=== PATIENT | female | born 1985 | race Caucasian/White ===

== ENCOUNTER → 2016-05-06 | Outpatient (CLI) | payer OTHER ==
[~2016-05-06] MED LIST: AMT50 PO; ASPI81TA28 PO; B-COTAB18 PO; CALC600T9 PO; DEPO PROVERA INJ; ESCI10TA17 PO; IBUP-1050 PO; IBUP-1427 PO; INSDGI INJ; INSU1INJ2 INJ; LEVO137T3 PO; LEVO175T3 PO; MULTTAB58 PO; ONDA4TAB9 PO; ONDA8TAB6 PO; OXYC-57 PO; SALI1SPR15 NAE; VITA1TAB4 PO
== END | disposition home or self-care (01) ==
LOC: C.LAB1850 12:42
PROVIDERS: ATTEND Registered Nurse
DX: A04.7 Enterocolitis due to Clostridium difficile (principal)

== ENCOUNTER → 2016-05-22 | Day surgery (SDC) | payer OTHER ==
[2016-05-13 09:22] VITALS: BMI 41.0
--- NOTE | 2016-05-13 09:52 | PAT Medication Instructions ---
Service Date May 13, 2016. Current Home Medication List Amitriptyline Hcl (Elavil), 25 MG PO HS Aspirin (Aspirin Ec), 81 MG PO QAM B-Complex Vitamins (Vitamin B Complex), 1 TAB PO QAM Calcium Carbonate-Vitamin D (Calcium + D), 1 TAB PO QAM Escitalopram (Lexapro), 10 MG PO QAM Ibuprofen (Advil), 400 MG PO PRN Insulin Aspart (Novolog Penfill), INJ SLIDING SCALE Insulin Glargine (Lantus), 42 UNITS INJ HS Levothyroxine Sodium (Levothyroxine Sodium), 1 TAB PO QAM Multiple Vitamin (Multivitamin), 1 TAB PO QAM Ondansetron (Ondansetron HCl), 4 MG PO Q8H PRN for RN Saline (Saline Nasal [place] Infant), 1 SPRY [place] PRN Vitamin E (Vitamin E), 400 MG PO QAM [Depo Provera], 1 DOSE INJ [id number] Medication Instructions For Your Scheduled Surgery - Check with surgeon/PCP for instructions: Aspirin (Aspirin Ec), 81 MG PO QAM Ibuprofen (Advil), 400 MG PO PRN - Continue as usual: [Depo Provera], 1 DOSE INJ [id number] - Hold the following medications starting 05/14/16: Vitamin E (Vitamin E), 400 MG PO QAM - Hold the following medications the morning of surgery: Multiple Vitamin (Multivitamin), 1 TAB PO QAM Insulin Aspart (Novolog Penfill), INJ SLIDING SCALE B-Complex Vitamins (Vitamin B Complex), 1 TAB PO QAM Calcium Carbonate-Vitamin D (Calcium + D), 1 TAB PO QAM - Take the following medications the morning of surgery with a sip of water: Saline (Saline Nasal [place] ), 1 SPRY [place] PRN Ondansetron (Ondansetron HCl), 4 MG PO Q8H PRN for RN Levothyroxine Sodium (Levothyroxine Sodium), 1 TAB PO QAM Escitalopram (Lexapro), 10 MG PO QAM - Take the following medications as scheduled the night before surgery: Saline (Saline Nasal [place] Infant), 1 SPRY [place] PRN Ondansetron (Ondansetron HCl), 4 MG PO Q8H PRN for RN Insulin Glargine (Lantus), 42 UNITS INJ HS Amitriptyline Hcl (Elavil), 25 MG PO HS If you have any questions please call us at [phone] (Kusum Soto PA-C) or [phone] or [phone]
[2016-05-13 10:43] LABS: BASO % 0.4 %; BASO ABS # 0.02 K/uL (0-0.2); COMPLETE YES; EOS % 2.8 %; HEMATOCRIT 39.1 % (37-47); IG% 0.2 %; LYMPH % 30.4 %; LYMPH ABS # 1.65 K/uL (1.2-3.4); MEAN CELL VOLUME 84.4 fL (80-100); MEAN CORPUSCULAR HEMOGLOBIN 29.2 pg (25-34); MEAN CORPUSCULAR HGB CONC 34.5 g/dl (32-36); MEAN PLATELET VOLUME 9.3 fL (7.4-10.4); MONO % 6.1 %; NEUT % 60.1 %; PLATELET COUNT 189 K/uL (130-400); RED BLOOD COUNT 4.63 M/uL (4.2-5.4); WHITE BLOOD COUNT 5.42 K/uL (4.8-10.8)
[~2016-05-22] VITALS: Ht 152.4 cm; Wt 96.8 kg
[~2016-05-22] MED LIST changes: +ALBUTEROL HFA INHALER 8.5 GM INH ONE; +ATROPINE SULFATE 0.1 MG/ML 5ML SYR IV PRN; +CONRAY 60% 50 ML VIAL INSTIL ONE; +DEXAMETHASONE SOD INJ 4 MG/ML VIAL ONE; +ESMOLOL HCL 10 MG/ML 10 ML VIAL ONE; +EpHEDrine SULFATE INJ 50 MG/ML AMP IV PRN; +FENTANYL CITRATE INJ 50 MCG/1 ML 2 ML VIAL IV PRN; +FENTANYL CITRATE INJ 50 MCG/1 ML 2 ML VIAL ONE; +FLUMAZENIL 0.1 MG/1 ML 10 ML VIAL IV PRN; +GLYCOPYRROLATE INJ 0.2 MG/ML VIAL ONE; +HYDROmorphone INJ 2 MG/ML SYR/VIAL IV PRN; -IBUP-1427 PO; +LABETALOL HCL IV 5 MG/ML 20ML IV PRN; +LACTATED RINGER'S 1000ML 1,000 ML IV SCH; -LEVO137T3 PO; +LIDOCAINE HCL 2% 2 ML VIAL (20MG/ML) ONE; +LIDOCAINE/EPINEPHRINE 1% 20 ML VIAL INJ ONE; +MEPERIDINE HCL 25 MG/ML CARP IV PRN; +METOPROLOL TARTRATE 1 MG/ML VIAL ONE; +MIDAZOLAM HCL 1 MG/ML 2ML VIAL ONE; +MoRPHine SULFATE 4 MG/ML 1 ML CARP\\VIAL IV PRN; +NALOXONE HCL 0.4 MG/1 ML VIAL/CARP IV PRN; +NEOSTIGMINE METHYLSULFATE 5 MG/5 ML SYR ONE; +NURSING VERBAL MED ORDER ONE; -ONDA8TAB6 PO; +ONDANSETRON INJ 2 MG/ML 2 ML VIAL IV PRN; +ONDANSETRON INJ 2 MG/ML 2 ML VIAL ONE; +OXYCODONE/ACETAMINOPHEN 5-325 TAB PO PRN; +PHENYLEPHRINE 100MCG/ML 5ML SYR IV PRN; +PROPOFOL IV EMULSION 10 MG/ML 20 ML VIAL IV ONE; +ROCURONIUM BROMIDE 10 MG/ML 5 ML VIAL ONE; +SODIUM CHLORIDE 0.9% INJ 10 ML VIAL ONE
[2016-05-22 09:28] VITALS: BP 116/62; PULSE 77; TEMP 36.7; O2SAT 96; Ht 152.4 cm; Wt 96.8 kg
--- NOTE | 2016-05-22 11:41 | History & Physical Bridge Note ---
H&P Re-Evaluation Bridge Note: I have examined the patient, reviewed the History & Physical and in the interval since the performance of the History & Physical I have noted the following changes of clinical significance: No changes noted so at bedside
--- NOTE | 2016-05-22 11:48 | Discharge Instructions ---
Discharge Instructions Visit Reason for Visit: Chronic Cholecystitis, Diabetes Discharge Discharge Diagnosis / Problem: laparoscopic cholecystectomy Discharge Goals Goal(s): Decrease discomfort Activity Recommendations Activity Limitations: per Instructions/Follow-up section Lifting Limitations: no more than 10 pounds Shower/Bathe: tomorrow Driving or Machine Use: resume 3 days after discharge Anesthesia . Post Anesthesia Instructions: If you have had General Anesthesia or IV Sedation: * Do not drive today. * Resume driving when surgeon permits. * Do not make important decisions or sign legal documents today. * Call surgeon for: 1. Temperature elevations greater than 101 degrees F. 2. Uncontrollable pain. 3. Excessive bleeding. 4. Persistent nausea and vomiting. 5. Medication intolerance (nausea, vomiting or rash). * For nausea and vomiting use only clear liquids such as: tea, soda, bouillon until nausea subsides, then gradually increase diet as tolerated. * If you have any concerns or questions, call your surgeon's office. If physician is unavailable and it is an emergency, call 911 or go to the nearest emergency room. . Instructions / Follow-Up Instructions / Follow-Up Dr. Arango in 1 week, call [phone] if you do not already have an appt Diet Recommendations Recommended Home Diet: no limitations Pending Studies Studies pending at discharge: no Medical Emergencies . Who to Call and When: Medical Emergencies: If at any time you feel your situation is an emergency, please call 911 immediately. . Non-Emergent Contact Non-Emergency issues call your: Surgeon Call Non-Emergent contact if: you have a fever, temperature is above 101.5, your pain is worsening, wound has increased redness, wound has increased pain . . "Provider Documentation" section prepared by Andrés Williamson.
--- NOTE | 2016-05-22 13:16 | DIAGNOSTIC IMAGING REPORT ---
INTRAOPERATIVE RADIOGRAPHS CLINICAL HISTORY: Intraoperative cholangiogram. Fluoroscopy time: 5 seconds. FINDINGS: 2 spot fluoroscopic images of the right upper quadrant from an intraoperative cholangiogram are correlated with abdominal CT dated 01/18/2016. There is smooth contrast opacification of the common bile duct which is normal in caliber. There is no intrahepatic biliary ductal dilatation. No filling defects identified to suggest choledocholithiasis. There is free passage of contrast into the duodenum. IMPRESSION: There is no evidence of choledocholithiasis on the provided images. See operative report for detailed findings. Electronically signed by: Bairon Hagen M.D. 05/22/2016 1:14 PM Dictated Date/Time: 05/22/2016 1:12 PM
--- NOTE | 2016-05-22 13:19 | [facility] Post Operative Brief Note ---
Immediate Operative Summary Operative Date May 22, 2016. Pre-Operative Diagnosis Chronic Cholecystitis Post-Operative Diagnosis Chronic Cholecystitis Procedure(s) Performed Laparoscopic Cholecystectomy with Cholangiogram Surgeon Dr. Shadi Arango Saw Boss Surgeon(s) Andrés Williamson PA-C Estimated Blood Loss 5 ml Findings cc omental adhesions to gallbladder Specimens A. Gallbladder
--- NOTE | 2016-05-22 13:52 | OPERATIVE REPORT ---
DATE OF OPERATION: 05/22/2016 PREOPERATIVE DIAGNOSIS: Chronic cholecystitis, cholelithiasis. POSTOPERATIVE DIAGNOSIS: Same. PROCEDURE: Laparoscopic cholecystectomy, intraoperative cholangiogram. SURGEON: Dr. Arango. OBSTETRICIAN AND GYNAECOLOGIST: Richie Williamson PA-C. OPERATION AND FINDINGS: SUMMARY: The patient was brought into the operating room theater. The abdomen was prepped with Betadine solution and properly draped. Time-out was had. A small incision was made supraumbilically, Veress needle introduced, CO2 followed by 5 mm trocar. Point of entry inspected and no injury identified. Under direct visualization, we placed a 5 mm epigastric with two 5 mm subcostal ports with preemptive local analgesia 1% Xylocaine. The gallbladder was identified. We could see the fundus, elevated it up, strictly omental adhesions in the area were quite significant. We took this down mostly with blunt dissection, a few where sharp dissection until we got down towards the neck of the gallbladder where we could see fine bands of the duodenum going up to the area. We freed these up easily without injuring any duodenum. At this point, we tried to get into the triangle of Calot, identified a very small cystic duct. Therefore, we choked up on it proximally onto the gallbladder to the area to an area that was able to place a 5 mm clip and just at the takeoff of the cystic duct, the caliber seemed to be larger . I was able to place a #4 ureteral catheter transversed the abdominal wall and a 14 Angiocath. Serial x-rays were taken, showed free flow into the duodenum. No obstruction. At this point the cholangiocatheter was removed. The cystic duct was doubly clipped securely. Gallbladder was removed in the antegrade fashion, first identified the artery which was doubly clipped and divided as it went into the gallbladder. A few smaller branches in the liver fossa were also cauterized and one was clipped. Gallbladder was removed in total, placed in an Endopouch and taken out intact through the epigastric port. The subhepatic and suprahepatic area checked for hemostasis and appeared satisfactory. A few small oozers in the gallbladder fossa was cauterized. At this point, I placed a camera in the subcostal port to visualize the umbilical area. There were no adhesions identified. Pt did have some adhesions down towards the lower Pfannenstiel type of incision. We did not touch this. The patient also had a known Meckel's or suspected Meckel's. I did not go looking for it. The subhepatic suprahepatic area was suctioned out copiously again with individual trocars removed, last umbilical trocar. Wounds were closed with subcutaneous tissue 4-0 Monocryl. Steri-Strips applied. The procedure was tolerated well by the patient and was taken to recovery room in good condition. I attest to the content of the Intraoperative Record and any orders documented therein. Any exceptions are noted below. CASSIDYD
--- NOTE | 2016-05-22 14:18 | Anesthesiology Progress Note ---
Anesthesia Post Op Note Date & Time May 22, 2016 at 14:18 Vital Signs Pain Intensity: 0 Vital Signs Past 12 Hours Date Time Temp Pulse Resp B/P Pulse Ox O2 Delivery O2 Flow Rate FiO2 05/22/16 14:05 105 123/84 05/22/16 13:50 105 20 140/83 99 Nasal Cannula 2 05/22/16 13:40 113 19 141/82 97 Mask 10 05/22/16 13:40 113 141/82 05/22/16 13:30 111 22 139/74 99 Mask 10 05/22/16 13:23 36.8 98 18 136/79 100 Mask 10 05/22/16 09:28 36.7 77 18 116/62 96 Room Air Notes Mental Status: alert / awake / arousable, participated in evaluation Pt Amnestic to Procedure: Yes Nausea / Vomiting: adequately controlled Pain: adequately controlled Airway Patency, RR, SpO2: stable & adequate BP & HR: stable & adequate Hydration State: stable & adequate Anesthetic Complications: no major complications apparent
[2016-05-22 14:28] VITALS: BP 115/69; PULSE 101; TEMP 37.1; O2SAT 93
[2016-05-22 15:00] VITALS: BP 117/70; PULSE 96; O2SAT 93
[2016-05-22 15:30] VITALS: BP 95/76; PULSE 103; TEMP 37; O2SAT 93
[2016-05-22 15:55] VITALS: BP 149/76; PULSE 96; O2SAT 96
== END | disposition home or self-care (01) ==
LOC: C.ACU 08:59
PROVIDERS: ATTEND Surgery
DX: K82.4 Cholesterolosis of gallbladder (principal); E78.5 Hyperlipidemia, unspecified; N91.2 Amenorrhea, unspecified; E03.9 Hypothyroidism, unspecified; F43.22 Adjustment disorder with anxiety; E66.9 Obesity, unspecified; G47.30 Sleep apnea, unspecified

== ENCOUNTER → 2016-07-04 | Outpatient (CLI) | payer OTHER ==
[~2016-07-04] MED LIST changes: -ALBUTEROL HFA INHALER 8.5 GM INH ONE; -ATROPINE SULFATE 0.1 MG/ML 5ML SYR IV PRN; -CONRAY 60% 50 ML VIAL INSTIL ONE; -DEXAMETHASONE SOD INJ 4 MG/ML VIAL ONE; -ESMOLOL HCL 10 MG/ML 10 ML VIAL ONE; -EpHEDrine SULFATE INJ 50 MG/ML AMP IV PRN; -FENTANYL CITRATE INJ 50 MCG/1 ML 2 ML VIAL IV PRN; -FENTANYL CITRATE INJ 50 MCG/1 ML 2 ML VIAL ONE; -FLUMAZENIL 0.1 MG/1 ML 10 ML VIAL IV PRN; -GLYCOPYRROLATE INJ 0.2 MG/ML VIAL ONE; -HYDROmorphone INJ 2 MG/ML SYR/VIAL IV PRN; -LABETALOL HCL IV 5 MG/ML 20ML IV PRN; -LACTATED RINGER'S 1000ML 1,000 ML IV SCH; -LIDOCAINE HCL 2% 2 ML VIAL (20MG/ML) ONE; -LIDOCAINE/EPINEPHRINE 1% 20 ML VIAL INJ ONE; -MEPERIDINE HCL 25 MG/ML CARP IV PRN; -METOPROLOL TARTRATE 1 MG/ML VIAL ONE; -MIDAZOLAM HCL 1 MG/ML 2ML VIAL ONE; -MoRPHine SULFATE 4 MG/ML 1 ML CARP\\VIAL IV PRN; -NALOXONE HCL 0.4 MG/1 ML VIAL/CARP IV PRN; -NEOSTIGMINE METHYLSULFATE 5 MG/5 ML SYR ONE; -NURSING VERBAL MED ORDER ONE; -ONDANSETRON INJ 2 MG/ML 2 ML VIAL IV PRN; -ONDANSETRON INJ 2 MG/ML 2 ML VIAL ONE; -OXYCODONE/ACETAMINOPHEN 5-325 TAB PO PRN; -PHENYLEPHRINE 100MCG/ML 5ML SYR IV PRN; -PROPOFOL IV EMULSION 10 MG/ML 20 ML VIAL IV ONE; -ROCURONIUM BROMIDE 10 MG/ML 5 ML VIAL ONE; -SODIUM CHLORIDE 0.9% INJ 10 ML VIAL ONE
[2016-07-04 09:45] LABS: BASO % 0.2 %; BASO ABS # 0.01 K/uL (0-0.2); COMPLETE YES; EOS % 1.5 %; HEMATOCRIT 38.3 % (37-47); IG% 0.4 %; LYMPH % 30.7 %; LYMPH ABS # 1.66 K/uL (1.2-3.4); MEAN CELL VOLUME 85.3 fL (80-100); MEAN CORPUSCULAR HEMOGLOBIN 29.8 pg (25-34); MEAN PLATELET VOLUME 9.6 fL (7.4-10.4); NEUT % 60.2 %; PLATELET COUNT 171 K/uL (130-400); RED BLOOD COUNT 4.49 M/uL (4.2-5.4)
[2016-07-04 10:11] LABS: THYROID STIMULATING HORMONE 0.296 uIu/ml (0.300-4.500)
[2016-07-04 10:15] LABS: ESTIMATED AVERAGE GLUCOSE 128 mg/dl; HA1C FLAG Normal (Normal)
== END | disposition home or self-care (01) ==
LOC: C.LAB1850 08:06
PROVIDERS: ATTEND Internal Medicine Endocrinology, Diabetes & Metabolism
DX: Z01.812 Encounter for preprocedural laboratory examination (principal); E11.9 Type 2 diabetes mellitus without complications; K81.1 Chronic cholecystitis; E03.9 Hypothyroidism, unspecified

== ENCOUNTER → 2016-09-01 | Outpatient (CLI) | payer OTHER ==
--- NOTE | 2016-09-01 15:57 | MAMMOGRAPHY REPORT ---
ULTRASOUND OF BOTH BREASTS: 09/01/2016 CLINICAL HISTORY: 30-year-old woman presents with bilateral breast pain that has been fluctuating ov er the past 2 years. Pain is in the periareolar left breast and throughout the entire right breast. Patient also reports occasional clear nipple discharge. Family history of breast cancer = several aunts. COMPARISON: No prior exams were available for comparison. FINDINGS: Real-time high-resolution ultrasound was performed in the periareolar/subareolar left melissa ast, and entire right breast evaluate the areas of pain pointed out by the patient. Normal fibrogla ndular tissue is seen without a suspicious solid or cystic mass. Incidental note is made of minimal benign duct ectasia in the subareolar left breast. IMPRESSION: ACR BI-RADS CATEGORY 2: BENIGN There is no sonographic evidence of malignancy, or other suspicious abnormality to explain the bilat eral nonfocal mastalgia. Clinical follow-up is recommended. Conservative treatments such as minera l supplements, evening primrose oil and NSAIDs were discussed with the patient, as well as surgical consultation if the mastalgia increases. These results and recommendations were discussed with the patient at the time of the exam. Marielos Yoon M.D. ay/:09/01/2016 15:21:17 Nursing Resident: Donya GRIFFITHS)([place]), [facility] letter sent: Normal 1/2 BI-RADS Code: ACR BI-RADS Category 2: Benign
== END | disposition home or self-care (01) ==
LOC: C.MAMM 11:01
PROVIDERS: ATTEND Physician Assistant
DX: N64.4 Mastodynia (principal)

== ENCOUNTER → 2016-10-30 | Outpatient (CLI) | payer OTHER ==
[2016-10-30 10:42] LABS: THYROID STIMULATING HORMONE 3.38 uIu/ml (0.300-4.500)
== END | disposition home or self-care (01) ==
LOC: C.LAB1850 09:22
PROVIDERS: ATTEND Internal Medicine
DX: E03.9 Hypothyroidism, unspecified (principal); R20.2 Paresthesia of skin

== ENCOUNTER → 2016-11-13 | Outpatient (CLI) | payer OTHER ==
[2016-11-17 16:38] LABS: IGA SERUM 115 mg/dL (81-463); TIS TRANS IGA 1 U/mL (<4)
== END | disposition home or self-care (01) ==
LOC: C.LAB1850 11:55
PROVIDERS: ATTEND Physician Assistant
DX: E11.9 Type 2 diabetes mellitus without complications (principal)

== ENCOUNTER → 2017-01-08 | Outpatient (CLI) | payer OTHER ==
[~2017-01-08] MED LIST changes: -OXYC-57 PO
[2017-01-08 10:15] LABS: ESTIMATED AVERAGE GLUCOSE 103 mg/dl; HA1C FLAG Normal (Normal)
[2017-01-08 10:41] LABS: THYROID STIMULATING HORMONE 1.68 uIu/ml (0.300-4.500)
== END | disposition home or self-care (01) ==
LOC: C.LAB1850 08:53
PROVIDERS: ATTEND Internal Medicine Endocrinology, Diabetes & Metabolism
DX: E03.9 Hypothyroidism, unspecified (principal); E88.81 Metabolic syndrome and other insulin resistance

== ENCOUNTER 2020-04-10 21:28 | Inpatient (IN) ==
--- NOTE | 2020-04-10 21:49 | Emergency Department Note ---
Impression & Plan Suicidal ideation, Mood disorder, Elevated blood sugar ED Provider Note NAME: JEFFERY EMANUEL AGE: 34 SEX: F : 1985 ARRIVES VIA: Walk-In INFORMANT: Patient ED PROVIDER(S): Aaron Gaona DO CHIEF COMPLAINT: SI w/ plan HPI: Patient is a 34-year-old female with a past medical history of depression, Dm who presents to the ER for suicidal ideations with a plan to cut her wrist to kill her self. She was evaluated in the field by can help and they referred her in for further evaluation. She has no other complaints at this time with the exception of mild headache. She denies any chest pain, shortness of breath, nausea, vomiting or diarrhea. No dysuria, urgency or frequency. CYS was called on her in February. Previous admission last in 2006. Starting cutting three weeks ago. ROS: See above HPI for pertinent positives & negatives. A total of 10 systems reviewed and were otherwise negative. PAST MEDICAL HISTORY:See Below PAST SURGICAL HISTORY:See Below FAMILY HISTORY:See Below SOCIAL HISTORY:See Below HOME MEDICATIONS:See Below ALLERGIES:See Below VITALS:See Below PHYSICAL EXAMINATION: GENERAL: Sitting up in bed, alert, tearful and crying EYE EXAM: Conjunctive injected OROPHARYNX: Mask in place LUNGS: Clear to auscultation. Normal chest wall mechanics HEART: no murmurs, S1 normal and S2 normal ABDOMEN: abdomen soft, non-tender, normo-active bowel sounds, no masses, no rebound or guarding. UPPER EXTREMITIES: upper extremities are grossly normal. LOWER EXTREMITIES: No pitting edema. NEURO EXAM: Normal sensorium, cranial nerves II-XII grossly intact, normal speech, no gross weakness of arms, no gross weakness of legs. PSYCH: Admits to suicidal ideations with a plan to kill her self by cutting her wrist MEDICAL DECISION MAKING: Patient is a 34-year-old female who presents the ER for suicidal ideations with a plan to cut her wrist to kill her self. She has become more depressed and CYS was called on her back in February. This been gradually getting worse. She has no other complaints at this time with the exception of a mild headache. Labs were obtained and showed no significant leukocytosis or anemia. BMP with mild hyponatremia. LFTs were slightly elevated at 122 consistent with previous. Glucose slightly elevated to 80. Patient was given her Humalog. UA was clearly contaminated with these. She has no urinary symptoms. Tox was unremarkable. Covid was negative. Patient was instructed to [facility] 221. Observation Status: Indication: Medical stability Patient with a family history of heart disease, was seen first at 2140 hrs and was necessary in order to determine medical stability and avoid unnecessary admission. Upon reevaluation, 4.5 hours of observation revealed that the patient should be placed in a psychiatric facility. Patient was accepted to 3 [facility] 0 200 on 04/11/2020 Triage Nursing notes reviewed. Prior medical records reviewed Vital Signs: reviewed and remarkable for no significant abnormalities Differential diagnosis: Mood disorder, infection, hypoglycemia, electrolyte abnormalities, cardiac sources, intracerebral event, toxicologic, trauma, neurologic, as well as other pathologies. ER treatment provided: See below Diagnostics interpreted by me: ECG: none Laboratory studies: As stated above and show below. Imaging studies: none Consultation(s): none ED COURSE: Procedures: none Critical Care: None Past Med/Surg History Medical History (Updated 04/11/20 @ 00:33 by Aaron Gaona DO) Abdominal pain Adjustment disorder with anxiety DM type 2 (diabetes mellitus, type 2) IDDM Dysmetabolic syndrome X History of anesthesia reaction with 1st "anesthesia began wearing off and could feel the surgery" Hypertriglyceridemia Hypothyroidism 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 Lung nodule seen on imaging study per pt on CT scan--just monitoring Meckel diverticulum Migraine Mixed conductive and sensorineural hearing loss of both ears JACKSON (nonalcoholic steatohepatitis) Obesity Seizure grand mal--last was at 7yrs old--was on phenobarbital, no meds now--no neurologist Sleep apnea cpap Suspected 2018 novel coronavirus infection Tachycardia Surgical History History of section x3 History of colonoscopy Previous section S/P cholecystectomy Family History Unknown FHx: kidney cancer Hyperlipidemia Lung cancer Hypertension Brother Marfan syndrome Congenital heart disease Father Stroke Family history of diabetes mellitus Myocardial infarction Mother Cancer Uterine cancer Stroke TIA (transient ischemic attack) Grandfather (Paternal) Family history of diabetes mellitus Uncle Family hx of colon cancer Colon cancer Colorectal cancer Aunt Breast cancer Son Crohn's disease, Onset Age: 2 Other No family history of adverse response to anesthesia Denies family history of Rheumatoid arthritis Pulmonary embolism Ulcerative colitis Social History Smoking Status: Current every day smoker Tobacco Type: Cigarettes Second Hand Exposure: Yes (family smokes); Hx Alcohol Use: Yes Alcohol type: hard liquor Hx Substance Use: No Preferred Language: Chinese Communication Ability: Effective Bung Driver Required: No Beliefs That Will Affect Care: None marital status: Current Living Situation: Spouse and Family Current Living Situation Comment: lives with and kids current occupational status: employed Feels Safe at Home: Yes Childhood Exposure to Second-Hand Smoke: Yes Dental Care, Regularly: No Physical Activity Frequency: Daily Seatbelt Use: always Sunscreen Use: Yes Assistive Devices: CPAP and Glasses Allergies Allergies Allergy/AdvReac Type Severity Reaction Status Date / Time pseudoephedrine Allergy Mild nausea and Verified 04/10/20 22:42 vomiting Home Meds Home Medications Medication Instructions Recorded Confirmed calcium carbonate [Calcium 600] 600 mg PO QAM 10/26/18 04/10/20 cholecalciferol (vitamin D3) 5,000 unit PO QAM 10/26/18 04/10/20 [Vitamin D3] multivitamin 1 tab PO QAM 10/26/18 04/10/20 vitamin E 400 unit PO QAM 10/26/18 04/10/20 cyanocobalamin (vitamin B-12) 500 mcg PO QAM 11/18/18 04/10/20 wheat dextrin 3 gram/3.8 gram oral 1.5 gm PO BID 10/04/19 04/10/20 powder aspirin 81 mg PO DAILY 04/10/20 04/10/20 Previous Rx's Medication Instructions Recorded potassium chloride 20 mEq 20 meq PO DAILY #7 tab 03/27/19 tablet,extended release(part/cryst) blood-glucose meter,continuous #1 ea 05/16/19 blood-glucose sensor #3 ea 05/16/19 blood-glucose transmitter #1 ea 05/16/19 cyanocobalamin (vitamin B-12) 1,000 mcg IM MONTHLY 180 Days #6 ml 06/07/19 1,000 mcg/mL injection solution ondansetron 4 mg disintegrating 4 mg PO Q8H PRN #30 tab 06/07/19 tablet sumatriptan succinate 50 mg tablet See Rx Instructions PO .COMPLEX 06/07/19 #10 tab blood sugar diagnostic #200 ea 07/06/19 insulin lispro 100 unit/mL See Rx Instructions SUBCUT 07/06/19 subcutaneous solution .COMPLEX PRN #180 ml albuterol sulfate 90 mcg/actuation 1 - 2 puffs INH QID PRN #6.7 gm 08/19/19 aerosol inhaler Saccharomyces boulardii 250 mg 250 mg PO DAILY #90 cap 11/29/19 capsule cholestyramine (with sugar) 4 gram 4 g PO TID #60 ea 01/31/20 powder for susp in a packet gabapentin 400 mg capsule 400 mg PO BID #60 cap 01/31/20 sucralfate 100 mg/mL oral 5 ml PO QID #420 ml 01/31/20 suspension amitriptyline 10 mg tablet 10 mg PO HS #90 tab 03/02/20 ergocalciferol (vitamin D2) 1,250 50,000 unit PO WK #12 cap 03/02/20 mcg (50,000 unit) capsule escitalopram oxalate 20 mg tablet 20 mg PO DAILY #90 tab 03/02/20 famotidine 20 mg tablet 20 mg PO HS #90 tab 03/02/20 levothyroxine 175 mcg tablet 175 mcg PO QAM #90 tab 03/02/20 metoprolol tartrate 25 mg tablet 25 mg PO BID #180 tab 03/02/20 omeprazole 20 mg capsule,delayed 20 mg PO QAM #90 cap 03/02/20 release pravastatin 10 mg tablet 10 mg PO DAILY #90 tab 03/02/20 buspirone 10 mg tablet 10 mg PO TID #90 tab 03/05/20 Results & Data (ED) Vital Signs Vital Signs - 24 hr 04/10/20 21:32 04/10/20 23:24 Temperature 36.6 C Temperature Source Axillary Pulse Rate 122 H Pulse Rate [Right Finger] 102 H Respiratory Rate 16 17 Respiratory Effort / Characteristics Non-Labored Respiratory Depth Normal Normal Blood Pressure 135/92 Blood Pressure [Left Arm] 102/73 Blood Pressure Mean 106 Blood Pressure Mean [Left Arm] 82 Pulse Oximetry 96 98 Oxygen Delivery Method Room Air Room Air Sepsis Recent Fever Within 48 Hours No Sepsis New/Unexplained Change in Mental Status No Sepsis Action Taken by Nursing No Action Required Laboratory Data Result diagrams: 04/10/20 21:58 04/10/20 21:58 Lab Results 04/10/20 04/10/20 04/10/20 Range/Units 21:58 21:58 21:58 WBC 5.55 (4.8-10.8) K/uL RBC 4.77 (4.2-5.4) M/uL Hgb 13.7 (12.0-16.0) g/dL Hct 40.6 (37-47) % MCV 85.1 (80-100) fL MCH 28.7 (25-34) pg MCHC 33.7 (32-36) g/dL RDW Std Deviation 42.6 (36.4-46.3) fL RDW Coeff of Justin 13.7 (11.5-14.5) % Plt Count 204 (130-400) K/uL MPV 8.9 (7.4-10.4) fL Immature Gran % (Auto) 0.4 % Neut % (Auto) 58.7 % Lymph % (Auto) 33.5 % [place] % (Auto) 5.4 % Eos % (Auto) 1.8 % Baso % (Auto) 0.2 % Neut # (Auto) 3.26 (1.4-6.5) K/uL Lymph # (Auto) 1.86 (1.2-3.4) K/uL [place] # (Auto) 0.30 (0.11-0.59) K/uL Eos # (Auto) 0.10 (0-0.5) K/uL Baso # (Auto) 0.01 (0-0.2) K/uL Immature Gran # (Auto) 0.02 (0.00-0.02) K/uL Sodium 132 L (136-145) mmol/L Potassium 4.2 (3.5-5.1) mmol/L Chloride 99 (98-107) mmol/L Carbon Dioxide 26 (21-32) mmol/L Anion Gap 7.0 (3-11) BUN 12 (7-18) mg/dl Creatinine 0.93 (0.6-1.2) mg/dl Est Cr Clr Drug Dosing 89.3 ml/min Est GFR ( Amer) 93.6 Est GFR (Non-Af Amer) 80.8 BUN/Creatinine Ratio 13.0 (10-20) Glucose 280 H (70-99) mg/dl POC Glucose (70-99) mg/dl Calcium 8.9 (8.5-10.1) mg/dl Total Bilirubin 0.8 (0.2-1) mg/dl AST 74 H (15-37) U/L ALT 122 H (12-78) U/L Alkaline Phosphatase 89 (45-117) U/L Total Protein 8.1 (6.4-8.2) gm/dl Albumin 3.7 (3.4-5.0) gm/dl Globulin 4.4 H (2.5-4.0) gm/dl Albumin/Globulin Ratio 0.8 L (0.9-2) TSH 4.800 H (0.300-4.500) uIu/ml Free T4 1.04 (0.8-1.6) ng/dl Urine Color Urine Appearance (Clear) Urine pH (4.5-7.5) Ur Specific [place] (1.000-1.030) Urine Protein (Negative) Urine Glucose (UA) (Negative) Urine Ketones (Negative) Urine Blood (Negative) Urine Nitrite (Negative) Urine Bilirubin (Negative) Urine Urobilinogen (Negative) Ur Leukocyte Esterase (Negative) Urine RBC (0-4) /hpf Urine WBC (0-5) /hpf Ur Epithelial Cells (0-5) /lpf Urine Bacteria (Negative) Urine Yeast (None Prsent) Urine Test (Negative) Salicylates < 1.7 L (2.8-20) mg/dl Urine Opiates Screen (Neg) Ur Methadone, Qual (Neg) Acetaminophen < 2 L (10-30) ug/ml Urine Barbiturates (Neg) Ur Phencyclidine (PCP) (Neg) U Amphetamin/Meth Scrn (Neg) MDMA (Ecstasy) Screen (Neg) U Benzodiazepines Scrn (Neg) Ur Cocaine Metabolite (Neg) U Marijuana (THC) Screen (Neg) Ethyl Alcohol mg/dL (0-3) mg/dl SARS-CoV-2 Ag (Rapid) (Negative) 04/10/20 04/10/20 04/10/20 Range/Units 21:58 22:06 22:06 WBC (4.8-10.8) K/uL RBC (4.2-5.4) M/uL Hgb (12.0-16.0) g/dL Hct (37-47) % MCV (80-100) fL MCH (25-34) pg MCHC (32-36) g/dL RDW Std Deviation (36.4-46.3) fL RDW Coeff of Justin (11.5-14.5) % Plt Count (130-400) K/uL MPV (7.4-10.4) fL Immature Gran % (Auto) % Neut % (Auto) % Lymph % (Auto) % [place] % (Auto) % Eos % (Auto) % Baso % (Auto) % Neut # (Auto) (1.4-6.5) K/uL Lymph # (Auto) (1.2-3.4) K/uL [place] # (Auto) (0.11-0.59) K/uL Eos # (Auto) (0-0.5) K/uL Baso # (Auto) (0-0.2) K/uL Immature Gran # (Auto) (0.00-0.02) K/uL Sodium (136-145) mmol/L Potassium (3.5-5.1) mmol/L Chloride (98-107) mmol/L Carbon Dioxide (21-32) mmol/L Anion Gap (3-11) BUN (7-18) mg/dl Creatinine (0.6-1.2) mg/dl Est Cr Clr Drug Dosing ml/min Est GFR ( Amer) Est GFR (Non-Af Amer) BUN/Creatinine Ratio (10-20) Glucose (70-99) mg/dl POC Glucose (70-99) mg/dl Calcium (8.5-10.1) mg/dl Total Bilirubin (0.2-1) mg/dl AST (15-37) U/L ALT (12-78) U/L Alkaline Phosphatase (45-117) U/L Total Protein (6.4-8.2) gm/dl Albumin (3.4-5.0) gm/dl Globulin (2.5-4.0) gm/dl Albumin/Globulin Ratio (0.9-2) TSH (0.300-4.500) uIu/ml Free T4 (0.8-1.6) ng/dl Urine Color Yellow Urine Appearance Clear (Clear) Urine pH 6.0 (4.5-7.5) Ur Specific [place] 1.025 (1.000-1.030) Urine Protein Negative (Negative) Urine Glucose (UA) 2+ H (Negative) Urine Ketones 1+ H (Negative) Urine Blood 3+ H (Negative) Urine Nitrite Negative (Negative) Urine Bilirubin Negative (Negative) Urine Urobilinogen Negative (Negative) Ur Leukocyte Esterase Negative (Negative) Urine RBC 0-4 (0-4) /hpf Urine WBC 5-10 H (0-5) /hpf Ur Epithelial Cells 0-5 (0-5) /lpf Urine Bacteria 1+ H (Negative) Urine Yeast Budding A (None Prsent) Urine Test (Negative) Salicylates (2.8-20) mg/dl Urine Opiates Screen Neg (Neg) Ur Methadone, Qual Neg (Neg) Acetaminophen (10-30) ug/ml Urine Barbiturates Neg (Neg) Ur Phencyclidine (PCP) Neg (Neg) U Amphetamin/Meth Scrn Neg (Neg) MDMA (Ecstasy) Screen Neg (Neg) U Benzodiazepines Scrn Neg (Neg) Ur Cocaine Metabolite Neg (Neg) U Marijuana (THC) Screen Neg (Neg) Ethyl Alcohol mg/dL < 3.0 (0-3) mg/dl SARS-CoV-2 Ag (Rapid) (Negative) 04/10/20 04/10/20 04/10/20 Range/Units 22:06 22:16 22:24 WBC (4.8-10.8) K/uL RBC (4.2-5.4) M/uL Hgb (12.0-16.0) g/dL Hct (37-47) % MCV (80-100) fL MCH (25-34) pg MCHC (32-36) g/dL RDW Std Deviation (36.4-46.3) fL RDW Coeff of Justin (11.5-14.5) % Plt Count (130-400) K/uL MPV (7.4-10.4) fL Immature Gran % (Auto) % Neut % (Auto) % Lymph % (Auto) % [place] % (Auto) % Eos % (Auto) % Baso % (Auto) % Neut # (Auto) (1.4-6.5) K/uL Lymph # (Auto) (1.2-3.4) K/uL [place] # (Auto) (0.11-0.59) K/uL Eos # (Auto) (0-0.5) K/uL Baso # (Auto) (0-0.2) K/uL Immature Gran # (Auto) (0.00-0.02) K/uL Sodium (136-145) mmol/L Potassium (3.5-5.1) mmol/L Chloride (98-107) mmol/L Carbon Dioxide (21-32) mmol/L Anion Gap (3-11) BUN (7-18) mg/dl Creatinine (0.6-1.2) mg/dl Est Cr Clr Drug Dosing ml/min Est GFR ( Amer) Est GFR (Non-Af Amer) BUN/Creatinine Ratio (10-20) Glucose (70-99) mg/dl POC Glucose 278 H (70-99) mg/dl Calcium (8.5-10.1) mg/dl Total Bilirubin (0.2-1) mg/dl AST (15-37) U/L ALT (12-78) U/L Alkaline Phosphatase (45-117) U/L Total Protein (6.4-8.2) gm/dl Albumin (3.4-5.0) gm/dl Globulin (2.5-4.0) gm/dl Albumin/Globulin Ratio (0.9-2) TSH (0.300-4.500) uIu/ml Free T4 (0.8-1.6) ng/dl Urine Color Urine Appearance (Clear) Urine pH (4.5-7.5) Ur Specific [place] (1.000-1.030) Urine Protein (Negative) Urine Glucose (UA) (Negative) Urine Ketones (Negative) Urine Blood (Negative) Urine Nitrite (Negative) Urine Bilirubin (Negative) Urine Urobilinogen (Negative) Ur Leukocyte Esterase (Negative) Urine RBC (0-4) /hpf Urine WBC (0-5) /hpf Ur Epithelial Cells (0-5) /lpf Urine Bacteria (Negative) Urine Yeast (None Prsent) Urine Test Negative (Negative) Salicylates (2.8-20) mg/dl Urine Opiates Screen (Neg) Ur Methadone, Qual (Neg) Acetaminophen (10-30) ug/ml Urine Barbiturates (Neg) Ur Phencyclidine (PCP) (Neg) U Amphetamin/Meth Scrn (Neg) MDMA (Ecstasy) Screen (Neg) U Benzodiazepines Scrn (Neg) Ur Cocaine Metabolite (Neg) U Marijuana (THC) Screen (Neg) Ethyl Alcohol mg/dL (0-3) mg/dl SARS-CoV-2 Ag (Rapid) Negative (Negative) Administered Medications Gabapentin (Gabapentin 400 Mg Cap) 400 mg PO BID TED Stop: 05/11/20 00:44 Last Admin: 04/11/20 01:22 Dose: 400 mg Documented by: [id number] Discontinued Medications Acetaminophen (Acetaminophen 325 Mg Tab) 650 mg PO NOW STA Stop: 04/10/20 23:45 Last Admin: 04/11/20 00:05 Dose: 650 mg Documented by: [id number] Amitriptyline HCl (Amitriptyline Hcl 10 Mg Tab) 10 mg PO NOW STA Stop: 04/11/20 00:39 Last Admin: 04/11/20 01:22 Dose: 10 mg Documented by: [id number] Insulin Lispro Protam/Lispro Human (Insulin Lispro 75%/25%) 8 units SC NOW STA Stop: 04/10/20 23:45 Last Admin: 04/11/20 00:04 Dose: 8 units Documented by: [id number] Cosigned by: [id number] Discharge Plan Visit Data Chief Complaint: Mental Health Evaluation Stated Complaint: MENTAL HEALTH EVAL ED Provider: Aaron Gaona Discharge Problem: Suicidal ideation, Mood disorder, Elevated blood sugar Discharge Instructions Interventions: ED Discharge Assessment Last Done: 04/11/20 01:54 Forms Stand Alone Forms: [facility], Suicide Prevention Resources Prescriptions Prescriptions: No Action (DME) Dexcom G6 Collector Misc See Rx Instructions .ROUTE .MEDSUPPLY Qty: 1 RF: 0 (DME) Dexcom G6 Sensor Device See Rx Instructions .ROUTE .MEDSUPPLY Qty: 3 RF: 11 (DME) Dexcom G6 Transmitter Device See Rx Instructions .ROUTE .MEDSUPPLY Qty: 1 RF: 3 (DME) FreeStyle Lite Strips Strip See Rx Instructions .ROUTE .MEDSUPPLY Qty: 200 RF: 2 insulin lispro [Humalog U-100 Insulin] 100 unit/mL solution See Rx Instructions subcut .COMPLEX PRN (Reason: per sliding scale) Qty: 180 RF: 3 Saccharomyces boulardii [Florastor] 250 mg capsule 250 mg PO DAILY Qty: 90 RF: 3 amitriptyline 10 mg tablet 10 mg PO HS Qty: 90 RF: 3 ergocalciferol (vitamin D2) [Vitamin D2] 1,250 mcg (50,000 unit) capsule 50,000 unit PO WK Qty: 12 RF: 3 escitalopram oxalate [Lexapro] 20 mg tablet 20 mg PO DAILY Qty: 90 RF: 3 famotidine 20 mg tablet 20 mg PO HS Qty: 90 RF: 3 levothyroxine 175 mcg tablet 175 mcg PO QAM Qty: 90 RF: 3 metoprolol tartrate 25 mg tablet 25 mg PO BID Qty: 180 RF: 3 omeprazole 20 mg capsule,delayed release(DR/EC) 20 mg PO QAM Qty: 90 RF: 3 pravastatin 10 mg tablet 10 mg PO DAILY Qty: 90 RF: 3 buspirone 10 mg tablet 10 mg PO TID Qty: 90 RF: 2 sumatriptan succinate [Imitrex] 50 mg tablet See Rx Instructions PO .COMPLEX Qty: 10 RF: 5 ondansetron 4 mg tablet,disintegrating 4 mg PO Q8H PRN (Reason: Nausea) Qty: 30 RF: 3 cyanocobalamin (vitamin B-12) 1,000 mcg/mL solution 1,000 mcg IM MONTHLY 180 Days Qty: 6 RF: 0 sucralfate [Carafate] 100 mg/mL suspension 5 ml PO QID Qty: 420 RF: 3 cholestyramine (with sugar) 4 gram powder in packet 4 g PO TID Qty: 60 RF: 2 gabapentin 400 mg capsule 400 mg PO BID Qty: 60 RF: 2 Benefiber Sugar Free (dextrin) 3 gram/3.8 gram powder 1.5 gm PO BID RF: 0 albuterol sulfate 90 mcg/actuation HFA aerosol inhaler 1 - 2 puffs INH QID PRN (Reason: shortness of breath or wheezing) Qty: 6.7 RF: 2 multivitamin Tablet 1 tab PO QAM RF: 0 calcium carbonate [Calcium 600] 600 mg calcium (1,500 mg) Tablet 600 mg PO QAM RF: 0 vitamin E 400 unit Capsule 400 unit PO QAM RF: 0 cholecalciferol (vitamin D3) [Vitamin D3] 5,000 unit Tablet 5,000 unit PO QAM RF: 0 aspirin 81 mg Tablet 81 mg PO DAILY RF: 0 cyanocobalamin (vitamin B-12) 500 mcg Tablet 500 mcg PO QAM RF: 0 potassium chloride 20 mEq tablet,ER particles/crystals 20 meq PO DAILY Qty: 7 RF: 0 Hold Instructions: no need
[2020-04-10 22:21] LABS: Basophils # (auto) 0.01 K/uL (0-0.2); Basophils % (auto) 0.2 %; Eosinophils % (auto) 1.8 %; Hematocrit (blood only) 40.6 % (37-47); Hemoglobin 13.7 g/dL (12.0-16.0); Immature Granulocytes # (auto) 0.02 K/uL (0.00-0.02); Immature Granulocytes % (auto) 0.4 %; Lymphocytes # (auto) 1.86 K/uL (1.2-3.4); Lymphocytes % (auto) 33.5 %; Mean Corpuscular Hemoglobin 28.7 pg (25-34); Mean Corpuscular Hgb Conc 33.7 g/dL (32-36); Mean Corpuscular Volume 85.1 fL (80-100); Mean Platelet Volume 8.9 fL (7.4-10.4); Monocytes % (auto) 5.4 %; Neutrophils # (auto) 3.26 K/uL (1.4-6.5); Neutrophils % (auto) 58.7 %; Platelet Count 204 K/uL (130-400); RDW Coefficient of Variation 13.7 % (11.5-14.5); RDW Standard Deviation 42.6 fL (36.4-46.3); Red Blood Count 4.77 M/uL (4.2-5.4); White Blood Count 5.55 K/uL (4.8-10.8)
[2020-04-10 22:26] LABS: Appearance Urine Clear (Clear); Bilirubin Urine Negative (Negative); Blood Urine 3+ (Negative); Color Urine Yellow; Glucose Urine UA 2+ (Negative); Ketones Urine 1+ (Negative); Leukocyte Esterase Urine Negative (Negative); Nitrite Urine Negative (Negative); Protein Urine Negative (Negative); Specific Gravity Urine 1.025 (1.000-1.030); Urobilinogen Urine Negative (Negative)
[2020-04-10 22:41] LABS: Albumin Level 3.7 gm/dl (3.4-5.0); Calcium 8.9 mg/dl (8.5-10.1); Creatinine Clr Calc Pharmacy 89.3 ml/min; Est GFR (African American) 93.6; Est GFR (Non-African American) 80.8; Potassium 4.2 mmol/L (3.5-5.1)
[2020-04-10 22:46] LABS: Acetaminophen < 2 ug/ml (10-30); Salicylate < 1.7 mg/dl (2.8-20)
[2020-04-10 22:49] LABS: Amphetamines+Metham, Urine Neg (Neg); Barbiturates, Urine Neg (Neg); Benzodiazepine, Urine Neg (Neg); Cocaine, Urine Neg (Neg); MDMA (Ecstacy), Urine Neg (Neg); Methadone, Urine Neg (Neg); Opiate, Urine Neg (Neg); Phencyclidine, Urine Neg (Neg)
[2020-04-10 22:51] LABS: Albumin Globulin Ratio 0.8 (0.9-2); Bilirubin,Total 0.8 mg/dl (0.2-1); Globulin 4.4 gm/dl (2.5-4.0); Thyroid Stimulating Hormone 4.8 uIu/ml (0.300-4.500); Total Protein 8.1 gm/dl (6.4-8.2)
[2020-04-10 22:58] LABS: Bacteria Urine 1+ (Negative); Epithelial Cell Urine 0-5 /lpf (0-5); RBC Urine 0-4 /hpf (0-4)
[2020-04-10 23:00] LABS: Pregnancy Test, Urine Negative (Negative)
[2020-04-10 23:04] LABS: T4 Free Thyroxine 1.04 ng/dl (0.8-1.6)
[2020-04-10] MEDS ORDERED: INSULIN LISPRO 75%/25% SC STA (23:44)
[2020-04-10] MEDS ORDERED: ACETAMINOPHEN 325 MG TAB PO STA (23:44)
[2020-04-11] MEDS ORDERED: AMITRIPTYLINE HCL 10 MG TAB PO STA (00:38)
[2020-04-11] MEDS ORDERED: GABAPENTIN 400 MG CAP PO SCH (00:45)
[2020-04-11] MEDS ORDERED: ALUMINUM/MAGNESIUM SUSP 30 ML UDC PO PRN (02:26)
[2020-04-11] MEDS ORDERED: BISMUTH SUBSALICYLATE LIQD 236 ML PO PRN (02:26)
[2020-04-11] MEDS ORDERED: SODIUM CHLORIDE 0.65% NA SOLN 45 ML (OCEAN) PRN (02:26)
[2020-04-11] MEDS ORDERED: MAGNESIUM HYDROXIDE SUSP 30 ML UDC PO PRN (02:26)
[2020-04-11] MEDS: hydrOXYzine HCl 25 MG TAB PO PRN ×2 (02:56→23:31)
[2020-04-11] MEDS ORDERED: PHARMACY GLYCEMIC MGMT CONSULT PRN (04:09)
[2020-04-11] MEDS ORDERED: CARBOHYDRATES FOR HYPOGLYCEMIA PO PRN (04:30)
[2020-04-11] MEDS ORDERED: GLUCAGON FOR INJ 1 MG VIAL SQ PRN (04:30)
[2020-04-11] MEDS ORDERED: PNEUMOCOCCAL Polysaccharide Vaccine 25mcg/0.5mL vial/Syr IM ONE (04:30)
[2020-04-11] MEDS ORDERED: GLUCOSE 10 TABS/TUBE PO PRN (04:30)
[2020-04-11] MEDS ORDERED: DEXTROSE 50% 50 ML SYRINGE IV PRN (04:30)
[2020-04-11] MEDS ORDERED: GLUCOSE 40% GEL 15 GM TUBE PO PRN (04:30)
[2020-04-11] MEDS ORDERED: ALBUTEROL HFA 8 GM INHALER INH PRN (07:50)
[2020-04-11] MEDS ORDERED: ONDANSETRON 4 MG OD TAB PO PRN (08:07)
--- NOTE | 2020-04-11 08:08 | History & Physical ---
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 Immature Gran # (Auto) Sodium Potassium Chloride Carbon Dioxide Anion Gap BUN Creatinine Est Cr Clr Drug Dosing Est GFR ( Amer) Est GFR (Non-Af Amer) BUN/Creatinine Ratio Glucose POC Glucose 186 H Estimat Average Glucose Hemoglobin A1c Calcium Total Bilirubin AST ALT Alkaline Phosphatase Total Protein Albumin Globulin Albumin/Globulin Ratio TSH Free T4 Urine Color Urine Appearance Urine pH Ur Specific [place] Urine Protein Urine Glucose (UA) Urine Ketones Urine Blood Urine Nitrite Urine Bilirubin Urine Urobilinogen Ur Leukocyte Esterase Urine RBC Urine WBC Ur Epithelial Cells Urine Bacteria Urine Yeast Urine Test Salicylates Urine Opiates Screen Ur Methadone, Qual Acetaminophen Urine Barbiturates Ur Phencyclidine (PCP) U Amphetamin/Meth Scrn MDMA (Ecstasy) Screen U Benzodiazepines Scrn Ur Cocaine Metabolite U Marijuana (THC) Screen Ethyl Alcohol mg/dL SARS-CoV-2 Ag (Rapid) Negative Current Inpatient Medications Current Inpatient Medications: Current Inpatient Medications Acetaminophen (Acetaminophen 325 Mg Tab) 650 mg PO Q4H PRN PRN Reason: Headache or Minor Fever Stop: 05/11/20 02:25 Al Hydrox/Mg Hydrox/Simethicone (Aluminum/Magnesium Susp 30 Ml Udc) 30 ml PO Q4H PRN PRN Reason: GI Upset Stop: 05/11/20 02:25 Albuterol (Albuterol Hfa 8 Gm Inhaler) 1 - 2 puffs INH QIDR PRN PRN Reason: shortness of breath or wheezin Stop: 05/11/20 07:49 Amitriptyline HCl (Amitriptyline Hcl 10 Mg Tab) 10 mg PO HS TED Stop: 05/11/20 21:59 Bismuth Subsalicylate (Bismuth Subsalicylate Liqd 236 Ml) 15 ml PO PRN PRN PRN Reason: Loose Stool Stop: 05/11/20 02:25 Calcium Carbonate (Calcium Carbonate 1250mg Tab) 1,250 mg PO QAM TED; Protocol Stop: 05/11/20 08:59 Cholestyramine Resin (Cholestyramine Light 4 Gm Pkt) 4 gm PO TIDM TED Stop: 05/11/20 08:59 Cyanocobalamin (Cyanocobalamin 500 Mcg Tablet (Vitamin B-12)) 500 mcg PO QAM TED Stop: 05/11/20 08:59 Dextrose (Dextrose 50% 50 Ml Syringe) 25 - 50 ml IV UD PRN; Protocol PRN Reason: Hypoglycemia Protocol Stop: 05/11/20 04:29 Ergocalciferol (Ergocalciferol 50,000 Units 1250 Mcg Cap) 50,000 units PO WK TED Stop: 05/11/20 07:59 Famotidine (Famotidine 20 Mg Tab) 20 mg PO HS TED Stop: 05/11/20 21:59 Gabapentin (Gabapentin 400 Mg Cap) 400 mg PO BID TED Stop: 05/11/20 08:59 Glucagon (Glucagon For Inj 1 Mg Vial) 1 mg SQ UD PRN; Protocol PRN Reason: Hypoglycemia Protocol Stop: 05/11/20 04:29 Glucose (Glucose 40% Gel 15 Gm Tube) 15 - 30 gm PO UD PRN; Protocol PRN Reason: Hypoglycemia Protocol Stop: 05/11/20 04:29 Glucose (Glucose 10 Tabs/Tube) 4 - 8 tabs PO UD PRN; Protocol PRN Reason: Hypoglycemia Protocol Stop: 05/11/20 04:29 Hydroxyzine HCl (Hydroxyzine Hcl 25 Mg Tab) 50 mg PO HSZ PRN PRN Reason: Insomnia Stop: 05/11/20 02:25 Last Admin: 04/11/20 02:56 Dose: 50 mg Documented by: Hydroxyzine HCl (Hydroxyzine Hcl 25 Mg Tab) 25 mg PO Q4H PRN PRN Reason: Anxiety Stop: 05/11/20 02:25 Insulin Aspart (Insulin Aspart 100 Units/Ml 3 Ml Pen) 0 units SC ACHS TED Stop: 05/11/20 07:59 Levothyroxine Sodium (Levothyroxine Sodium 175 Mcg Tablet) 175 mcg PO QAM [facility] Stop: 05/11/20 08:59 Magnesium Hydroxide (Magnesium Hydroxide Susp 30 Ml Udc) 30 ml PO DAILY PRN PRN Reason: Constipation Stop: 05/11/20 02:25 Metoprolol Tartrate (Metoprolol Tartrate 25 Mg Tab) 25 mg PO BID [facility] Stop: 05/11/20 08:59 Miscellaneous (Carbohydrates For Hypoglycemia ) 15 - 30 gm PO UD PRN PRN Reason: Hypoglycemia Treatment Stop: 05/11/20 04:29 Miscellaneous Information (Pharmacy Glycemic Mgmt Consult) 1 ea N/A UD PRN PRN Reason: Consult Stop: 05/11/20 04:08 Multivitamins (Multivitamin Tab) 1 tab PO QAM [facility] Stop: 05/11/20 08:59 Non-Formulary Medication (Aspirin) 81 mg PO DAILY [facility] Stop: 05/11/20 08:59 Non-Formulary Medication (Omeprazole) 20 mg PO QAM [facility] Stop: 05/11/20 08:59 Non-Formulary Medication (Sucralfate) 5 ml PO QID [facility] Stop: 05/11/20 08:59 Non-Formulary Medication (Wheat Dextrin [Benefiber Sugar Free (Dextrin)]) 1.5 gm PO BID [facility] Stop: 05/11/20 08:59 Ondansetron HCl (Ondansetron Home Pack 4mg Od Tab) homepack PO Q8H PRN PRN Reason: Nausea Stop: 05/11/20 07:49 Potassium Chloride (Potassium Chloride Crtab 20 Meq Tabcr) 20 meq PO DAILY [facility] Stop: 05/11/20 08:59 Pravastatin Sodium (Pravastatin Sod 10 Mg Tab) 10 mg PO DAILY [facility] Stop: 05/11/20 08:59 Saccharomyces Boulardii (Saccharomyces Boulardii 250 Mg Cap) 250 mg PO DAILY [facility] Stop: 05/11/20 08:59 Sodium Chloride (Sodium Chloride 0.65% Na Soln 45 Ml ([place])) 1 - 2 sprays NA PRN PRN PRN Reason: Nasal Dryness/Congestion Stop: 05/11/20 02:25 Sumatriptan Succinate (Sumatriptan Succinate 50 Mg Tab) 0 mg PO .COMPLEX [facility] Stop: 05/11/20 07:59 Vitamin D (Cholecalciferol 1,000 Units 25 Mcg Tab) 5,000 units PO QAM [facility] Stop: 05/11/20 08:59 Vitamin E (Tocopheryl, Dl-Alpha 400 Units Cap) 400 units PO QAM [facility] Stop: 05/11/20 08:59
[2020-04-11] MEDS ORDERED: busPIRone 5 MG TAB PO SCH (09:00)
[2020-04-11] MEDS ORDERED: INSULIN GLARGINE SOLOSTAR 100 UNITS/ML 3 ML PEN SC SCH (09:00)
[2020-04-11 10:18] LABS: Estimated Average Glucose 206 mg/dl; Hemoglobin A1C 8.8 % (4.5-5.6)
[2020-04-11] MEDS ORDERED: INSULIN GLARGINE SOLOSTAR 100 UNITS/ML 3 ML PEN SC ONE ×2 (10:30→22:00)
[2020-04-11] MEDS: SACCHAROMYCES BOULARDII 250 MG CAP PO SCH (10:32)
[2020-04-11] MEDS: ACETAMINOPHEN 325 MG TAB PO PRN (10:32)
[2020-04-11] MEDS: GABAPENTIN 400 MG CAP PO SCH ×2 (10:32→21:38)
[2020-04-11] MEDS: PRAVASTATIN SOD 10 MG TAB PO SCH (10:32)
[2020-04-11] MEDS: ASPIRIN 81 MG ECTAB PO SCH (10:32)
[2020-04-11] MEDS: CHOLECALCIFEROL 1,000 UNITS 25 MCG TAB PO SCH (10:33)
[2020-04-11] MEDS: CYANOCOBALAMIN 500 MCG TABLET (VITAMIN B-12) PO SCH (10:34)
[2020-04-11] MEDS: METOPROLOL TARTRATE 25 MG TAB PO SCH ×2 (10:34→21:37)
[2020-04-11] MEDS: TOCOPHERYL, DL-ALPHA 400 UNITS CAP PO SCH (10:34)
[2020-04-11] MEDS: PANTOprazole 40 MG TAB PO SCH (10:34)
[2020-04-11] MEDS: LEVOTHYROXINE SODIUM 175 MCG TABLET PO SCH (10:35)
[2020-04-11] MEDS: MULTIVITAMIN TAB PO SCH (10:35)
[2020-04-11] MEDS: POTASSIUM CHLORIDE CRTAB 20 MEQ TABCR PO SCH (10:35)
[2020-04-11] MEDS: CALCIUM CARBONATE 1250MG TAB PO SCH (10:35)
[2020-04-11] MEDS: PSYLLIUM 58.6% POWDER PACKET PO SCH ×2 (10:35→21:38)
[2020-04-11] MEDS: SUCRALFATE 1 GM/10 ML UDC PO SCH ×4 (10:36→21:37)
[2020-04-11] MEDS: CHOLESTYRAMINE LIGHT 4 GM PKT PO SCH ×3 (10:36→18:03)
--- NOTE | 2020-04-11 10:42 | Pharmacy Report ---
Pharmacy Glycemic Short Note 2 - Date of Service April 11, 2020 - Glycemic Short BSG Results (Last 24 hours): 04/10/20 04/10/20 04/11/20 21:58 22:16 04:25 Glucose 280 H POC Glucose 278 H 186 H 04/11/20 10:20 Glucose POC Glucose 261 H OUTPATIENT ANTIDIABETIC REGIMEN: * Humalog insulin via omnipod * Patient reports: basal rate of 5 units/hr, INS:CHO of 1 unit: 4 grams of carbohydrates, unsure of correction factor * Per patient, she has had recent skin irritation was insulin pump and has not used it in ~1 week, her PCP is looking into other options for her * HbA1c: 8.8% (04/10/20) ASSESSMENT: * GEORGE is a 34 year old female admitted to [address] [place] [address] for voluntary inpatient treatment of suicidal ideation with plan * Patient has history of T2DM and based on pump settings appears to be insulin resistant * Per patient, omnipod has caused skin irritation lately and she has not been using it for ~ 1 week (PCP is looking at other options) * Patient agreeable to SC basal/bolus insulin while inpatient * Hesitant to give full dose of reported basal insulin given limited inpatient BSG data * Will initiate full weight-based stress of 3 dosing (~50 units) * tighten carb ratio to 1 unit per 4 grams of carbohydrates * Morning Novolog given late due to patient sleeping in after late admission * Withheld correctional insulin with lunch given close proximity to AM insulin administration/breakfast PLAN FOR INPATIENT GLYCEMIC CONTROL: * Hold outpatient oral diabetes medications * Basal insulin * Lantus 50 units SQ X 1 this morning * Lantus scale HS to provide up to 50 additional units this evening (see EHR for details) * Bolus insulin * NovoLog per scale ACHS or Q6hrs while NPO * Goal Range: Low 110 mg/dL - High 140 mg/dL * Correction Factor: 15 mg/dL/unit * Nutritional / Prandial insulin per carb ratio of 1 unit per 4 grams CHO consumed PLAN FOR DISCHARGE: * tbd
[2020-04-11] MEDS: INSULIN ASPART 100 UNITS/ML 3 ML PEN SC SCH ×4 (11:00→22:07)
[2020-04-11] MEDS ORDERED: PHARMACY GLYCEMIC MGMT CONSULT STA (12:46)
[2020-04-11] MEDS: SUMAtriptan succinate 50 MG TAB PO PRN ×2 (14:58→18:18)
[2020-04-11] MEDS: AMITRIPTYLINE HCL 10 MG TAB PO SCH (21:38)
[2020-04-11] MEDS: PRAZOSIN HCL 1 MG CAP PO SCH (21:38)
[2020-04-11] MEDS: FAMOTIDINE 20 MG TAB PO SCH (21:38)
[2020-04-12] MEDS: LEVOTHYROXINE SODIUM 175 MCG TABLET PO SCH (09:04)
[2020-04-12] MEDS: SUCRALFATE 1 GM/10 ML UDC PO SCH ×4 (09:05→20:50)
[2020-04-12] MEDS: METOPROLOL TARTRATE 25 MG TAB PO SCH ×2 (09:06→20:55)
[2020-04-12] MEDS: SACCHAROMYCES BOULARDII 250 MG CAP PO SCH (09:06)
[2020-04-12] MEDS: POTASSIUM CHLORIDE CRTAB 20 MEQ TABCR PO SCH (09:06)
[2020-04-12] MEDS: ASPIRIN 81 MG ECTAB PO SCH (09:06)
[2020-04-12] MEDS: MULTIVITAMIN TAB PO SCH (09:07)
[2020-04-12] MEDS: PRAVASTATIN SOD 10 MG TAB PO SCH (09:07)
[2020-04-12] MEDS: GABAPENTIN 400 MG CAP PO SCH ×2 (09:07→20:56)
[2020-04-12] MEDS: CHOLECALCIFEROL 1,000 UNITS 25 MCG TAB PO SCH (09:08)
[2020-04-12] MEDS: TOCOPHERYL, DL-ALPHA 400 UNITS CAP PO SCH (09:08)
[2020-04-12] MEDS: CYANOCOBALAMIN 500 MCG TABLET (VITAMIN B-12) PO SCH (09:09)
[2020-04-12] MEDS: PANTOprazole 40 MG TAB PO SCH (09:09)
[2020-04-12] MEDS: CALCIUM CARBONATE 1250MG TAB PO SCH (09:09)
[2020-04-12] MEDS: PSYLLIUM 58.6% POWDER PACKET PO SCH ×2 (09:18→20:57)
--- NOTE | 2020-04-12 09:28 | Pharmacy Report ---
Pharmacy Glycemic Short Note 2 - Date of Service April 12, 2020 - Glycemic Short BSG Results (Last 24 hours): 04/11/20 04/11/20 04/11/20 10:20 15:04 17:21 POC Glucose 261 H 238 H 175 H 04/11/20 04/12/20 20:48 08:58 POC Glucose 185 H 200 H OUTPATIENT ANTIDIABETIC REGIMEN: * Humalog insulin via omnipod * Patient reports: basal rate of 5 units/hr, INS:CHO of 1 unit: 4 grams of carbohydrates, unsure of correction factor * Per patient, she has had recent skin irritation was insulin pump and has not used it in ~1 week, her PCP is looking into other options for her * HbA1c: 8.8% (04/10/20) ASSESSMENT: 04/12 * BSGs yesterday of 261, 238, 175, and 185 mg/dL * Patient received 135 units of insulin (80 units of Lantus and 55 units of prandial/correctional) * Fasting BSG of 200 mg/dL this morning * Was conservative with basal insulin yesterday given uncertainty with recent insulin needs as an outpatient * Will increase to provide ~120 units of basal insulin per Omnipod settings 04/11: * GEORGE is a 34 year old female admitted to [address] [place] [address] for voluntary inpatient treatment of suicidal ideation with plan * Patient has history of T2DM and based on pump settings appears to be insulin resistant * Per patient, omnipod has caused skin irritation lately and she has not been using it for ~ 1 week (PCP is looking at other options) * Patient agreeable to SC basal/bolus insulin while inpatient * Hesitant to give full dose of reported basal insulin given limited inpatient BSG data * Will initiate full weight-based stress of 3 dosing (~50 units) * tighten carb ratio to 1 unit per 4 grams of carbohydrates * Morning Novolog given late due to patient sleeping in after late admission * Withheld correctional insulin with lunch given close proximity to AM insulin administration/breakfast PLAN FOR INPATIENT GLYCEMIC CONTROL: * Hold outpatient oral diabetes medications * Basal insulin - increase * Lantus 60 units SC BID * Bolus insulin - tighten correction factor * NovoLog per scale ACHS or Q6hrs while NPO * Goal Range: Low 110 mg/dL - High 140 mg/dL * Correction Factor: 12 mg/dL/unit * Nutritional / Prandial insulin per carb ratio of 1 unit per 4 grams CHO consumed PLAN FOR DISCHARGE: * HbA1c of 8.8% suggests poor outpatient glycemic control * Per patient, Omnipod has not been used in ~1 week due to recent skin irritation with device * Patient states that she is working with her primary care provider to find alternatives * Ensure timely follow-up with PCP for further insulin management * May require discharge with short-term SC basal/bolus regimen if patient will not use Omnipod * Doses TBD
[2020-04-12] MEDS: INSULIN ASPART 100 UNITS/ML 3 ML PEN SC SCH ×4 (09:34→20:53)
[2020-04-12] MEDS: INSULIN GLARGINE SOLOSTAR 100 UNITS/ML 3 ML PEN SC SCH ×2 (09:37→20:51)
[2020-04-12] MEDS: CHOLESTYRAMINE LIGHT 4 GM PKT PO SCH ×3 (09:38→17:11)
--- NOTE | 2020-04-12 10:27 | Psychiatric Progress Note ---
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 She dropped out of mental health treatment about 12 years ago, and PCP has prescribed psychotropic medications, but she stopped taking them a month ago. She agreed to trials of fluoxetine and prazosin on admission, will need a family meeting with her , and referral for outpatient treatment. Inpatient treatment is medically necessary due to the sev erity of symptoms and risk for suicide if discharged. (1) Suicidal ideation: 04/11 -continue voluntary inpatient treatment, every 15 minute checks for safety. Encourage group attendance and participation, work on healthy coping skills and discharge safety plan. -Family meeting with , explore ways to increase outpatient supports, and refer for outpatient psychiatric treatment and therapy. 04/12 -SI continues but is slightly reduced from presentation. She feels safe in the hospital, but not outside of the hospital. (2) Depression: 04/11 -Per records, previous diagnoses include major depression, recurrent, and borderline personality traits. 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 Continue to gather information to clarify diagnosis. Unfortunately, she has not been receiving mental health treatment for about 12 years. -Reviewed treatment options including medications and therapy. She has a history of trials of Escitalopram and sertraline with unclear responses, although did feel that Escitalopram had lost its effect which is why she stopped it about a month ago. We discussed a trial of fluoxetine to target mood and anxiety symptoms, reviewed risks, benefits, and side effects, and will start 20 mg daily today. She may benefit from augmentation with an atypical, but I am concerned about her poorly controlled diabetes and obesity so will hold on this until we can assess her response to therapeutic dose of antidepressant and return to psychotherapy. -Continue to provide psychoeducation about her diagnoses and recommended treatment. Refer for outpatient treatment. 04/12 -continue current treatment plan. (3) PTSD (post-traumatic stress disorder): 04/11 -symptoms worsened over the past 2 to 3 months since she had contact with her father. Unclear if there are other triggers playing a role. She does report that therapy was helpful in the past, and we will refer her for outpatient services. Prazosin 1 mg at bedtime started for nightmares. Reviewed risks, benefits, and side effects. 04/12 -started prazosin last night, received 1 mg and reports slight reduction in nightmares. Continue this dose and titrate as tolerated. 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 Refer for outpatient therapy. (5) Sleep disturbances: 04/10 -provide psychoeducation about good sleep hygiene, encouraged her to follow recommendations regarding use of CPAP for both optimal mood and physical health, this may also help with her migraines. (6) DM type 2 (diabetes mellitus, type 2): 04/11 -continue home insulin, consult diabetic pharmacist for glucose control management. Per most recent PCP note from 01/31/2020, her diabetes is poorly controlled. (7) LFTs abnormal: 04/11 -PCP notes indicate she has diagnosed with nonalcoholic steatohepatitis. (8) Hypothyroidism: 04/11 -continue home dose of levothyroxine. TSH normal on admission. (9) Hypertriglyceridemia: 04/11 -continue pravastatin. Cholesterol 176 mg/dl (0-200) 12/07/19 HDL Cholesterol 32 mg/dl 12/07/19 Triglycerides 332 mg/dl (0-150) H 12/07/19 Cholesterol/HDL Ratio 6 12/07/19 (10) Diabetic neuropathy: 04/11 -continue home dose of gabapentin 400 mg twice daily. PCP referred her to podiatry Risk Factors Assessment Male: No : Yes Do You Have Access To A Gun?: No Health Problems: Yes Mental Health Diagnoses: Yes Substance Use Disorders: No Previous Attempt: No Family History of Suicide: No Previous Psychiatric Hospitalization: Yes Hopelessness: Yes Smoker: Yes Protective Factors Assessment : Yes Responsible for Young Children: Yes Employed: No Stable Relationships: Yes Supportive Family: No Good Rapport with Provider: No Interval History Identifying Information JEFFERY EMANUEL is a 34-year-old F who currently lives in [place] with her and children, has a history of depression, bipolar and PTSD per her report, as well as multiple medical problems, and was admitted on 04/11/20 01:35 on a 201 voluntary commitment for suicidal ideation with a plan to cut her wrist. Chief Complaint "A little better". Review of Systems Sleep Information Total Hours of Sleep: 6 Meal Information Percent Meal Consumed - Breakfast: 100 Percent Meal Consumed - Lunch: 100 Percent Meal Consumed - Dinner: 50 Subjective Subjective Patient was seen & assessed and interval progress reviewed with nursing and social work. Staff report she had a migraine yesterday afternoon, so spent much of the day in bed. She had a one-to-one with a counselor and reported feeling overwhelmed by her circumstances, with ongoing suicidality, although she felt safe in the hospital. On my assessment today, she states that mood has improved slightly since yesterday, and she is not as focused on suicidal thoughts. She continues to states she feels safe in the hospital, but not outside of the hospital. She tolerated the medications well, and also took hydroxyzine for sleep, which she felt was helpful. She continued to have nightmares, but thinks they were lessened. She notes that distraction has been helpful, and has been coloring, looking at the workbook, and attended 1 group yesterday. She states that she is "afraid of sleeping," as she does not want to have nightmares, and advised she can get a second dose of hydroxyzine if needed. She is eating some of each meal, although appetite remains reduced. Headache has resolved today, notes she gets them 3-4 times a week, worse when she does not have caffeinated beverages. Physical Exam Psychiatric Orientation: alert and cooperative Apperance: appropriately dressed Overweight white female appearing older than her stated age. Dressed in scrub pants and a T-shirt, same closes yesterday. Short hair that is somewhat disheveled. Adequate hygiene. Seated on her bed crosslegged in no acute distress. Eye Contact: + fair eye contact Motor Behavior: no abnormal motor movements Speech is mildly slowed, delayed, monotone. Affect: + depressed affect and mood congruent with affect Slightly more reactive than yesterday. Mood: + depressed mood Thought Process: goal directed thought process Thought Content: reality based without delusions Suicidal Thoughts: + reports suicidal thoughts Homicidal Thoughts: denies homicidal thoughts Hallucinations: no auditory hallucinations and no visual hallucinations Cognition: attention grossly intact and language grossly intact Estimated Intelligence: consistent with education level Insight: + fair insight Judgement: + fair judgement Vital Signs (Past 24 Hours) Last Vital Signs Temp 36.7 C 04/12/20 06:34 Pulse 118 H 04/12/20 06:35 Resp 16 04/12/20 06:34 BP 114/72 04/12/20 06:35 Pulse Ox 99 04/11/20 02:33 Results & Data ([facility]) Laboratory Results Laboratory Results - last 24 hr 04/10/20 04/11/20 04/11/20 21:58 10:20 15:04 POC Glucose 261 H 238 H Estimat Average Glucose 206 Hemoglobin A1c 8.8 H 04/11/20 04/11/20 04/12/20 17:21 20:48 08:58 POC Glucose 175 H 185 H 200 H Estimat Average Glucose Hemoglobin A1c Current Inpatient Medications Current Inpatient Medications: Current Inpatient Medications Acetaminophen (Acetaminophen 325 Mg Tab) 650 mg PO Q4H PRN PRN Reason: Headache or Minor Fever Stop: 05/11/20 02:25 Last Admin: 04/11/20 10:32 Dose: 650 mg Documented by: Al Hydrox/Mg Hydrox/Simethicone (Aluminum/Magnesium Susp 30 Ml Udc) 30 ml PO Q4H PRN PRN Reason: GI Upset Stop: 05/11/20 02:25 Albuterol (Albuterol Hfa 8 Gm Inhaler) 1 - 2 puffs INH QIDR PRN PRN Reason: shortness of breath or wheezin Stop: 05/11/20 07:49 Amitriptyline HCl (Amitriptyline Hcl 10 Mg Tab) 10 mg PO HS [facility] Stop: 05/11/20 21:59 Last Admin: 04/11/20 21:38 Dose: 10 mg Documented by: Aspirin (Aspirin 81 Mg Ectab) 81 mg PO DAILY TED Stop: 05/11/20 08:59 Last Admin: 04/12/20 09:06 Dose: 81 mg Documented by: Bismuth Subsalicylate (Bismuth Subsalicylate Liqd 236 Ml) 15 ml PO PRN PRN PRN Reason: Loose Stool Stop: 05/11/20 02:25 Calcium Carbonate (Calcium Carbonate 1250mg Tab) 1,250 mg PO QAM TED; Protocol Stop: 05/11/20 08:59 Last Admin: 04/12/20 09:09 Dose: 1,250 mg Documented by: Cholestyramine Resin (Cholestyramine Light 4 Gm Pkt) 4 gm PO TIDM TED Stop: 05/11/20 08:59 Last Admin: 04/12/20 09:38 Dose: 4 gm Documented by: Cyanocobalamin (Cyanocobalamin 500 Mcg Tablet (Vitamin B-12)) 500 mcg PO QAM [facility] Stop: 05/11/20 08:59 Last Admin: 04/12/20 09:09 Dose: 500 mcg Documented by: Dextrose (Dextrose 50% 50 Ml Syringe) 25 - 50 ml IV UD PRN; Protocol PRN Reason: Hypoglycemia Protocol Stop: 05/11/20 04:29 Ergocalciferol (Ergocalciferol 50,000 Units 1250 Mcg Cap) 50,000 units PO Jeffery@0800 [facility] Stop: 05/15/20 07:59 Famotidine (Famotidine 20 Mg Tab) 20 mg PO HS [facility] Stop: 05/11/20 21:59 Last Admin: 04/11/20 21:38 Dose: 20 mg Documented by: Gabapentin (Gabapentin 400 Mg Cap) 400 mg PO BID [facility] Stop: 05/11/20 08:59 Last Admin: 04/12/20 09:07 Dose: 400 mg Documented by: Glucagon (Glucagon For Inj 1 Mg Vial) 1 mg SQ UD PRN; Protocol PRN Reason: Hypoglycemia Protocol Stop: 05/11/20 04:29 Glucose (Glucose 40% Gel 15 Gm Tube) 15 - 30 gm PO UD PRN; Protocol PRN Reason: Hypoglycemia Protocol Stop: 05/11/20 04:29 Glucose (Glucose 10 Tabs/Tube) 4 - 8 tabs PO UD PRN; Protocol PRN Reason: Hypoglycemia Protocol Stop: 05/11/20 04:29 Hydroxyzine HCl (Hydroxyzine Hcl 25 Mg Tab) 50 mg PO HSZ PRN PRN Reason: Insomnia Stop: 05/11/20 02:25 Last Admin: 04/11/20 23:31 Dose: 50 mg Documented by: Hydroxyzine HCl (Hydroxyzine Hcl 25 Mg Tab) 25 mg PO Q4H PRN PRN Reason: Anxiety Stop: 05/11/20 02:25 Insulin Aspart (Insulin Aspart 100 Units/Ml 3 Ml Pen) 0 units SC ACHS [facility] Stop: 05/11/20 07:59 Last Admin: 04/12/20 09:34 Dose: 16 units Documented by: Insulin Glargine (Insulin Glargine Solostar 100 Units/Ml 3 Ml Pen) 60 units SC BID [facility] Stop: 05/12/20 09:14 Last Admin: 04/12/20 09:37 Dose: 60 units Documented by: Levothyroxine Sodium (Levothyroxine Sodium 175 Mcg Tablet) 175 mcg PO DAILYBB [facility] Stop: 05/11/20 08:14 Last Admin: 04/12/20 09:04 Dose: 175 mcg Documented by: Magnesium Hydroxide (Magnesium Hydroxide Susp 30 Ml Udc) 30 ml PO DAILY PRN PRN Reason: Constipation Stop: 05/11/20 02:25 Metoprolol Tartrate (Metoprolol Tartrate 25 Mg Tab) 25 mg PO BID [facility] Stop: 05/11/20 08:59 Last Admin: 04/12/20 09:06 Dose: 25 mg Documented by: Miscellaneous (Carbohydrates For Hypoglycemia ) 15 - 30 gm PO UD PRN PRN Reason: Hypoglycemia Treatment Stop: 05/11/20 04:29 Miscellaneous Information (Pharmacy Glycemic Mgmt Consult) 1 ea N/A UD PRN PRN Reason: Consult Stop: 05/11/20 04:08 Multivitamins (Multivitamin Tab) 1 tab PO QAM [facility] Stop: 05/11/20 08:59 Last Admin: 04/12/20 09:07 Dose: 1 tab Documented by: Ondansetron HCl (Ondansetron 4 Mg Od Tab) 4 mg PO Q8H PRN PRN Reason: Nausea Stop: 05/11/20 08:06 Pantoprazole Sodium (Pantoprazole 40 Mg Tab) 40 mg PO QAM [facility]; Protocol Stop: 05/11/20 08:59 Last Admin: 04/12/20 09:09 Dose: 40 mg Documented by: Potassium Chloride (Potassium Chloride Crtab 20 Meq Tabcr) 20 meq PO DAILY [facility] Stop: 05/11/20 08:59 Last Admin: 04/12/20 09:06 Dose: 20 meq Documented by: Pravastatin Sodium (Pravastatin Sod 10 Mg Tab) 10 mg PO DAILY [facility] Stop: 05/11/20 08:59 Last Admin: 04/12/20 09:07 Dose: 10 mg Documented by: Prazosin HCl (Prazosin Hcl 1 Mg Cap) 1 mg PO HS [facility] Stop: 05/11/20 21:59 Last Admin: 04/11/20 21:38 Dose: 1 mg Documented by: Psyllium Hydrophilic Mucilloid (Psyllium 58.6% Powder Packet) 1 pkt PO BID [facility]; Protocol Stop: 05/11/20 08:59 Last Admin: 04/12/20 09:18 Dose: Not Given Documented by: Saccharomyces Boulardii (Saccharomyces Boulardii 250 Mg Cap) 250 mg PO DAILY TED Stop: 05/11/20 08:59 Last Admin: 04/12/20 09:06 Dose: 250 mg Documented by: Sodium Chloride (Sodium Chloride 0.65% Na Soln 45 Ml ([place])) 1 - 2 sprays NA PRN PRN PRN Reason: Nasal Dryness/Congestion Stop: 05/11/20 02:25 Sucralfate (Sucralfate 1 Gm/10 Ml Udc) 0.5 gm PO QID TED Stop: 05/11/20 08:59 Last Admin: 04/12/20 09:05 Dose: 0.5 gm Documented by: Sumatriptan Succinate (Sumatriptan Succinate 50 Mg Tab) 50 mg PO UD PRN PRN Reason: Migraine Headache Stop: 05/11/20 07:59 Last Admin: 04/11/20 18:18 Dose: 50 mg Documented by: Vitamin D (Cholecalciferol 1,000 Units 25 Mcg Tab) 5,000 units PO QAM [facility] Stop: 05/11/20 08:59 Last Admin: 04/12/20 09:08 Dose: 5,000 units Documented by: Vitamin E (Tocopheryl, Dl-Alpha 400 Units Cap) 400 units PO QAM [facility] Stop: 05/11/20 08:59 Last Admin: 04/12/20 09:08 Dose: 400 units Documented by: Mental Health & Subst Abuse Tx Therapist Name of Therapist: Sylvia Cooper Therapist's Date of Therapist Appointment: 04/18/20 Time of Therapist Appointment: 4:00 p.m. Therapy Appointment Comment: Telehealth Post Discharge Appointments Primary Care Physician Name Of Family Doctor: Dr. Sahu Primary Care Provider Appointment Comment: [phone] [place] [address] Contact Information Discharge Discharge Address: [address] [place] [id number]
[2020-04-12] MEDS: FLUoxetine HCL 20 MG CAP PO SCH (11:07)
[2020-04-12] MEDS: ACETAMINOPHEN 325 MG TAB PO PRN (17:08)
[2020-04-12] MEDS: AMITRIPTYLINE HCL 10 MG TAB PO SCH (20:55)
[2020-04-12] MEDS: FAMOTIDINE 20 MG TAB PO SCH (20:56)
[2020-04-12] MEDS: PRAZOSIN HCL 1 MG CAP PO SCH (20:57)
[2020-04-12] MEDS: hydrOXYzine HCl 25 MG TAB PO PRN (21:03)
[2020-04-13] MEDS: ACETAMINOPHEN 325 MG TAB PO PRN (03:21)
[2020-04-13] MEDS: SUCRALFATE 1 GM/10 ML UDC PO SCH ×4 (08:41→20:49)
[2020-04-13] MEDS: LEVOTHYROXINE SODIUM 175 MCG TABLET PO SCH (08:43)
[2020-04-13] MEDS: POTASSIUM CHLORIDE CRTAB 20 MEQ TABCR PO SCH (08:43)
[2020-04-13] MEDS: SACCHAROMYCES BOULARDII 250 MG CAP PO SCH (08:44)
[2020-04-13] MEDS: ASPIRIN 81 MG ECTAB PO SCH (08:44)
[2020-04-13] MEDS: FLUoxetine HCL 20 MG CAP PO SCH (08:44)
[2020-04-13] MEDS: CYANOCOBALAMIN 500 MCG TABLET (VITAMIN B-12) PO SCH (08:44)
[2020-04-13] MEDS: METOPROLOL TARTRATE 25 MG TAB PO SCH ×2 (08:44→20:55)
[2020-04-13] MEDS: MULTIVITAMIN TAB PO SCH (08:44)
[2020-04-13] MEDS: PANTOprazole 40 MG TAB PO SCH (08:44)
[2020-04-13] MEDS: GABAPENTIN 400 MG CAP PO SCH ×2 (08:44→20:55)
[2020-04-13] MEDS: CALCIUM CARBONATE 1250MG TAB PO SCH (08:44)
[2020-04-13] MEDS: CHOLESTYRAMINE LIGHT 4 GM PKT PO SCH ×3 (08:45→17:22)
[2020-04-13] MEDS: TOCOPHERYL, DL-ALPHA 400 UNITS CAP PO SCH (08:45)
[2020-04-13] MEDS: CHOLECALCIFEROL 1,000 UNITS 25 MCG TAB PO SCH (08:45)
[2020-04-13] MEDS: PRAVASTATIN SOD 10 MG TAB PO SCH (08:46)
[2020-04-13] MEDS: PSYLLIUM 58.6% POWDER PACKET PO SCH ×2 (08:53→20:54)
[2020-04-13] MEDS: INSULIN GLARGINE SOLOSTAR 100 UNITS/ML 3 ML PEN SC SCH ×2 (09:07→21:35)
[2020-04-13] MEDS: INSULIN ASPART 100 UNITS/ML 3 ML PEN SC SCH ×4 (09:09→21:01)
[2020-04-13] MEDS ORDERED: PERPHENAZINE 2 MG TABLET PO STA (09:40)
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
[2020-04-13] MEDS ORDERED: hydrOXYzine HCl 25 MG TAB PO PRN (10:31)
[2020-04-13] MEDS: FLUoxetine HCL 10 MG CAP PO SCH (10:32)
--- NOTE | 2020-04-13 13:07 | Pharmacy Report ---
Pharmacy Glycemic Short Note 2 - Date of Service April 13, 2020 - Glycemic Short BSG Results (Last 24 hours): 04/12/20 04/12/20 04/13/20 17:17 20:10 08:34 POC Glucose 172 H 127 H 145 H 04/13/20 12:23 POC Glucose 160 H OUTPATIENT ANTIDIABETIC REGIMEN: * Humalog insulin via omnipod * Patient reports: basal rate of 5 units/hr, INS:CHO of 1 unit: 4 grams of carbohydrates, unsure of correction factor * Per patient, she has had recent skin irritation was insulin pump and has not used it in ~1 week, her PCP is looking into other options for her * HbA1c: 8.8% (04/10/20) ASSESSMENT: 04/13 * BSGs yesterday of 200, 246, 172, and 127 mg/dL * patient received 193 units of insulin yesterday * Fasting BSG of 145 mg/dL and lunchtime BSG of 160 mg/dL * Will plan to continue currently ordered Lantus and Novolog 04/11: * GEORGE is a 34 year old female admitted to [address] [place] [address] for voluntary inpatient treatment of suicidal ideation with plan * Patient has history of T2DM and based on pump settings appears to be insulin resistant * Per patient, omnipod has caused skin irritation lately and she has not been using it for ~ 1 week (PCP is looking at other options) * Patient agreeable to SC basal/bolus insulin while inpatient * Hesitant to give full dose of reported basal insulin given limited inpatient BSG data * Will initiate full weight-based stress of 3 dosing (~50 units) * tighten carb ratio to 1 unit per 4 grams of carbohydrates * Morning Novolog given late due to patient sleeping in after late admission * Withheld correctional insulin with lunch given close proximity to AM insulin administration/breakfast PLAN FOR INPATIENT GLYCEMIC CONTROL: * Hold outpatient oral diabetes medications * Basal insulin - continue * Lantus 60 units SC BID (correlates with 5 units/hr outpatient Omnipod settings) * Bolus insulin - continue * NovoLog per scale ACHS or Q6hrs while NPO * Goal Range: Low 110 mg/dL - High 140 mg/dL * Correction Factor: 12 mg/dL/unit * Nutritional / Prandial insulin per carb ratio of 1 unit per 4 grams CHO consumed PLAN FOR DISCHARGE: * HbA1c of 8.8% suggests poor outpatient glycemic control * Per patient, Omnipod has not been used in ~1 week due to recent skin irritation with device * Patient states that she is working with her primary care provider to find alternatives * Ensure timely follow-up with PCP for further insulin management * May require discharge with short-term SC basal/bolus regimen if patient will not use Omnipod * Doses TBD
[2020-04-13] MEDS: FAMOTIDINE 20 MG TAB PO SCH (20:56)
[2020-04-13] MEDS: AMITRIPTYLINE HCL 10 MG TAB PO SCH (20:56)
[2020-04-13] MEDS: PERPHENAZINE 2 MG TABLET PO SCH (21:00)
[2020-04-13] MEDS: PRAZOSIN HCL 1 MG CAP PO SCH (21:01)
[2020-04-13] MEDS: SUMAtriptan succinate 50 MG TAB PO PRN (22:38)
[2020-04-14] MEDS: PERPHENAZINE 2 MG TABLET PO SCH ×2 (09:18→21:47)
[2020-04-14] MEDS: MULTIVITAMIN TAB PO SCH (09:18)
[2020-04-14] MEDS: CYANOCOBALAMIN 500 MCG TABLET (VITAMIN B-12) PO SCH (09:18)
[2020-04-14] MEDS: METOPROLOL TARTRATE 25 MG TAB PO SCH ×2 (09:18→21:49)
[2020-04-14] MEDS: FLUoxetine HCL 20 MG CAP PO SCH (09:19)
[2020-04-14] MEDS: FLUoxetine HCL 10 MG CAP PO SCH (09:19)
[2020-04-14] MEDS: TOCOPHERYL, DL-ALPHA 400 UNITS CAP PO SCH (09:19)
[2020-04-14] MEDS: ASPIRIN 81 MG ECTAB PO SCH (09:19)
[2020-04-14] MEDS: CHOLECALCIFEROL 1,000 UNITS 25 MCG TAB PO SCH (09:19)
[2020-04-14] MEDS: SACCHAROMYCES BOULARDII 250 MG CAP PO SCH (09:19)
[2020-04-14] MEDS: PRAVASTATIN SOD 10 MG TAB PO SCH (09:19)
[2020-04-14] MEDS: GABAPENTIN 400 MG CAP PO SCH ×2 (09:19→21:49)
[2020-04-14] MEDS: CALCIUM CARBONATE 1250MG TAB PO SCH (09:20)
[2020-04-14] MEDS: PSYLLIUM 58.6% POWDER PACKET PO SCH ×2 (09:20→21:59)
[2020-04-14] MEDS: SUCRALFATE 1 GM/10 ML UDC PO SCH ×4 (09:20→21:50)
[2020-04-14] MEDS: POTASSIUM CHLORIDE CRTAB 20 MEQ TABCR PO SCH (09:20)
[2020-04-14] MEDS: PANTOprazole 40 MG TAB PO SCH (09:21)
[2020-04-14] MEDS: CHOLESTYRAMINE LIGHT 4 GM PKT PO SCH (09:22)
[2020-04-14] MEDS: LEVOTHYROXINE SODIUM 175 MCG TABLET PO SCH (09:36)
[2020-04-14] MEDS: INSULIN GLARGINE SOLOSTAR 100 UNITS/ML 3 ML PEN SC SCH ×2 (09:41→21:45)
[2020-04-14] MEDS: INSULIN ASPART 100 UNITS/ML 3 ML PEN SC SCH ×4 (09:43→21:44)
--- NOTE | 2020-04-14 11:20 | Psychiatric Progress Note ---
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 She dropped out of mental health treatment about 12 years ago, and PCP has prescribed psychotropic medications, but she stopped taking them a month ago. She agreed to trials of fluoxetine and prazosin on admission, will need a family meeting with her , and referral for outpatient treatment. Inpatient treatment is medically necessary due to the se verity of symptoms and risk for suicide if discharged. Of additional note is the fact that the patient reports that she has been experiencing mood congruent auditory hallucinations for at least the past 2 months. Among other things, she report that the voices encouraged her to commit suicide. She has continued to experience auditory hallucinations in the hospital, and the patient psychotic symptoms will need to be treated together with the depression. Reviewed 04/14/20. Improving--evangelista resolved but less than 24 hrs ago and still has sleep disturbance. (1) Suicidal ideation: 04/11 -continue voluntary inpatient treatment, every 15 minute checks for safety. Encourage group attendance and participation, work on healthy coping skills and discharge safety plan. -Family meeting with , explore ways to increase outpatient supports, and refer for outpatient psychiatric treatment and therapy. 04/12 -SI continues but is slightly reduced from presentation. She feels safe in the hospital, but not outside of the hospital. 04/13 -The patient reports that she is continuing to have suicidal thoughts, and that these thoughts are amplified by auditory hallucinations that she reports are encouraging her to commit suicide. However, she reports that the intensity of her suicidal thoughts have remained somewhat diminished since admission. She notes that she is unable to contract for safety in the community, fears that she will act again on her suicidal thoughts (following an attempt about 2 months ago) and her concern is that she will end up "leaving" her and children by killing herself. She does reliably contract for safety in the hospital. There is also a longstanding history of intentional self-injurious behaviors, with sharp objects such as knives or her fingernails, and she shows me several locations on her arms where she has scratched herself in the past. The patient agrees that she will let staff know if she is considering any form of self-harm during the hospital stay. Reviewed 04/14/20. (2) Depression: 04/11 -Per records, previous diagnoses include major depression, recurrent, and borderline personality traits. 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 Continue to gather information to clarify diagnosis. Unfortunately, she has not been receiving mental health treatment for about 12 years. -Reviewed treatment options including medications and therapy. She has a history of trials of Escitalopram and sertraline with unclear responses, although did feel that Escitalopram had lost its effect which is why she stopped it about a month ago. We discussed a trial of fluoxetine to target mood and anxiety symptoms, reviewed risks, benefits, and side effects, and will start 20 mg daily today. She may benefit from augmentation with an atypical, but I am concerned about her poorly controlled diabetes and obesity so will hold on this until we can assess her response to therapeutic dose of antidepressant and return to psychotherapy. -Continue to provide psychoeducation about her diagnoses and recommended treatment. Refer for outpatient treatment. 04/12 -continue current treatment plan. 04/13 -Yesterday, the patient described her mood as being "2 out of 10," and today she continues to report that she is "extremely depressed," but "may be a little better last night and today." -The patient's affect is seemingly not congruent with her report that her mood is "extremely depressed." Although her affect does appear to be depressed during much of today's encounter, she also smiles broadly a number of times and laughs appropriately on several occasions. -Today, the patient reports that she has been experiencing auditory hallucinations and conjunction with her depression. The content of the hallucinations is mood congruent and calm among other things, tell the patient that she should kill her self. -The plan today is to increase her dose of fluoxetine to 30 mg a day from the current dose of 20 mg a day. The patient has indicated that she feels that she is tolerating Prozac 20 mg well has noted no side effects. We will also add perphenazine 2 mg in the morning, with a stat test dose now, and then proceed with a standing dose, as tolerated, of 2 mg in the morning and 4 mg at bedtime to treat the patient's psychotic symptoms/auditory hallucinations. -The patient complains of insomnia, primarily intermittent insomnia, which may be related to nightmares secondary to her PTSD. She is receiving amitriptyline at bedtime and hydroxyzine 50 mg at bedtime as needed for sleep, and the patient says that in the morning she feels like she is "been run over by a truck." The strategy at this point will be to offer the patient perphenazine at bedtime, lower the dose of hydroxyzine from 50 mg as needed at bedtime to 25 mg at bedtime, and increase the dose of prazosin from 1 mg at bedtime to 2 mg at bedtime. Reviewed 04/14/20. (3) PTSD (post-traumatic stress disorder): 04/11 -symptoms worsened over the past 2 to 3 months since she had contact with her father. Unclear if there are other triggers playing a role. She does report that therapy was helpful in the past, and we will refer her for outpatient services. Prazosin 1 mg at bedtime started for nightmares. Reviewed risks, benefits, and side effects. 04/12 -started prazosin last night, received 1 mg and reports slight reduction in nightmares. Continue this dose and titrate as tolerated. 04/13 -Patient indicates that she feels that she is tolerating prazosin well. She says that last night she has been awakening a number of times in the night feeling "startled," but that she does not necessarily remember a nightmare after starting prazosin. She does, however, believe that she is experiencing nightmares because of the feeling she experiences upon awakening multiple times during the night. We will titrate the dose of prazosin from 1 mg to a dose of 2 mg starting tonight. Reviewed 04/14/20. will add retrial of trazodone 50 mg po qhs. 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 Refer for outpatient therapy. Reviewed 04/14/20. (5) Sleep disturbances: 04/10 -provide psychoeducation about good sleep hygiene, encouraged her to follow recommendations regarding use of CPAP for both optimal mood and physical health, this may also help with her migraines. Reviewed 04/14/20. trazodone as above. (6) DM type 2 (diabetes mellitus, type 2): 04/11 -continue home insulin, consult diabetic pharmacist for glucose control management. Per most recent PCP note from 01/31/2020, her diabetes is poorly controlled. Reviewed 04/14/20. confirmed HgbA1c 04/11 (7) LFTs abnormal: 04/11 -PCP notes indicate she has diagnosed with nonalcoholic steatohepatitis. Reviewed 04/14/20. (8) Hypothyroidism: 04/11 -continue home dose of levothyroxine. TSH normal on admission. Reviewed 04/14/20. (9) Hypertriglyceridemia: 04/11 -continue pravastatin. Cholesterol 176 mg/dl (0-200) 12/07/19 HDL Cholesterol 32 mg/dl 12/07/19 Triglycerides 332 mg/dl (0-150) H 12/07/19 Cholesterol/HDL Ratio 6 12/07/19 Reviewed 04/14/20. Repeat lipid panel due to antipsychotic monitoring protocol. (10) Diabetic neuropathy: 04/11 -continue home dose of gabapentin 400 mg twice daily. PCP referred her to podiatry 04/13 -Peripheral neuropathy symptoms persist. She notes that "sometimes" the gabapentin does not work as well as others, but generally, the medication is effective and she indicates that she would prefer to remain on the current dose of gabapentin because she is able to tolerate the peripheral neuropathy symptoms and has confidence that they will improve as they have in the past. She also reports that she experiences "dry mouth" from gabapentin, notes that this is the reason why she would prefer not to increase the dose at this point. Reviewed 04/14/20. Risk Factors Assessment Male: No : Yes Do You Have Access To A Gun?: No Health Problems: Yes Mental Health Diagnoses: Yes Substance Use Disorders: No Previous Attempt: No Family History of Suicide: No Previous Psychiatric Hospitalization: Yes Hopelessness: Yes Smoker: Yes Protective Factors Assessment : Yes Responsible for Young Children: Yes Employed: No Stable Relationships: Yes Supportive Family: No Good Rapport with Provider: No Interval History Identifying Information JEFFERY EMANUEL is a 34-year-old F who currently lives in [place] with her and children, has a history of depression, bipolar and PTSD per her report, as well as multiple medical problems, and was admitted on 04/11/20 01:35 on a 201 voluntary commitment for suicidal ideation with a plan to cut her wrist. Chief Complaint "I'm actually feeling much better I just can't sleep very well". Review of Systems Sleep Information Total Hours of Sleep: 7 Meal Information Percent Meal Consumed - Breakfast: 100 Percent Meal Consumed - Lunch: 100 Percent Meal Consumed - Dinner: 100 Nutrition Comment: Carb count noted Subjective Subjective Patient was seen & assessed and interval progress reviewed with nursing and social work. Reviewed multiple family stressors. Had opened up about ego syntonic aud command evangelista yesterday and "they are gone today!" following Trilafon start. She doesn't recall nightmares any more but has frequent awakenings. Rates her mood as a 7/10. gluc check this am 95. Tolerating medications. Clarified that her CPAP is broken and does need a new study, previously she was told the use was to preven am migraines. Reviewed that apnea can cause frequent awakenings and that sedating meds can make work. Vistaril is essentially ineffective for sleep and she does not want to increase TCA as "for migraine" and constipation. Historically trazodone has worked well and she'd like a retrial as "like this I won't be able to function at home". Physical Exam Psychiatric Orientation: alert Apperance: appropriately groomed Eye Contact: + fair eye contact Motor Behavior: no abnormal motor movements Speech: normal rate/rhythm/volume of speech Affect: + depressed affect Mood: + depressed mood Thought Process: linear/logical thought process Thought Content: reality based without delusions Suicidal Thoughts: denies suicidal thoughts Homicidal Thoughts: denies homicidal thoughts Hallucinations: no auditory hallucinations and no visual hallucinations Insight: + fair insight Judgement: + fair judgement Vital Signs (Past 24 Hours) Last Vital Signs Temp 36.3 C L 04/14/20 06:18 Pulse 94 H 04/14/20 06:18 Resp 20 04/14/20 06:18 BP 93/63 L 04/14/20 06:18 Pulse Ox 98 04/12/20 13:51 Results & Data ([facility]) Laboratory Results Laboratory Results - last 24 hr 04/13/20 04/13/20 04/13/20 12:23 17:05 20:29 POC Glucose 160 H 115 H 141 H 04/14/20 08:50 POC Glucose 95 Current Inpatient Medications Current Inpatient Medications: Current Inpatient Medications Acetaminophen (Acetaminophen 325 Mg Tab) 650 mg PO Q4H PRN PRN Reason: Headache or Minor Fever Stop: 05/11/20 02:25 Last Admin: 04/13/20 03:21 Dose: 650 mg Documented by: Al Hydrox/Mg Hydrox/Simethicone (Aluminum/Magnesium Susp 30 Ml Udc) 30 ml PO Q4H PRN PRN Reason: GI Upset Stop: 05/11/20 02:25 Albuterol (Albuterol Hfa 8 Gm Inhaler) 1 - 2 puffs INH QIDR PRN PRN Reason: shortness of breath or wheezin Stop: 05/11/20 07:49 Last Admin: 04/12/20 13:45 Dose: 2 puffs Documented by: Amitriptyline HCl (Amitriptyline Hcl 10 Mg Tab) 10 mg PO [facility] Stop: 05/11/20 21:59 Last Admin: 04/13/20 20:56 Dose: 10 mg Documented by: Aspirin (Aspirin 81 Mg Ectab) 81 mg PO DAILY [facility] Stop: 05/11/20 08:59 Last Admin: 04/14/20 09:19 Dose: 81 mg Documented by: Bismuth Subsalicylate (Bismuth Subsalicylate Liqd 236 Ml) 15 ml PO PRN PRN PRN Reason: Loose Stool Stop: 05/11/20 02:25 Calcium Carbonate (Calcium Carbonate 1250mg Tab) [facility] Protocol Stop: 05/11/20 08:59 Last Admin: 04/14/20 09:20 Dose: 1,250 mg Documented by: Colestipol HCl (Colestipol Hcl 1 Gm Tab) [facility] Stop: 05/14/20 11:59 Cyanocobalamin (Cyanocobalamin 500 Mcg Tablet (Vitamin B-12)) 500 [facility]cg [facility] Stop: 05/11/20 08:59 Last Admin: 04/14/20 09:18 Dose: 500 mcg Documented by: Dextrose (Dextrose 50% 50 Ml Syringe) 25 - 50 ml IV UD PRN; Protocol PRN Reason: Hypoglycemia Protocol Stop: 05/11/20 04:29 Ergocalciferol (Ergocalciferol 50,000 Units 1250 Mcg Cap) 50,000 units PO Jeffery@0800 [facility] Stop: 05/15/20 07:59 Famotidine (Famotidine 20 Mg Tab) 20 mg PO [facility] Stop: 05/11/20 21:59 Last Admin: 04/13/20 20:56 Dose: 20 mg Documented by: Fluoxetine HCl (Fluoxetine Hcl 20 Mg Cap) 20 mg PO QAM [facility] Stop: 05/12/20 10:29 Last Admin: 04/14/20 09:19 Dose: 20 mg Documented by: Fluoxetine HCl (Fluoxetine Hcl 10 Mg Cap) 10 mg PO QAM [facility] Stop: 05/13/20 10:14 Last Admin: 04/14/20 09:19 Dose: 10 mg Documented by: Gabapentin (Gabapentin 400 Mg Cap) 400 mg PO BID [facility] Stop: 05/11/20 08:59 Last Admin: 04/14/20 09:19 Dose: 400 mg Documented by: Glucagon (Glucagon For Inj 1 Mg Vial) 1 mg SQ UD PRN; Protocol PRN Reason: Hypoglycemia Protocol Stop: 05/11/20 04:29 Glucose (Glucose 40% Gel 15 Gm Tube) 15 - 30 gm PO UD PRN; Protocol PRN Reason: Hypoglycemia Protocol Stop: 05/11/20 04:29 Glucose (Glucose 10 Tabs/Tube) 4 - 8 tabs PO UD PRN; Protocol PRN Reason: Hypoglycemia Protocol Stop: 05/11/20 04:29 Hydroxyzine HCl (Hydroxyzine Hcl 25 Mg Tab) 25 mg PO Q4H PRN PRN Reason: Anxiety Stop: 05/11/20 02:25 Insulin Aspart (Insulin Aspart 100 Units/Ml 3 Ml Pen) 0 units SC ACHS [facility] Stop: 05/11/20 07:59 Last Admin: 04/14/20 09:43 Dose: 14 units Documented by: Insulin Glargine (Insulin Glargine Solostar 100 Units/Ml 3 Ml Pen) 60 units SC BID [facility] Stop: 05/12/20 09:14 Last Admin: 04/14/20 09:41 Dose: 60 units Documented by: Levothyroxine Sodium (Levothyroxine Sodium 175 Mcg Tablet) 175 mcg PO DAILYBB [facility] Stop: 05/11/20 08:14 Last Admin: 04/14/20 09:36 Dose: 175 mcg Documented by: Magnesium Hydroxide (Magnesium Hydroxide Susp 30 Ml Udc) 30 ml PO DAILY PRN PRN Reason: Constipation Stop: 05/11/20 02:25 Metoprolol Tartrate (Metoprolol Tartrate 25 Mg Tab) 25 mg PO BID [facility] Stop: 05/11/20 08:59 Last Admin: 04/14/20 09:18 Dose: 25 mg Documented by: Miscellaneous (Carbohydrates For Hypoglycemia ) 15 - 30 gm PO UD PRN PRN Reason: Hypoglycemia Treatment Stop: 05/11/20 04:29 Miscellaneous Information (Pharmacy Glycemic Mgmt Consult) 1 ea N/A UD PRN PRN Reason: Consult Stop: 05/11/20 04:08 Multivitamins (Multivitamin Tab) [facility] Stop: 05/11/20 08:59 Last Admin: 04/14/20 09:18 Dose: 1 tab Documented by: Ondansetron HCl (Ondansetron 4 Mg Od Tab) 4 mg PO Q8H PRN PRN Reason: Nausea Stop: 05/11/20 08:06 Pantoprazole Sodium (Pantoprazole 40 Mg Tab) [facility]; Protocol Stop: 05/11/20 08:59 Last Admin: 04/14/20 09:21 Dose: 40 mg Documented by: Perphenazine (Perphenazine 2 Mg Tablet) 4 mg PO [facility] Stop: 05/13/20 21:59 Last Admin: 04/13/20 21:00 Dose: 4 mg Documented by: Perphenazine (Perphenazine 2 Mg Tablet) [facility] Stop: 05/14/20 08:59 Last Admin: 04/14/20 09:18 Dose: 2 mg Documented by: Potassium Chloride (Potassium Chloride Crtab 20 Meq Tabcr) 20 meq PO DAILY [facility] Stop: 05/11/20 08:59 Last Admin: 04/14/20 09:20 Dose: 20 meq Documented by: Pravastatin Sodium (Pravastatin Sod 10 Mg Tab) 10 mg PO DAILY [facility] Stop: 05/11/20 08:59 Last Admin: 04/14/20 09:19 Dose: 10 mg Documented by: Prazosin HCl (Prazosin Hcl 1 Mg Cap) 2 mg PO [facility] Stop: 05/13/20 21:59 Last Admin: 04/13/20 21:01 Dose: 2 mg Documented by: Psyllium Hydrophilic Mucilloid (Psyllium 58.6% Powder Packet) 1 pkt PO BID [facility]; Protocol Stop: 05/11/20 08:59 Last Admin: 04/14/20 09:20 Dose: 1 pkt Documented by: Saccharomyces Boulardii (Saccharomyces Boulardii 250 Mg Cap) 250 mg PO DAILY [facility] Stop: 05/11/20 08:59 Last Admin: 04/14/20 09:19 Dose: 250 mg Documented by: Sodium Chloride (Sodium Chloride 0.65% Na Soln 45 Ml ([place])) 1 - 2 sprays NA PRN PRN PRN Reason: Nasal Dryness/Congestion Stop: 05/11/20 02:25 Sucralfate (Sucralfate 1 Gm/10 Ml Udc) 0.5 gm PO QID TED Stop: 05/11/20 08:59 Last Admin: 04/14/20 09:20 Dose: 0.5 gm Documented by: Sumatriptan Succinate (Sumatriptan Succinate 50 Mg Tab) 50 mg PO UD PRN PRN Reason: Migraine Headache Stop: 05/11/20 07:59 Last Admin: 04/13/20 22:38 Dose: 50 mg Documented by: Trazodone HCl (Trazodone Hcl 50 Mg Tab) 50 mg PO HS TED Stop: 05/14/20 21:59 Vitamin D (Cholecalciferol 1,000 Units 25 Mcg Tab) 5,000 units PO QAM [facility] Stop: 05/11/20 08:59 Last Admin: 04/14/20 09:19 Dose: 5,000 units Documented by: Vitamin E (Tocopheryl, Dl-Alpha 400 Units Cap) 400 units PO QAM TED Stop: 05/11/20 08:59 Last Admin: 04/14/20 09:19 Dose: 400 units Documented by: Mental Health & Subst Abuse Tx Therapist Name of Therapist: Sylvia Cooper Therapist's Date of Therapist Appointment: 04/18/20 Time of Therapist Appointment: 4:00 p.m. Therapy Appointment Comment: Telehealth Post Discharge Appointments Primary Care Physician Name Of Family Doctor: Dr. Sahu Primary Care Provider Appointment Comment: [phone] [facility] [place] [address] Contact Information Discharge Discharge Address: [address] [place] [id number]
[2020-04-14] MEDS: COLESTIPOL HCL 1 GM TAB PO SCH (12:57)
[2020-04-14] MEDS: PRAZOSIN HCL 1 MG CAP PO SCH (21:48)
[2020-04-14] MEDS: FAMOTIDINE 20 MG TAB PO SCH (21:49)
[2020-04-14] MEDS: AMITRIPTYLINE HCL 10 MG TAB PO SCH (21:49)
[2020-04-14] MEDS: traZODone HCL 50 MG TAB PO SCH (21:52)
[2020-04-15] MEDS ORDERED: ERGOCALCIFEROL 50,000 UNITS 1250 MCG CAP PO SCH (08:00)
[2020-04-15 08:34] LABS: Chol HDL Ratio 6; Cholesterol 175 mg/dl (0-200); HDL Cholesterol 29 mg/dl; Triglycerides 533 mg/dl (0-150)
[2020-04-15] MEDS: SACCHAROMYCES BOULARDII 250 MG CAP PO SCH (08:39)
[2020-04-15] MEDS: GABAPENTIN 400 MG CAP PO SCH ×2 (08:39→21:29)
[2020-04-15] MEDS: PRAVASTATIN SOD 10 MG TAB PO SCH (08:39)
[2020-04-15] MEDS: SUCRALFATE 1 GM/10 ML UDC PO SCH ×4 (08:39→21:20)
[2020-04-15] MEDS: ASPIRIN 81 MG ECTAB PO SCH (08:39)
[2020-04-15] MEDS: PERPHENAZINE 2 MG TABLET PO SCH ×2 (08:40→21:29)
[2020-04-15] MEDS: FLUoxetine HCL 20 MG CAP PO SCH (08:40)
[2020-04-15] MEDS: CYANOCOBALAMIN 500 MCG TABLET (VITAMIN B-12) PO SCH (08:40)
[2020-04-15] MEDS: METOPROLOL TARTRATE 25 MG TAB PO SCH ×2 (08:40→21:27)
[2020-04-15] MEDS: CHOLECALCIFEROL 1,000 UNITS 25 MCG TAB PO SCH (08:40)
[2020-04-15] MEDS: PANTOprazole 40 MG TAB PO SCH (08:40)
[2020-04-15] MEDS: CALCIUM CARBONATE 1250MG TAB PO SCH (08:40)
[2020-04-15] MEDS: FLUoxetine HCL 10 MG CAP PO SCH (08:40)
[2020-04-15] MEDS: TOCOPHERYL, DL-ALPHA 400 UNITS CAP PO SCH (08:40)
[2020-04-15] MEDS: LEVOTHYROXINE SODIUM 175 MCG TABLET PO SCH (08:41)
[2020-04-15] MEDS: PSYLLIUM 58.6% POWDER PACKET PO SCH ×2 (08:41→21:30)
[2020-04-15] MEDS: MULTIVITAMIN TAB PO SCH (08:41)
[2020-04-15] MEDS: POTASSIUM CHLORIDE CRTAB 20 MEQ TABCR PO SCH (08:41)
[2020-04-15] MEDS: INSULIN GLARGINE SOLOSTAR 100 UNITS/ML 3 ML PEN SC SCH ×2 (08:43→21:26)
[2020-04-15] MEDS: INSULIN ASPART 100 UNITS/ML 3 ML PEN SC SCH ×4 (08:57→21:22)
[2020-04-15] MEDS: SUMAtriptan succinate 50 MG TAB PO PRN ×2 (09:31→13:37)
--- NOTE | 2020-04-15 10:16 | Psychiatric Progress Note ---
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 She dropped out of mental health treatment about 12 years ago, and PCP has prescribed psychotropic medications, but she stopped taking them a month ago. She agreed to trials of fluoxetine and prazosin on admission, will need a family meeting with her , and referral for outpatient treatment. Inpatient treatment is medically necessary due to the se verity of symptoms and risk for suicide if discharged. Of additional note is the fact that the patient reports that she has been experiencing mood congruent auditory hallucinations for at least the past 2 months. Among other things, she report that the voices encouraged her to commit suicide. She has continued to experience auditory hallucinations in the hospital, and the patient psychotic symptoms will need to be treated together with the depression. Reviewed 04/14/20. Improving--evangelista resolved but less than 24 hrs ago and still has sleep disturbance. 04/15/20--ongoing improvement but migraine today and too early to assess true functioning. Plan: continue current meds and treatment plan. Risk Factors Assessment Male: No : Yes Do You Have Access To A Gun?: No Health Problems: Yes Mental Health Diagnoses: Yes Substance Use Disorders: No Previous Attempt: No Family History of Suicide: No Previous Psychiatric Hospitalization: Yes Hopelessness: Yes Smoker: Yes Protective Factors Assessment : Yes Responsible for Young Children: Yes Employed: No Stable Relationships: Yes Supportive Family: No Good Rapport with Provider: No Interval History Identifying Information JEFFERY EMANUEL is a 34-year-old F who currently lives in [place] with her and children, has a history of depression, bipolar and PTSD per her report, as well as multiple medical problems, and was admitted on 04/11/20 01:35 on a 201 voluntary commitment for suicidal ideation with a plan to cut her wrist. Re-reviewed 04/15/20. Chief Complaint "migraine". Review of Systems Sleep Information Total Hours of Sleep: 7.5 Meal Information Percent Meal Consumed - Breakfast: 100 Percent Meal Consumed - Lunch: 100 Percent Meal Consumed - Dinner: 100 Nutrition Comment: Carb count noted Subjective Subjective Patient was seen & assessed and interval progress reviewed with nursing and social work. slept better last night, woke up requesting Imitrex for migraine, typical for her to get 2-3/week and doesn't attribute it to medication. Had 90 min family session yesterday with who plans to take FMLA to support her following stay. Denies evangelista yesterday or urge to self injure. 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 Physical Exam Psychiatric Orientation: alert, oriented x 3 and cooperative Apperance: appropriately groomed Eye Contact: + fair eye contact Motor Behavior: no abnormal motor movements Speech: normal rate/rhythm/volume of speech Affect: + depressed affect Mood: + depressed mood Thought Process: linear/logical thought process Thought Content: reality based without delusions Suicidal Thoughts: denies suicidal thoughts Homicidal Thoughts: denies homicidal thoughts Hallucinations: no auditory hallucinations and no visual hallucinations Cognition: recent memory grossly intact, remote memory grossly intact and language grossly intact Estimated Intelligence: consistent with education level Insight: + fair insight Judgement: + fair judgement Vital Signs (Past 24 Hours) Last Vital Signs Temp 36.6 C 04/15/20 06:17 Pulse 102 H 04/15/20 06:17 Resp 20 04/15/20 06:17 BP 107/71 04/15/20 06:17 Pulse Ox 98 04/12/20 13:51 Results & Data ([facility]) Laboratory Results Laboratory Results - last 24 hr 04/14/20 04/14/20 04/14/20 12:27 17:11 20:16 POC Glucose 142 H 110 H 112 H Triglycerides Cholesterol LDL Cholesterol, Calc VLDL Cholesterol, Calc HDL Cholesterol Cholesterol/HDL Ratio 04/15/20 04/15/20 08:00 08:06 POC Glucose 96 Triglycerides 533 H Cholesterol 175 LDL Cholesterol, Calc VLDL Cholesterol, Calc HDL Cholesterol 29 Cholesterol/HDL Ratio 6 Current Inpatient Medications Current Inpatient Medications: Current Inpatient Medications Acetaminophen (Acetaminophen 325 Mg Tab) 650 mg PO Q4H PRN PRN Reason: Headache or Minor Fever Stop: 05/11/20 02:25 Last Admin: 04/13/20 03:21 Dose: 650 mg Documented by: Al Hydrox/Mg Hydrox/Simethicone (Aluminum/Magnesium Susp 30 Ml Udc) 30 ml PO Q4H PRN PRN Reason: GI Upset Stop: 05/11/20 02:25 Albuterol (Albuterol Hfa 8 Gm Inhaler) 1 - 2 puffs INH QIDR PRN PRN Reason: shortness of breath or wheezin Stop: 05/11/20 07:49 Last Admin: 04/12/20 13:45 Dose: 2 puffs Documented by: Amitriptyline HCl (Amitriptyline Hcl 10 Mg Tab) 10 mg PO HS [facility] Stop: 05/11/20 21:59 Last Admin: 04/14/20 21:49 Dose: 10 mg Documented by: Aspirin (Aspirin 81 Mg Ectab) 81 mg PO DAILY [facility] Stop: 05/11/20 08:59 Last Admin: 04/15/20 08:39 Dose: 81 mg Documented by: Bismuth Subsalicylate (Bismuth Subsalicylate Liqd 236 Ml) 15 ml PO PRN PRN PRN Reason: Loose Stool Stop: 05/11/20 02:25 Calcium Carbonate (Calcium Carbonate 1250mg Tab) 1,250 mg PO [facility]; Protocol Stop: 05/11/20 08:59 Last Admin: 04/15/20 08:40 Dose: 1,250 mg Documented by: Colestipol HCl (Colestipol Hcl 1 Gm Tab) [facility] Stop: 05/14/20 11:59 Last Admin: 04/14/20 12:57 Dose: 2 gm Documented by: Cyanocobalamin (Cyanocobalamin 500 Mcg Tablet (Vitamin B-12)) [facility] Stop: 05/11/20 08:59 Last Admin: 04/15/20 08:40 Dose: 500 mcg Documented by: Dextrose (Dextrose 50% 50 Ml Syringe) 25 - 50 ml IV UD PRN; Protocol PRN Reason: Hypoglycemia Protocol Stop: 05/11/20 04:29 Ergocalciferol (Ergocalciferol 50,000 Units 1250 Mcg Cap) 50,000 units PO Jeffery@0800 [facility] Stop: 05/15/20 07:59 Last Admin: 04/15/20 08:39 Dose: 50,000 units Documented by: Famotidine (Famotidine 20 Mg Tab) 20 mg PO [facility] Stop: 05/11/20 21:59 Last Admin: 04/14/20 21:49 Dose: 20 mg Documented by: Fluoxetine HCl (Fluoxetine Hcl 20 Mg Cap) [facility] Stop: 05/12/20 10:29 Last Admin: 04/15/20 08:40 Dose: 20 mg Documented by: Fluoxetine HCl (Fluoxetine Hcl 10 Mg Cap) 10 mg PO QAM [facility] Stop: 05/13/20 10:14 Last Admin: 04/15/20 08:40 Dose: 10 mg Documented by: Gabapentin (Gabapentin 400 Mg Cap) 400 mg PO BID [facility] Stop: 05/11/20 08:59 Last Admin: 04/15/20 08:39 Dose: 400 mg Documented by: Glucagon (Glucagon For Inj 1 Mg Vial) 1 mg SQ UD PRN; Protocol PRN Reason: Hypoglycemia Protocol Stop: 05/11/20 04:29 Glucose (Glucose 40% Gel 15 Gm Tube) 15 - 30 gm PO UD PRN; Protocol PRN Reason: Hypoglycemia Protocol Stop: 05/11/20 04:29 Glucose (Glucose 10 Tabs/Tube) 4 - 8 tabs PO UD PRN; Protocol PRN Reason: Hypoglycemia Protocol Stop: 05/11/20 04:29 Hydroxyzine HCl (Hydroxyzine Hcl 25 Mg Tab) 25 mg PO Q4H PRN PRN Reason: Anxiety Stop: 05/11/20 02:25 Insulin Aspart (Insulin Aspart 100 Units/Ml 3 Ml Pen) 0 units SC ACHS [facility] Stop: 05/11/20 07:59 Last Admin: 04/15/20 08:57 Dose: 8 units Documented by: Insulin Glargine (Insulin Glargine Solostar 100 Units/Ml 3 Ml Pen) 0 units SC BID [facility]; Protocol Stop: 05/14/20 20:59 Last Admin: 04/15/20 08:43 Dose: 40 units Documented by: Levothyroxine Sodium (Levothyroxine Sodium 175 Mcg Tablet) 175 mcg PO DAILYBB [facility] Stop: 05/11/20 08:14 Last Admin: 04/15/20 08:41 Dose: 175 mcg Documented by: Magnesium Hydroxide (Magnesium Hydroxide Susp 30 Ml Udc) 30 ml PO DAILY PRN PRN Reason: Constipation Stop: 05/11/20 02:25 Metoprolol Tartrate (Metoprolol Tartrate 25 Mg Tab) 25 mg PO BID [facility] Stop: 05/11/20 08:59 Last Admin: 04/15/20 08:40 Dose: 25 mg Documented by: Miscellaneous (Carbohydrates For Hypoglycemia ) 15 - 30 gm PO UD PRN PRN Reason: Hypoglycemia Treatment Stop: 05/11/20 04:29 Miscellaneous Information (Pharmacy Glycemic Mgmt Consult) 1 ea N/A UD PRN PRN Reason: Consult Stop: 05/11/20 04:08 Multivitamins (Multivitamin Tab) 1 tab PO [facility] Stop: 05/11/20 08:59 Last Admin: 04/15/20 08:41 Dose: 1 tab Documented by: Ondansetron HCl (Ondansetron 4 Mg Od Tab) 4 mg PO Q8H PRN PRN Reason: Nausea Stop: 05/11/20 08:06 Pantoprazole Sodium (Pantoprazole 40 Mg Tab) [facility] Protocol Stop: 05/11/20 08:59 Last Admin: 04/15/20 08:40 Dose: 40 mg Documented by: Perphenazine (Perphenazine 2 Mg Tablet) 4 mg PO [facility] Stop: 05/13/20 21:59 Last Admin: 04/14/20 21:47 Dose: 4 mg Documented by: Perphenazine (Perphenazine 2 Mg Tablet) 2 mg PO [facility] Stop: 05/14/20 08:59 Last Admin: 04/15/20 08:40 Dose: 2 mg Documented by: Potassium Chloride (Potassium Chloride Crtab 20 Meq Tabcr) 20 meq PO DAILY [facility] Stop: 05/11/20 08:59 Last Admin: 04/15/20 08:41 Dose: 20 meq Documented by: Pravastatin Sodium (Pravastatin Sod 10 Mg Tab) 10 mg PO DAILY [facility] Stop: 05/11/20 08:59 Last Admin: 04/15/20 08:39 Dose: 10 mg Documented by: Prazosin HCl (Prazosin Hcl 1 Mg Cap) 2 mg PO [facility] Stop: 05/13/20 21:59 Last Admin: 04/14/20 21:48 Dose: 2 mg Documented by: Psyllium Hydrophilic Mucilloid (Psyllium 58.6% Powder Packet) 1 pkt PO BID [facility]; Protocol Stop: 05/11/20 08:59 Last Admin: 04/15/20 08:41 Dose: Not Given Documented by: Saccharomyces Boulardii (Saccharomyces Boulardii 250 Mg Cap) 250 mg PO DAILY [facility] Stop: 05/11/20 08:59 Last Admin: 04/15/20 08:39 Dose: 250 mg Documented by: Sodium Chloride (Sodium Chloride 0.65% Na Soln 45 Ml (Grand)) 1 - 2 sprays NA PRN PRN PRN Reason: Nasal Dryness/Congestion Stop: 05/11/20 02:25 Sucralfate (Sucralfate 1 Gm/10 Ml Udc) 0.5 gm PO QID TED Stop: 05/11/20 08:59 Last Admin: 04/15/20 08:39 Dose: 0.5 gm Documented by: Sumatriptan Succinate (Sumatriptan Succinate 50 Mg Tab) 50 mg PO UD PRN PRN Reason: Migraine Headache Stop: 05/11/20 07:59 Last Admin: 04/15/20 09:31 Dose: 50 mg Documented by: Trazodone HCl (Trazodone Hcl 50 Mg Tab) 50 mg PO HS TED Stop: 05/14/20 21:59 Last Admin: 04/14/20 21:52 Dose: 50 mg Documented by: Vitamin D (Cholecalciferol 1,000 Units 25 Mcg Tab) 5,000 units PO QAM TED Stop: 05/11/20 08:59 Last Admin: 04/15/20 08:40 Dose: 5,000 units Documented by: Vitamin E (Tocopheryl, Dl-Alpha 400 Units Cap) 400 units PO QAM TED Stop: 05/11/20 08:59 Last Admin: 04/15/20 08:40 Dose: 400 units Documented by: Mental Health & Subst Abuse Tx Therapist Name of Therapist: Sylvia Cooper Therapist's Date of Therapist Appointment: 04/18/20 Time of Therapist Appointment: 4:00 p.m. Therapy Appointment Comment: Telehealth Post Discharge Appointments Primary Care Physician Name Of Family Doctor: Dr. Sahu Primary Care Provider Appointment Comment: [phone] [facility] [place] [address] Contact Information Discharge Discharge Address: [address] [place] [id number]
[2020-04-15] MEDS: COLESTIPOL HCL 1 GM TAB PO SCH (12:47)
--- NOTE | 2020-04-15 13:47 | Pharmacy Report ---
Pharmacy Glycemic Short Note 2 - Date of Service April 15, 2020 - Glycemic Short BSG Results (Last 24 hours): 04/14/20 04/14/20 04/15/20 17:11 20:16 08:06 POC Glucose 110 H 112 H 96 04/15/20 12:31 POC Glucose 167 H OUTPATIENT ANTIDIABETIC REGIMEN: * Humalog insulin via omnipod * Patient reports: basal rate of 5 units/hr, INS:CHO of 1 unit: 4 grams of carbohydrates, unsure of correction factor * Per patient, she has had recent skin irritation was insulin pump and has not used it in ~1 week, her PCP is looking into other options for her * HbA1c: 8.8% (04/10/20) ASSESSMENT: 04/15: * Patient received total 151 units of insulin yesterday; 100 units basal + 51 units bolus. * Fasting BSG this AM was 96 mg/dl. Will continue with Lantus dose based on scale. * Post prandial BSGs were at goal. Continue Novolog parameters. 04/13 * BSGs yesterday of 200, 246, 172, and 127 mg/dL * patient received 193 units of insulin yesterday * Fasting BSG of 145 mg/dL and lunchtime BSG of 160 mg/dL * Will plan to continue currently ordered Lantus and Novolog PLAN FOR INPATIENT GLYCEMIC CONTROL: * Hold outpatient oral diabetes medications * Basal insulin - continued * Lantus 40-50 units SC BID based on BSG scale. See EMR for details. * Bolus insulin - continued * NovoLog per scale ACHS or Q6hrs while NPO * Goal Range: Low 110 mg/dL - High 140 mg/dL * Correction Factor: 12 mg/dL/unit * Nutritional / Prandial insulin per carb ratio of 1 unit per 5 grams CHO consumed PLAN FOR DISCHARGE: * HbA1c of 8.8% suggests poor outpatient glycemic control * Per patient, Omnipod has not been used in ~1 week due to recent skin irritation with device * Patient states that she is working with her primary care provider to find alternatives * Ensure timely follow-up with PCP for further insulin management * May require discharge with short-term SC basal/bolus regimen if patient will not use Omnipod * Doses TBD
[2020-04-15] MEDS: AMITRIPTYLINE HCL 10 MG TAB PO SCH (21:28)
[2020-04-15] MEDS: FAMOTIDINE 20 MG TAB PO SCH (21:28)
[2020-04-15] MEDS: traZODone HCL 50 MG TAB PO SCH (21:28)
[2020-04-15] MEDS: PRAZOSIN HCL 1 MG CAP PO SCH (21:31)
[2020-04-16] MEDS: hydrOXYzine HCl 25 MG TAB PO PRN ×4 (00:12→22:23)
[2020-04-16] MEDS: LEVOTHYROXINE SODIUM 175 MCG TABLET PO SCH (08:49)
[2020-04-16] MEDS: SUCRALFATE 1 GM/10 ML UDC PO SCH ×4 (08:49→20:55)
[2020-04-16] MEDS: ASPIRIN 81 MG ECTAB PO SCH (08:50)
[2020-04-16] MEDS: POTASSIUM CHLORIDE CRTAB 20 MEQ TABCR PO SCH (08:51)
[2020-04-16] MEDS: METOPROLOL TARTRATE 25 MG TAB PO SCH ×2 (08:51→20:57)
[2020-04-16] MEDS: SACCHAROMYCES BOULARDII 250 MG CAP PO SCH (08:51)
[2020-04-16] MEDS: TOCOPHERYL, DL-ALPHA 400 UNITS CAP PO SCH (08:52)
[2020-04-16] MEDS: PSYLLIUM 58.6% POWDER PACKET PO SCH ×4 (08:52→20:53)
[2020-04-16] MEDS: CHOLECALCIFEROL 1,000 UNITS 25 MCG TAB PO SCH (08:53)
[2020-04-16] MEDS: CYANOCOBALAMIN 500 MCG TABLET (VITAMIN B-12) PO SCH (08:54)
[2020-04-16] MEDS: PERPHENAZINE 2 MG TABLET PO SCH ×2 (08:54→20:58)
[2020-04-16] MEDS: FLUoxetine HCL 20 MG CAP PO SCH (08:55)
[2020-04-16] MEDS: FLUoxetine HCL 10 MG CAP PO SCH (08:55)
[2020-04-16] MEDS: CALCIUM CARBONATE 1250MG TAB PO SCH (08:56)
[2020-04-16] MEDS: PANTOprazole 40 MG TAB PO SCH (08:56)
[2020-04-16] MEDS: PRAVASTATIN SOD 10 MG TAB PO SCH (08:56)
[2020-04-16] MEDS: MULTIVITAMIN TAB PO SCH (08:57)
[2020-04-16] MEDS: GABAPENTIN 400 MG CAP PO SCH ×2 (08:58→20:55)
[2020-04-16] MEDS: INSULIN GLARGINE SOLOSTAR 100 UNITS/ML 3 ML PEN SC SCH ×2 (09:00→21:09)
[2020-04-16] MEDS: INSULIN ASPART 100 UNITS/ML 3 ML PEN SC SCH ×4 (09:04→21:04)
--- NOTE | 2020-04-16 12:26 | Psychiatric Progress Note ---
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 She dropped out of mental health treatment about 12 years ago, and PCP has prescribed psychotropic medications, but she stopped taking them a month ago. She agreed to trials of fluoxetine and prazosin on admission, will need a family meeting with her , and referral for outpatient treatment. Inpatient treatment is medically necessary due to the se verity of symptoms and risk for suicide if discharged. Of additional note is the fact that the patient reports that she has been experiencing mood congruent auditory hallucinations for at least the past 2 months. Among other things, she report that the voices encouraged her to commit suicide. She has continued to experience auditory hallucinations in the hospital, and the patient psychotic symptoms will need to be treated together with the depression. 04/16/20--more anxious today around safety planning, Plan: continue current meds and treatment plan. Encourage use of Vistaril prn. Risk Factors Assessment Male: No : Yes Do You Have Access To A Gun?: No Health Problems: Yes Mental Health Diagnoses: Yes Substance Use Disorders: No Previous Attempt: No Family History of Suicide: No Previous Psychiatric Hospitalization: Yes Hopelessness: Yes Smoker: Yes Protective Factors Assessment : Yes Responsible for Young Children: Yes Employed: No Stable Relationships: Yes Supportive Family: No Good Rapport with Provider: No Interval History Identifying Information JEFFERY EMANUEL is a 34-year-old F who currently lives in [place] with her and children, has a history of depression, bipolar and PTSD per her report, as well as multiple medical problems, and was admitted on 04/11/20 01:35 on a 201 voluntary commitment for suicidal ideation with a plan to cut her wrist. Re-reviewed 04/15/20. Chief Complaint "I was just more anxious last night, I want to go home but I don't want to backslide". Review of Systems Sleep Information Total Hours of Sleep: 6 Meal Information Percent Meal Consumed - Breakfast: 90 Percent Meal Consumed - Lunch: 90 Percent Meal Consumed - Dinner: 100 Nutrition Comment: Carb count noted Subjective Subjective Patient was seen & assessed and interval progress reviewed with treatment team. Mood remains improved. Migraine resolved after 2nd dose of imitrex. She is too anxious to work out safety plan and structured schedule with . Physical Exam Psychiatric Orientation: alert, oriented x 3 and cooperative Apperance: appropriately dressed, appropriately groomed and appeared stated age Eye Contact: + fair eye contact Motor Behavior: no abnormal motor movements Speech: normal rate/rhythm/volume of speech Affect: + constricted affect and mood congruent with affect Mood: + anxious mood Thought Process: goal directed thought process Thought Content: reality based without delusions Suicidal Thoughts: denies suicidal thoughts Homicidal Thoughts: denies homicidal thoughts Hallucinations: no auditory hallucinations and no visual hallucinations Cognition: recent memory grossly intact, remote memory grossly intact, attention grossly intact and language grossly intact Estimated Intelligence: average estimated intelligence and consistent with education level Insight: + fair insight Judgement: + fair judgement Vital Signs (Past 24 Hours) Last Vital Signs Temp 36.6 C 04/16/20 06:14 Pulse 78 04/16/20 06:15 Resp 20 04/16/20 06:14 BP 95/69 L 04/16/20 06:15 Pulse Ox 98 04/12/20 13:51 Results & Data ([facility]) Laboratory Results Laboratory Results - last 24 hr 04/15/20 04/15/20 04/15/20 12:31 17:05 20:32 POC Glucose 167 H 125 H 116 H 04/16/20 08:38 POC Glucose 96 Current Inpatient Medications Current Inpatient Medications: Current Inpatient Medications Acetaminophen (Acetaminophen 325 Mg Tab) 650 mg PO Q4H PRN PRN Reason: Headache or Minor Fever Stop: 05/11/20 02:25 Last Admin: 04/13/20 03:21 Dose: 650 mg Documented by: Al Hydrox/Mg Hydrox/Simethicone (Aluminum/Magnesium Susp 30 Ml Udc) 30 ml PO Q4H PRN PRN Reason: GI Upset Stop: 05/11/20 02:25 Albuterol (Albuterol Hfa 8 Gm Inhaler) 1 - 2 puffs INH QIDR PRN PRN Reason: shortness of breath or wheezin Stop: 05/11/20 07:49 Last Admin: 04/12/20 13:45 Dose: 2 puffs Documented by: Amitriptyline HCl (Amitriptyline Hcl 10 Mg Tab) 10 mg PO HS TED Stop: 05/11/20 21:59 Last Admin: 04/15/20 21:28 Dose: 10 mg Documented by: Aspirin (Aspirin 81 Mg Ectab) 81 mg PO DAILY COUNT INCLUDES THE [facility] Stop: 05/11/20 08:59 Last Admin: 04/16/20 08:50 Dose: 81 mg Documented by: Bismuth Subsalicylate (Bismuth Subsalicylate Liqd 236 Ml) 15 ml PO PRN PRN PRN Reason: Loose Stool Stop: 05/11/20 02:25 Calcium Carbonate (Calcium Carbonate 1250mg Tab) 1,[address] [facility]; Protocol Stop: 05/11/20 08:59 Last Admin: 04/16/20 08:56 Dose: 1,250 mg Documented by: Colestipol HCl (Colestipol Hcl 1 Gm Tab) [facility] Stop: 05/14/20 11:59 Last Admin: 04/15/20 12:47 Dose: 2 gm Documented by: Cyanocobalamin (Cyanocobalamin 500 Mcg Tablet (Vitamin B-12)) 500 [facility]cg [facility] Stop: 05/11/20 08:59 Last Admin: 04/16/20 08:54 Dose: 500 mcg Documented by: Dextrose (Dextrose 50% 50 Ml Syringe) 25 - 50 ml IV UD PRN; Protocol PRN Reason: Hypoglycemia Protocol Stop: 05/11/20 04:29 Ergocalciferol (Ergocalciferol 50,000 Units 1250 Mcg Cap) 50,000 units PO Jeffery@0800 COUNT INCLUDES THE [facility] Stop: 05/15/20 07:59 Last Admin: 04/15/20 08:39 Dose: 50,000 units Documented by: Famotidine (Famotidine 20 Mg Tab) 20 mg PO HS COUNT INCLUDES THE [facility] Stop: 05/11/20 21:59 Last Admin: 04/15/20 21:28 Dose: 20 mg Documented by: Fluoxetine HCl (Fluoxetine Hcl 20 Mg Cap) 20 mg [facility] [place] Stop: 05/12/20 10:29 Last Admin: 04/16/20 08:55 Dose: 20 mg Documented by: Fluoxetine HCl (Fluoxetine Hcl 10 Mg Cap) 10 mg PO QAM COUNT INCLUDES THE [facility] Stop: 05/13/20 10:14 Last Admin: 04/16/20 08:55 Dose: 10 mg Documented by: Gabapentin (Gabapentin 400 Mg Cap) 400 mg PO BID COUNT INCLUDES THE [facility] Stop: 05/11/20 08:59 Last Admin: 04/16/20 08:58 Dose: 400 mg Documented by: Glucagon (Glucagon For Inj 1 Mg Vial) 1 mg SQ UD PRN; Protocol PRN Reason: Hypoglycemia Protocol Stop: 05/11/20 04:29 Glucose (Glucose 40% Gel 15 Gm Tube) 15 - 30 gm PO UD PRN; Protocol PRN Reason: Hypoglycemia Protocol Stop: 05/11/20 04:29 Glucose (Glucose 10 Tabs/Tube) 4 - 8 tabs PO UD PRN; Protocol PRN Reason: Hypoglycemia Protocol Stop: 05/11/20 04:29 Hydroxyzine HCl (Hydroxyzine Hcl 25 Mg Tab) 25 mg PO Q4H PRN PRN Reason: Anxiety Stop: 05/11/20 02:25 Last Admin: 04/16/20 10:27 Dose: 25 mg Documented by: Insulin Aspart (Insulin Aspart 100 Units/Ml 3 Ml Pen) 0 units SC ACHS COUNT INCLUDES THE [facility] Stop: 05/11/20 07:59 Last Admin: 04/16/20 09:04 Dose: 13 units Documented by: Insulin Glargine (Insulin Glargine Solostar 100 Units/Ml 3 Ml Pen) 0 units SC BID COUNT INCLUDES THE [facility]; Protocol Stop: 05/14/20 20:59 Last Admin: 04/16/20 09:00 Dose: 40 units Documented by: Levothyroxine Sodium (Levothyroxine Sodium 175 Mcg Tablet) 175 mcg PO DAILYBB COUNT INCLUDES THE [facility] Stop: 05/11/20 08:14 Last Admin: 04/16/20 08:49 Dose: 175 mcg Documented by: Magnesium Hydroxide (Magnesium Hydroxide Susp 30 Ml Udc) 30 ml PO DAILY PRN PRN Reason: Constipation Stop: 05/11/20 02:25 Metoprolol Tartrate (Metoprolol Tartrate 25 Mg Tab) 25 mg PO BID COUNT INCLUDES THE [facility] Stop: 05/11/20 08:59 Last Admin: 04/16/20 08:51 Dose: 25 mg Documented by: Miscellaneous (Carbohydrates For Hypoglycemia ) 15 - 30 gm PO UD PRN PRN Reason: Hypoglycemia Treatment Stop: 05/11/20 04:29 Miscellaneous Information (Pharmacy Glycemic Mgmt Consult) 1 ea N/A UD PRN PRN Reason: Consult Stop: 05/11/20 04:08 Multivitamins (Multivitamin Tab) 1 tab PO QAM COUNT INCLUDES THE [facility] Stop: 05/11/20 08:59 Last Admin: 04/16/20 08:57 Dose: 1 tab Documented by: Ondansetron HCl (Ondansetron 4 Mg Od Tab) 4 mg PO Q8H PRN PRN Reason: Nausea Stop: 05/11/20 08:06 Pantoprazole Sodium (Pantoprazole 40 Mg Tab) 40 mg PO QAM COUNT INCLUDES THE [facility]; Protocol Stop: 05/11/20 08:59 Last Admin: 04/16/20 08:56 Dose: 40 mg Documented by: Perphenazine (Perphenazine 2 Mg Tablet) 4 mg PO [facility] Stop: 05/13/20 21:59 Last Admin: 04/15/20 21:29 Dose: 4 mg Documented by: Perphenazine (Perphenazine 2 Mg Tablet) 2 [facility] [place] Stop: 05/14/20 08:59 Last Admin: 04/16/20 08:54 Dose: 2 mg Documented by: Potassium Chloride (Potassium Chloride Crtab 20 Meq Tabcr) 20 meq PO DAILY COUNT INCLUDES THE [facility] Stop: 05/11/20 08:59 Last Admin: 04/16/20 08:51 Dose: 20 meq Documented by: Pravastatin Sodium (Pravastatin Sod 10 Mg Tab) 10 mg PO DAILY COUNT INCLUDES THE [facility] Stop: 05/11/20 08:59 Last Admin: 04/16/20 08:56 Dose: 10 mg Documented by: Prazosin HCl (Prazosin Hcl 1 Mg Cap) 2 mg PO HS COUNT INCLUDES THE [facility] Stop: 05/13/20 21:59 Last Admin: 04/15/20 21:31 Dose: 2 mg Documented by: Psyllium Hydrophilic Mucilloid (Psyllium 58.6% Powder Packet) 1 pkt PO BID COUNT INCLUDES THE [facility]; Protocol Stop: 05/11/20 08:59 Last Admin: 04/16/20 09:20 Dose: Not Given Documented by: Saccharomyces Boulardii (Saccharomyces Boulardii 250 Mg Cap) 250 mg PO DAILY COUNT INCLUDES THE [facility] Stop: 05/11/20 08:59 Last Admin: 04/16/20 08:51 Dose: 250 mg Documented by: Sodium Chloride (Sodium Chloride 0.65% Na Soln 45 Ml ([place])) 1 - 2 sprays NA PRN PRN PRN Reason: Nasal Dryness/Congestion Stop: 05/11/20 02:25 Sucralfate (Sucralfate 1 Gm/10 Ml Udc) 0.5 gm PO QID COUNT INCLUDES THE [facility] Stop: 05/11/20 08:59 Last Admin: 04/16/20 08:49 Dose: 0.5 gm Documented by: Sumatriptan Succinate (Sumatriptan Succinate 50 Mg Tab) 50 mg PO UD PRN PRN Reason: Migraine Headache Stop: 05/11/20 07:59 Last Admin: 04/15/20 13:37 Dose: 50 mg Documented by: Trazodone HCl (Trazodone Hcl 50 Mg Tab) 50 mg PO HS TED Stop: 05/14/20 21:59 Last Admin: 04/15/20 21:28 Dose: 50 mg Documented by: Vitamin D (Cholecalciferol 1,000 Units 25 Mcg Tab) 5,000 units PO QAM TED Stop: 05/11/20 08:59 Last Admin: 04/16/20 08:53 Dose: 5,000 units Documented by: Vitamin E (Tocopheryl, Dl-Alpha 400 Units Cap) 400 units PO QAM TED Stop: 05/11/20 08:59 Last Admin: 04/16/20 08:52 Dose: 400 units Documented by: Mental Health & Subst Abuse Tx Therapist Name of Therapist: Sylvia Cooper Therapist's Date of Therapist Appointment: 04/18/20 Time of Therapist Appointment: 4:00 p.m. Therapy Appointment Comment: Telehealth Post Discharge Appointments Primary Care Physician Name Of Family Doctor: Dr. Sahu Primary Care Provider Appointment Comment: [id number] [facility] [place] [address] Contact Information Discharge Discharge Address: [address] [place] [id number]
[2020-04-16] MEDS: COLESTIPOL HCL 1 GM TAB PO SCH (12:36)
[2020-04-16] MEDS: AMITRIPTYLINE HCL 10 MG TAB PO SCH (20:56)
[2020-04-16] MEDS: PRAZOSIN HCL 1 MG CAP PO SCH (20:56)
[2020-04-16] MEDS: FAMOTIDINE 20 MG TAB PO SCH (20:57)
[2020-04-16] MEDS: traZODone HCL 50 MG TAB PO SCH (20:57)
[2020-04-16] MEDS ORDERED: INSULIN GLARGINE SOLOSTAR 100 UNITS/ML 3 ML PEN SC SCH (21:00)
[2020-04-17] MEDS: FLUoxetine HCL 20 MG CAP PO SCH (08:49)
[2020-04-17] MEDS: SUCRALFATE 1 GM/10 ML UDC PO SCH ×4 (08:50→21:04)
[2020-04-17] MEDS: POTASSIUM CHLORIDE CRTAB 20 MEQ TABCR PO SCH (08:50)
[2020-04-17] MEDS: SACCHAROMYCES BOULARDII 250 MG CAP PO SCH (08:50)
[2020-04-17] MEDS: PRAVASTATIN SOD 10 MG TAB PO SCH (08:51)
[2020-04-17] MEDS: FLUoxetine HCL 10 MG CAP PO SCH (08:51)
[2020-04-17] MEDS: GABAPENTIN 400 MG CAP PO SCH ×2 (08:51→21:04)
[2020-04-17] MEDS: CALCIUM CARBONATE 1250MG TAB PO SCH (08:51)
[2020-04-17] MEDS: METOPROLOL TARTRATE 25 MG TAB PO SCH ×2 (08:51→21:04)
[2020-04-17] MEDS: MULTIVITAMIN TAB PO SCH (08:51)
[2020-04-17] MEDS: CHOLECALCIFEROL 1,000 UNITS 25 MCG TAB PO SCH (08:51)
[2020-04-17] MEDS: TOCOPHERYL, DL-ALPHA 400 UNITS CAP PO SCH (08:52)
[2020-04-17] MEDS: LEVOTHYROXINE SODIUM 175 MCG TABLET PO SCH (08:52)
[2020-04-17] MEDS: CYANOCOBALAMIN 500 MCG TABLET (VITAMIN B-12) PO SCH (08:52)
[2020-04-17] MEDS: PANTOprazole 40 MG TAB PO SCH (08:52)
[2020-04-17] MEDS: PERPHENAZINE 2 MG TABLET PO SCH ×2 (08:52→21:05)
[2020-04-17] MEDS: ASPIRIN 81 MG ECTAB PO SCH (08:53)
[2020-04-17] MEDS: INSULIN ASPART 100 UNITS/ML 3 ML PEN SC SCH ×4 (09:08→20:51)
[2020-04-17] MEDS: INSULIN GLARGINE SOLOSTAR 100 UNITS/ML 3 ML PEN SC SCH ×2 (09:13→20:54)
[2020-04-17] MEDS: PSYLLIUM 58.6% POWDER PACKET PO SCH ×2 (09:14→21:00)
[2020-04-17] MEDS: hydrOXYzine HCl 25 MG TAB PO PRN ×2 (10:26→18:15)
--- NOTE | 2020-04-17 11:43 | Pharmacy Report ---
Glycemic Control Progress Note - Date of Service April 17, 2020 - Scope Glycemic Pharmacist consulted for glycemic control to write orders per [facility] inpatient glycemic control protocol. - Objective Accuchecks BSG(last 24 hours):: 04/16/20 04/16/20 04/16/20 12:34 16:52 20:48 POC Glucose 136 H 159 H 136 H 04/17/20 08:38 POC Glucose 102 H HbA1c:: Hemoglobin A1c 8.8 % (4.5-5.6) H 04/10/20 21:58 - Recent Pertinent Medications The patient is currently receiving: * Basal insulin: Lantus 40 units every 12 hours * Correctional Insulin: Novolog Correction per scale ACHS Goal Range: Low 110 mg/dL - High 140 mg/dL Correction Factor: 12 mg/dL/unit * Prandial insulin: Per carb ratio of 1 unit per 5 grams CHO consumed - Outpatient Anti-Diabetic Meds Omnipod - Assessment & Plan ASSESSMENT: * See progress note from 04/11/2020 for more background info, in short: * Pt receiving SQ basal bolus insulin regimen for hyperglycemia secondary to baseline DM (outpatient regimen on hold). * Patient is currently receiving an average of 131 units of insulin per day * 80 units of basal insulin * 51 units of prandial/correctional insulin * BSGs ranging 96 - 159 mg/dl over the past 24hrs * Changes needed to insulin regimen: * AM Fasting BSG = 102 mg/dl. This is in goal range for patient based on inpatient targets and co-morbidities. Therefore Basal insulin will be continued with a small dose reduction if BSG < 100 mg/dL. * Post-prandial BSGs are in range therefore no changes needed to CF/CR. Patient may require slight carbohydrate ratio tightening. * Total daily dose = ~130-140 units. PLAN FOR INPATIENT GLYCEMIC CONTROL: * Continuing Lantus 40 units SQ BID (35 units if BSG < 100 mg/dL) * Continuing correction factor of 12 mg/dl/unit * Continuing carb ratio of 1 unit per 5 grams CHO consumed * Continuing goal range of Low 110 mg/dL - High 140 mg/dL RECOMMENDATIONS FOR DISCHARGE: * Patient prefers to utilize basal/bolus insulin until able to be seen by endocrinology. * Reached out to Ovidio Car PharmD BCPS at [facility] to help manage blood sugars as an outpatient per patient request * Reached out to community health educator in order to coordinate endocrine appointment. * When discharged, Recommend the following: * Lantus 80 units daily * Novolog with carbohydrate ratio of 1 unit per 5 grams of carbohydrates consumed. * In addition to Novolog recommend utilizing correction factor of 1 unit per 15 mg/dL above 150 mg/dl * 150-165 mg/dL: 1 unit * 166-180 mg/dL: 2 unit * 181-195 mg/dL: 3 unit * 196 -210 mg/dL: 4 unit * 211 - 225 mg/dL: 5 unit * 226-240 mg/dL: 6 units * 241-255 mg/dL: 7 units * 256-270 mg/dL: 8 units * 271- 285 mg/dL: 9 units * 286 - 300 mg/dL: 10 units * 300 mg/dl or above call physician Thank you.
[2020-04-17] MEDS ORDERED: BACITRACIN OINT 0.9 GM PKT EXT PRN (12:14)
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
[2020-04-17] MEDS: COLESTIPOL HCL 1 GM TAB PO SCH (12:23)
[2020-04-17] MEDS: traZODone HCL 50 MG TAB PO SCH (21:04)
[2020-04-17] MEDS: AMITRIPTYLINE HCL 10 MG TAB PO SCH (21:05)
[2020-04-17] MEDS: FAMOTIDINE 20 MG TAB PO SCH (21:05)
[2020-04-17] MEDS: PRAZOSIN HCL 1 MG CAP PO SCH (21:05)
--- NOTE | 2020-04-18 07:51 | Discharge Summary ---
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 Glucose Hemoglobin A1c Calcium Total Bilirubin AST ALT Alkaline Phosphatase Total Protein Albumin Globulin Albumin/Globulin Ratio Triglycerides 533 H Cholesterol 175 LDL Cholesterol, Calc VLDL Cholesterol, Calc HDL Cholesterol 29 Cholesterol/HDL Ratio 6 TSH Free T4 Urine Color Urine Appearance Urine pH Ur Specific [place] Urine Protein Urine Glucose (UA) Urine Ketones Urine Blood Urine Nitrite Urine Bilirubin Urine Urobilinogen Ur Leukocyte Esterase Urine RBC Urine WBC Ur Epithelial Cells Urine Bacteria Urine Yeast Urine Test Salicylates Urine Opiates Screen Ur Methadone, Qual Acetaminophen Urine Barbiturates Ur Phencyclidine (PCP) U Amphetamin/Meth Scrn MDMA (Ecstasy) Screen U Benzodiazepines Scrn Ur Cocaine Metabolite U Marijuana (THC) Screen Ethyl Alcohol mg/dL SARS-CoV-2 Ag (Rapid) 04/15/20 04/15/20 04/16/20 17:05 20:32 08:38 WBC RBC Hgb Hct MCV MCH MCHC RDW Std Deviation RDW Coeff of Justin Plt Count MPV Immature Gran % (Auto) Neut % (Auto) Lymph % (Auto) [place] % (Auto) Eos % (Auto) Baso % (Auto) Neut # (Auto) Lymph # (Auto) [place] # (Auto) Eos # (Auto) Baso # (Auto) Immature Gran # (Auto) Sodium Potassium Chloride Carbon Dioxide Anion Gap BUN Creatinine Est Cr Clr Drug Dosing Est GFR ( Amer) Est GFR (Non-Af Amer) BUN/Creatinine Ratio Glucose POC Glucose 125 H 116 H 96 Estimat Average Glucose Hemoglobin A1c Calcium Total Bilirubin AST ALT Alkaline Phosphatase Total Protein Albumin Globulin Albumin/Globulin Ratio Triglycerides Cholesterol LDL Cholesterol, Calc VLDL Cholesterol, Calc HDL Cholesterol Cholesterol/HDL Ratio TSH Free T4 Urine Color Urine Appearance Urine pH Ur Specific [place] Urine Protein Urine Glucose (UA) Urine Ketones Urine Blood Urine Nitrite Urine Bilirubin Urine Urobilinogen Ur Leukocyte Esterase Urine RBC Urine WBC Ur Epithelial Cells Urine Bacteria Urine Yeast Urine Test Salicylates Urine Opiates Screen Ur Methadone, Qual Acetaminophen Urine Barbiturates Ur Phencyclidine (PCP) U Amphetamin/Meth Scrn MDMA (Ecstasy) Screen U Benzodiazepines Scrn Ur Cocaine Metabolite U Marijuana (THC) Screen Ethyl Alcohol mg/dL SARS-CoV-2 Ag (Rapid) 04/16/20 04/16/20 04/16/20 12:34 16:52 20:48 WBC RBC Hgb Hct MCV MCH MCHC RDW Std Deviation RDW Coeff of Justin Plt Count MPV Immature Gran % (Auto) Neut % (Auto) Lymph % (Auto) [place] % (Auto) Eos % (Auto) Baso % (Auto) Neut # (Auto) Lymph # (Auto) [place] # (Auto) Eos # (Auto) Baso # (Auto) Immature Gran # (Auto) Sodium Potassium Chloride Carbon Dioxide Anion Gap BUN Creatinine Est Cr Clr Drug Dosing Est GFR ( Amer) Est GFR (Non-Af Amer) BUN/Creatinine Ratio Glucose POC Glucose 136 H 159 H 136 H Estimat Average Glucose Hemoglobin A1c Calcium Total Bilirubin AST ALT Alkaline Phosphatase Total Protein Albumin Globulin Albumin/Globulin Ratio Triglycerides Cholesterol LDL Cholesterol, Calc VLDL Cholesterol, Calc HDL Cholesterol Cholesterol/HDL Ratio TSH Free T4 Urine Color Urine Appearance Urine pH Ur Specific [place] Urine Protein Urine Glucose (UA) Urine Ketones Urine Blood Urine Nitrite Urine Bilirubin Urine Urobilinogen Ur Leukocyte Esterase Urine RBC Urine WBC Ur Epithelial Cells Urine Bacteria Urine Yeast Urine Test Salicylates Urine Opiates Screen Ur Methadone, Qual Acetaminophen Urine Barbiturates Ur Phencyclidine (PCP) U Amphetamin/Meth Scrn MDMA (Ecstasy) Screen U Benzodiazepines Scrn Ur Cocaine Metabolite U Marijuana (THC) Screen Ethyl Alcohol mg/dL SARS-CoV-2 Ag (Rapid) 04/17/20 04/17/20 04/17/20 08:38 12:28 17:25 WBC RBC Hgb Hct MCV MCH MCHC RDW Std Deviation RDW Coeff of Justin Plt Count MPV Immature Gran % (Auto) Neut % (Auto) Lymph % (Auto) [place] % (Auto) Eos % (Auto) Baso % (Auto) Neut # (Auto) Lymph # (Auto) [place] # (Auto) Eos # (Auto) Baso # (Auto) Immature Gran # (Auto) Sodium Potassium Chloride Carbon Dioxide Anion Gap BUN Creatinine Est Cr Clr Drug Dosing Est GFR ( Amer) Est GFR (Non-Af Amer) BUN/Creatinine Ratio Glucose POC Glucose 102 H 155 H 96 Estimat Average Glucose Hemoglobin A1c Calcium Total Bilirubin AST ALT Alkaline Phosphatase Total Protein Albumin Globulin Albumin/Globulin Ratio Triglycerides Cholesterol LDL Cholesterol, Calc VLDL Cholesterol, Calc HDL Cholesterol Cholesterol/HDL Ratio TSH Free T4 Urine Color Urine Appearance Urine pH Ur Specific [place] Urine Protein Urine Glucose (UA) Urine Ketones Urine Blood Urine Nitrite Urine Bilirubin Urine Urobilinogen Ur Leukocyte Esterase Urine RBC Urine WBC Ur Epithelial Cells Urine Bacteria Urine Yeast Urine Test Salicylates Urine Opiates Screen Ur Methadone, Qual Acetaminophen Urine Barbiturates Ur Phencyclidine (PCP) U Amphetamin/Meth Scrn MDMA (Ecstasy) Screen U Benzodiazepines Scrn Ur Cocaine Metabolite U Marijuana (THC) Screen Ethyl Alcohol mg/dL SARS-CoV-2 Ag (Rapid) 04/17/20 04/18/20 20:31 07:42 WBC RBC Hgb Hct MCV MCH MCHC RDW Std Deviation RDW Coeff of Justin Plt Count MPV Immature Gran % (Auto) Neut % (Auto) Lymph % (Auto) [place] % (Auto) Eos % (Auto) Baso % (Auto) Neut # (Auto) Lymph # (Auto) [place] # (Auto) Eos # (Auto) Baso # (Auto) Immature Gran # (Auto) Sodium Potassium Chloride Carbon Dioxide Anion Gap BUN Creatinine Est Cr Clr Drug Dosing Est GFR ( Amer) Est GFR (Non-Af Amer) BUN/Creatinine Ratio Glucose POC Glucose 145 H 114 H Estimat Average Glucose Hemoglobin A1c Calcium Total Bilirubin AST ALT Alkaline Phosphatase Total Protein Albumin Globulin Albumin/Globulin Ratio Triglycerides Cholesterol LDL Cholesterol, Calc VLDL Cholesterol, Calc HDL Cholesterol Cholesterol/HDL Ratio TSH Free T4 Urine Color Urine Appearance Urine pH Ur Specific [place] Urine Protein Urine Glucose (UA) Urine Ketones Urine Blood Urine Nitrite Urine Bilirubin Urine Urobilinogen Ur Leukocyte Esterase Urine RBC Urine WBC Ur Epithelial Cells Urine Bacteria Urine Yeast Urine Test Salicylates Urine Opiates Screen Ur Methadone, Qual Acetaminophen Urine Barbiturates Ur Phencyclidine (PCP) U Amphetamin/Meth Scrn MDMA (Ecstasy) Screen U Benzodiazepines Scrn Ur Cocaine Metabolite U Marijuana (THC) Screen Ethyl Alcohol mg/dL SARS-CoV-2 Ag (Rapid) Hospital Course (1) Suicidal ideation: 04/11 -continue voluntary inpatient treatment, every 15 minute checks for safety. Encourage group attendance and participation, work on healthy coping skills and discharge safety plan. -Family meeting with , explore ways to increase outpatient supports, and refer for outpatient psychiatric treatment and therapy. 04/12 -SI continues but is slightly reduced from presentation. She feels safe in the hospital, but not outside of the hospital. 04/13 -The patient reports that she is continuing to have suicidal thoughts, and that these thoughts are amplified by auditory hallucinations that she reports are encouraging her to commit suicide. However, she reports that the intensity of her suicidal thoughts have remained somewhat diminished since admission. She notes that she is unable to contract for safety in the community, fears that she will act again on her suicidal thoughts (following an attempt about 2 months ago) and her concern is that she will end up "leaving" her and children by killing herself. She does reliably contract for safety in the hospital. There is also a longstanding history of intentional self-injurious behaviors, with sharp objects such as knives or her fingernails, and she shows me several locations on her arms where she has scratched herself in the past. The patient agrees that she will let staff know if she is considering any form of self-harm during the hospital stay. Reviewed 04/14/20. 04/18 -SI and urges to self injure have resolved. The patient is able to review healthy coping skills and her discharge safety plan. Family meeting held with , who confirmed no access to guns and denied acute safety concerns. (2) Depression: 04/11 -Per records, previous diagnoses include major depression, recurrent, and borderline personality traits. 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 Continue to gather information to clarify diagnosis. Unfortunately, she has not been receiving mental health treatment for about 12 years. -Reviewed treatment options including medications and therapy. She has a history of trials of Escitalopram and sertraline with unclear responses, although did feel that Escitalopram had lost its effect which is why she stopped it about a month ago. We discussed a trial of fluoxetine to target mood and anxiety symptoms, reviewed risks, benefits, and side effects, and will start 20 mg daily today. She may benefit from augmentation with an atypical, but I am concerned about her poorly controlled diabetes and obesity so will hold on this until we can assess her response to therapeutic dose of antidepressant and return to psychotherapy. -Continue to provide psychoeducation about her diagnoses and recommended treatment. Refer for outpatient treatment. 04/12 -continue current treatment plan. 04/13 -Yesterday, the patient described her mood as being "2 out of 10," and today she continues to report that she is "extremely depressed," but "may be a little better last night and today." -The patient's affect is seemingly not congruent with her report that her moo d is "extremely depressed." Although her affect does appear to be depressed during much of today's encounter, she also smiles broadly a number of times and laughs appropriately on several occasions. -Today, the patient reports that she has been experiencing auditory hallucinations and conjunction with her depression. The content of the hallucinations is mood congruent and calm among other things, tell the patient that she should kill her self. -The plan today is to increase her dose of fluoxetine to 30 mg a day from the current dose of 20 mg a day. The patient has indicated that she feels that she is tolerating Prozac 20 mg well has noted no side effects. We will also add perphenazine 2 mg in the morning, with a stat test dose now, and then proceed with a standing dose, as tolerated, of 2 mg in the morning and 4 mg at bedtime to treat the patient's psychotic symptoms/auditory hallucinations. -The patient complains of insomnia, primarily intermittent insomnia, which may be related to nightmares secondary to her PTSD. She is receiving amitriptyline at bedtime and hydroxyzine 50 mg at bedtime as needed for sleep, and the patient says that in the morning she feels like she is "been run over by a truck." The strategy at this point will be to offer the patient perphenazine at bedtime, lower the dose of hydroxyzine from 50 mg as needed at bedtime to 25 mg at bedtime, and increase the dose of prazosin from 1 mg at bedtime to 2 mg at bedtime. Reviewed 04/14/20. 04/16/20--more anxious today around safety planning, Plan: continue current meds and treatment plan. Encourage use of Vistaril prn. 04/17 - Continue current treatment plan, focus on transition of care back to outpatient, as patient increasing anxious regarding returning home. -Refer for blended case liner for increased outpatient supports. 04/18 -discharge to home, #30-day prescriptions issued for all new psychotropics, and home supply of escitalopram and buspirone destroyed in the pharmacy for safety. -Follow-up at [facility] for medication management, therapist at [facility] this afternoon for psychotherapy, and referred to [facility] for blended case management. (3) PTSD (post-traumatic stress disorder): 04/11 -symptoms worsened over the past 2 to 3 months since she had contact with her father. Unclear if there are other triggers playing a role. She does report that therapy was helpful in the past, and we will refer her for outpatient services. Prazosin 1 mg at bedtime started for nightmares. Reviewed risks, benefits, and side effects. 04/12 -started prazosin last night, received 1 mg and reports slight reduction in nightmares. Continue this dose and titrate as tolerated. 04/13 -Patient indicates that she feels that she is tolerating prazosin well. She says that last night she has been awakening a number of times in the night feeling "startled," but that she does not necessarily remember a nightmare after starting prazosin. She does, however, believe that she is experiencing nightmares because of the feeling she experiences upon awakening multiple times during the night. We will titrate the dose of prazosin from 1 mg to a dose of 2 mg starting tonight. Reviewed 04/14/20. will add retrial of trazodone 50 mg po qhs. 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 Refer for outpatient therapy. (5) Sleep disturbances: 04/10 -provide psychoeducation about good sleep hygiene, encouraged her to follow recommendations regarding use of CPAP for both optimal mood and physical health, this may also help with her migraines. Reviewed 04/14/20. trazodone as above. (6) DM type 2 (diabetes mellitus, type 2): 04/11 -continue home insulin, consult diabetic pharmacist for glucose control management. Per most recent PCP note from 01/31/2020, her diabetes is poorly controlled. 04/14/20. confirmed HgbA1c 04/11 04/18 -reviewed with the diabetic pharmacist, patient has been switched to subcutaneous insulin regimen until her skin irritation heals and she can resume the insulin pump. Prescriptions issued for Lantus insulin 80 units SQ daily and Humalog sliding scale. Follow-up with endocrinology in 2 weeks, and PCP next week. (7) LFTs abnormal: 04/11 -PCP notes indicate she has diagnosed with nonalcoholic steatohepatitis. (8) Hypothyroidism: 04/11 -continue home dose of levothyroxine. TSH normal on admission. (9) Hypertriglyceridemia: 04/11 -continue pravastatin. Cholesterol 176 mg/dl (0-200) 12/07/19 HDL Cholesterol 32 mg/dl 12/07/19 Triglycerides 332 mg/dl (0-150) H 12/07/19 Cholesterol/HDL Ratio 6 12/07/19 Reviewed 04/14/20. Repeat lipid panel due to antipsychotic monitoring protocol. 04/18 -reviewed FLP from 04/15/2020: Triglycerides 533, otherwise within normal limits. (10) Diabetic neuropathy: 04/11 -continue home dose of gabapentin 400 mg twice daily. PCP referred her to podiatry 04/13 -Peripheral neuropathy symptoms persist. She notes that "sometimes" the gabapentin does not work as well as others, but generally, the medication is effective and she indicates that she would prefer to remain on the current dose of gabapentin because she is able to tolerate the peripheral neuropathy symptoms and has confidence that they will improve as they have in the past. She also reports that she experiences "dry mouth" from gabapentin, notes that this is the reason why she would prefer not to increase the dose at this point. Reviewed 04/14/20. Mental Health & Subst Abuse Tx Psychiatrist Name of Psychiatrist: [place], intake with [facility]rist's Date of Appointment with Psychiatrist: 04/20/20 Time of Appointment with Psychiatrist: [facility] Comment: telehealth appointment Therapist Name of Therapist: Sylvia Cooper Therapist's Date of Therapist Appointment: 04/18/20 Time of Therapist Appointment: 4:00 p.m. Therapy Appointment Comment: Telehealth Housing Relocation Name of Housing Relocation: [facility] (Referral started) Phone Number for Housing Relocation: [phone] Case Management Appointment Comment: They will call you at home after discharge Post Discharge Appointments Primary Care Physician Name Of Family Doctor: Dr. Sahu [facility] Date of Appointment with PCP: 04/25/20 Time of Appointment with PCP: 11:20am Provider Appointment Comment: [id number] [phone] Smoking Cessation Counseling Tobacco Cessation Medication Prescribed at Discharge: Not Applicable/Non-Smoker Contact Information Discharge Discharge Address[address] [address] [place] [id number] Discharge Plan Discharge Items Patient Disposition: Home - Self-Care Reason For Visit: MDR Discharge Diagnosis: Major depressive disorder, recurrent, severe with psychosis PTSD Personality disorder by history Activity: Per Instructions section Non-emergency contact: Primary Care Provider, Psychiatrist, Therapist and [employer] Call non-emergency contact if: you have any medication questions and your symptoms worsen Follow-up/Referrals: [facility] [Outside] - 04/18/20 4:00 pm Eugenie Falk MD [Primary Care Provider] - Diet: Carb Count or DM1 Addtl Attending Provider Instructions: SPECIAL CARE INSTRUCTIONS: 1. Follow through with your scheduled aftercare appointments. If unable to keep an appointment, please call to reschedule. 2. Take your medication only as prescribed. Medication should not be changed or stopped without the approval of your doctor. In the event of worsening symptoms or concerns about side effects, contact your doctor immediately. 3. Utilize new healthy coping skills, anger management skills, and stress management skills learned during your hospitalization. Journal feelings and process them with a support person. Identify stressors or situations that may result in relapse, deterioration or inappropriate behaviors and develop a plan to deal with those issues. 4. If your coping skills are ineffective and you are in crisis, contact your outpatient providers for direction. If unable to reach your providers, please call the [facility] CRISIS LINE AT , go to the [facility] walk-in center at [address], [place], or go to the closest Emergency Room. 5. Avoid alcohol and un-prescribed drugs. 6. You have been provided with the Mental Health Advance Directives Pamphlet for your review. AFTERCARE APPOINTMENTS: * Please call your insurance company prior to your scheduled appointment to confirm your aftercare providers are covered. Take your insurance information to your appointments. WHO TO CALL AND WHEN: Medical Emergencies: For questions or emergencies related to your hospital stay, please contact the Inpatient Behavioral Health Unit at [phone]. A avionics systems engineer is on-call 24/11 for the Behavioral Health Unit for emergencies At any time you feel your situation is an emergency, you may also call 911 immediately. Addtl Getter Welder Provider Instructions: For your diabetes: You were seen by the hospital educator and pharmacist while in the hospital, and your insulin regimen was adjusted as below as you had not been using your pump. Lantus 80 units daily Humalog with carbohydrate ratio of 1 unit per 5 grams of carbohydrates consumed. In addition to Humalog recommend utilizing correction factor of 1 unit per 15 mg/dL above 150 mg/dl 150-165 mg/dL: 1 unit 166-180 mg/dL: 2 unit 181-195 mg/dL: 3 unit 196 -210 mg/dL: 4 unit 211 - 225 mg/dL: 5 unit 226-240 mg/dL: 6 units 241-255 mg/dL: 7 units 256-270 mg/dL: 8 units 271- 285 mg/dL: 9 units 286 - 300 mg/dL: 10 units 300 mg/dl or above call physician Pending Studies at Discharge: No Stand-Alone Forms: My [facility], Smoking Cessation Medications and DC Order Prescriptions: New fluoxetine 10 mg Capsule 30 mg PO QAM Qty: 90 RF: 0 perphenazine 2 mg Tablet 6 mg PO UD Qty: 90 RF: 0 trazodone 50 mg Tablet 50 mg PO HS PRN (Reason: Insomnia) Qty: 30 RF: 0 hydroxyzine HCl 25 mg Tablet 25 mg PO BID PRN (Reason: anxiety) Qty: 60 RF: 0 prazosin 2 mg capsule 2 mg PO HS Qty: 30 RF: 0 Lantus U-100 Insulin 100 unit/mL solution 80 unit subcut DAILY Qty: 10 RF: 0 insulin lispro [Humalog U-100 Insulin] 100 unit/mL solution 1 sliding scale dose subcut USEASDIRECTD Qty: 10 RF: 0 Continued (DME) Dexcom G6 Muskrat Trapper Misc See Rx Instructions .ROUTE .MEDSUPPLY Qty: 1 RF: 0 (DME) Dexcom G6 Sensor Device See Rx Instructions .ROUTE .MEDSUPPLY Qty: 3 RF: 11 (DME) Dexcom G6 Transmitter Device See Rx Instructions .ROUTE .MEDSUPPLY Qty: 1 RF: 3 (DME) FreeStyle Lite Strips Strip See Rx Instructions .ROUTE .MEDSUPPLY Qty: 200 RF: 2 Saccharomyces boulardii [Florastor] 250 mg capsule 250 mg PO DAILY Qty: 90 RF: 3 amitriptyline 10 mg tablet 10 mg PO HS Qty: 90 RF: 3 ergocalciferol (vitamin D2) [Vitamin D2] 1,250 mcg (50,000 unit) capsule 50,000 unit PO WK Qty: 12 RF: 3 famotidine 20 mg tablet 20 mg PO HS Qty: 90 RF: 3 levothyroxine 175 mcg tablet 175 mcg PO QAM Qty: 90 RF: 3 metoprolol tartrate 25 mg tablet 25 mg PO BID Qty: 180 RF: 3 omeprazole 20 mg capsule,delayed release(DR/EC) 20 mg PO QAM Qty: 90 RF: 3 pravastatin 10 mg tablet 10 mg PO DAILY Qty: 90 RF: 3 (DME) BD Eclipse Luer-Vipul 3 mL 23 x 1" syringe See Rx Instructions .ROUTE .MEDSUPPLY Qty: 1 RF: 5 sumatriptan succinate [Imitrex] 50 mg tablet See Rx Instructions PO .COMPLEX Qty: 10 RF: 5 ondansetron 4 mg tablet,disintegrating 4 mg PO Q8H PRN (Reason: Nausea) Qty: 30 RF: 3 cyanocobalamin (vitamin B-12) 1,000 mcg/mL solution 1,000 mcg IM MONTHLY 180 Days Qty: 6 RF: 0 sucralfate [Carafate] 100 mg/mL suspension 5 ml PO QID Qty: 420 RF: 3 cholestyramine (with sugar) 4 gram powder in packet 4 g PO TID Qty: 60 RF: 2 gabapentin 400 mg capsule 400 mg PO BID Qty: 60 RF: 2 Benefiber Sugar Free (dextrin) 3 gram/3.8 gram powder 1.5 gm PO BID RF: 0 albuterol sulfate 90 mcg/actuation HFA aerosol inhaler 1 - 2 puffs INH QID PRN (Reason: shortness of breath or wheezing) Qty: 6.7 RF: 2 multivitamin Tablet 1 tab PO QAM RF: 0 calcium carbonate [Calcium 600] 600 mg calcium (1,500 mg) Tablet 600 mg PO QAM RF: 0 vitamin E 400 unit Capsule 400 unit PO QAM RF: 0 cholecalciferol (vitamin D3) [Vitamin D3] 5,000 unit Tablet 5,000 unit PO QAM RF: 0 aspirin 81 mg Tablet 81 mg PO DAILY RF: 0 cyanocobalamin (vitamin B-12) 500 mcg Tablet 500 mcg PO QAM RF: 0 potassium chloride 20 mEq tablet,ER particles/crystals 20 meq PO DAILY Qty: 7 RF: 0 Hold Instructions: no need Discontinued insulin lispro [Humalog U-100 Insulin] 100 unit/mL solution See Rx Instructions subcut .COMPLEX PRN (Reason: per sliding scale) Qty: 180 RF: 3 escitalopram oxalate [Lexapro] 20 mg tablet 20 mg PO DAILY Qty: 90 RF: 3 buspirone 10 mg tablet 10 mg PO TID Qty: 90 RF: 2 Discharge Orders: Discharge Order (Routine); Ordered 04/18/20 Ordered By: Jayda Vigil Admission Data Admit Date/Time: 04/11/20 01:35 Attending Provider: Jayda Vigil Admit Provider: Aviva Sandy Primary Care Provider: Eugenie Falk V. Other Interventions: PSY Interdisciplinary Discharge Planning Last Done: 04/18/20 09:47 Coding Level of Care Code 48978 D/C day mgmt > 30 min Diagnoses Suicidal ideation R45.851 Depression F32.9 PTSD (post-traumatic stress disorder) F43.10 Personality disorder F60.9 Sleep disturbances G47.9 DM type 2 (diabetes mellitus, type 2) E11.9 LFTs abnormal R94.5 Hypothyroidism E03.9 Hypertriglyceridemia E78.1 Diabetic neuropathy E11.40
[2020-04-18] MEDS: SUCRALFATE 1 GM/10 ML UDC PO SCH (08:34)
[2020-04-18] MEDS: COLESTIPOL HCL 1 GM TAB PO SCH (08:37)
[2020-04-18] MEDS: CALCIUM CARBONATE 1250MG TAB PO SCH (08:37)
[2020-04-18] MEDS: CHOLECALCIFEROL 1,000 UNITS 25 MCG TAB PO SCH (08:37)
[2020-04-18] MEDS: PRAVASTATIN SOD 10 MG TAB PO SCH (08:37)
[2020-04-18] MEDS: GABAPENTIN 400 MG CAP PO SCH (08:37)
[2020-04-18] MEDS: TOCOPHERYL, DL-ALPHA 400 UNITS CAP PO SCH (08:37)
[2020-04-18] MEDS: FLUoxetine HCL 20 MG CAP PO SCH (08:38)
[2020-04-18] MEDS: MULTIVITAMIN TAB PO SCH (08:38)
[2020-04-18] MEDS: LEVOTHYROXINE SODIUM 175 MCG TABLET PO SCH (08:38)
[2020-04-18] MEDS: FLUoxetine HCL 10 MG CAP PO SCH (08:38)
[2020-04-18] MEDS: SACCHAROMYCES BOULARDII 250 MG CAP PO SCH (08:38)
[2020-04-18] MEDS: METOPROLOL TARTRATE 25 MG TAB PO SCH (08:38)
[2020-04-18] MEDS: POTASSIUM CHLORIDE CRTAB 20 MEQ TABCR PO SCH (08:39)
[2020-04-18] MEDS: PERPHENAZINE 2 MG TABLET PO SCH (08:39)
[2020-04-18] MEDS: ASPIRIN 81 MG ECTAB PO SCH (08:39)
[2020-04-18] MEDS: PANTOprazole 40 MG TAB PO SCH (08:39)
[2020-04-18] MEDS: PSYLLIUM 58.6% POWDER PACKET PO SCH (08:40)
[2020-04-18] MEDS: CYANOCOBALAMIN 500 MCG TABLET (VITAMIN B-12) PO SCH (08:40)
[2020-04-18] MEDS: INSULIN GLARGINE SOLOSTAR 100 UNITS/ML 3 ML PEN SC SCH (08:46)
[2020-04-18] MEDS: INSULIN ASPART 100 UNITS/ML 3 ML PEN SC SCH (08:47)
[2020-04-18] MEDS ORDERED: DESTROY THIS MEDICATION ONE (09:46)
[2020-04-18] MEDS: hydrOXYzine HCl 25 MG TAB PO PRN (10:27)
[2020-04-18] MEDS ORDERED: INSULIN GLARGINE SOLOSTAR 100 UNITS/ML 3 ML PEN SC SCH (12:00)
== END 2020-04-18 10:42 | disposition home or self-care (01) | DRG 885 ==
LOC: ED 21:28 → 3S 04-11 01:35

== ENCOUNTER 2021-12-05 15:57 | Inpatient (IN) ==
[2021-12-05] MEDS ORDERED: ONDANSETRON 4 MG OD TAB PO STA (16:24)
[2021-12-05 16:37] LABS: Appearance Urine Clear (Clear); Bilirubin Urine Negative (Negative); Blood Urine Negative (Negative); Color Urine Yellow; Glucose Urine UA 3+ (Negative); Ketones Urine Trace (Negative); Leukocyte Esterase Urine Negative (Negative); Nitrite Urine Negative (Negative); Protein Urine Negative (Negative); Specific Gravity Urine 1.033 (1.000-1.030); Urobilinogen Urine Negative (Negative)
--- NOTE | 2021-12-05 16:37 | Emergency Department Note ---
Impression & Plan Depression with suicidal ideation, Acute hyperglycemia, Noncompliance with medication regimen ED Provider Note NAME: JEFFERY EMANUEL AGE: 36 SEX: F : 1985 ARRIVES VIA: Walk-In INFORMANT: Patient, ED PROVIDER(S): Darien Hernandez DO CHIEF COMPLAINT: Mental health evaluation HPI: The patient is a 36-year-old female who presented to the emergency department for an evaluation of mental health issues. The patient states that she has been noticing depression as well as suicidal ideation. She did start having thoughts of wanting to hurt her self with a plan to overdose on medications. The patient had some problems with her insurance recently. She was off all of her medications which includes her medical medications such as her insulin as well as her medications for mental health disorder. Because of this she went to follow-up with her therapist today and voiced her concerns especially regarding her suicidal ideation with a plan. She was advised to come the emergency department immediately for further evaluation. The patient states that she continues to have issues with depression as well as suicidal ideation. She does not have her insulin pump attached and she is noticed her blood sugars been elevated and she is had nausea and vomiting. She denies having any dysuria or frequency. She denies having any fever or cough. ROS: See above HPI for pertinent positives & negatives. A total of 10 systems reviewed and were otherwise negative. PAST MEDICAL HISTORY: See Below PAST SURGICAL HISTORY: See Below FAMILY HISTORY: See Below SOCIAL HISTORY: See Below HOME MEDICATIONS: See Below ALLERGIES: See Below VITALS: See Below PHYSICAL EXAMINATION: GENERAL: Patient is awake alert in no acute distress patient is resting comfortably and showing no signs of anxiety EYES: The conjunctivae are clear. The pupils are round and reactive. EARS, NOSE, MOUTH AND THROAT: The nose is without any evidence of any deformity. Mucous membranes are moist. Tongue is midline. NECK: The neck is nontender and supple. RESPIRATORY: Normal respiratory effort is noted there is no evidence of wheezing rhonchi or rales CARDIOVASCULAR: Regular rate and rhythm noted there no murmurs rubs or gallops normal S1 normal S2. GASTROINTESTINAL: The abdomen is soft. Abdomen is nontender. MUSCULOSKELETAL/EXTREMITIES: There is no evidence of gross deformity full range of motion is noted in the hips and shoulders. SKIN: There is no obvious evidence of any rash. There are no petechiae, pallor or cyanosis noted. NEUROLOGIC: Patient is awake alert and oriented x3. Gait was steady. PSYCH: The patient is awake and alert. The patient makes good eye contact mostly evaluation. She continues to admit to suicidal ideation with a plan to overdose on medications. MEDICAL DECISION MAKING: The patient is a 36-year-old female who presented to the emergency department for an evaluation of mental health issues. The patient states that she is been noncompliant with her medications. This includes her insulin. She was treated with insulin in the emergency department. I discussed the patient's laboratory and radiographic studies with her. She was medically cleared in the emergency department. She was evaluated by the mental health case supervisor. Currently she has been evaluated by [address] [place] [address] for possible inpatient management. Ultimately the patient was felt to be a good candidate for inpatient treatment at [facility]. I did sign the 201. Triage Nursing notes reviewed. Prior medical records reviewed Vital Signs: reviewed and remarkable for no significant abnormalities Differential diagnosis: Mood disorder, infection, hypoglycemia, electrolyte abnormalities, cardiac sources, intracerebral event, toxicologic, trauma, neurologic, as well as other pathologies. ER treatment provided: See below Diagnostics interpreted by me: ECG: none Laboratory studies: As stated above and show below. Imaging studies: See below Consultation(s): none Past Med/Surg History Medical History Abdominal pain Altered awareness, transient Black-out (not amnesia) Chronic diarrhea Depression DM type 2 (diabetes mellitus, type 2) IDDM Dysmetabolic syndrome X Gastritis History of anesthesia reaction with 1st "anesthesia began wearing off and could feel the surgery" Hypertriglyceridemia Hypothyroidism 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 Lung nodule seen on imaging study per pt on CT scan--just monitoring Meckel diverticulum Memory changes Migraine Mixed conductive and sensorineural hearing loss of both ears JACKSON (nonalcoholic steatohepatitis) Obesity 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 PTSD (post-traumatic stress disorder) Seizure grand mal--last was at 7yrs old--was on phenobarbital, no meds now--no neurologist Suicidal ideation Suspected 2019 novel coronavirus infection Tachycardia Vomiting Surgical History History of section x3 History of colonoscopy Previous section S/P cholecystectomy Family History Unknown FHx: kidney cancer Hyperlipidemia Lung cancer Hypertension Brother Marfan syndrome Congenital heart disease Father Stroke Family history of diabetes mellitus Myocardial infarction Mother Cancer Uterine cancer Stroke TIA (transient ischemic attack) Grandfather (Paternal) Family history of diabetes mellitus Uncle Family hx of colon cancer Colon cancer Colorectal cancer Aunt Breast cancer Son Crohn's disease, Onset Age: 2 Other No family history of adverse response to anesthesia Denies family history of Rheumatoid arthritis Pulmonary embolism Ulcerative colitis Social History Smoking Status: Never smoker Tobacco Type: Cigarettes Second Hand Exposure: Yes (family smokes); Hx Alcohol Use: Yes Alcohol type: hard liquor Hx Substance Use: No Preferred Language: Bengali Communication Ability: Effective Copy Supervisor Required: No Beliefs That Will Affect Care: None marital status: Current Living Situation: Spouse and Family Current Living Situation Comment: lives with and kids current occupational status: employed Feels Safe at Home: Yes Childhood Exposure to Second-Hand Smoke: Yes Dental Care, Regularly: No Physical Activity Frequency: Daily Seatbelt Use: always Sunscreen Use: Yes Assistive Devices: CPAP and Glasses Allergies Allergies Allergy/AdvReac Type Severity Reaction Status Date / Time pseudoephedrine Allergy Mild nausea and Verified 11/29/21 12:59 vomiting Home Meds Home Medications Medication Instructions Recorded Confirmed calcium carbonate 600 mg calcium 600 mg PO QAM 10/26/18 12/05/21 (1,500 mg) tablet (Calcium) cetirizine 10 mg tablet 10 mg PO DAILY PRN allergies 07/31/20 12/05/21 blood-glucose meter (OneTouch 01/18/21 12/05/21 Verio Reflect Meter) clonidine HCl 0.3 mg tablet 0.3 mg PO DAILY 12/05/21 12/05/21 hydroxyzine HCl 50 mg tablet 50 mg PO TID 12/05/21 12/05/21 insulin lispro 100 unit/mL 100 unit subcut DAILY PRN 12/05/21 12/05/21 subcutaneous solution (Humalog Hyperglycemia U-100 Insulin) lithium carbonate 300 mg capsule 300 mg PO HS 12/05/21 12/05/21 topiramate 25 mg tablet 50 mg PO HS 12/05/21 12/05/21 Previous Rx's Medication Instructions Recorded blood-glucose meter,continuous #1 ea 05/16/19 (Dexcom G6 Top Collar Baster misc) blood-glucose transmitter (Dexcom #1 ea 05/16/19 G6 Transmitter device) albuterol sulfate 90 mcg/actuation 1 - 2 puffs inhalation QID PRN 08/19/19 aerosol inhaler shortness of breath or wheezing #6.7 grams syringe with needle 3 mL 23 x 1" #1 ea 04/16/20 (BD Eclipse Luer-Vipul) rizatriptan 10 mg disintegrating 10 mg PO Q2H PRN migraine headache 10/12/20 tablet #12 tabs metoprolol tartrate 50 mg tablet 50 mg PO BID #180 tabs 07/09/21 blood-glucose sensor (Dexcom G6 #3 ea 11/01/21 Sensor device) ergocalciferol (vitamin D2) 1,250 50,000 unit PO WK #12 caps 11/08/21 mcg (50,000 unit) capsule (Vitamin D2) dicyclomine 10 mg capsule 10 mg PO TID #15 caps 11/28/21 ondansetron 4 mg disintegrating 4 mg PO Q6H PRN nausea and 11/28/21 tablet vomiting #10 tabs cyanocobalamin (vitamin B-12) 1,000 mcg IM MONTHLY 6 months #6 mL 12/02/21 1,000 mcg/mL injection solution levothyroxine 175 mcg tablet 175 mcg PO QAM #90 tabs 12/02/21 pravastatin 10 mg tablet 10 mg PO DAILY #90 tabs 12/02/21 cariprazine 1.5 mg capsule 1.5 mg PO DAILY #30 caps 12/03/21 (Vraylar) duloxetine 20 mg capsule,delayed 20 mg PO DAILY #30 caps 12/03/21 release famotidine 40 mg tablet 40 mg PO HS #90 tabs 12/03/21 gabapentin 800 mg tablet 800 mg PO BID #60 tabs 12/03/21 lithium carbonate 600 mg capsule 600 mg PO BID #60 caps 12/03/21 omeprazole 40 mg capsule,delayed 40 mg PO DAILY #30 caps 12/03/21 release sucralfate 1 gram tablet 1 g PO BID #60 tabs 12/03/21 Results & Data (ED) Vital Signs Vital Signs - 24 hr 12/05/21 15:58 12/05/21 15:57 12/05/21 19:14 Temperature 36.4 C L Temperature Source Temporal Artery Scan Pulse Rate 91 H Pulse Rate [Finger] 84 Respiratory Rate 18 16 20 Respiratory Effort / Characteristics Non-Labored Non-Labored Spontaneous Respiratory Depth Normal Normal Respiratory Pattern Regular Blood Pressure 111/74 Blood Pressure [Right Arm] 96/56 L Blood Pressure Mean 86 Blood Pressure Mean [Right Arm] 69 Pulse Oximetry 98 98 Oxygen Delivery Method Room Air Room Air Sepsis Recent Fever Within 48 Hours No Sepsis New/Unexplained Change in Mental Status No Sepsis Action Taken by Nursing No Action Required 12/05/21 21:41 Temperature Temperature Source Pulse Rate Pulse Rate [Finger] 92 H Respiratory Rate 16 Respiratory Effort / Characteristics Non-Labored Spontaneous Respiratory Depth Normal Respiratory Pattern Blood Pressure Blood Pressure [Right Arm] 112/72 Blood Pressure Mean Blood Pressure Mean [Right Arm] 85 Pulse Oximetry 98 Oxygen Delivery Method Room Air Sepsis Recent Fever Within 48 Hours Sepsis New/Unexplained Change in Mental Status Sepsis Action Taken by [facility] Medications Current Medication List: was personally reviewed by me Laboratory Data Attestation: I reviewed the patient's lab results. Result diagrams: 12/05/21 16:48 12/05/21 16:48 Lab Results 12/05/21 12/05/21 12/05/21 Range/Units 16:10 16:10 16:10 WBC (4.8-10.8) K/ul RBC (3.93-5.22) M/uL Hgb (12.0-16.0) g/dl Hct (34.1-44.9) % MCV (80.0-100.0) fL MCH (25.0-34.0) pg MCHC (32.0-36.0) g/dL RDW Std Deviation (36.4-46.3) fL RDW Coeff of Justin (11.5-14.5) % Plt Count (130-400) K/uL MPV (9.4-12.3) fL Immature Gran % (Auto) % Neut % (Auto) % Lymph % (Auto) % [place] % (Auto) % Eos % (Auto) % Baso % (Auto) % Neut # (Auto) (1.4-6.5) K/uL Lymph # (Auto) (1.2-3.4) K/uL [place] # (Auto) (0.24-0.82) K/uL Eos # (Auto) (0-0.50) K/uL Baso # (Auto) (0-0.2) K/uL Immature Gran # (Auto) (0.00-0.02) K/uL VBG pH (7.36-7.41) VBG pCO2 (38-50) mmHg VBG pO2 mmHg VBG HCO3 mmol/L VBG O2 Saturation % VBG Base Excess mEq/L Sodium (136-145) mmol/L Potassium (3.5-5.1) mmol/L Chloride (98-107) mmol/L Carbon Dioxide (21-32) mmol/L Anion Gap (3-11) BUN (6-23) mg/dl Creatinine (0.6-1.2) mg/dl Est Cr Clr Drug Dosing ml/min Est GFR ( Amer) ml/min Est GFR (Non-Af Amer) ml/min BUN/Creatinine Ratio (10-20) Glucose (70-99(Fasting)) mg/dl POC Glucose (70-99) mg/dl Calcium (8.5-10.1) mg/dl Total Bilirubin (0.2-1.0) mg/dl AST (13-39) U/L ALT (7-52) U/L Alkaline Phosphatase (34-104) U/L Total Protein (6.0-8.3) gm/dl Albumin (3.4-5.0) gm/dl Globulin (2.5-4.0) gm/dl Albumin/Globulin Ratio (0.9-2) TSH (0.300-4.500) uIu/ml HCG, Qual (Negative) Urine Color Yellow Urine Appearance Clear (Clear) Urine pH 6.0 (4.5-7.5) Ur Specific [place] 1.033 H (1.000-1.030) Urine Protein Negative (Negative) Urine Glucose (UA) 3+ H (Negative) Urine Ketones Trace H (Negative) Urine Blood Negative (Negative) Urine Nitrite Negative (Negative) Urine Bilirubin Negative (Negative) Urine Urobilinogen Negative (Negative) Ur Leukocyte Esterase Negative (Negative) Salicylates (3.0-30) mg/dl Urine Opiates Screen Neg (Neg) Ur Methadone, Qual Neg (Neg) Acetaminophen (10-30) ug/ml Urine Barbiturates Neg (Neg) Ur Phencyclidine (PCP) Neg (Neg) U Amphetamin/Meth Scrn Neg (Neg) MDMA (Ecstasy) Screen Neg (Neg) U Benzodiazepines Scrn Neg (Neg) [place] (0.6-1.2) mmol/L Ur Cocaine Metabolite Neg (Neg) U Marijuana (THC) Screen Neg (Neg) Ethyl Alcohol mg/dL (<10.0) mg/dl SARS-CoV-2, RNA, NAAT NEGATIVE (NEGATIVE) 12/05/21 12/05/21 12/05/21 Range/Units 16:23 16:48 16:48 WBC 5.98 (4.8-10.8) K/ul RBC 4.53 (3.93-5.22) M/uL Hgb 12.6 (12.0-16.0) g/dl Hct 36.4 (34.1-44.9) % MCV 80.4 (80.0-100.0) fL MCH 27.8 (25.0-34.0) pg MCHC 34.6 (32.0-36.0) g/dL RDW Std Deviation 41.1 (36.4-46.3) fL RDW Coeff of Justin 14.2 (11.5-14.5) % Plt Count 198 (130-400) K/uL MPV 9.2 L (9.4-12.3) fL Immature Gran % (Auto) 0.7 % Neut % (Auto) 56.5 % Lymph % (Auto) 34.1 % [place] % (Auto) 6.9 % Eos % (Auto) 1.0 % Baso % (Auto) 0.8 % Neut # (Auto) 3.38 (1.4-6.5) K/uL Lymph # (Auto) 2.04 (1.2-3.4) K/uL [place] # (Auto) 0.41 (0.24-0.82) K/uL Eos # (Auto) 0.06 (0-0.50) K/uL Baso # (Auto) 0.05 (0-0.2) K/uL Immature Gran # (Auto) 0.04 H (0.00-0.02) K/uL VBG pH (7.36-7.41) VBG pCO2 (38-50) mmHg VBG pO2 mmHg VBG HCO3 mmol/L VBG O2 Saturation % VBG Base Excess mEq/L Sodium 130 L (136-145) mmol/L Potassium 4.2 (3.5-5.1) mmol/L Chloride 99 (98-107) mmol/L Carbon Dioxide 23 (21-32) mmol/L Anion Gap 8 (3-11) BUN 14 (6-23) mg/dl Creatinine 0.71 (0.6-1.2) mg/dl Est Cr Clr Drug Dosing 109.1 ml/min Est GFR ( Amer) 127.9 ml/min Est GFR (Non-Af Amer) 110.4 ml/min BUN/Creatinine Ratio 19.7 (10-20) Glucose 339 H* (70-99(Fasting)) mg/dl POC Glucose 362 H* (70-99) mg/dl Calcium 8.7 (8.5-10.1) mg/dl Total Bilirubin 1.6 H (0.2-1.0) mg/dl AST 26 (13-39) U/L ALT 44 (7-52) U/L Alkaline Phosphatase 62 (34-104) U/L Total Protein 6.6 (6.0-8.3) gm/dl Albumin 3.9 (3.4-5.0) gm/dl Globulin 2.7 (2.5-4.0) gm/dl Albumin/Globulin Ratio 1.4 (0.9-2) TSH (0.300-4.500) uIu/ml HCG, Qual (Negative) Urine Color Urine Appearance (Clear) Urine pH (4.5-7.5) Ur Specific [place] (1.000-1.030) Urine Protein (Negative) Urine Glucose (UA) (Negative) Urine Ketones (Negative) Urine Blood (Negative) Urine Nitrite (Negative) Urine Bilirubin (Negative) Urine Urobilinogen (Negative) Ur Leukocyte Esterase (Negative) Salicylates (3.0-30) mg/dl Urine Opiates Screen (Neg) Ur Methadone, Qual (Neg) Acetaminophen (10-30) ug/ml Urine Barbiturates (Neg) Ur Phencyclidine (PCP) (Neg) U Amphetamin/Meth Scrn (Neg) MDMA (Ecstasy) Screen (Neg) U Benzodiazepines Scrn (Neg) [place] (0.6-1.2) mmol/L Ur Cocaine Metabolite (Neg) U Marijuana (THC) Screen (Neg) Ethyl Alcohol mg/dL (<10.0) mg/dl SARS-CoV-2, RNA, NAAT (NEGATIVE) 12/05/21 12/05/21 12/05/21 Range/Units 16:48 16:48 16:48 WBC (4.8-10.8) K/ul RBC (3.93-5.22) M/uL Hgb (12.0-16.0) g/dl Hct (34.1-44.9) % MCV (80.0-100.0) fL MCH (25.0-34.0) pg MCHC (32.0-36.0) g/dL RDW Std Deviation (36.4-46.3) fL RDW Coeff of Justin (11.5-14.5) % Plt Count (130-400) K/uL MPV (9.4-12.3) fL Immature Gran % (Auto) % Neut % (Auto) % Lymph % (Auto) % [place] % (Auto) % Eos % (Auto) % Baso % (Auto) % Neut # (Auto) (1.4-6.5) K/uL Lymph # (Auto) (1.2-3.4) K/uL [place] # (Auto) (0.24-0.82) K/uL Eos # (Auto) (0-0.50) K/uL Baso # (Auto) (0-0.2) K/uL Immature Gran # (Auto) (0.00-0.02) K/uL VBG pH (7.36-7.41) VBG pCO2 (38-50) mmHg VBG pO2 mmHg VBG HCO3 mmol/L VBG O2 Saturation % VBG Base Excess mEq/L Sodium (136-145) mmol/L Potassium (3.5-5.1) mmol/L Chloride (98-107) mmol/L Carbon Dioxide (21-32) mmol/L Anion Gap (3-11) BUN (6-23) mg/dl Creatinine (0.6-1.2) mg/dl Est Cr Clr Drug Dosing ml/min Est GFR ( Amer) ml/min Est GFR (Non-Af Amer) ml/min BUN/Creatinine Ratio (10-20) Glucose (70-99(Fasting)) mg/dl POC Glucose (70-99) mg/dl Calcium (8.5-10.1) mg/dl Total Bilirubin (0.2-1.0) mg/dl AST (13-39) U/L ALT (7-52) U/L Alkaline Phosphatase (34-104) U/L Total Protein (6.0-8.3) gm/dl Albumin (3.4-5.0) gm/dl Globulin (2.5-4.0) gm/dl Albumin/Globulin Ratio (0.9-2) TSH 0.707 (0.300-4.500) uIu/ml HCG, Qual (Negative) Urine Color Urine Appearance (Clear) Urine pH (4.5-7.5) Ur Specific [place] (1.000-1.030) Urine Protein (Negative) Urine Glucose (UA) (Negative) Urine Ketones (Negative) Urine Blood (Negative) Urine Nitrite (Negative) Urine Bilirubin (Negative) Urine Urobilinogen (Negative) Ur Leukocyte Esterase (Negative) Salicylates < 3.0 L (3.0-30) mg/dl Urine Opiates Screen (Neg) Ur Methadone, Qual (Neg) Acetaminophen < 3 L (10-30) ug/ml Urine Barbiturates (Neg) Ur Phencyclidine (PCP) (Neg) U Amphetamin/Meth Scrn (Neg) MDMA (Ecstasy) Screen (Neg) U Benzodiazepines Scrn (Neg) [place] < 0.1 L (0.6-1.2) mmol/L Ur Cocaine Metabolite (Neg) U Marijuana (THC) Screen (Neg) Ethyl Alcohol mg/dL < 10.0 (<10.0) mg/dl SARS-CoV-2, RNA, NAAT (NEGATIVE) 12/05/21 12/05/21 12/05/21 Range/Units 16:48 16:48 17:59 WBC (4.8-10.8) K/ul RBC (3.93-5.22) M/uL Hgb (12.0-16.0) g/dl Hct (34.1-44.9) % MCV (80.0-100.0) fL MCH (25.0-34.0) pg MCHC (32.0-36.0) g/dL RDW Std Deviation (36.4-46.3) fL RDW Coeff of Justin (11.5-14.5) % Plt Count (130-400) K/uL MPV (9.4-12.3) fL Immature Gran % (Auto) % Neut % (Auto) % Lymph % (Auto) % [place] % (Auto) % Eos % (Auto) % Baso % (Auto) % Neut # (Auto) (1.4-6.5) K/uL Lymph # (Auto) (1.2-3.4) K/uL [place] # (Auto) (0.24-0.82) K/uL Eos # (Auto) (0-0.50) K/uL Baso # (Auto) (0-0.2) K/uL Immature Gran # (Auto) (0.00-0.02) K/uL VBG pH 7.39 (7.36-7.41) VBG pCO2 42 (38-50) mmHg VBG pO2 58 mmHg VBG HCO3 25 mmol/L VBG O2 Saturation 91.6 % VBG Base Excess 0.3 mEq/L Sodium (136-145) mmol/L Potassium (3.5-5.1) mmol/L Chloride (98-107) mmol/L Carbon Dioxide (21-32) mmol/L Anion Gap (3-11) BUN (6-23) mg/dl Creatinine (0.6-1.2) mg/dl Est Cr Clr Drug Dosing ml/min Est GFR ( Amer) ml/min Est GFR (Non-Af Amer) ml/min BUN/Creatinine Ratio (10-20) Glucose (70-99(Fasting)) mg/dl POC Glucose 303 H* (70-99) mg/dl Calcium (8.5-10.1) mg/dl Total Bilirubin (0.2-1.0) mg/dl AST (13-39) U/L ALT (7-52) U/L Alkaline Phosphatase (34-104) U/L Total Protein (6.0-8.3) gm/dl Albumin (3.4-5.0) gm/dl Globulin (2.5-4.0) gm/dl Albumin/Globulin Ratio (0.9-2) TSH (0.300-4.500) uIu/ml HCG, Qual Negative (Negative) Urine Color Urine Appearance (Clear) Urine pH (4.5-7.5) Ur Specific [place] (1.000-1.030) Urine Protein (Negative) Urine Glucose (UA) (Negative) Urine Ketones (Negative) Urine Blood (Negative) Urine Nitrite (Negative) Urine Bilirubin (Negative) Urine Urobilinogen (Negative) Ur Leukocyte Esterase (Negative) Salicylates (3.0-30) mg/dl Urine Opiates Screen (Neg) Ur Methadone, Qual (Neg) Acetaminophen (10-30) ug/ml Urine Barbiturates (Neg) Ur Phencyclidine (PCP) (Neg) U Amphetamin/Meth Scrn (Neg) MDMA (Ecstasy) Screen (Neg) U Benzodiazepines Scrn (Neg) [place] (0.6-1.2) mmol/L Ur Cocaine Metabolite (Neg) U Marijuana (THC) Screen (Neg) Ethyl Alcohol mg/dL (<10.0) mg/dl SARS-CoV-2, RNA, NAAT (NEGATIVE) 12/05/21 12/05/21 Range/Units 19:11 21:18 WBC (4.8-10.8) K/ul RBC (3.93-5.22) M/uL Hgb (12.0-16.0) g/dl Hct (34.1-44.9) % MCV (80.0-100.0) fL MCH (25.0-34.0) pg MCHC (32.0-36.0) g/dL RDW Std Deviation (36.4-46.3) fL RDW Coeff of Justin (11.5-14.5) % Plt Count (130-400) K/uL MPV (9.4-12.3) fL Immature Gran % (Auto) % Neut % (Auto) % Lymph % (Auto) % [place] % (Auto) % Eos % (Auto) % Baso % (Auto) % Neut # (Auto) (1.4-6.5) K/uL Lymph # (Auto) (1.2-3.4) K/uL [place] # (Auto) (0.24-0.82) K/uL Eos # (Auto) (0-0.50) K/uL Baso # (Auto) (0-0.2) K/uL Immature Gran # (Auto) (0.00-0.02) K/uL VBG pH (7.36-7.41) VBG pCO2 (38-50) mmHg VBG pO2 mmHg VBG HCO3 mmol/L VBG O2 Saturation % VBG Base Excess mEq/L Sodium (136-145) mmol/L Potassium (3.5-5.1) mmol/L Chloride (98-107) mmol/L Carbon Dioxide (21-32) mmol/L Anion Gap (3-11) BUN (6-23) mg/dl Creatinine (0.6-1.2) mg/dl Est Cr Clr Drug Dosing ml/min Est GFR ( Amer) ml/min Est GFR (Non-Af Amer) ml/min BUN/Creatinine Ratio (10-20) Glucose (70-99(Fasting)) mg/dl POC Glucose 332 H* 178 H (70-99) mg/dl Calcium (8.5-10.1) mg/dl Total Bilirubin (0.2-1.0) mg/dl AST (13-39) U/L ALT (7-52) U/L Alkaline Phosphatase (34-104) U/L Total Protein (6.0-8.3) gm/dl Albumin (3.4-5.0) gm/dl Globulin (2.5-4.0) gm/dl Albumin/Globulin Ratio (0.9-2) TSH (0.300-4.500) uIu/ml HCG, Qual (Negative) Urine Color Urine Appearance (Clear) Urine pH (4.5-7.5) Ur Specific [place] (1.000-1.030) Urine Protein (Negative) Urine Glucose (UA) (Negative) Urine Ketones (Negative) Urine Blood (Negative) Urine Nitrite (Negative) Urine Bilirubin (Negative) Urine Urobilinogen (Negative) Ur Leukocyte Esterase (Negative) Salicylates (3.0-30) mg/dl Urine Opiates Screen (Neg) Ur Methadone, Qual (Neg) Acetaminophen (10-30) ug/ml Urine Barbiturates (Neg) Ur Phencyclidine (PCP) (Neg) U Amphetamin/Meth Scrn (Neg) MDMA (Ecstasy) Screen (Neg) U Benzodiazepines Scrn (Neg) [place] (0.6-1.2) mmol/L Ur Cocaine Metabolite (Neg) U Marijuana (THC) Screen (Neg) Ethyl Alcohol mg/dL (<10.0) mg/dl SARS-CoV-2, RNA, NAAT (NEGATIVE) Administered Medications Discontinued Medications Insulin Aspart (Insulin Aspart Per Unit) 0 units SC NOW ONE Stop: 12/05/21 17:46 Last Admin: 12/05/21 18:33 Dose: 22 units Documented By: Co-signed By: Insulin Aspart (Insulin Aspart Per Unit) 0 units SC TODAY@2100 ONE Stop: 12/05/21 21:01 Last Admin: 12/05/21 21:35 Dose: 2 units Documented By: MARTITA Co-signed By: SALOME Insulin Glargine (Lantus Per Unit Charge) 20 units SQ NOW ONE Stop: 12/05/21 17:16 Last Admin: 12/05/21 17:27 Dose: 20 units Documented By: Co-signed By: Ondansetron HCl (Ondansetron 4 Mg Od Tab) 4 mg PO NOW STA Stop: 12/05/21 16:25 Last Admin: 12/05/21 16:31 Dose: 4 mg Documented By: Discharge Plan Visit Data Chief Complaint: Mental Health Evaluation Stated Complaint: FEELING SUICIDAL ED Provider: Darien Hernandez Discharge Problem: Depression with suicidal ideation, Acute hyperglycemia, Noncompliance with medication regimen Patient Disposition: Still a Patient Discharge Instructions Interventions: ED Discharge Assessment Last Done: 12/05/21 21:45 Forms Stand Alone Forms: [facility], Suicide Prevention Resources Prescriptions Prescriptions: No Action (DME) Dexcom G6 Top Collar Baster Misc See Rx Instructions .ROUTE .MEDSUPPLY Qty: 1 0RF Rx Instructions: As directed (DME) Dexcom G6 Transmitter Device See Rx Instructions .ROUTE .MEDSUPPLY Qty: 1 3RF Rx Instructions: As directed (DME) BD Eclipse Luer-Vipul 3 mL 23 x 1" syringe See Rx Instructions .ROUTE .MEDSUPPLY Qty: 1 5RF Rx Instructions: test 4 times daily metoprolol tartrate 50 mg tablet 50 mg PO BID Qty: 180 3RF ergocalciferol (vitamin D2) [Vitamin D2] 1,250 mcg (50,000 unit) capsule 50,000 unit PO WK Qty: 12 3RF Rx Instructions: take on sundays levothyroxine 175 mcg tablet 175 mcg PO QAM Qty: 90 3RF pravastatin 10 mg tablet 10 mg PO DAILY Qty: 90 3RF cyanocobalamin (vitamin B-12) 1,000 mcg/mL solution 1,000 mcg IM MONTHLY 180 Days Qty: 6 1RF Vraylar 1.5 mg capsule 1.5 mg PO DAILY Qty: 30 0RF lithium carbonate 600 mg capsule 600 mg PO BID Qty: 60 0RF duloxetine 20 mg capsule,delayed release(DR/EC) 20 mg PO DAILY Qty: 30 0RF famotidine 40 mg tablet 40 mg PO HS Qty: 90 3RF gabapentin 800 mg tablet 800 mg PO BID Qty: 60 3RF omeprazole 40 mg capsule,delayed release(DR/EC) 40 mg PO DAILY Qty: 30 5RF sucralfate 1 gram tablet 1 g PO BID Qty: 60 5RF (DME) Dexcom G6 Sensor Device See Rx Instructions .Route Qty: 3 0RF Rx Instructions: As directed cetirizine 10 mg tablet 10 mg PO DAILY PRN (Reason: allergies) (DME) blood-glucose meter [Rain Verio Reflect Meter] Misc See Rx Instructions .ROUTE .MEDSUPPLY Rx Instructions: use daily for testing bgs 1 times per day albuterol sulfate 90 mcg/actuation HFA aerosol inhaler 1 - 2 puffs INH QID PRN (Reason: shortness of breath or wheezing) Qty: 6.7 2RF rizatriptan 10 mg tablet,disintegrating 10 mg PO Q2H PRN (Reason: migraine headache) Qty: 12 2RF Rx Instructions: do not exceed 3 doses per 24 hrs calcium carbonate [Calcium 600] 600 mg calcium (1,500 mg) Tablet 600 mg PO QAM ondansetron 4 mg tablet,disintegrating 4 mg PO Q6H PRN (Reason: nausea and vomiting) Qty: 10 0RF dicyclomine 10 mg capsule 10 mg PO TID Qty: 15 0RF clonidine HCl 0.3 mg Tablet 0.3 mg PO DAILY hydroxyzine HCl 50 mg Tablet 50 mg PO TID lithium carbonate 300 mg Capsule 300 mg PO HS topiramate 25 mg tablet 50 mg PO HS insulin lispro [Humalog U-100 Insulin] 100 unit/mL solution 100 unit subcut DAILY MDD 100 PRN (Reason: Hyperglycemia) Label Comments: sliding scale Referrals Referrals: Eugenie Falk MD [Primary Care Provider] -
[2021-12-05 16:58] LABS: Basophils # (auto) 0.05 K/uL (0-0.2); Basophils % (auto) 0.8 %; Eosinophils # (auto) 0.06 K/uL (0-0.50); Hematocrit (blood only) 36.4 % (34.1-44.9); Hemoglobin 12.6 g/dl (12.0-16.0); Immature Granulocytes # (auto) 0.04 K/uL (0.00-0.02); Immature Granulocytes % (auto) 0.7 %; Lymphocytes # (auto) 2.04 K/uL (1.2-3.4); Lymphocytes % (auto) 34.1 %; Mean Corpuscular Hemoglobin 27.8 pg (25.0-34.0); Mean Corpuscular Hgb Conc 34.6 g/dL (32.0-36.0); Mean Corpuscular Volume 80.4 fL (80.0-100.0); Mean Platelet Volume 9.2 fL (9.4-12.3); Monocytes # (auto) 0.41 K/uL (0.24-0.82); Monocytes % (auto) 6.9 %; Neutrophils # (auto) 3.38 K/uL (1.4-6.5); Neutrophils % (auto) 56.5 %; Platelet Count 198 K/uL (130-400); RDW Coefficient of Variation 14.2 % (11.5-14.5); RDW Standard Deviation 41.1 fL (36.4-46.3); Red Blood Count 4.53 M/uL (3.93-5.22); White Blood Count 5.98 K/ul (4.8-10.8)
[2021-12-05 17:03] LABS: Base Excess VBG 0.3 mEq/L; HCO3 VBG 25 mmol/L; Oxygen Saturation VBG 91.6 %; PCO2 VBG 42 mmHg (38-50); PO2 VBG 58 mmHg; pH VBG 7.39 (7.36-7.41)
[2021-12-05 17:06] LABS: Amphetamines+Metham, Urine Neg (Neg); Barbiturates, Urine Neg (Neg); Benzodiazepine, Urine Neg (Neg); Cocaine, Urine Neg (Neg); MDMA (Ecstacy), Urine Neg (Neg); Methadone, Urine Neg (Neg); Opiate, Urine Neg (Neg); Phencyclidine, Urine Neg (Neg)
[2021-12-05] MEDS ORDERED: LANTUS PER UNIT CHARGE SQ ONE (17:15)
[2021-12-05 17:16] LABS: Pregnancy Test, Serum Negative (Negative)
[2021-12-05 17:23] LABS: Albumin Globulin Ratio 1.4 (0.9-2); Albumin Level 3.9 gm/dl (3.4-5.0); BUN Creatinine Ratio 19.7 (10-20); Bilirubin,Total 1.6 mg/dl (0.2-1.0); Calcium 8.7 mg/dl (8.5-10.1); Creatinine Clr Calc Pharmacy 109.1 ml/min; Est GFR (African American) 127.9 ml/min; Est GFR (Non-African American) 110.4 ml/min; Globulin 2.7 gm/dl (2.5-4.0); Potassium 4.2 mmol/L (3.5-5.1); Total Protein 6.6 gm/dl (6.0-8.3)
[2021-12-05 17:27] LABS: Acetaminophen < 3 ug/ml (10-30); Lithium < 0.1 mmol/L (0.6-1.2); Salicylate < 3.0 mg/dl (3.0-30)
[2021-12-05] MEDS ORDERED: INSULIN ASPART PER UNIT SC ONE ×2 (17:45→21:00)
[2021-12-05] MEDS ORDERED: INSULIN ASPART PER UNIT SC SCH (21:00)
[2021-12-05] MEDS ORDERED: PHARMACY GLYCEMIC MGMT CONSULT PRN (21:20)
[2021-12-05] MEDS ORDERED: ALUMINUM/MAGNESIUM SUSP 30 ML UDC PO PRN (21:22)
[2021-12-05] MEDS ORDERED: SODIUM CHLORIDE 0.65% NA SOLN 45 ML (OCEAN) PRN (21:22)
[2021-12-05] MEDS ORDERED: BISMUTH SUBSALICYLATE LIQD 236 ML PO PRN (21:22)
[2021-12-05] MEDS ORDERED: MAGNESIUM HYDROXIDE SUSP 30 ML UDC PO PRN (21:22)
[2021-12-05] MEDS ORDERED: hydrOXYzine HCl 25 MG TAB PO PRN (21:22)
[2021-12-05] MEDS: GABAPENTIN 800 MG TAB PO SCH (23:04)
[2021-12-05] MEDS: METOPROLOL TARTRATE 50 MG TAB PO SCH (23:06)
--- NOTE | 2021-12-05 23:49 | Pharmacy Report ---
Pharmacy Glycemic Short Note 2 - Date of Service December 05, 2021 - Glycemic Short BSG Results (Last 24 hours): 12/05/21 12/05/21 12/05/21 16:23 16:48 17:59 Glucose 339 H* POC Glucose 362 H* 303 H* 12/05/21 12/05/21 19:11 21:18 Glucose POC Glucose 332 H* 178 H OUTPATIENT ANTIDIABETIC REGIMEN: * Humalog insulin pump * Basal: 1.9 units/hr (45.6units/day) * Correction factor: 20 mg/dL/unit for BSG >130mg/dL * Carb ratio: 1 unit per 4 gm CHO consumed * HbA1c: 8.9% (11/07/21) ASSESSMENT: * Ms Resendiz is a Type 1 diabetic female, admitted for mental health evaluation. * Her insulin pump was disconnected in the ED. * Patient was initiated on SQ basal/bolus insulin, which will likely continue through the duration of her hospital stay. Plan to transition back to pump at discharge. * Pt is ordered a diabetic diet. PLAN FOR INPATIENT GLYCEMIC CONTROL: * Hold insulin pump * Basal insulin * Lantus 20 units x1 dose given in ED * Bolus insulin * NovoLog per scale ACHS or Q6hrs while NPO * Goal Range: Low 110 mg/dL - High 140 mg/dL * Correction Factor: 20 mg/dL/unit * Nutritional / Prandial insulin per carb ratio of 1 unit per 4 grams CHO consumed
[2021-12-06] MEDS: INSULIN ASPART PER UNIT SC SCH ×5 (02:11→22:15)
[2021-12-06] MEDS: PRAVASTATIN SOD 10 MG TAB PO SCH (08:04)
[2021-12-06] MEDS: GABAPENTIN 800 MG TAB PO SCH ×2 (08:04→22:10)
[2021-12-06] MEDS: LEVOTHYROXINE SODIUM 175 MCG TABLET PO SCH (08:04)
[2021-12-06] MEDS: DICYCLOMINE HCL 10 MG CAP PO SCH ×3 (08:05→22:10)
[2021-12-06] MEDS: METOPROLOL TARTRATE 50 MG TAB PO SCH ×2 (08:05→22:10)
[2021-12-06] MEDS: hydrOXYzine HCl 25 MG TAB PO SCH ×3 (08:05→22:10)
[2021-12-06] MEDS: PANTOprazole 40 MG TAB PO SCH (08:05)
[2021-12-06] MEDS: CALCIUM 600MG + VIT D 400 IU TAB PO SCH (08:05)
[2021-12-06] MEDS: DULoxetine HCL 20 MG CAP PO SCH (08:05)
[2021-12-06] MEDS ORDERED: LANTUS PER UNIT CHARGE SQ ONE (08:15)
[2021-12-06] MEDS: ASPIRIN 81 MG ECTAB PO SCH (11:25)
[2021-12-06] MEDS: LITHIUM CARBONATE 300 MG TAB PO SCH ×3 (11:25→22:11)
[2021-12-06] MEDS: SUCRALFATE 1 GM TAB PO SCH ×2 (11:25→22:09)
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
--- NOTE | 2021-12-06 13:14 | Pharmacy Report ---
Pharmacy Glycemic Short Note 2 - Date of Service December 06, 2021 - Glycemic Short BSG Results (Last 24 hours): 12/05/21 12/05/21 12/05/21 16:23 16:48 17:59 Glucose 339 H* POC Glucose 362 H* 303 H* 12/05/21 12/05/21 12/06/21 19:11 21:18 02:06 Glucose POC Glucose 332 H* 178 H 132 H 12/06/21 12/06/21 07:57 12:30 Glucose POC Glucose 209 H 192 H OUTPATIENT ANTIDIABETIC REGIMEN: * Humalog insulin pump * Basal: 1.9 units/hr (45.6units/day) * Correction factor: 20 mg/dL/unit for BSG >130mg/dL * Carb ratio: 1 unit per 4 gm CHO consumed * HbA1c: 8.9% (11/07/21) ASSESSMENT: 12/06/21 * BSGs trended down nicely from 339 mg/dL on presentation * Received 20 units of Lantus and 24 units of Novolog yesterday in hospital * Will give full Lantus dose equivalent to insulin pump daily basal rate and continue outpatient CF/carb ratio * Will allow for increased basal dose today if BSGs elevated, as patient may be basal deficient due to intermittent compliance with home meds recently * Pharmacy consulted for glycemic management in 2019, patient required larger basal doses at that time, but home regimen was also more aggressive at that time as well. Will work up to larger basal doses if needed. 12/05/21 * Ms Resendiz is a Type 1 diabetic female, admitted for mental health evaluation. * Her insulin pump was disconnected in the ED. * Patient was initiated on SQ basal/bolus insulin, which will likely continue through the duration of her hospital stay. Plan to transition back to pump at discharge. * Pt is ordered a diabetic diet. PLAN FOR INPATIENT GLYCEMIC CONTROL: * Hold insulin pump * Basal insulin * Lantus 45 units SC x 1 this morning * Lantus 0-15 units SC HS (see EHR for details) * Bolus insulin * NovoLog per scale ACHS or Q6hrs while NPO * Goal Range: Low 110 mg/dL - High 140 mg/dL * Correction Factor: 20 mg/dL/unit * Nutritional / Prandial insulin per carb ratio of 1 unit per 4 grams CHO consumed
[2021-12-06] MEDS ORDERED: cloNIDine HCL 0.1 MG TAB PO SCH (22:00)
[2021-12-06] MEDS ORDERED: LANTUS PER UNIT CHARGE SQ SCH (22:00)
[2021-12-06] MEDS: FAMOTIDINE 40 MG TABLET PO SCH (22:09)
[2021-12-06] MEDS: TOPIRAMATE 50 MG TAB PO SCH (22:11)
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
[2021-12-07] MEDS: hydrOXYzine HCl 25 MG TAB PO SCH ×3 (08:34→21:14)
[2021-12-07] MEDS: LEVOTHYROXINE SODIUM 175 MCG TABLET PO SCH (08:34)
[2021-12-07] MEDS: DULoxetine HCL 20 MG CAP PO SCH (08:34)
[2021-12-07] MEDS: LITHIUM CARBONATE 300 MG TAB PO SCH ×2 (08:34→21:14)
[2021-12-07] MEDS: PRAVASTATIN SOD 10 MG TAB PO SCH (08:34)
[2021-12-07] MEDS: PANTOprazole 40 MG TAB PO SCH (08:34)
[2021-12-07] MEDS: CALCIUM 600MG + VIT D 400 IU TAB PO SCH (08:34)
[2021-12-07] MEDS: GABAPENTIN 800 MG TAB PO SCH ×2 (08:34→21:14)
[2021-12-07] MEDS: ASPIRIN 81 MG ECTAB PO SCH (08:35)
[2021-12-07] MEDS: DICYCLOMINE HCL 10 MG CAP PO SCH ×3 (08:35→21:14)
[2021-12-07] MEDS ORDERED: DEXTROSE 50% 50 ML SYRINGE IV PRN (08:45)
[2021-12-07] MEDS ORDERED: CARBOHYDRATES FOR HYPOGLYCEMIA PO PRN (08:45)
[2021-12-07] MEDS ORDERED: GLUCOSE 10 TAB/TUBE PO PRN (08:45)
[2021-12-07] MEDS ORDERED: GLUCAGON FOR INJ 1 MG VIAL IM PRN (08:45)
[2021-12-07] MEDS ORDERED: GLUCOSE 40% GEL 15 GM TUBE PO PRN (08:45)
[2021-12-07] MEDS ORDERED: LANTUS PER UNIT CHARGE SQ ONE (09:00)
[2021-12-07] MEDS: INSULIN ASPART PER UNIT SC SCH ×4 (09:26→21:25)
[2021-12-07] MEDS: METOPROLOL TARTRATE 50 MG TAB PO SCH ×2 (09:45→21:21)
[2021-12-07] MEDS: ARIPiprazole 5 MG TAB PO SCH (09:59)
[2021-12-07] MEDS: SUCRALFATE 1 GM TAB PO SCH ×2 (10:57→21:15)
[2021-12-07] MEDS: ONDANSETRON 4 MG OD TAB PO PRN ×2 (14:47→21:05)
[2021-12-07] MEDS: FAMOTIDINE 40 MG TABLET PO SCH (21:14)
[2021-12-07] MEDS: TOPIRAMATE 50 MG TAB PO SCH (21:15)
[2021-12-07] MEDS: PRAZOSIN HCL 1 MG CAP PO SCH (21:21)
[2021-12-08] MEDS: ACETAMINOPHEN 325 MG TAB PO PRN ×3 (06:29→21:07)
[2021-12-08] MEDS: CALCIUM 600MG + VIT D 400 IU TAB PO SCH (08:39)
[2021-12-08] MEDS: DICYCLOMINE HCL 10 MG CAP PO SCH ×3 (08:39→21:12)
[2021-12-08] MEDS: LITHIUM CARBONATE 300 MG TAB PO SCH ×2 (08:39→21:10)
[2021-12-08] MEDS: hydrOXYzine HCl 25 MG TAB PO SCH ×3 (08:39→21:11)
[2021-12-08] MEDS: GABAPENTIN 800 MG TAB PO SCH (08:40)
[2021-12-08] MEDS: ARIPiprazole 5 MG TAB PO SCH (08:40)
[2021-12-08] MEDS: LEVOTHYROXINE SODIUM 175 MCG TABLET PO SCH (08:40)
[2021-12-08] MEDS: PANTOprazole 40 MG TAB PO SCH (08:41)
[2021-12-08] MEDS: PRAVASTATIN SOD 10 MG TAB PO SCH (08:41)
[2021-12-08] MEDS: DULoxetine HCL 20 MG CAP PO SCH (08:41)
[2021-12-08] MEDS: ASPIRIN 81 MG ECTAB PO SCH (08:41)
[2021-12-08] MEDS: METOPROLOL TARTRATE 50 MG TAB PO SCH ×2 (08:41→21:11)
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
[2021-12-08] MEDS: INSULIN ASPART PER UNIT SC SCH ×4 (09:11→21:05)
[2021-12-08] MEDS: SUCRALFATE 1 GM TAB PO SCH ×2 (10:02→21:10)
--- NOTE | 2021-12-08 14:28 | Pharmacy Report ---
Pharmacy Glycemic Short Note 2 - Date of Service December 08, 2021 - Glycemic Short BSG Results (Last 24 hours): 12/07/21 12/07/21 12/08/21 17:12 21:08 08:27 POC Glucose 87 160 H 140 H 12/08/21 12:29 POC Glucose 138 H OUTPATIENT ANTIDIABETIC REGIMEN: * Humalog insulin pump * Basal: 1.9 units/hr (45.6units/day) * Correction factor: 20 mg/dL/unit for BSG >130mg/dL * Carb ratio: 1 unit per 4 gm CHO consumed * HbA1c = 8.9% (11/07/21) ASSESSMENT: 12/08: * Inga received a total of 93 units of insulin yesterday (38 units basal + 55 units bolus). BSGs were controlled: 508-505-34-160 mg/dL. * Fasting BSG was well controlled at 140 mg/dL this AM. Given fasting's continue to trend downwards will reduce basal very slightly today. * No change to Novolog. 12/06: * BSGs trended down nicely from 339 mg/dL on presentation * Received 20 units of Lantus and 24 units of Novolog yesterday in hospital * Will give full Lantus dose equivalent to insulin pump daily basal rate and continue outpatient CF/carb ratio * Will allow for increased basal dose today if BSGs elevated, as patient may be basal deficient due to intermittent compliance with home meds recently * Pharmacy consulted for glycemic management in 2019, patient required larger basal doses at that time, but home regimen was also more aggressive at that time as well. Will work up to larger basal doses if needed. 12/05: * Ms Resendiz is a Type 1 diabetic female, admitted for mental health evaluation. * Her insulin pump was disconnected in the ED. * Patient was initiated on SQ basal/bolus insulin, which will likely continue through the duration of her hospital stay. Plan to transition back to pump at discharge. * Pt is ordered a diabetic diet. PLAN FOR INPATIENT GLYCEMIC CONTROL: * Hold insulin pump * Basal insulin * Lantus 35 units SC daily * Bolus insulin * NovoLog per scale ACHS or Q6hrs while NPO * Goal Range: Low 110 mg/dL - High 140 mg/dL * Correction Factor: 20 mg/dL/unit * Nutritional / Prandial insulin per carb ratio of 1 unit per 4 grams CHO consumed
[2021-12-08] MEDS ORDERED: LANTUS PER UNIT CHARGE SQ SCH (14:30)
[2021-12-08] MEDS: TOPIRAMATE 50 MG TAB PO SCH (21:09)
[2021-12-08] MEDS: PRAZOSIN HCL 1 MG CAP PO SCH (21:10)
[2021-12-08] MEDS: FAMOTIDINE 40 MG TABLET PO SCH (21:11)
[2021-12-08] MEDS: GABAPENTIN 300 MG CAP PO SCH (21:12)
[2021-12-08] MEDS: DOCUSATE SODIUM 100 MG CAP PO SCH (21:12)
[2021-12-09] MEDS: LEVOTHYROXINE SODIUM 175 MCG TABLET PO SCH (08:24)
[2021-12-09] MEDS: ARIPiprazole 5 MG TAB PO SCH (08:24)
[2021-12-09] MEDS: DICYCLOMINE HCL 10 MG CAP PO SCH ×3 (08:25→20:26)
[2021-12-09] MEDS: CALCIUM 600MG + VIT D 400 IU TAB PO SCH (08:25)
[2021-12-09] MEDS: ASPIRIN 81 MG ECTAB PO SCH (08:25)
[2021-12-09] MEDS: DOCUSATE SODIUM 100 MG CAP PO SCH ×2 (08:26→20:26)
[2021-12-09] MEDS: DULoxetine HCL 20 MG CAP PO SCH (08:26)
[2021-12-09] MEDS: LITHIUM CARBONATE 300 MG TAB PO SCH ×2 (08:26→20:29)
[2021-12-09] MEDS: hydrOXYzine HCl 25 MG TAB PO SCH ×3 (08:26→20:26)
[2021-12-09] MEDS: GABAPENTIN 300 MG CAP PO SCH ×2 (08:26→20:26)
[2021-12-09] MEDS: PANTOprazole 40 MG TAB PO SCH (08:27)
[2021-12-09] MEDS: POLYETHYLENE (MIRALAX) 17 GM PACK PO SCH (08:27)
[2021-12-09] MEDS: METOPROLOL TARTRATE 50 MG TAB PO SCH ×2 (08:27→20:26)
[2021-12-09] MEDS: PRAVASTATIN SOD 10 MG TAB PO SCH (08:27)
[2021-12-09] MEDS: INSULIN ASPART PER UNIT SC SCH ×4 (09:00→20:42)
[2021-12-09] MEDS ORDERED: LANTUS PER UNIT CHARGE SQ SCH (09:00)
[2021-12-09] MEDS: SUCRALFATE 1 GM TAB PO SCH ×2 (10:22→20:30)
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
[2021-12-09] MEDS: ACETAMINOPHEN 325 MG TAB PO PRN (17:51)
[2021-12-09] MEDS: FAMOTIDINE 40 MG TABLET PO SCH (20:29)
[2021-12-09] MEDS: PRAZOSIN HCL 1 MG CAP PO SCH (20:29)
[2021-12-09] MEDS: TOPIRAMATE 50 MG TAB PO SCH (20:30)
[2021-12-10] MEDS: LEVOTHYROXINE SODIUM 175 MCG TABLET PO SCH (08:51)
[2021-12-10] MEDS: ARIPiprazole 5 MG TAB PO SCH (08:52)
[2021-12-10] MEDS: CALCIUM 600MG + VIT D 400 IU TAB PO SCH (08:52)
[2021-12-10] MEDS: ASPIRIN 81 MG ECTAB PO SCH (08:52)
[2021-12-10] MEDS: DICYCLOMINE HCL 10 MG CAP PO SCH ×3 (08:53→20:48)
[2021-12-10] MEDS: DOCUSATE SODIUM 100 MG CAP PO SCH ×2 (08:54→20:48)
[2021-12-10] MEDS: DULoxetine HCL 20 MG CAP PO SCH (08:54)
[2021-12-10] MEDS: GABAPENTIN 300 MG CAP PO SCH (08:54)
[2021-12-10] MEDS: hydrOXYzine HCl 25 MG TAB PO SCH ×3 (08:54→20:48)
[2021-12-10] MEDS: LITHIUM CARBONATE 300 MG TAB PO SCH ×2 (08:55→20:49)
[2021-12-10] MEDS: POLYETHYLENE (MIRALAX) 17 GM PACK PO SCH (08:56)
[2021-12-10] MEDS: PRAVASTATIN SOD 10 MG TAB PO SCH (08:56)
[2021-12-10] MEDS: PANTOprazole 40 MG TAB PO SCH (08:56)
[2021-12-10] MEDS ORDERED: LANTUS PER UNIT CHARGE SQ SCH (09:00)
--- NOTE | 2021-12-10 09:07 | Pharmacy Report ---
Pharmacy Glycemic Short Note 2 - Date of Service December 10, 2021 - Glycemic Short BSG Results (Last 24 hours): 12/09/21 12/09/21 12/09/21 12:27 17:08 20:21 POC Glucose 170 H 121 H 116 H 12/10/21 08:40 POC Glucose 141 H OUTPATIENT ANTIDIABETIC REGIMEN: * Humalog insulin pump * Basal: 1.9 units/hr (45.6units/day) * Correction factor: 20 mg/dL/unit for BSG >130mg/dL * Carb ratio: 1 unit per 4 gm CHO consumed * HbA1c = 8.9% (11/07/21) ASSESSMENT: 12/10: * BSGs remain reasonable well-controlled, ranging 116-170 mg/dL yesterday w/ fasting BSG of 141 mg/dL this morning * Given fasting BSGs consistently above goal, will increase basal insulin today * No change to Novolog 12/08: * Inga received a total of 93 units of insulin yesterday (38 units basal + 55 units bolus). BSGs were controlled: 194-245-80-160 mg/dL. * Fasting BSG was well controlled at 140 mg/dL this AM. Given fasting's continue to trend downwards will reduce basal very slightly today. * No change to Novolog. 12/06: * BSGs trended down nicely from 339 mg/dL on presentation * Received 20 units of Lantus and 24 units of Novolog yesterday in hospital * Will give full Lantus dose equivalent to insulin pump daily basal rate and continue outpatient CF/carb ratio * Will allow for increased basal dose today if BSGs elevated, as patient may be basal deficient due to intermittent compliance with home meds recently * Pharmacy consulted for glycemic management in 2019, patient required larger basal doses at that time, but home regimen was also more aggressive at that time as well. Will work up to larger basal doses if needed. 12/05: * Ms Resendiz is a Type 1 diabetic female, admitted for mental health evaluation. * Her insulin pump was disconnected in the ED. * Patient was initiated on SQ basal/bolus insulin, which will likely continue through the duration of her hospital stay. Plan to transition back to pump at discharge. * Pt is ordered a diabetic diet. PLAN FOR INPATIENT GLYCEMIC CONTROL: * Hold insulin pump * Basal insulin * Lantus 40 units SC daily * Bolus insulin * NovoLog per scale ACHS or Q6hrs while NPO * Goal Range: Low 110 mg/dL - High 140 mg/dL * Correction Factor: 20 mg/dL/unit * Nutritional / Prandial insulin per carb ratio of 1 unit per 4 grams CHO consumed
[2021-12-10] MEDS: INSULIN ASPART PER UNIT SC SCH ×4 (09:11→20:26)
[2021-12-10] MEDS: METOPROLOL TARTRATE 50 MG TAB PO SCH (09:33)
[2021-12-10] MEDS: SUCRALFATE 1 GM TAB PO SCH ×2 (10:03→20:50)
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
[2021-12-10] MEDS: FAMOTIDINE 40 MG TABLET PO SCH (20:49)
[2021-12-10] MEDS: PRAZOSIN HCL 1 MG CAP PO SCH (20:50)
[2021-12-10] MEDS: TOPIRAMATE 50 MG TAB PO SCH (20:55)
[2021-12-10] MEDS ORDERED: GABAPENTIN 600 MG TAB PO SCH (22:00)
[2021-12-11] MEDS: POLYETHYLENE (MIRALAX) 17 GM PACK PO SCH (09:02)
[2021-12-11] MEDS: ARIPiprazole 5 MG TAB PO SCH (09:03)
[2021-12-11] MEDS: GABAPENTIN 300 MG CAP PO SCH ×2 (09:03→20:58)
[2021-12-11] MEDS: ASPIRIN 81 MG ECTAB PO SCH (09:03)
[2021-12-11] MEDS: LEVOTHYROXINE SODIUM 175 MCG TABLET PO SCH (09:03)
[2021-12-11] MEDS: hydrOXYzine HCl 25 MG TAB PO SCH ×3 (09:04→20:58)
[2021-12-11] MEDS: DOCUSATE SODIUM 100 MG CAP PO SCH ×2 (09:04→20:54)
[2021-12-11] MEDS: DULoxetine HCL 20 MG CAP PO SCH (09:04)
[2021-12-11] MEDS: DICYCLOMINE HCL 10 MG CAP PO SCH ×3 (09:04→20:55)
[2021-12-11] MEDS: CALCIUM 600MG + VIT D 400 IU TAB PO SCH (09:04)
[2021-12-11] MEDS: SUCRALFATE 1 GM TAB PO SCH ×2 (09:05→21:00)
[2021-12-11] MEDS: PANTOprazole 40 MG TAB PO SCH (09:05)
[2021-12-11] MEDS: PRAVASTATIN SOD 10 MG TAB PO SCH (09:05)
[2021-12-11] MEDS: LITHIUM CARBONATE 300 MG TAB PO SCH ×2 (09:05→21:00)
[2021-12-11] MEDS ORDERED: LANTUS PER UNIT CHARGE SQ ONE (09:15)
[2021-12-11] MEDS: INSULIN ASPART PER UNIT SC SCH ×4 (09:31→21:21)
[2021-12-11] MEDS: ACETAMINOPHEN 325 MG TAB PO PRN (14:22)
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
[2021-12-11] MEDS: FAMOTIDINE 40 MG TABLET PO SCH (20:56)
[2021-12-11] MEDS: TOPIRAMATE 50 MG TAB PO SCH (21:01)
[2021-12-12] MEDS: hydrOXYzine HCl 25 MG TAB PO SCH ×3 (08:39→21:44)
[2021-12-12] MEDS: CALCIUM 600MG + VIT D 400 IU TAB PO SCH (08:39)
[2021-12-12] MEDS: DICYCLOMINE HCL 10 MG CAP PO SCH ×3 (08:39→21:39)
[2021-12-12] MEDS: LITHIUM CARBONATE 300 MG TAB PO SCH ×2 (08:39→21:37)
[2021-12-12] MEDS: PANTOprazole 40 MG TAB PO SCH (08:39)
[2021-12-12] MEDS: ARIPiprazole 5 MG TAB PO SCH (08:39)
[2021-12-12] MEDS: GABAPENTIN 300 MG CAP PO SCH ×2 (08:39→21:38)
[2021-12-12] MEDS: DOCUSATE SODIUM 100 MG CAP PO SCH ×2 (08:39→21:39)
[2021-12-12] MEDS: PRAVASTATIN SOD 10 MG TAB PO SCH (08:39)
[2021-12-12] MEDS: ASPIRIN 81 MG ECTAB PO SCH (08:40)
[2021-12-12] MEDS: LEVOTHYROXINE SODIUM 175 MCG TABLET PO SCH (08:40)
[2021-12-12] MEDS: POLYETHYLENE (MIRALAX) 17 GM PACK PO SCH (08:40)
[2021-12-12] MEDS: DULoxetine HCL 20 MG CAP PO SCH (08:40)
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
--- NOTE | 2021-12-12 09:08 | Pharmacy Report ---
Pharmacy Glycemic Short Note 2 - Date of Service December 12, 2021 - Glycemic Short BSG Results (Last 24 hours): 12/11/21 12/11/21 12/11/21 12:20 17:20 20:45 POC Glucose 216 H 132 H 149 H 12/12/21 08:26 POC Glucose 139 H OUTPATIENT ANTIDIABETIC REGIMEN: * Humalog insulin pump * Basal: 1.9 units/hr (45.6units/day) * Correction factor: 20 mg/dL/unit for BSG >130mg/dL * Carb ratio: 1 unit per 4 gm CHO consumed * HbA1c = 8.9% (11/07/21) ASSESSMENT: 12/12: * BSGs remain reasonably well-controlled sans elevated lunchtime BSG yesterday at 216 mg/dL * Basal insulin increased to ~home dose of 45 units, fasting BSG improved this morning to 139 mg/dL * At this point, patient is essentially on home regimen of insulin with home basal and home bolus parameters 12/10: * BSGs remain reasonably well-controlled, ranging 116-170 mg/dL yesterday w/ fasting BSG of 141 mg/dL this morning * Given fasting BSGs consistently above goal, will increase basal insulin today * No change to Novolog 12/08: * Inga received a total of 93 units of insulin yesterday (38 units basal + 55 units bolus). BSGs were controlled: [id number] mg/dL. * Fasting BSG was well controlled at 140 mg/dL this AM. Given fasting's continue to trend downwards will reduce basal very slightly today. * No change to Novolog. 12/05: * Ms Resendiz is a Type 1 diabetic female, admitted for mental health evaluation. * Her insulin pump was disconnected in the ED. * Patient was initiated on SQ basal/bolus insulin, which will likely continue through the duration of her hospital stay. Plan to transition back to pump at discharge. * Pt is ordered a diabetic diet. PLAN FOR INPATIENT GLYCEMIC CONTROL: * Hold insulin pump * Basal insulin * Lantus 45 units SC daily * Bolus insulin * NovoLog per scale ACHS or Q6hrs while NPO * Goal Range: Low 110 mg/dL - High 140 mg/dL * Correction Factor: 20 mg/dL/unit * Nutritional / Prandial insulin per carb ratio of 1 unit per 4 grams CHO consumed
[2021-12-12] MEDS: LANTUS PER UNIT CHARGE SQ SCH (09:40)
[2021-12-12] MEDS: INSULIN ASPART PER UNIT SC SCH ×4 (09:41→21:42)
[2021-12-12] MEDS: ONDANSETRON 4 MG OD TAB PO PRN (10:13)
[2021-12-12] MEDS: SUCRALFATE 1 GM TAB PO SCH ×2 (10:13→21:37)
[2021-12-12] MEDS: TOPIRAMATE 50 MG TAB PO SCH (21:37)
[2021-12-12] MEDS: FAMOTIDINE 40 MG TABLET PO SCH (21:39)
[2021-12-13] MEDS: GABAPENTIN 300 MG CAP PO SCH (08:20)
[2021-12-13] MEDS: ARIPiprazole 5 MG TAB PO SCH (08:20)
[2021-12-13] MEDS: DICYCLOMINE HCL 10 MG CAP PO SCH (08:20)
[2021-12-13] MEDS: CALCIUM 600MG + VIT D 400 IU TAB PO SCH (08:20)
[2021-12-13] MEDS: LEVOTHYROXINE SODIUM 175 MCG TABLET PO SCH (08:20)
[2021-12-13] MEDS: ASPIRIN 81 MG ECTAB PO SCH (08:20)
[2021-12-13] MEDS: PRAVASTATIN SOD 10 MG TAB PO SCH (08:21)
[2021-12-13] MEDS: DULoxetine HCL 20 MG CAP PO SCH (08:21)
[2021-12-13] MEDS: PANTOprazole 40 MG TAB PO SCH (08:21)
[2021-12-13] MEDS: LITHIUM CARBONATE 300 MG TAB PO SCH (08:21)
[2021-12-13] MEDS: DOCUSATE SODIUM 100 MG CAP PO SCH (08:21)
[2021-12-13] MEDS: hydrOXYzine HCl 25 MG TAB PO SCH (08:24)
[2021-12-13] MEDS: INSULIN ASPART PER UNIT SC SCH (09:21)
[2021-12-13] MEDS: POLYETHYLENE (MIRALAX) 17 GM PACK PO SCH (09:21)
[2021-12-13] MEDS: LANTUS PER UNIT CHARGE SQ SCH (09:22)
--- NOTE | 2021-12-13 09:58 | Discharge Summary ---
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 treatment plan. 12/11/21: Li level tomorrow morning. Increase gabapentin to 900mg qhs. Continue other medications. Reviewed rehearsal imagery strategies to help with nightmares. 12/10/21: Increase nightly gabapentin to 600 mg. Continue all other medications. Had phone intake with base services case management today for additional outpatient support. 12/09/21: Increase Abilify to 5 mg daily. Continue with all other medications. Consider further Cymbalta titration tomorrow. 12/08/21: Decrease gabapentin to 300mg BID, continue with abilify, Cymbalta and [place]. Will get prazosin if BP improves. Check Li level in 5 days. 12/07/21: d/c clonidine due to hypotension in favor of trial of prazosin for nightmares. She is aware could have same side effect. Will shift lithium from TID to 300 mg am and 600 mg hs. Risks/benefits/alternatives were reviewed re: antipsychotics for mood and/or psychosis. Discussion included but was not limited to metabolic side effects, risks of TD and suicidal thoughts. There were no abnormal motor movements at baseline. Start Abilify 2.5 mg with plan to titrate with consideration for DOTSON. 12/06/21: The patient was admitted to the [facility] ([facility] health unit) on q15 min checks (behavioral with suicide precautions) for safety. The patient will participate in group, recreational, and milieu therapies and will be offered additional individual and family sessions as clinically appropriate. Extensive time spent reviewing her medication list and status of her medical conditions as restarting her GI regimen, thyroid replacement, and insulin regimen is per glycemic pharmacy consult. Reviewed that Vraylar is non-formulary. She stated she hasn't taken it for months and then it was only 2 weeks. She and her outpatient provider were considering a DOTSON. Requested records to clarify. Reviewed that clonidine was not restarted last night as her BP was borderline and typically would not restart at 0.1 mg and retitrate. Risks/benefits/alternatives reviewed re: Cymbalta and [place] restart. Will resume [place] at 300 mg TID (previous dose 600 mg am and 900 mg pm). Reviewed toxicity in OD and need for blood monitoring. Mental Health & Subst Abuse Tx Psychiatrist Name of Psychiatrist: [facility] Date of Appointment with Psychiatrist: 01/01/22 Time of Appointment with Psychiatrist: 11:20 am Psychiatric Appointment Comment: [address] [place], [place] Therapist Name of Therapist: On waitlist at [place] Driver Operator Name of Driver Operator: [facility] Phone Number for Driver Operator: [phone] Date of Appointment with Driver Operator: 12/18/21 Time of Appointment with Driver Operator: 1:30 Case Management Appointment Comment: CM will contact you to arrange meeting plac e in community. Post Discharge Appointments Primary Care Physician Name Of Family Doctor: [facility] Date of Appointment with PCP: 12/23/21 Time of Appointment with PCP: 11:20 am Provider Appointment Comment: [address] [place], [place] Contact Information Discharge Discharge [address]: [address] [place] [id number] Discharge Plan Discharge Items Patient Disposition: Home - Self-Care Reason For Visit: BIPOLAR DISORDER Discharge Diagnosis: Schizoaffective Disorder vs Bipolar Disorder, depressive episode, complex Post Traumatic Stress Disorder Activity: Resume your previous activity Non-emergency contact: Primary Care Provider, Psychiatrist and Home Sales Service Professional Call non-emergency contact if: you have any medication questions and your symptoms worsen Follow-up/Referrals: Eugenie Falk MD [Primary Care Provider] - Diet: Regular Addtl Attending Provider Instructions: Optional Mobile Apps: -Suicide Safety Plan -Virtual Hope Box SPECIAL CARE INSTRUCTIONS: 1. Follow through with your scheduled aftercare appointments. If unable to keep an appointment, please call to reschedule. 2. Take your medication only as prescribed. Medication should not be changed or stopped without the approval of your doctor. In the event of worsening symptoms or concerns about side effects, contact your doctor immediately. 3. Utilize new healthy coping skills, anger management skills, and stress management skills learned during your hospitalization. Journal feelings and process them with a support person. Identify stressors or situations that may result in relapse, deterioration or inappropriate behaviors and develop a plan to deal with those issues. 4. If your coping skills are ineffective and you are in crisis, contact your outpatient providers for direction. If unable to reach your providers, please call the [facility] CRISIS LINE AT , go to the [facility] walk-in center at [address], [address], [place], or go to the closest Emergency Room. 5. Avoid alcohol and un-prescribed drugs. 6. You have been provided with the Mental Health Advance Directives Pamphlet for your review. 7. Your condition is stable for discharge to outpatient level of care, but recovery is an ongoing process. Ifthoughts to harm yourself or others return, follow the safety plan developed during your stay. Planning for a safe return home includes securing weapons. Our treatment team recommends weaponsbe removed from the home until your outpatient provider reassesses your progress. In rare cases where the items themselvescannot be removed, guns and ammunitionshould be secured separatelyand keys stored by a reliable personoutside of the home. If you were admitted on an involuntary commitment, the police or other legal authorities may be involved in this process. AFTERCARE APPOINTMENTS: * Please call your insurance company prior to your scheduled appointment to confirm your aftercare providers are covered. Take your insurance information to your appointments. WHO TO CALL AND WHEN: Medical Emergencies: For questions or emergencies related to your hospital stay, please contact the Inpatient Behavioral Health Unit at [phone]. A orthotic/prosthetic clinician is on-call 24/11 for the Behavioral Health Unit for emergencies At any time you feel your situation is an emergency, you may also call 911 immediately. Pending Studies at Discharge: No Stand-Alone Forms: My [facility] Medications and DC Order Prescriptions: New duloxetine [Cymbalta] 20 mg Capsule,Delayed Release(Dr/Ec) 20 mg PO DAILY 30 Days Qty: 30 0RF gabapentin 300 mg Capsule 300 mg PO QD@08 30 Days Qty: 30 0RF topiramate 50 mg Tablet 50 mg PO HS 30 Days Qty: 30 0RF aripiprazole [Abilify] 5 mg Tablet 5 mg PO QAM 30 Days Qty: 30 0RF gabapentin 300 mg Capsule 900 mg PO HS 30 Days Qty: 90 0RF lithium carbonate 300 mg Tablet 300 mg PO DAILY 30 Days Qty: 30 0RF lithium carbonate 600 mg capsule 600 mg PO HS 30 Days Qty: 30 0RF docusate sodium 100 mg Capsule 100 mg PO BID PRN (Reason: constipation) 30 Days Qty: 60 0RF polyethylene glycol 3350 [Miralax] 17 gram Powder In Packet 17 g PO DAILY 30 Days Qty: 30 0RF Continued (DME) Dexcom G6 Aerial Installer Misc See Rx Instructions .ROUTE .MEDSUPPLY Qty: 1 0RF Rx Instructions: As directed (DME) Dexcom G6 Transmitter Device See Rx Instructions .ROUTE .MEDSUPPLY Qty: 1 3RF Rx Instructions: As directed (DME) BD Eclipse Luer-Vipul 3 mL 23 x 1" syringe See Rx Instructions .ROUTE .MEDSUPPLY Qty: 1 5RF Rx Instructions: test 4 times daily ergocalciferol (vitamin D2) [Vitamin D2] 1,250 mcg (50,000 unit) capsule 50,000 unit PO WK Qty: 12 3RF Rx Instructions: take on sundays cyanocobalamin (vitamin B-12) 1,000 mcg/mL solution 1,000 mcg IM MONTHLY 180 Days Qty: 6 1RF sucralfate 1 gram tablet 1 g PO BID Qty: 60 5RF (DME) Dexcom G6 Sensor Device See Rx Instructions .Route Qty: 3 0RF Rx Instructions: As directed cetirizine 10 mg tablet 10 mg PO DAILY PRN (Reason: allergies) (DME) blood-glucose meter [[employer] Verio Reflect Meter] Mis See Rx Instructions .ROUTE .MEDSUPPLY Rx Instructions: use daily for testing bgs 1 times per day albuterol sulfate 90 mcg/actuation HFA aerosol inhaler 1 - 2 puffs INH QID PRN (Reason: shortness of breath or wheezing) Qty: 6.7 2RF rizatriptan 10 mg tablet,disintegrating 10 mg PO Q2H PRN (Reason: migraine headache) Qty: 12 2RF Rx Instructions: do not exceed 3 doses per 24 hrs calcium carbonate [Calcium 600] 600 mg calcium (1,500 mg) Tablet 600 mg PO QAM ondansetron 4 mg tablet,disintegrating 4 mg PO Q6H PRN (Reason: nausea and vomiting) Qty: 10 0RF insulin lispro [Humalog U-100 Insulin] 100 unit/mL solution 100 unit subcut DAILY MDD 100 PRN (Reason: Hyperglycemia) Label Comments: sliding scale aspirin 81 mg Capsule 81 mg PO DAILY levothyroxine 175 mcg tablet 175 mcg PO QAM 30 Days Qty: 30 0RF hydroxyzine HCl 50 mg Tablet 50 mg PO TID PRN (Reason: Anxiety) 30 Days Qty: 90 0RF omeprazole 40 mg capsule,delayed release(DR/EC) 40 mg PO DAILY 30 Days Qty: 30 0RF famotidine 40 mg tablet 40 mg PO HS 30 Days Qty: 30 0RF pravastatin 10 mg tablet 10 mg PO DAILY 30 Days Qty: 30 0RF dicyclomine 10 mg capsule 10 mg PO TID Qty: 15 0RF Discontinued metoprolol tartrate 50 mg tablet 50 mg PO BID Qty: 180 3RF Vraylar 1.5 mg capsule 1.5 mg PO DAILY Qty: 30 0RF lithium carbonate 600 mg capsule 600 mg PO BID Qty: 60 0RF duloxetine 20 mg capsule,delayed release(DR/EC) 20 mg PO DAILY Qty: 30 0RF gabapentin 800 mg tablet 800 mg PO BID Qty: 60 3RF clonidine HCl 0.3 mg Tablet 0.3 mg PO DAILY topiramate 25 mg tablet 25 mg PO HS lithium carbonate [Lithobid] 300 mg Tablet Extended Release 300 mg PO HS Discharge Orders: Discharge Order (Routine); Ordered 12/13/21 Ordered By: Sanjana Aguilar Admission Data Admit Date/Time: 12/05/21 21:50 Attending Provider: Aviva Sandy Admit Provider: Aviva Sandy Primary Care Provider: Eugenie Falk V. Other Providers: Nickie Chou Other Interventions: Discharge Summary Assessment (RN) Last Done: 12/13/21 10:53 Coding Level of Care Code 19234 D/C day mgmt > 30 min Diagnoses Schizoaffective disorder F25.9 Noncompliance with medication regimen Z91.14 Acute hyperglycemia R73.9 Moderate obstructive sleep apnea G47.33 Migraine G43.909 Meckel diverticulum Q43.0 PTSD (post-traumatic stress disorder) F43.10 Hypothyroidism E03.9 Time Spent (min) 45
[2021-12-13] MEDS: SUCRALFATE 1 GM TAB PO SCH (10:36)
== END 2021-12-13 11:55 | disposition home or self-care (01) | DRG 885 ==
LOC: ED 15:57 → 3S 21:45
DX: F43.10 Post-traumatic stress disorder, unspecified; G47.00 Insomnia, unspecified; E78.5 Hyperlipidemia, unspecified; Z88.8 Allergy status to other drugs, medicaments and biological substances; Q43.0 Meckel's diverticulum (displaced) (hypertrophic); K59.00 Constipation, unspecified; Z91.52 Personal history of nonsuicidal self-harm; Z91.14 Patient's other noncompliance with medication regimen; Z79.890 Hormone replacement therapy; Z79.82 Long term (current) use of aspirin; E03.9 Hypothyroidism, unspecified; G47.33 Obstructive sleep apnea (adult) (pediatric); E11.42 Type 2 diabetes mellitus with diabetic polyneuropathy; I95.9 Hypotension, unspecified; Z79.899 Other long term (current) drug therapy; Z87.891 Personal history of nicotine dependence; E11.65 Type 2 diabetes mellitus with hyperglycemia; F25.9 Schizoaffective disorder, unspecified; F51.5 Nightmare disorder

== ENCOUNTER 2022-02-06 17:15 | Observation (INO) ==
[2022-02-06] MEDS ORDERED: ONDANSETRON INJ 2 MG/ML 2 ML VIAL IV STA ×2 (19:51→23:16)
[2022-02-06] MEDS ORDERED: ACETAMINOPHEN 1,000 MG/100 ML VIAL IV STA (19:51)
[2022-02-06] MEDS ORDERED: KETOROLAC TROMETHAMINE 15 MG/ML VIAL IV ONE (19:51)
[2022-02-06] MEDS ORDERED: SODIUM CHLORIDE 0.9% 1000ML 2,000 ML IV ONE (19:51)
--- NOTE | 2022-02-06 19:59 | Emergency Department Note ---
Impression & Plan Diffuse abdominal pain, Vomiting and diarrhea, UTI (urinary tract infection), Acute dehydration, Acute hyperglycemia, Acute hyponatremia ED Provider Note NAME: JEFFERY EMANUEL AGE: 36 SEX: F : 1985 ARRIVES VIA: Walk-In INFORMANT: [Patient] ED PROVIDER(S): [Bairon Painter MD] CHIEF COMPLAINT: Vomiting HISTORY OF PRESENT ILLNESS: The patient is a 36-year-old female who has had 24 hours of nausea vomiting and diarrhea. She has colicky abdominal pain that is an 8/10. The pain is diffuse. She has noticed some burning with urination. No fever. No flank pain or back pain. No blood in the stool although, with her last bout of emesis, there was some blood mixed with the vomit. There have been no sick contacts, she has had no respiratory complaints. The pa tient denies any bad food eaten. No history of previous abdominal surgeries except for C-sections. REVIEW OF SYSTEMS: See HPI for pertinent positives and negatives. A total of ten systems were reviewed and were otherwise negative. PMHx/PSHx: See Below SOCIAL HISTORY: See Below. PHYSICAL EXAM: GENERAL: Patient is in no acute distress. HEENT: No acute trauma, normocephalic atraumatic, mucous membranes moist, no nasal congestion, no scleral icterus. NECK: No stridor, no adenopathy, no meningismus, trachea is midline. LUNGS: Clear to auscultation bilaterally, no wheeze, no rhonchi, breath sounds equal. HEART: Mildly tachycardic, regular rhythm, no murmurs. ABDOMEN: Soft, mildly diffusely tender, bowel sounds are hyperactive. No peritonitis. EXTREMITIES: No cyanosis or edema, full range of motion of all the joints without pain or difficulty, no signs for acute trauma. NEUROLOGIC: Oriented x 3, no acute motor or sensory deficits, no focal weakness. SKIN: No rash, no jaundice, no diaphoresis. DIFFERENTIAL DIAGNOSIS: Generalized viral illness, foodborne illness, electrolyte imbalance, renal or liver failure, UTI, pyelonephritis, colitis, diverticulitis, COVID-19, among others. EMERGENCY DEPARTMENT COURSE/PROCEDURES: MEDICAL DECISION MAKING: There is no leukocytosis or concerning anemia. There is a normal platelet count. ABG does not show acidosis, however, this was drawn several hours into her stay and after her initial treatment. Renal panel testing does suggest acidosis with a low CO2. Sodium was low at 128. There was an anion gap of 17. Glucose was elevated at almost 300. There were some subtle liver enzyme elevations. No pancreatitis. Urinalysis does suggest infection. Yeast was seen on the urinalysis. COVID, influenza and RSV test were negative. Abdominal and pelvis he did not show any acute infectious process, no urinary obstruction. The patient was given IV saline, 2 L. She received IV Zofran. She was given IV morphine, IV Toradol and IV Tylenol. She was given IV ceftriaxone as antibiotic coverage. She eventually received IV morphine and a second dose of IV Zofran. She was given IV Phenergan. She was given IV insulin. The patient is still having nausea and still having some abdominal pain. She is feeling better but is not back to baseline and I do not think stable for discharge home. She may be in very mild DKA. I did speak with the patient, I spoke with case management, the on-call hospitalist has been consulted. Past Med/Surg History Medical History Abdominal pain Acute hyperglycemia Altered awareness, transient Black-out (not amnesia) Chronic diarrhea Depression Depression with suicidal ideation DM type 2 (diabetes mellitus, type 2) IDDM Dysmetabolic syndrome X Gastritis History of anesthesia reaction with 1st "anesthesia began wearing off and could feel the surgery" Hypertriglyceridemia Hypothyroidism Inappropriate sinus tachycardia 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 Lung nodule seen on imaging study per pt on CT scan--just monitoring Meckel diverticulum Memory changes Migraine Mixed conductive and sensorineural hearing loss of both ears JACKSON (nonalcoholic steatohepatitis) Noncompliance with medication regimen Obesity 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 PTSD (post-traumatic stress disorder) Seizure grand mal--last was at 7yrs old--was on phenobarbital, no meds now--no neurologist Suicidal ideation Suspected 2019 novel coronavirus infection Tachycardia Vomiting Surgical History History of section x3 History of colonoscopy Previous section S/P cholecystectomy Family History Unknown FHx: kidney cancer Hyperlipidemia Lung cancer Hypertension Brother Marfan syndrome Congenital heart disease Father Stroke Family history of diabetes mellitus Myocardial infarction Mother Cancer Uterine cancer Stroke TIA (transient ischemic attack) Grandfather (Paternal) Family history of diabetes mellitus Uncle Family hx of colon cancer Colon cancer Colorectal cancer Aunt Breast cancer Son Crohn's disease, Onset Age: 2 Other No family history of adverse response to anesthesia Denies family history of Rheumatoid arthritis Pulmonary embolism Ulcerative colitis Social History Smoking Status: Never smoker Tobacco Type: Cigarettes Second Hand Exposure: Yes (family smokes); Hx Alcohol Use: Yes Alcohol type: hard liquor Hx Substance Use: No Preferred Language: Mosotho Communication Ability: Effective Manager Skilled Required: No Beliefs That Will Affect Care: None marital status: Current Living Situation: Spouse and Family Current Living Situation Comment: lives with and kids current occupational status: employed Feels Safe at Home: Yes Childhood Exposure to Second-Hand Smoke: Yes Dental Care, Regularly: No Physical Activity Frequency: Daily Seatbelt Use: always Sunscreen Use: Yes Assistive Devices: CPAP and Glasses Allergies Allergies Allergy/AdvReac Type Severity Reaction Status Date / Time pseudoephedrine Allergy Mild nausea and Verified 02/06/22 21:22 vomiting Home Meds Home Medications Medication Instructions Recorded Confirmed calcium carbonate 600 mg calcium 600 mg PO QAM 10/26/18 02/06/22 (1,500 mg) tablet (Calcium) cetirizine 10 mg tablet 10 mg PO DAILY PRN allergies 07/31/20 02/06/22 blood-glucose meter (OneTouch 01/18/21 02/06/22 Verio Reflect Meter) insulin lispro 100 unit/mL 100 unit subcut DAILY PRN 12/05/21 02/06/22 subcutaneous solution (Humalog Hyperglycemia U-100 Insulin) duloxetine 20 mg capsule,delayed 20 mg PO QAM 02/03/22 02/06/22 release lithium carbonate 300 mg capsule 300 mg PO QAM 02/03/22 02/06/22 lithium carbonate 600 mg capsule 600 mg PO QPM 02/03/22 02/06/22 prazosin 1 mg capsule 1 mg PO HS 02/06/22 02/06/22 Previous Rx's Medication Instructions Recorded blood-glucose meter,continuous #1 ea 05/16/19 (Dexcom G6 Wool Broker misc) blood-glucose transmitter ([employer] #1 ea 05/16/19 G6 Transmitter device) albuterol sulfate 90 mcg/actuation 1 - 2 puffs inhalation QID PRN 08/19/19 aerosol inhaler shortness of breath or wheezing #6.7 grams syringe with needle 3 mL 23 x 1" #1 ea 04/16/20 (BD Eclipse Luer-Vipul) rizatriptan 10 mg disintegrating 10 mg PO Q2H PRN migraine headache 10/12/20 tablet #12 tabs blood-glucose sensor (Dexcom G6 #3 ea 11/01/21 Sensor device) ergocalciferol (vitamin D2) 1,250 50,000 unit PO WK #12 caps 11/08/21 mcg (50,000 unit) capsule (Vitamin D2) ondansetron 4 mg disintegrating 4 mg PO Q6H PRN nausea and 11/28/21 tablet vomiting #10 tabs cyanocobalamin (vitamin B-12) 1,000 mcg IM MONTHLY 6 months #6 mL 12/02/21 1,000 mcg/mL injection solution sucralfate 1 gram tablet 1 g PO BID #60 tabs 12/03/21 famotidine 40 mg tablet 40 mg PO HS GERD 30 days #30 tabs 12/13/21 hydroxyzine HCl 50 mg tablet 50 mg PO TID PRN Anxiety 30 days 12/13/21 #90 tabs omeprazole 40 mg capsule,delayed 40 mg PO DAILY GERD 30 days #30 12/13/21 release caps pravastatin 10 mg tablet 10 mg PO DAILY HLD 30 days #30 tabs 12/13/21 dicyclomine 10 mg capsule 10 mg PO BID PRN spasms #30 caps 12/30/21 gabapentin 300 mg capsule See Rx Instructions PO HS diabetic 01/01/22 neuropathy 30 days #120 caps levothyroxine 175 mcg tablet 175 mcg PO QAM Hypothyroidism 30 01/03/22 days #30 tabs topiramate 50 mg tablet 50 mg PO HS migraine 30 days #30 01/03/22 tabs metoprolol succinate 50 mg 50 mg PO DAILY #30 tabs 02/03/22 tablet,extended release 24 hr Results & Data (ED) Vital Signs Vital Signs - 24 hr 02/06/22 17:31 02/06/22 20:00 02/06/22 22:00 Temperature 36.6 C Temperature Source Oral Pulse Rate 115 H Pulse Rate [Apical] 113 H 107 H Respiratory Rate 20 19 16 Blood Pressure 124/85 Blood Pressure [Left Arm] 127/86 118/75 Blood Pressure Mean 98 Blood Pressure Mean [Left Arm] 99 89 Pulse Oximetry 98 97 97 Oxygen Delivery Method Room Air Room Air Room Air Sepsis Recent Fever Within 48 Hours No Sepsis New/Unexplained Change in Mental Status N/A Sepsis Action Taken by Nursing No Action Required Home Medications Current Medication List: was personally reviewed by me Laboratory Data Attestation: I reviewed the patient's lab results. Result diagrams: 02/06/22 20:08 02/06/22 20:08 Lab Results 02/06/22 02/06/22 02/06/22 Range/Units 20:08 20:08 20:08 WBC 6.13 (4.8-10.8) K/ul RBC 4.68 (3.93-5.22) M/uL Hgb 13.5 (12.0-16.0) g/dl Hct 36.8 (34.1-44.9) % MCV 78.6 L (80.0-100.0) fL MCH 28.8 (25.0-34.0) pg MCHC 36.7 H (32.0-36.0) g/dL RDW Std Deviation 37.0 (36.4-46.3) fL RDW Coeff of Justin 13.0 (11.5-14.5) % Plt Count 219 (130-400) K/uL MPV 9.4 (9.4-12.3) fL Immature Gran % (Auto) 0.5 % Neut % (Auto) 57.7 % Lymph % (Auto) 33.4 % [place] % (Auto) 6.2 % Eos % (Auto) 1.5 % Baso % (Auto) 0.7 % Neut # (Auto) 3.54 (1.4-6.5) K/uL Lymph # (Auto) 2.05 (1.2-3.4) K/uL [place] # (Auto) 0.38 (0.24-0.82) K/uL Eos # (Auto) 0.09 (0-0.50) K/uL Baso # (Auto) 0.04 (0-0.2) K/uL Immature Gran # (Auto) 0.03 H (0.00-0.02) K/uL ABG pH (7.35-7.45) ABG pCO2 (35-46) mmHg ABG pO2 (80-95) mmHg ABG HCO3 (19-24) mmol/L ABG O2 Saturation (90-95) % ABG Base Excess (-9-1.8) mEq/L Dylan Test (Pos) Oxygen Given Sodium 128 L (136-145) mmol/L Potassium 3.9 (3.5-5.1) mmol/L Chloride 95 L (98-107) mmol/L Carbon Dioxide 16 L (21-32) mmol/L Anion Gap 17 H (3-11) BUN 12 (6-23) mg/dl Creatinine 0.82 (0.6-1.2) mg/dl Est Cr Clr Drug Dosing 96.8 ml/min Est GFR ( Amer) 107.5 ml/min Est GFR (Non-Af Amer) 92.7 ml/min BUN/Creatinine Ratio 14.6 (10-20) Glucose 295 H (70-99(Fasting)) mg/dl POC Glucose (70-99) mg/dl Calcium 9.3 (8.5-10.1) mg/dl Magnesium 1.9 (1.7-2.4) mg/dl Total Bilirubin 0.5 (0.2-1.0) mg/dl AST 48 H (13-39) U/L ALT 56 H (7-52) U/L Alkaline Phosphatase 82 (34-104) U/L Total Protein 6.8 (6.0-8.3) gm/dl Albumin 3.8 (3.4-5.0) gm/dl Globulin 3.0 (2.5-4.0) gm/dl Albumin/Globulin Ratio 1.3 (0.9-2) Lipase 73 (11-82) U/L Urine Color Yellow Urine Appearance Clear (Clear) Urine pH 6.0 (4.5-7.5) Ur Specific [place] 1.041 H (1.000-1.030) Urine Protein Negative (Negative) Urine Glucose (UA) 3+ H (Negative) Urine Ketones Trace H (Negative) Urine Blood Negative (Negative) Urine Nitrite Negative (Negative) Urine Bilirubin Negative (Negative) Urine Urobilinogen Negative (Negative) Ur Leukocyte Esterase 1+ H (Negative) Urine WBC (Auto) >30 H (0-5) /hpf Urine RBC (Auto) 0-4 (0-4) /hpf U Hyaline Cast (Auto) 0 (0-5) /lpf U Epithel Cells (Auto) 20-30 H (0-5) /lpf Urine Bacteria (Auto) 1+ H (Negative) Urine Yeast Budding A (None Prsent) SARS-CoV-2 (PCR) (Negative) Influenza Type A (PCR) (Neg) Influenza Type B (PCR) (Neg) RSV (RT-PCR) (Neg) 02/06/22 02/06/22 02/06/22 Range/Units 20:08 22:48 23:16 WBC (4.8-10.8) K/ul RBC (3.93-5.22) M/uL Hgb (12.0-16.0) g/dl Hct (34.1-44.9) % MCV (80.0-100.0) fL MCH (25.0-34.0) pg MCHC (32.0-36.0) g/dL RDW Std Deviation (36.4-46.3) fL RDW Coeff of Justin (11.5-14.5) % Plt Count (130-400) K/uL MPV (9.4-12.3) fL Immature Gran % (Auto) % Neut % (Auto) % Lymph % (Auto) % [place] % (Auto) % Eos % (Auto) % Baso % (Auto) % Neut # (Auto) (1.4-6.5) K/uL Lymph # (Auto) (1.2-3.4) K/uL [place] # (Auto) (0.24-0.82) K/uL Eos # (Auto) (0-0.50) K/uL Baso # (Auto) (0-0.2) K/uL Immature Gran # (Auto) (0.00-0.02) K/uL ABG pH 7.36 (7.35-7.45) ABG pCO2 37 (35-46) mmHg ABG pO2 70 L (80-95) mmHg ABG HCO3 21 (19-24) mmol/L ABG O2 Saturation 91.1 (90-95) % ABG Base Excess -4.0 (-9-1.8) mEq/L Dylan Test POS (Pos) Oxygen Given ROOM AIR Sodium (136-145) mmol/L Potassium (3.5-5.1) mmol/L Chloride (98-107) mmol/L Carbon Dioxide (21-32) mmol/L Anion Gap (3-11) BUN (6-23) mg/dl Creatinine (0.6-1.2) mg/dl Est Cr Clr Drug Dosing ml/min Est GFR ( Amer) ml/min Est GFR (Non-Af Amer) ml/min BUN/Creatinine Ratio (10-20) Glucose (70-99(Fasting)) mg/dl POC Glucose 291 H (70-99) mg/dl Calcium (8.5-10.1) mg/dl Magnesium (1.7-2.4) mg/dl Total Bilirubin (0.2-1.0) mg/dl AST (13-39) U/L ALT (7-52) U/L Alkaline Phosphatase (34-104) U/L Total Protein (6.0-8.3) gm/dl Albumin (3.4-5.0) gm/dl Globulin (2.5-4.0) gm/dl Albumin/Globulin Ratio (0.9-2) Lipase (11-82) U/L Urine Color Urine Appearance (Clear) Urine pH (4.5-7.5) Ur Specific [place] (1.000-1.030) Urine Protein (Negative) Urine Glucose (UA) (Negative) Urine Ketones (Negative) Urine Blood (Negative) Urine Nitrite (Negative) Urine Bilirubin (Negative) Urine Urobilinogen (Negative) Ur Leukocyte Esterase (Negative) Urine WBC (Auto) (0-5) /hpf Urine RBC (Auto) (0-4) /hpf U Hyaline Cast (Auto) (0-5) /lpf U Epithel Cells (Auto) (0-5) /lpf Urine Bacteria (Auto) (Negative) Urine Yeast (None Prsent) SARS-CoV-2 (PCR) NEGATIVE (Negative) Influenza Type A (PCR) Negative (Neg) Influenza Type B (PCR) Negative (Neg) RSV (RT-PCR) Negative (Neg) Administered Medications Discontinued Medications Sodium Chloride (Nss 1000ml) 2,000 mls @ 999 mls/hr IV .Q2H1M ONE Stop: 02/06/22 21:51 Last Infusion: 02/06/22 22:18 Dose: 0 mls/hr Documented By: Admin: 02/06/22 20:17 Dose: 999 mls/hr Documented By: TYRON Acetaminophen (Ofirmev) 1,000 mg in 100 mls @ 400 mls/hr IV NOW STA Stop: 02/06/22 20:05 Last Infusion: 02/06/22 20:32 Dose: 0 mls/hr Documented By: Admin: 02/06/22 20:17 Dose: 400 mls/hr Documented By: TYRON Ceftriaxone Sodium (Rocephin) 2,000 mg in 70 mls @ 140 mls/hr IV NOW STA Stop: 02/06/22 21:48 Last Infusion: 02/06/22 22:06 Dose: 0 mls/hr Documented By: Admin: 02/06/22 21:31 Dose: 140 mls/hr Documented By: RICH Promethazine HCl (Phenergan) 6.25 mg in 50.25 mls @ 201 mls/hr IV NOW STA Stop: 02/06/22 23:30 Last Admin: 02/06/22 23:41 Dose: 201 mls/hr Documented By: PRADIP Insulin Human Regular (Novolin-R Insulin Per Unit Charge) 6 units IV NOW STA Stop: 02/06/22 23:23 Last Admin: 02/06/22 23:42 Dose: 6 units Documented By: PRADIP Co-signed By: BERTO Ketorolac Tromethamine (Ketorolac Tromethamine 15 Mg/Ml Vial) 10 mg IV NOW ONE Stop: 02/06/22 19:52 Last Admin: 02/06/22 20:18 Dose: 10 mg Documented By: TYRON Morphine Sulfate (Morphine Sulfate 4 Mg/Ml 1 Ml Carp\\Vial) 4 mg IV NOW STA Stop: 02/06/22 22:00 Last Admin: 02/06/22 22:03 Dose: 4 mg Documented By: TYRON Ondansetron HCl (Ondansetron Inj 2 Mg/Ml 2 Ml Vial) 4 mg IV NOW STA Stop: 02/06/22 19:52 Last Admin: 02/06/22 20:18 Dose: 4 mg Documented By: TYRON Ondansetron HCl (Ondansetron Inj 2 Mg/Ml 2 Ml Vial) 4 mg IV NOW STA Stop: 02/06/22 23:17 Last Admin: 02/06/22 23:42 Dose: 4 mg Documented By: Imaging Data Radiologist's Impression: Abdominal and pelvis CT with contrast: Hepatic steatosis. Hepatomegaly. Splenomegaly. No hydronephrosis or obstructing stone. Collapsing cyst or corpus luteum in the right ovary. No bowel obstruction or inflammation. Normal appendix. Meckel's diverticulum again noted. Discharge Plan Visit Data Chief Complaint: Vomiting Stated Complaint: VOMITTING, DIARRHEA, ABD PAIN, PAINFUL URINATION ED Provider: Bairon Painter Discharge Problem: Diffuse abdominal pain, Vomiting and diarrhea, UTI (urinary tract infection), Acute dehydration, Acute hyperglycemia, Acute hyponatremia Patient Disposition: Admitted As Inpatient Condition: Fair Forms Stand Alone Forms: My [facility] Prescriptions Prescriptions: No Action (DME) Dexcom G6 [employer]ker Misc See Rx Instructions .ROUTE .MEDSUPPLY Qty: 1 0RF Rx Instructions: As directed (DME) Dexcom G6 Transmitter Device See Rx Instructions .ROUTE .MEDSUPPLY Qty: 1 3RF Rx Instructions: As directed (DME) BD Eclipse Luer-Vipul 3 mL 23 x 1" syringe See Rx Instructions .ROUTE .MEDSUPPLY Qty: 1 5RF Rx Instructions: test 4 times daily ergocalciferol (vitamin D2) [Vitamin D2] 1,250 mcg (50,000 unit) capsule 50,000 unit PO WK Qty: 12 3RF Rx Instructions: take on sundays cyanocobalamin (vitamin B-12) 1,000 mcg/mL solution 1,000 mcg IM MONTHLY 180 Days Qty: 6 1RF Rx Instructions: Takes beggining of month sucralfate 1 gram tablet 1 g PO BID Qty: 60 5RF dicyclomine 10 mg capsule 10 mg PO BID PRN (Reason: spasms) Qty: 30 1RF gabapentin 300 mg capsule See Rx Instructions PO HS 30 Days Qty: 120 5RF Rx Instructions: Take 1 capsule in the morning and 3 capsules in the evening time topiramate 50 mg tablet 50 mg PO HS 30 Days Qty: 30 5RF levothyroxine 175 mcg tablet 175 mcg PO QAM 30 Days Qty: 30 5RF (DME) Dexcom G6 Sensor Device See Rx Instructions .Route Qty: 3 0RF Rx Instructions: As directed cetirizine 10 mg tablet 10 mg PO DAILY PRN (Reason: allergies) (DME) blood-glucose meter [OneTouch Verio Reflect Meter] Misc See Rx Instructions .ROUTE .MEDSUPPLY Rx Instructions: use daily for testing bgs 1 times per day albuterol sulfate 90 mcg/actuation HFA aerosol inhaler 1 - 2 puffs INH QID PRN (Reason: shortness of breath or wheezing) Qty: 6.7 2RF rizatriptan 10 mg tablet,disintegrating 10 mg PO Q2H PRN (Reason: migraine headache) Qty: 12 2RF Rx Instructions: do not exceed 3 doses per 24 hrs lithium carbonate 300 mg capsule 300 mg PO QAM lithium carbonate 600 mg capsule 600 mg PO QPM duloxetine 20 mg capsule,delayed release(DR/EC) 20 mg PO QAM metoprolol succinate 50 mg tablet extended release 24 hr 50 mg PO DAILY Qty: 30 5RF calcium carbonate [Calcium 600] 600 mg calcium (1,500 mg) Tablet 600 mg PO QAM ondansetron 4 mg tablet,disintegrating 4 mg PO Q6H PRN (Reason: nausea and vomiting) Qty: 10 0RF insulin lispro [Humalog U-100 Insulin] 100 unit/mL solution 100 unit subcut DAILY MDD 100 PRN (Reason: Hyperglycemia) Label Comments: sliding scale hydroxyzine HCl 50 mg Tablet 50 mg PO TID PRN (Reason: Anxiety) 30 Days Qty: 90 0RF omeprazole 40 mg capsule,delayed release(DR/EC) 40 mg PO DAILY 30 Days Qty: 30 0RF famotidine 40 mg tablet 40 mg PO HS 30 Days Qty: 30 0RF pravastatin 10 mg tablet 10 mg PO DAILY 30 Days Qty: 30 0RF prazosin 1 mg capsule 1 mg PO HS Referrals Referrals: Eugenie Falk MD [Primary Care Provider] -
[2022-02-06 20:31] LABS: Appearance Urine Clear (Clear); Bacteria Urine Automated 1+ (Negative); Bilirubin Urine Negative (Negative); Blood Urine Negative (Negative); Cast Urine Automated 0 /lpf (0-5); Color Urine Yellow; Epithelial Cell Urine Auto 20-30 /lpf (0-5); Glucose Urine UA 3+ (Negative); Ketones Urine Trace (Negative); Leukocyte Esterase Urine 1+ (Negative); Nitrite Urine Negative (Negative); Protein Urine Negative (Negative); RBC Urine Automated 0-4 /hpf (0-4); Specific Gravity Urine 1.041 (1.000-1.030); Urobilinogen Urine Negative (Negative); WBC Urine Automated >30 /hpf (0-5)
[2022-02-06 20:33] LABS: Basophils # (auto) 0.04 K/uL (0-0.2); Basophils % (auto) 0.7 %; Eosinophils # (auto) 0.09 K/uL (0-0.50); Eosinophils % (auto) 1.5 %; Hematocrit (blood only) 36.8 % (34.1-44.9); Hemoglobin 13.5 g/dl (12.0-16.0); Immature Granulocytes # (auto) 0.03 K/uL (0.00-0.02); Immature Granulocytes % (auto) 0.5 %; Lymphocytes # (auto) 2.05 K/uL (1.2-3.4); Lymphocytes % (auto) 33.4 %; Mean Corpuscular Hemoglobin 28.8 pg (25.0-34.0); Mean Corpuscular Hgb Conc 36.7 g/dL (32.0-36.0); Mean Corpuscular Volume 78.6 fL (80.0-100.0); Mean Platelet Volume 9.4 fL (9.4-12.3); Monocytes # (auto) 0.38 K/uL (0.24-0.82); Monocytes % (auto) 6.2 %; Neutrophils # (auto) 3.54 K/uL (1.4-6.5); Neutrophils % (auto) 57.7 %; Platelet Count 219 K/uL (130-400); Red Blood Count 4.68 M/uL (3.93-5.22); White Blood Count 6.13 K/ul (4.8-10.8)
[2022-02-06 21:04] LABS: Influenza A virus by PCR Negative (Neg); Influenza B virus by PCR Negative (Neg); RSV by PCR Negative (Neg); SARS CoV2 RNA(COVID-19) InHosp NEGATIVE (Negative)
[2022-02-06] MEDS ORDERED: cefTRIAXone SODIUM 2,000 MG/70 ML BAG IV STA (21:19)
[2022-02-06 21:36] LABS: Albumin Globulin Ratio 1.3 (0.9-2); Albumin Level 3.8 gm/dl (3.4-5.0); BUN Creatinine Ratio 14.6 (10-20); Bilirubin,Total 0.5 mg/dl (0.2-1.0); Calcium 9.3 mg/dl (8.5-10.1); Creatinine Clr Calc Pharmacy 96.8 ml/min; Est GFR (African American) 107.5 ml/min; Est GFR (Non-African American) 92.7 ml/min; Total Protein 6.8 gm/dl (6.0-8.3)
[2022-02-06 21:43] LABS: Magnesium 1.9 mg/dl (1.7-2.4); Potassium 3.9 mmol/L (3.5-5.1)
[2022-02-06] MEDS ORDERED: MoRPHine SULFATE 4 MG/ML 1 ML CARP\\VIAL IV PRN (21:59)
[2022-02-06] MEDS ORDERED: MoRPHine SULFATE 4 MG/ML 1 ML CARP\\VIAL IV STA (21:59)
[2022-02-06 23:03] LABS: HCO3 ABG 21 mmol/L (19-24); Oxygen Saturation ABG 91.1 % (90-95); PCO2 ABG 37 mmHg (35-46); PO2 ABG 70 mmHg (80-95); pH ABG 7.36 (7.35-7.45)
[2022-02-06 23:07] LABS: Allen Test POS (Pos)
[2022-02-06] MEDS ORDERED: PROMETHAZINE 6.25 MG/50.25 ML BAG IV STA (23:16)
[2022-02-06] MEDS ORDERED: NovoLIN-R INSULIN PER UNIT CHARGE IV STA (23:22)
--- NOTE | 2022-02-07 00:28 | History & Physical Report ---
Date of Service February 07, 2022 Assessment & Plan (1) Vomiting and diarrhea: Plan: 36 y/o F Hx TERESITA, hypothyroid, bipolar, schizoaffective, DM I, sinus tachycardia. Presents with 2 days of nausea, vomiting, diarrhea and dysuria. She has not been able to tolerate PO intake. She has not had fevers. Initial labs, displayed a degree of acidosis consistent with borderline DKA. A UA was +. Acidosis resolved following a fluid bolus in the ER, however, she continued to suffer nausea and vomiting. 1) Nausea/vomiting with acidosis - cont IVF, insulin, antiemetics if needed. AM labs pending. 2) UTI - ceftriaxone pending culture results 3) IDDM - sliding scale with Lantus 4) Sinus tach - HR 115 on arrival - cont metoprolol 5) Bipolar, schizoaffective - [place], duloxetine 6) Hypothyroid - cont Synthroid Full code - Lovenox prophylaxis Total time for this admit including review of labs, meds, imaging, records - discussion with pt and ER attending - 43 min (2) UTI (urinary tract infection): (3) Acute dehydration: History of Present Illness Chief Complaint: Nausea, vomiting, diarrhea, dysuria. Primary Care Provider: Eugenie Falk MD 36 y/o F Hx TERESITA, hypothyroid, bipolar, schizoaffective, DM I, sinus tachycardia. Presents with 2 days of nausea, vomiting, diarrhea and dysuria. She has not been able to tolerate PO intake. She has not had fevers. Initial labs, displayed a degree of acidosis consistent with borderline DKA. A UA was +. Acidosis resolved following a fluid bolus in the ER, however, she continued to suffer nausea and vomiting. PMH: 1) DM I with neuropathy 2) Obesity 3) TERESITA 4) Hypothyroidism 5) Bipolar 6) Schizoaffective 7) PTSD 7) Idiopathic sinus tachycardia 8) Migraines Surgical: 1) C section x 3 2) Cholecystectomy Social: Does not smoke or drink Family: Father lung CA age 60 Mother lung CA age 50 Allergies Allergy/AdvReac Type Severity Reaction Status Date / Time pseudoephedrine Allergy Mild nausea and Verified 02/06/22 21:22 vomiting Home Medications Medication Instructions Recorded Confirmed Type calcium carbonate 600 mg calcium 600 mg PO QAM 10/26/18 02/06/22 History (1,500 mg) tablet (Calcium) blood-glucose meter,continuous #1 ea 05/16/19 02/06/22 Rx (Dexcom G6 Supplier Manager misc) blood-glucose transmitter (Dexcom #1 ea 05/16/19 02/06/22 Rx G6 Transmitter device) albuterol sulfate 90 mcg/actuation 1 - 2 puffs inhalation QID PRN 08/19/19 02/06/22 Rx aerosol inhaler shortness of breath or wheezing #6.7 grams syringe with needle 3 mL 23 x 1" #1 ea 04/16/20 02/06/22 Rx (BD Eclipse Luer-Vipul) cetirizine 10 mg tablet 10 mg PO DAILY PRN allergies 07/31/20 02/06/22 History rizatriptan 10 mg disintegrating 10 mg PO Q2H PRN migraine headache 10/12/20 02/06/22 Rx tablet #12 tabs blood-glucose meter (OneTouch 01/18/21 02/06/22 History Verio Reflect Meter) blood-glucose sensor (Dexcom G6 #3 ea 11/01/21 02/06/22 Rx Sensor device) ergocalciferol (vitamin D2) 1,250 50,000 unit PO WK #12 caps 11/08/21 02/06/22 Rx mcg (50,000 unit) capsule (Vitamin D2) ondansetron 4 mg disintegrating 4 mg PO Q6H PRN nausea and 11/28/21 02/06/22 Rx tablet vomiting #10 tabs cyanocobalamin (vitamin B-12) 1,000 mcg IM MONTHLY 6 months #6 mL 12/02/21 02/06/22 Rx 1,000 mcg/mL injection solution sucralfate 1 gram tablet 1 g PO BID #60 tabs 12/03/21 02/06/22 Rx insulin lispro 100 unit/mL 100 unit subcut DAILY PRN 12/05/21 02/06/22 History subcutaneous solution (Humalog Hyperglycemia U-100 Insulin) famotidine 40 mg tablet 40 mg PO HS GERD 30 days #30 tabs 12/13/21 02/06/22 Rx hydroxyzine HCl 50 mg tablet 50 mg PO TID PRN Anxiety 30 days 12/13/21 02/06/22 Rx #90 tabs omeprazole 40 mg capsule,delayed 40 mg PO DAILY GERD 30 days #30 12/13/21 02/06/22 Rx release caps pravastatin 10 mg tablet 10 mg PO DAILY HLD 30 days #30 tabs 12/13/21 02/06/22 Rx dicyclomine 10 mg capsule 10 mg PO BID PRN spasms #30 caps 12/30/21 02/06/22 Rx gabapentin 300 mg capsule See Rx Instructions PO HS diabetic 01/01/22 02/06/22 Rx neuropathy 30 days #120 caps levothyroxine 175 mcg tablet 175 mcg PO QAM Hypothyroidism 30 01/03/22 02/06/22 Rx days #30 tabs topiramate 50 mg tablet 50 mg PO HS migraine 30 days #30 01/03/22 02/06/22 Rx tabs duloxetine 20 mg capsule,delayed 20 mg PO QAM 02/03/22 02/06/22 History release lithium carbonate 300 mg capsule 300 mg PO QAM 02/03/22 02/06/22 History lithium carbonate 600 mg capsule 600 mg PO QPM 02/03/22 02/06/22 History metoprolol succinate 50 mg 50 mg PO DAILY #30 tabs 02/03/22 02/06/22 Rx tablet,extended release 24 hr prazosin 1 mg capsule 1 mg PO HS 02/06/22 02/06/22 History Past Med/Surg History Medical History Abdominal pain Acute hyperglycemia Altered awareness, transient Black-out (not amnesia) Chronic diarrhea Depression Depression with suicidal ideation DM type 2 (diabetes mellitus, type 2) IDDM Dysmetabolic syndrome X Gastritis History of anesthesia reaction with 1st "anesthesia began wearing off and could feel the surgery" Hypertriglyceridemia Hypothyroidism Inappropriate sinus tachycardia 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 Lung nodule seen on imaging study per pt on CT scan--just monitoring Meckel diverticulum Memory changes Migraine Mixed conductive and sensorineural hearing loss of both ears JACKSON (nonalcoholic steatohepatitis) Noncompliance with medication regimen Obesity 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 PTSD (post-traumatic stress disorder) Seizure grand mal--last was at 7yrs old--was on phenobarbital, no meds now--no neuro logist Suicidal ideation Suspected 2018 novel coronavirus infection Tachycardia Vomiting Surgical History History of section x3 History of colonoscopy Previous section S/P cholecystectomy Family History Unknown FHx: kidney cancer Hyperlipidemia Lung cancer Hypertension Brother Marfan syndrome Congenital heart disease Father Stroke Family history of diabetes mellitus Myocardial infarction Mother Cancer Uterine cancer Stroke TIA (transient ischemic attack) Grandfather (Paternal) Family history of diabetes mellitus Uncle Family hx of colon cancer Colon cancer Colorectal cancer Aunt Breast cancer Son Crohn's disease, Onset Age: 2 Other No family history of adverse response to anesthesia Denies family history of Rheumatoid arthritis Pulmonary embolism Ulcerative colitis Social History Smoking Status: Never smoker Tobacco Type: Cigarettes Second Hand Exposure: Yes (family smokes); Hx Alcohol Use: Yes Alcohol type: hard liquor Hx Substance Use: No Preferred Language: Kyrgyz Communication Ability: Effective Molten Iron Pourer Required: No Beliefs That Will Affect Care: None marital status: Current Living Situation: Spouse and Family Current Living Situation Comment: lives with and kids current occupational status: employed Feels Safe at Home: Yes Childhood Exposure to Second-Hand Smoke: Yes Dental Care, Regularly: No Physical Activity Frequency: Daily Seatbelt Use: always Sunscreen Use: Yes Assistive Devices: CPAP and Glasses Review of Systems Review of Systems: Gen: Denies fevers, night sweats, rigors, fatigue, malaise, weight loss/gain ENT: Denies congestion, throat pain, hearing loss Eyes: Denies acute visual changes CV: Denies CP, palpitations Pulmonary: Denies SOB, cough, wheezing GI: + N/V, diarrhea Neuro: Denies acute or unilateral weakness, acute gait impairment, headache or acute visual changes Musculoskeletal: Denies joint pain, inflammation Endocrine: Denies polydipsia, polyuria Skin: Denies acute rashes or ulcers Physical Exam Physical Exam: O/E General: AAO x 3, no distress ENT: No erythema or exudates, no thrush Eyes: KARLY, EOMI Head and neck: Normocephalic, atraumatic, No JVD, neck is supple. Chest/heart: Nontender, S1,2, RRR, no murmurs, no gallops Lungs: CTAB, no wheezing or crackles Abdomen: Nontender, nondistended, BS+ Neuro: AAO x 3, speech is clear, no unilateral weakness or loss of sensation, coordination intact Musculoskeletal: No joint inflammation, muscle tenderness, FROM Skin: No acute rashes or ulcers Extremities: No clubbing, cyanosis, edema Results & Data Results & Data ([facility]) Vital Signs (Past 12 Hours) Vital Signs Temp Pulse Pulse Resp BP BP Pulse Ox 02/06/22 22:00 107 H 16 118/75 97 02/06/22 20:00 113 H 19 127/86 97 02/06/22 17:31 97.9 F 115 H 20 124/85 98 O2 Del Method 02/06/22 22:00 Room Air 02/06/22 20:00 Room Air 02/06/22 17:31 Room Air Code Status & VTE Plan VTE Prophylaxis Plan VTE Prophylaxis will be ordered: Yes PG Care Time/CCT Total # of Minutes Spent Total Time Spent with Patient: Total time spent is greater than 50% in coordination of care (as documented) at patient's floor/unit and/or counseling patient: Coding Level of Care Code 24461 Initial Inpt Care Lvl 2 Diagnoses Vomiting and diarrhea R11.10; R19.7 UTI (urinary tract infection) N30.00 Hematuria presence: without hematuria Urinary tract infection type: acute cystitis Acute dehydration E86.0 (1) UTI (urinary tract infection) Hematuria presence: without hematuria Urinary tract infection type: acute cystitis Qualified Code(s): N30.00 - Acute cystitis without hematuria
[2022-02-07 00:37] LABS: Basophils # (auto) 0.03 K/uL (0-0.2); Basophils % (auto) 0.5 %; Eosinophils # (auto) 0.14 K/uL (0-0.50); Eosinophils % (auto) 2.5 %; Hematocrit (blood only) 35.1 % (34.1-44.9); Hemoglobin 12.4 g/dl (12.0-16.0); Immature Granulocytes # (auto) 0.03 K/uL (0.00-0.02); Immature Granulocytes % (auto) 0.5 %; Lymphocytes # (auto) 2.07 K/uL (1.2-3.4); Lymphocytes % (auto) 37.6 %; Mean Corpuscular Hemoglobin 28.2 pg (25.0-34.0); Mean Corpuscular Hgb Conc 35.3 g/dL (32.0-36.0); Monocytes # (auto) 0.42 K/uL (0.24-0.82); Monocytes % (auto) 7.6 %; Neutrophils # (auto) 2.82 K/uL (1.4-6.5); Neutrophils % (auto) 51.3 %; Platelet Count 200 K/uL (130-400); Red Blood Count 4.39 M/uL (3.93-5.22); White Blood Count 5.51 K/ul (4.8-10.8)
[2022-02-07] MEDS: NSS + 20MEQ KCL 20 MEQ/1,000 ML BAG IV SCH ×3 (00:44→21:25)
[2022-02-07] MEDS ORDERED: DEXTROSE 50% 50 ML SYRINGE IV PRN ×2 (03:43→12:00)
[2022-02-07] MEDS ORDERED: GLUCOSE 10 TAB/TUBE PO PRN ×2 (03:43→12:00)
[2022-02-07] MEDS ORDERED: LANTUS PER UNIT CHARGE SQ SCH (03:43)
[2022-02-07] MEDS ORDERED: GLUCOSE 40% GEL 15 GM TUBE PO PRN ×2 (03:43→12:00)
[2022-02-07] MEDS ORDERED: GLUCAGON FOR INJ 1 MG VIAL SQ PRN (03:43)
[2022-02-07] MEDS ORDERED: CARBOHYDRATES FOR HYPOGLYCEMIA PO PRN ×3 (03:43→12:00)
[2022-02-07] MEDS ORDERED: hydrOXYzine HCl 25 MG TAB PO PRN (03:43)
[2022-02-07] MEDS: LEVOTHYROXINE SODIUM 175 MCG TABLET PO SCH (06:20)
[2022-02-07 07:34] LABS: Basophils # (auto) 0.03 K/uL (0-0.2); Basophils % (auto) 0.6 %; Eosinophils # (auto) 0.09 K/uL (0-0.50); Eosinophils % (auto) 1.8 %; Hematocrit (blood only) 34.8 % (34.1-44.9); Hemoglobin 11.9 g/dl (12.0-16.0); Immature Granulocytes # (auto) 0.02 K/uL (0.00-0.02); Immature Granulocytes % (auto) 0.4 %; Lymphocytes # (auto) 1.73 K/uL (1.2-3.4); Lymphocytes % (auto) 33.9 %; Mean Corpuscular Hemoglobin 27.7 pg (25.0-34.0); Mean Corpuscular Hgb Conc 34.2 g/dL (32.0-36.0); Mean Corpuscular Volume 80.9 fL (80.0-100.0); Mean Platelet Volume 8.8 fL (9.4-12.3); Monocytes # (auto) 0.39 K/uL (0.24-0.82); Monocytes % (auto) 7.6 %; Neutrophils # (auto) 2.85 K/uL (1.4-6.5); Neutrophils % (auto) 55.7 %; Platelet Count 169 K/uL (130-400); RDW Standard Deviation 37.8 fL (36.4-46.3); White Blood Count 5.11 K/ul (4.8-10.8)
[2022-02-07 07:53] LABS: Calcium 8.1 mg/dl (8.5-10.1); Creatinine Clr Calc Pharmacy 137.6 ml/min; Est GFR (African American) 136.9 ml/min; Est GFR (Non-African American) 118.1 ml/min; Potassium 3.8 mmol/L (3.5-5.1)
[2022-02-07] MEDS ORDERED: MAGNESIUM SULFATE / D5W 1 GM/100 ML BAG IV ONE (07:57)
--- NOTE | 2022-02-07 08:08 | CT Scan Report ---
ABDOMEN AND PELVIS CT WITH IV CONTRAST CT DOSE: 936.55 mGy.cm HISTORY: Generalized abdominal pain, poss colitis or divertic TECHNIQUE: Multiaxial CT images of the abdomen and pelvis were performed following the use of intrave nous contrast. A dose lowering technique was utilized adhering to the principles of ALARA. COMPARISON STUDY: Abdomen and pelvis CT 11/28/2021. FINDINGS: Punctate calcified granuloma within the right lower lobe again noted. No pneumoperitoneum. No pneumatosis. No fractures within the visualized osseous structures. Prior cholecystectomy. Mild he patic steatosis. No hepatic or splenic masses. The spleen remains mildly enlarged measuring 13 cm in length. The adrenal glands, pancreas, and kidneys are unremarkable. Normal caliber abdominal aorta. N o retroperitoneal lymphadenopathy. The main portal vein is patent. The bladder, uterus, and ovaries a re within normal limits. There is a small follicles/cysts within the right ovary. Redemonstration of the small Meckel's diverticulum. No surrounding inflammatory change. No pelvic free fluid. No bowel w all thickening or obstruction. Normal appendix. IMPRESSION: 1. No bowel wall thickening or obstruction. 2. Normal appendix. 3. Redemonstration of the Meckel's diverticulum. No surrounding inflammatory change. 4. Stable mild splenomegaly. ACT 112: Negative or not required by law. Electronically signed by: Ronnie Crawford M.D. 02/07/2022 8:06 AM
[2022-02-07] MEDS: PROMETHAZINE HCL 6.25 MG in SODIUM CHLORIDE 0.9% 50 ML IV PRN ×2 (08:31→15:45)
[2022-02-07] MEDS: DULoxetine HCL 20 MG CAP PO SCH (08:31)
[2022-02-07] MEDS: PANTOprazole 40 MG TAB PO SCH (08:31)
[2022-02-07] MEDS: SUCRALFATE 1 GM TAB PO SCH ×2 (08:31→21:26)
[2022-02-07] MEDS: ENOXAPARIN INJ 40 MG/0.4 ML SYR SQ SCH (08:31)
[2022-02-07] MEDS: LITHIUM CARBONATE 300 MG TAB PO SCH (08:31)
[2022-02-07] MEDS: METOPROLOL SUCC 50MG EXT REL TAB PO SCH (08:31)
[2022-02-07] MEDS: PRAVASTATIN SOD 10 MG TAB PO SCH (08:31)
[2022-02-07] MEDS ORDERED: PHARMACY GLYCEMIC MGMT CONSULT PRN (08:47)
--- NOTE | 2022-02-07 08:48 | Hospitalist Progress Note ---
Date of Service February 07, 2022 Assessment & Plan (1) Vomiting and diarrhea: Plan: 36 y/o F Hx TERESITA, hypothyroid, bipolar, schizoaffective, DM I, sinus tachycardia. Presents with 2 days of nausea, vomiting, diarrhea and dysuria. She has not been able to tolerate PO intake. She has not had fevers. Initial labs, displayed a degree of acidosis consistent with borderline DKA. A UA was +. Acidosis resolved following a fluid bolus in the ER, however, she continued to suffer nausea and vomiting. Suspect related to mild DKA with acidosis (anion gap 17)and UTI on admission with insulin pump removed by patient on Thursday as she was feeling unwell and didn't want to bottom out her sugars BSGs running 200s yesterday, 290s on admit. Typically she reports having recent control, goal 70-130s at home CTAP unchanged from Augsut IVF NS +20k @ 100cc/hr -- continue for additional 2L then monitor Clear liquid diet, tolerating. advance as tolerated. Antiemetics prn -- phenergan effective this morning, continue. consider PO at d/c as running out of zofran and not very effective Labs this morning with resolution in anion gap 17--> 10 Carbon dioxide 16-->17 Tx UTI as below Continued inpatient stay, hopeful for d/c tomorrow (2) UTI (urinary tract infection): Plan: reported dysuria ua with likely infection --> 1+ leuk est, >30 WBC, 1+ bacteria CTAp without evidence of pyelo/stones Ceftriaxone continued Monitor urine cx/sensitivities -- urine cx pinpoint growth, reincubating consider Pyridium for bladder spasm/pain if needed (3) Acute dehydration: Plan: IVF as outlined, improving tolerating clear liquid diet (4) Schizoaffective disorder: Plan: recent inpatient admission -- vraylar/cymbalta/lithium/hydroxyzine new lithium, level 0.1 on check, could be contributing to GI side effects as well as UTI though mood stable per patient continue home medications as ordered (5) Diabetes type 1, uncontrolled: Plan: typically with insulin pump/dexcom removed on thursday by patient due to feeling unwell as outlined A1c 8.3 (improved from 8.9) Added ISS orders, pharmacy consulted BSGs acceptable monitor (6) Vitamin B12 deficiency: Plan: reports monthly injections, missed dose level pending for AM, replacement if needed (7) Meckel diverticulum: Plan: hx of such remains on pepcid/PPI daily for chroinc pain extensive GI workup with GI in past, previously on cholestryamine ?of fatty liver/cirrhosis Plt 169 does note splenomegaly on CTAP but no cirrhosis outpt f/u (8) Hypothyroidism: Plan: hx of such, TSH 3.53 continue Synthroid 175mcg daily outpt f/u for repeat testing given TSH was 0.70 in December this year (9) Tachycardia: Plan: hx sinus tach, recentl seen by Dr Ragland On metoprolol 50mg daily --> per note, had been doing well on 50mg dose but d/c Augsut 2021 hospitalization for psych due to concerns for hypotension BP stable at ofice visit and tolerating 12.5mg daily, rec'd to increase to 2 5mg daily for next couple days then increase to 50mg will monitor on 50mg dose but may need reduction has hx atypical CP no c/w ischemic heart disease prior stress echo negative in past and does not require aspirin from cardiology perspective Present on Admission?: Yes (10) Hyponatremia: Plan: Na+ 129 but slightly higher when corrected for hyperglycemia could be from dehydration vs SIADH from psych meds? continue IVFs follow BMP Plan DVT proph - Lovenox SQ while inpatient continued inpatient stay, continue IVF, pain control monitor BSGs continue Ceftriaxone/monitor urine cx hopeful for d/c tomorrow on PO abx will need new rx for antiemetics setting up f/u close next week with PCP Admission and Anticipated Discharge Date Admission Date: February 07, 2022 Supervising Physician Co-Signing Physician Notes PA Supervision Note: I did not personally see or examine the patient today, but I verified all harper points of RENEE Brock's assessment and plan with the following exceptions/additions: None Subjective BRIDGE NOTE: ADMIT AFTER MIDNIGHT BSG 291 on admit Patient admits taking off insulin pump Thursday when not feeling well as it makes her sugars go low, states sugars in 200s yesterday prior to dexcom coming off, u sually runs in the 80-130s at home. A1c 8.3, improved from prior Labs with improvement Did have continued nausea this morning, improving with Phenergan generalized abdominal pain/nausea, denies low back pain/kidney stone type pain discussed could be from urinary tract infection, she does endorse dysuria. States had not peed until later this AM since admission as she was so dehdrated. could be from psychiatric medications as well also checking iron studies/b12 in am -- per patient/, she gets once monthly injections and missed last dose. Will provide pending level in AM. Also running out of antiemetics at home, zofran. Phenergan more effective, can consider PO at d/c. Follows with Adelina per , MA at [facility]ath office, needs close f/u and can't go to other office other than heath due to anxiety. Secretrary to arrange f/u for early next week. Discussed continue abx for UTI and can give dose tomorrow and call if cx/sensitivities not back over weekend and base PO abx off prior urine cultures and call if any issues after discharge. Agreeable to plan. Review of Systems Review of Systems: All systems reviewed & are unremarkable except as noted in HPI & below Physical Exam Physical Exam: General: WD/WN female resting in bed, NAD HEENT: head normocephalic, atraumatic, thick neck, trachea mideline without deviation Resp: CTAB, no w/c on room air CV: RRR, no pitting edema GI: +BS, soft, generalized tenderness reported but not overly tender on exam, no guarding/rigidity or peritoneal signs : no beckham, no CVA tenderness MSK/Neuro: no focal deficit, moves all extremities Psych: AOx3, pleasant and cooperative, thankful for information provided and support updated on phone at bedside Results & Data Results & Data ([facility]) Vital Signs (Past 12 Hours) Vital Signs Temp Pulse Pulse Pulse Resp BP Pulse Ox 02/07/22 07:30 37 C 88 16 106/70 97 02/07/22 05:05 98 H 16 97 02/07/22 03:20 37 C 99 H 18 123/85 97 02/07/22 02:00 100 H 17 115/74 96 02/07/22 00:46 110 H 16 110/68 97 02/06/22 22:00 107 H 16 118/75 97 O2 Del Method 02/07/22 07:30 Room Air 02/07/22 05:05 02/07/22 03:20 Room Air 02/07/22 02:00 Room Air 02/07/22 00:46 Room Air 02/06/22 22:00 Room Air Laboratory Results 02/07/22 02/07/22 02/07/22 Range/Units 12:10 08:11 08:03 WBC (4.8-10.8) K/ul RBC (3.93-5.22) M/uL Hgb (12.0-16.0) g/dl Hct (34.1-44.9) % MCV (80.0-100.0) fL MCH (25.0-34.0) pg MCHC (32.0-36.0) g/dL RDW Std Deviation (36.4-46.3) fL RDW Coeff of Justin (11.5-14.5) % Plt Count (130-400) K/uL MPV (9.4-12.3) fL Immature Gran % (Auto) % Neut % (Auto) % Lymph % (Auto) % [place] % (Auto) % Eos % (Auto) % Baso % (Auto) % Neut # (Auto) (1.4-6.5) K/uL Lymph # (Auto) (1.2-3.4) K/uL [place] # (Auto) (0.24-0.82) K/uL Eos # (Auto) (0-0.50) K/uL Baso # (Auto) (0-0.2) K/uL Immature Gran # (Auto) (0.00-0.02) K/uL ABG pH (7.35-7.45) ABG pCO2 (35-46) mmHg ABG pO2 (80-95) mmHg ABG HCO3 (19-24) mmol/L ABG O2 Saturation (90-95) % ABG Base Excess (-9-1.8) mEq/L Dylan Test (Pos) Oxygen Given Sodium (136-145) mmol/L Potassium (3.5-5.1) mmol/L Chloride (98-107) mmol/L Carbon Dioxide (21-32) mmol/L Anion Gap (3-11) BUN (6-23) mg/dl Creatinine (0.6-1.2) mg/dl Est Cr Clr Drug Dosing ml/min Est GFR ( Amer) ml/min Est GFR (Non-Af Amer) ml/min BUN/Creatinine Ratio (10-20) Glucose (70-99(Fasting)) mg/dl POC Glucose 244 H 283 H (70-99) mg/dl Estimat Average Glucose mg/dl Hemoglobin A1c (4.5-5.6) % Calcium (8.5-10.1) mg/dl Magnesium (1.7-2.4) mg/dl Total Bilirubin (0.2-1.0) mg/dl Direct Bilirubin (0-0.2) mg/dl AST (13-39) U/L ALT (7-52) U/L Alkaline Phosphatase (34-104) U/L B-Natriuretic Peptide (0-100) pg/ml Total Protein (6.0-8.3) gm/dl Albumin (3.4-5.0) gm/dl Globulin (2.5-4.0) gm/dl Albumin/Globulin Ratio (0.9-2) Lipase (11-82) U/L TSH (0.300-4.500) uIu/ml Urine Color Urine Appearance (Clear) Urine pH (4.5-7.5) Ur Specific [place] (1.000-1.030) Urine Protein (Negative) Urine Glucose (UA) (Negative) Urine Ketones (Negative) Urine Blood (Negative) Urine Nitrite (Negative) Urine Bilirubin (Negative) Urine Urobilinogen (Negative) Ur Leukocyte Esterase (Negative) Urine WBC (Auto) (0-5) /hpf Urine RBC (Auto) (0-4) /hpf U Hyaline Cast (Auto) (0-5) /lpf U Epithel Cells (Auto) (0-5) /lpf Urine Bacteria (Auto) (Negative) Urine Yeast (None Prsent) [place] (0.6-1.2) mmol/L Anaplasma Smear Lyme Disease IgG Ab Negative (Negative) Lyme Disease IgM Ab Negative (Negative) SARS-CoV-2 (PCR) (Negative) Influenza Type A (PCR) (Neg) Influenza Type B (PCR) (Neg) RSV (RT-PCR) (Neg) 02/07/22 02/07/22 02/07/22 Range/Units 08:03 08:03 08:03 WBC (4.8-10.8) K/ul RBC (3.93-5.22) M/uL Hgb (12.0-16.0) g/dl Hct (34.1-44.9) % MCV (80.0-100.0) fL MCH (25.0-34.0) pg MCHC (32.0-36.0) g/dL RDW Std Deviation (36.4-46.3) fL RDW Coeff of Justin (11.5-14.5) % Plt Count (130-400) K/uL MPV (9.4-12.3) fL Immature Gran % (Auto) % Neut % (Auto) % Lymph % (Auto) % [place] % (Auto) % Eos % (Auto) % Baso % (Auto) % Neut # (Auto) (1.4-6.5) K/uL Lymph # (Auto) (1.2-3.4) K/uL [place] # (Auto) (0.24-0.82) K/uL Eos # (Auto) (0-0.50) K/uL Baso # (Auto) (0-0.2) K/uL Immature Gran # (Auto) (0.00-0.02) K/uL ABG pH (7.35-7.45) ABG pCO2 (35-46) mmHg ABG pO2 (80-95) mmHg ABG HCO3 (19-24) mmol/L ABG O2 Saturation (90-95) % ABG Base Excess (-9-1.8) mEq/L Dylan Test (Pos) Oxygen Given Sodium (136-145) mmol/L Potassium (3.5-5.1) mmol/L Chloride (98-107) mmol/L Carbon Dioxide (21-32) mmol/L Anion Gap (3-11) BUN (6-23) mg/dl Creatinine (0.6-1.2) mg/dl Est Cr Clr Drug Dosing ml/min Est GFR ( Amer) ml/min Est GFR (Non-Af Amer) ml/min BUN/Creatinine Ratio (10-20) Glucose (70-99(Fasting)) mg/dl POC Glucose (70-99) mg/dl Estimat Average Glucose 192 mg/dl Hemoglobin A1c 8.3 H (4.5-5.6) % Calcium (8.5-10.1) mg/dl Magnesium (1.7-2.4) mg/dl Total Bilirubin 0.5 (0.2-1.0) mg/dl Direct Bilirubin 0.1 (0-0.2) mg/dl AST 54 H (13-39) U/L ALT 55 H (7-52) U/L Alkaline Phosphatase 72 (34-104) U/L B-Natriuretic Peptide (0-100) pg/ml Total Protein 5.7 L (6.0-8.3) gm/dl Albumin 3.5 (3.4-5.0) gm/dl Globulin (2.5-4.0) gm/dl Albumin/Globulin Ratio (0.9-2) Lipase (11-82) U/L TSH (0.300-4.500) uIu/ml Urine Color Urine Appearance (Clear) Urine pH (4.5-7.5) Ur Specific [place] (1.000-1.030) Urine Protein (Negative) Urine Glucose (UA) (Negative) Urine Ketones (Negative) Urine Blood (Negative) Urine Nitrite (Negative) Urine Bilirubin (Negative) Urine Urobilinogen (Negative) Ur Leukocyte Esterase (Negative) Urine WBC (Auto) (0-5) /hpf Urine RBC (Auto) (0-4) /hpf U Hyaline Cast (Auto) (0-5) /lpf U Epithel Cells (Auto) (0-5) /lpf Urine Bacteria (Auto) (Negative) Urine Yeast (None Prsent) [place] 0.1 L (0.6-1.2) mmol/L Anaplasma Smear Lyme Disease IgG Ab (Negative) Lyme Disease IgM Ab (Negative) SARS-CoV-2 (PCR) (Negative) Influenza Type A (PCR) (Neg) Influenza Type B (PCR) (Neg) RSV (RT-PCR) (Neg) 02/07/22 02/07/22 02/07/22 Range/Units 08:03 08:03 07:17 WBC (4.8-10.8) K/ul RBC (3.93-5.22) M/uL Hgb (12.0-16.0) g/dl Hct (34.1-44.9) % MCV (80.0-100.0) fL MCH (25.0-34.0) pg MCHC (32.0-36.0) g/dL RDW Std Deviation (36.4-46.3) fL RDW Coeff of Justin (11.5-14.5) % Plt Count (130-400) K/uL MPV (9.4-12.3) fL Immature Gran % (Auto) % Neut % (Auto) % Lymph % (Auto) % [place] % (Auto) % Eos % (Auto) % Baso % (Auto) % Neut # (Auto) (1.4-6.5) K/uL Lymph # (Auto) (1.2-3.4) K/uL [place] # (Auto) (0.24-0.82) K/uL Eos # (Auto) (0-0.50) K/uL Baso # (Auto) (0-0.2) K/uL Immature Gran # (Auto) (0.00-0.02) K/uL ABG pH (7.35-7.45) ABG pCO2 (35-46) mmHg ABG pO2 (80-95) mmHg ABG HCO3 (19-24) mmol/L ABG O2 Saturation (90-95) % ABG Base Excess (-9-1.8) mEq/L Dylan Test (Pos) Oxygen Given Sodium (136-145) mmol/L Potassium (3.5-5.1) mmol/L Chloride (98-107) mmol/L Carbon Dioxide (21-32) mmol/L Anion Gap (3-11) BUN (6-23) mg/dl Creatinine (0.6-1.2) mg/dl Est Cr Clr Drug Dosing ml/min Est GFR ( Amer) ml/min Est GFR (Non-Af Amer) ml/min BUN/Creatinine Ratio (10-20) Glucose (70-99(Fasting)) mg/dl POC Glucose (70-99) mg/dl Estimat Average Glucose mg/dl Hemoglobin A1c (4.5-5.6) % Calcium (8.5-10.1) mg/dl Magnesium (1.7-2.4) mg/dl Total Bilirubin (0.2-1.0) mg/dl Direct Bilirubin (0-0.2) mg/dl AST (13-39) U/L ALT (7-52) U/L Alkaline Phosphatase (34-104) U/L B-Natriuretic Peptide 10 (0-100) pg/ml Total Protein (6.0-8.3) gm/dl Albumin (3.4-5.0) gm/dl Globulin (2.5-4.0) gm/dl Albumin/Globulin Ratio (0.9-2) Lipase (11-82) U/L TSH 3.533 (0.300-4.500) uIu/ml Urine Color Urine Appearance (Clear) Urine pH (4.5-7.5) Ur Specific [place] (1.000-1.030) Urine Protein (Negative) Urine Glucose (UA) (Negative) Urine Ketones (Negative) Urine Blood (Negative) Urine Nitrite (Negative) Urine Bilirubin (Negative) Urine Urobilinogen (Negative) Ur Leukocyte Esterase (Negative) Urine WBC (Auto) (0-5) /hpf Urine RBC (Auto) (0-4) /hpf U Hyaline Cast (Auto) (0-5) /lpf U Epithel Cells (Auto) (0-5) /lpf Urine Bacteria (Auto) (Negative) Urine Yeast (None Prsent) [place] (0.6-1.2) mmol/L Anaplasma Smear See Comment Lyme Disease IgG Ab (Negative) Lyme Disease IgM Ab (Negative) SARS-CoV-2 (PCR) (Negative) Influenza Type A (PCR) (Neg) Influenza Type B (PCR) (Neg) RSV (RT-PCR) (Neg) 02/07/22 02/07/22 02/07/22 Range/Units 07:17 07:17 07:17 WBC 5.11 (4.8-10.8) K/ul RBC 4.30 (3.93-5.22) M/uL Hgb 11.9 L (12.0-16.0) g/dl Hct 34.8 (34.1-44.9) % MCV 80.9 (80.0-100.0) fL MCH 27.7 (25.0-34.0) pg MCHC 34.2 (32.0-36.0) g/dL RDW Std Deviation 37.8 (36.4-46.3) fL RDW Coeff of Justin 13.0 (11.5-14.5) % Plt Count 169 (130-400) K/uL MPV 8.8 L (9.4-12.3) fL Immature Gran % (Auto) 0.4 % Neut % (Auto) 55.7 % Lymph % (Auto) 33.9 % [place] % (Auto) 7.6 % Eos % (Auto) 1.8 % Baso % (Auto) 0.6 % Neut # (Auto) 2.85 (1.4-6.5) K/uL Lymph # (Auto) 1.73 (1.2-3.4) K/uL [place] # (Auto) 0.39 (0.24-0.82) K/uL Eos # (Auto) 0.09 (0-0.50) K/uL Baso # (Auto) 0.03 (0-0.2) K/uL Immature Gran # (Auto) 0.02 (0.00-0.02) K/uL ABG pH (7.35-7.45) ABG pCO2 (35-46) mmHg ABG pO2 (80-95) mmHg ABG HCO3 (19-24) mmol/L ABG O2 Saturation (90-95) % ABG Base Excess (-9-1.8) mEq/L Dylan Test (Pos) Oxygen Given Sodium 129 L (136-145) mmol/L Potassium 3.8 (3.5-5.1) mmol/L Chloride 102 (98-107) mmol/L Carbon Dioxide 17 L (21-32) mmol/L Anion Gap 10 (3-11) BUN 9 (6-23) mg/dl Creatinine 0.60 (0.6-1.2) mg/dl Est Cr Clr Drug Dosing 137.6 ml/min Est GFR ( Amer) 136.9 ml/min Est GFR (Non-Af Amer) 118.1 ml/min BUN/Creatinine Ratio 15.0 (10-20) Glucose 268 H (70-99(Fasting)) mg/dl POC Glucose (70-99) mg/dl Estimat Average Glucose mg/dl Hemoglobin A1c (4.5-5.6) % Calcium 8.1 L (8.5-10.1) mg/dl Magnesium 1.7 (1.7-2.4) mg/dl Total Bilirubin (0.2-1.0) mg/dl Direct Bilirubin (0-0.2) mg/dl AST (13-39) U/L ALT (7-52) U/L Alkaline Phosphatase (34-104) U/L B-Natriuretic Peptide (0-100) pg/ml Total Protein (6.0-8.3) gm/dl Albumin (3.4-5.0) gm/dl Globulin (2.5-4.0) gm/dl Albumin/Globulin Ratio (0.9-2) Lipase (11-82) U/L TSH (0.300-4.500) uIu/ml Urine Color Urine Appearance (Clear) Urine pH (4.5-7.5) Ur Specific [place] (1.000-1.030) Urine Protein (Negative) Urine Glucose (UA) (Negative) Urine Ketones (Negative) Urine Blood (Negative) Urine Nitrite (Negative) Urine Bilirubin (Negative) Urine Urobilinogen (Negative) Ur Leukocyte Esterase (Negative) Urine WBC (Auto) (0-5) /hpf Urine RBC (Auto) (0-4) /hpf U Hyaline Cast (Auto) (0-5) /lpf U Epithel Cells (Auto) (0-5) /lpf Urine Bacteria (Auto) (Negative) Urine Yeast (None Prsent) [place] (0.6-1.2) mmol/L Anaplasma Smear Lyme Disease IgG Ab (Negative) Lyme Disease IgM Ab (Negative) SARS-CoV-2 (PCR) (Negative) Influenza Type A (PCR) (Neg) Influenza Type B (PCR) (Neg) RSV (RT-PCR) (Neg) 02/07/22 02/07/22 02/07/22 Range/Units 04:18 01:27 00:21 WBC 5.51 (4.8-10.8) K/ul RBC 4.39 (3.93-5.22) M/uL Hgb 12.4 (12.0-16.0) g/dl Hct 35.1 (34.1-44.9) % MCV 80.0 (80.0-100.0) fL MCH 28.2 (25.0-34.0) pg MCHC 35.3 (32.0-36.0) g/dL RDW Std Deviation 37.0 (36.4-46.3) fL RDW Coeff of Justin 13.0 (11.5-14.5) % Plt Count 200 (130-400) K/uL MPV 9.0 L (9.4-12.3) fL Immature Gran % (Auto) 0.5 % Neut % (Auto) 51.3 % Lymph % (Auto) 37.6 % [place] % (Auto) 7.6 % Eos % (Auto) 2.5 % Baso % (Auto) 0.5 % Neut # (Auto) 2.82 (1.4-6.5) K/uL Lymph # (Auto) 2.07 (1.2-3.4) K/uL [place] # (Auto) 0.42 (0.24-0.82) K/uL Eos # (Auto) 0.14 (0-0.50) K/uL Baso # (Auto) 0.03 (0-0.2) K/uL Immature Gran # (Auto) 0.03 H (0.00-0.02) K/uL ABG pH (7.35-7.45) ABG pCO2 (35-46) mmHg ABG pO2 (80-95) mmHg ABG HCO3 (19-24) mmol/L ABG O2 Saturation (90-95) % ABG Base Excess (-9-1.8) mEq/L Dylan Test (Pos) Oxygen Given Sodium (136-145) mmol/L Potassium (3.5-5.1) mmol/L Chloride (98-107) mmol/L Carbon Dioxide (21-32) mmol/L Anion Gap (3-11) BUN (6-23) mg/dl Creatinine (0.6-1.2) mg/dl Est Cr Clr Drug Dosing ml/min Est GFR ( Amer) ml/min Est GFR (Non-Af Amer) ml/min BUN/Creatinine Ratio (10-20) Glucose (70-99(Fasting)) mg/dl POC Glucose 276 H 240 H (70-99) mg/dl Estimat Average Glucose mg/dl Hemoglobin A1c (4.5-5.6) % Calcium (8.5-10.1) mg/dl Magnesium (1.7-2.4) mg/dl Total Bilirubin (0.2-1.0) mg/dl Direct Bilirubin (0-0.2) mg/dl AST (13-39) U/L ALT (7-52) U/L Alkaline Phosphatase (34-104) U/L B-Natriuretic Peptide (0-100) pg/ml Total Protein (6.0-8.3) gm/dl Albumin (3.4-5.0) gm/dl Globulin (2.5-4.0) gm/dl Albumin/Globulin Ratio (0.9-2) Lipase (11-82) U/L TSH (0.300-4.500) uIu/ml Urine Color Urine Appearance (Clear) Urine pH (4.5-7.5) Ur Specific [place] (1.000-1.030) Urine Protein (Negative) Urine Glucose (UA) (Negative) Urine Ketones (Negative) Urine Blood (Negative) Urine Nitrite (Negative) Urine Bilirubin (Negative) Urine Urobilinogen (Negative) Ur Leukocyte Esterase (Negative) Urine WBC (Auto) (0-5) /hpf Urine RBC (Auto) (0-4) /hpf U Hyaline Cast (Auto) (0-5) /lpf U Epithel Cells (Auto) (0-5) /lpf Urine Bacteria (Auto) (Negative) Urine Yeast (None Prsent) [place] (0.6-1.2) mmol/L Anaplasma Smear Lyme Disease IgG Ab (Negative) Lyme Disease IgM Ab (Negative) SARS-CoV-2 (PCR) (Negative) Influenza Type A (PCR) (Neg) Influenza Type B (PCR) (Neg) RSV (RT-PCR) (Neg) 02/06/22 02/06/22 02/06/22 Range/Units 23:16 22:48 20:08 WBC (4.8-10.8) K/ul RBC (3.93-5.22) M/uL Hgb (12.0-16.0) g/dl Hct (34.1-44.9) % MCV (80.0-100.0) fL MCH (25.0-34.0) pg MCHC (32.0-36.0) g/dL RDW Std Deviation (36.4-46.3) fL RDW Coeff of Justin (11.5-14.5) % Plt Count (130-400) K/uL MPV (9.4-12.3) fL Immature Gran % (Auto) % Neut % (Auto) % Lymph % (Auto) % [place] % (Auto) % Eos % (Auto) % Baso % (Auto) % Neut # (Auto) (1.4-6.5) K/uL Lymph # (Auto) (1.2-3.4) K/uL [place] # (Auto) (0.24-0.82) K/uL Eos # (Auto) (0-0.50) K/uL Baso # (Auto) (0-0.2) K/uL Immature Gran # (Auto) (0.00-0.02) K/uL ABG pH 7.36 (7.35-7.45) ABG pCO2 37 (35-46) mmHg ABG pO2 70 L (80-95) mmHg ABG HCO3 21 (19-24) mmol/L ABG O2 Saturation 91.1 (90-95) % ABG Base Excess -4.0 (-9-1.8) mEq/L Dylan Test POS (Pos) Oxygen Given ROOM AIR Sodium (136-145) mmol/L Potassium (3.5-5.1) mmol/L Chloride (98-107) mmol/L Carbon Dioxide (21-32) mmol/L Anion Gap (3-11) BUN (6-23) mg/dl Creatinine (0.6-1.2) mg/dl Est Cr Clr Drug Dosing ml/min Est GFR ( Amer) ml/min Est GFR (Non-Af Amer) ml/min BUN/Creatinine Ratio (10-20) Glucose (70-99(Fasting)) mg/dl POC Glucose 291 H (70-99) mg/dl Estimat Average Glucose mg/dl Hemoglobin A1c (4.5-5.6) % Calcium (8.5-10.1) mg/dl Magnesium (1.7-2.4) mg/dl Total Bilirubin (0.2-1.0) mg/dl Direct Bilirubin (0-0.2) mg/dl AST (13-39) U/L ALT (7-52) U/L Alkaline Phosphatase (34-104) U/L B-Natriuretic Peptide (0-100) pg/ml Total Protein (6.0-8.3) gm/dl Albumin (3.4-5.0) gm/dl Globulin (2.5-4.0) gm/dl Albumin/Globulin Ratio (0.9-2) Lipase (11-82) U/L TSH (0.300-4.500) uIu/ml Urine Color Urine Appearance (Clear) Urine pH (4.5-7.5) Ur Specific [place] (1.000-1.030) Urine Protein (Negative) Urine Glucose (UA) (Negative) Urine Ketones (Negative) Urine Blood (Negative) Urine Nitrite (Negative) Urine Bilirubin (Negative) Urine Urobilinogen (Negative) Ur Leukocyte Esterase (Negative) Urine WBC (Auto) (0-5) /hpf Urine RBC (Auto) (0-4) /hpf U Hyaline Cast (Auto) (0-5) /lpf U Epithel Cells (Auto) (0-5) /lpf Urine Bacteria (Auto) (Negative) Urine Yeast (None Prsent) [place] (0.6-1.2) mmol/L Anaplasma Smear Lyme Disease IgG Ab (Negative) Lyme Disease IgM Ab (Negative) SARS-CoV-2 (PCR) NEGATIVE (Negative) Influenza Type A (PCR) Negative (Neg) Influenza Type B (PCR) Negative (Neg) RSV (RT-PCR) Negative (Neg) 02/06/22 02/06/22 02/06/22 Range/Units 20:08 20:08 20:08 WBC 6.13 (4.8-10.8) K/ul RBC 4.68 (3.93-5.22) M/uL Hgb 13.5 (12.0-16.0) g/dl Hct 36.8 (34.1-44.9) % MCV 78.6 L (80.0-100.0) fL MCH 28.8 (25.0-34.0) pg MCHC 36.7 H (32.0-36.0) g/dL RDW Std Deviation 37.0 (36.4-46.3) fL RDW Coeff of Justin 13.0 (11.5-14.5) % Plt Count 219 (130-400) K/uL MPV 9.4 (9.4-12.3) fL Immature Gran % (Auto) 0.5 % Neut % (Auto) 57.7 % Lymph % (Auto) 33.4 % [place] % (Auto) 6.2 % Eos % (Auto) 1.5 % Baso % (Auto) 0.7 % Neut # (Auto) 3.54 (1.4-6.5) K/uL Lymph # (Auto) 2.05 (1.2-3.4) K/uL [place] # (Auto) 0.38 (0.24-0.82) K/uL Eos # (Auto) 0.09 (0-0.50) K/uL Baso # (Auto) 0.04 (0-0.2) K/uL Immature Gran # (Auto) 0.03 H (0.00-0.02) K/uL ABG pH (7.35-7.45) ABG pCO2 (35-46) mmHg ABG pO2 (80-95) mmHg ABG HCO3 (19-24) mmol/L ABG O2 Saturation (90-95) % ABG Base Excess (-9-1.8) mEq/L Dylan Test (Pos) Oxygen Given Sodium 128 L (136-145) mmol/L Potassium 3.9 (3.5-5.1) mmol/L Chloride 95 L (98-107) mmol/L Carbon Dioxide 16 L (21-32) mmol/L Anion Gap 17 H (3-11) BUN 12 (6-23) mg/dl Creatinine 0.82 (0.6-1.2) mg/dl Est Cr Clr Drug Dosing 96.8 ml/min Est GFR ( Amer) 107.5 ml/min Est GFR (Non-Af Amer) 92.7 ml/min BUN/Creatinine Ratio 14.6 (10-20) Glucose 295 H (70-99(Fasting)) mg/dl POC Glucose (70-99) mg/dl Estimat Average Glucose mg/dl Hemoglobin A1c (4.5-5.6) % Calcium 9.3 (8.5-10.1) mg/dl Magnesium 1.9 (1.7-2.4) mg/dl Total Bilirubin 0.5 (0.2-1.0) mg/dl Direct Bilirubin (0-0.2) mg/dl AST 48 H (13-39) U/L ALT 56 H (7-52) U/L Alkaline Phosphatase 82 (34-104) U/L B-Natriuretic Peptide (0-100) pg/ml Total Protein 6.8 (6.0-8.3) gm/dl Albumin 3.8 (3.4-5.0) gm/dl Globulin 3.0 (2.5-4.0) gm/dl Albumin/Globulin Ratio 1.3 (0.9-2) Lipase 73 (11-82) U/L TSH (0.300-4.500) uIu/ml Urine Color Yellow Urine Appearance Clear (Clear) Urine pH 6.0 (4.5-7.5) Ur Specific [place] 1.041 H (1.000-1.030) Urine Protein Negative (Negative) Urine Glucose (UA) 3+ H (Negative) Urine Ketones Trace H (Negative) Urine Blood Negative (Negative) Urine Nitrite Negative (Negative) Urine Bilirubin Negative (Negative) Urine Urobilinogen Negative (Negative) Ur Leukocyte Esterase 1+ H (Negative) Urine WBC (Auto) >30 H (0-5) /hpf Urine RBC (Auto) 0-4 (0-4) /hpf U Hyaline Cast (Auto) 0 (0-5) /lpf U Epithel Cells (Auto) 20-30 H (0-5) /lpf Urine Bacteria (Auto) 1+ H (Negative) Urine Yeast Budding A (None Prsent) [place] (0.6-1.2) mmol/L Anaplasma Smear Lyme Disease IgG Ab (Negative) Lyme Disease IgM Ab (Negative) SARS-CoV-2 (PCR) (Negative) Influenza Type A (PCR) (Neg) Influenza Type B (PCR) (Neg) RSV (RT-PCR) (Neg) Diagnostic Findings Abdomen/Pelvis CT 02/06/22 19:[address] WITH IV CONTRAST CT DOSE: 936.55 mGy.cm HISTORY: Generalized abdominal pain, poss colitis or divertic TECHNIQUE: Multiaxial CT images of the abdomen and pelvis were performed following the use of intravenous contrast. A dose lowering technique was utilized adhering to the principles of ALARA. COMPARISON STUDY: Abdomen and pelvis CT 11/28/2021. FINDINGS: Punctate calcified granuloma within the right lower lobe again noted. No pneumoperitoneum. No pneumatosis. No fractures within the visualized osseous structures. Prior cholecystectomy. Mild hepatic steatosis. No hepatic or splenic masses. The spleen remains mildly enlarged measuring 13 cm in length. The adrenal glands, pancreas, and kidneys are unremarkable. Normal caliber abdominal aorta. No retroperitoneal lymphadenopathy. The main portal vein is patent. The bladder, uterus, and ovaries are within normal limits. There is a small follicles/cysts within the right ovary. Redemonstration of the small Meckel's diverticulum. No surrounding inflammatory change. No pelvic free fluid. No bowel wall thickening or obstruction. Normal appendix. IMPRESSION: 1. No bowel wall thickening or obstruction. 2. Normal appendix. 3. Redemonstration of the Meckel's diverticulum. No surrounding inflammatory change. 4. Stable mild splenomegaly. ACT 112: Negative or not required by law. Electronically signed by: Ronnie Crawford M.D. 02/07/2022 8:06 AM PG Care Time/CCT Total # of Minutes Spent Total Time Spent with Patient: Total time spent is greater than 50% in coordination of care (as documented) at patient's floor/unit and/or counseling patient: Coding Level of Care Code None Diagnoses Vomiting and diarrhea R11.10; R19.7 UTI (urinary tract infection) N30.00 Hematuria presence: without hematuria Urinary tract infection type: acute cystitis Acute dehydration E86.0 Schizoaffective disorder F25.9 Diabetes type 1, uncontrolled E10.65 Vitamin B12 deficiency E53.8 Meckel diverticulum Q43.0 Hypothyroidism E03.9 Tachycardia R00.0 Hyponatremia E87.1 (1) UTI (urinary tract infection) Hematuria presence: without hematuria Urinary tract infection type: acute cystitis Qualified Code(s): N30.00 - Acute cystitis without hematuria
[2022-02-07 08:49] LABS: Albumin Level 3.5 gm/dl (3.4-5.0); Bilirubin Direct 0.1 mg/dl (0-0.2); Bilirubin,Total 0.5 mg/dl (0.2-1.0); Total Protein 5.7 gm/dl (6.0-8.3)
[2022-02-07] MEDS: INSULIN ASPART PER UNIT SC SCH ×4 (09:40→21:25)
[2022-02-07] MEDS ORDERED: LANTUS PER UNIT CHARGE SQ ONE (09:45)
--- NOTE | 2022-02-07 10:37 | Pharmacy Report ---
Pharmacy Glycemic Short Note 2 - Date of Service February 07, 2022 - Glycemic Short BSG Results (Last 24 hours): 02/06/22 02/06/22 02/07/22 20:08 23:16 01:27 Glucose 295 H POC Glucose 291 H 240 H 02/07/22 02/07/22 02/07/22 04:18 07:17 08:11 Glucose 268 H POC Glucose 276 H 283 H OUTPATIENT ANTIDIABETIC REGIMEN: * Humalog insulin pump * Basal: 1.9 units/hr (45.6units/day) * Correction factor: 20 mg/dL/unit for BSG >130mg/dL * Carb ratio: 1 unit per 4 gm CHO consumed * HbA1c = 8.9% (11/07/21) ASSESSMENT: * Patient presenting with possible UTI, 2 days of nausea/vomiting. Pharmacy consulted for glycemic management as patient is a DM1 on insulin pump at home. Discussed with RN, patient reports taking off insulin pump Thursday night when she was not feeling well because her blood sugars will typically drop. Since Thursday, she has been taking 20 units of Lantus and humalog meal time insulin coverage. She reports her pump settings have remained the same since her last admission. She uses set CR of 4 but was not able to tell me CF today * Patient received 6 iv of insulin last evening, fasting BSG was 283 mg/dL - Lantus 20 units given at ~0400 * Patient ate about half of breakfast try, had been feeling nausea but dose of phenergan given. * BSGs likely elevated from decrease in basal insulin - pump at home suppling ~45 units/day of basal. Will give an additional 10 units this morning to make total of 30 units of basal for today (this is about ~30% reduction d/t ongoing N/V). * Start novolog with home CF/CR for now PLAN FOR INPATIENT GLYCEMIC CONTROL: * Hold outpatient oral diabetes medications * Basal insulin * Lantus 30 units x 1 this AM * Lantus 0-10 units HS if BSGs remain elevated * Bolus insulin * NovoLog per scale ACHS or Q6hrs while NPO * Goal Range: Low 110 mg/dL - High 140 mg/dL * Correction Factor: 20 mg/dL/unit * Nutritional / Prandial insulin per carb ratio of 1 unit per 4 grams CHO consumed
[2022-02-07 11:20] LABS: Estimated Average Glucose 192 mg/dl; Hemoglobin A1C 8.3 % (4.5-5.6)
[2022-02-07 11:52] LABS: Lyme Ab IgG w/WB Rflx Negative (Negative); Lyme Ab IgM w/WB Rflx Negative (Negative)
[2022-02-07] MEDS ORDERED: Flu Vaccine (Fluarix) 0.5mL SYR (Standard Dose) IM ONE (12:00)
[2022-02-07] MEDS ORDERED: GLUCAGON FOR INJ 1 MG VIAL IM PRN (12:00)
[2022-02-07] MEDS ORDERED: GABAPENTIN 300 MG CAP PO SCH (21:00)
[2022-02-07] MEDS ORDERED: FAMOTIDINE 40 MG TABLET PO SCH (21:00)
[2022-02-07] MEDS ORDERED: LITHIUM CARBONATE 300 MG TAB PO SCH (21:00)
[2022-02-07] MEDS ORDERED: TOPIRAMATE 50 MG TAB PO SCH (21:00)
[2022-02-07] MEDS ORDERED: PRAZOSIN HCL 1 MG CAP PO SCH (21:00)
[2022-02-07] MEDS ORDERED: cefTRIAXone SODIUM 2,000 MG in DEXTROSE 5% 50 ML IV SCH (21:00)
[2022-02-08] MEDS: LEVOTHYROXINE SODIUM 175 MCG TABLET PO SCH (05:43)
[2022-02-08 07:30] LABS: Basophils # (auto) 0.03 K/uL (0-0.2); Basophils % (auto) 0.7 %; Eosinophils # (auto) 0.08 K/uL (0-0.50); Eosinophils % (auto) 1.8 %; Hematocrit (blood only) 35.7 % (34.1-44.9); Immature Granulocytes # (auto) 0.02 K/uL (0.00-0.02); Immature Granulocytes % (auto) 0.4 %; Lymphocytes # (auto) 1.29 K/uL (1.2-3.4); Lymphocytes % (auto) 28.7 %; Mean Corpuscular Hemoglobin 27.6 pg (25.0-34.0); Mean Corpuscular Hgb Conc 33.6 g/dL (32.0-36.0); Mean Corpuscular Volume 82.1 fL (80.0-100.0); Mean Platelet Volume 8.7 fL (9.4-12.3); Monocytes % (auto) 6.7 %; Neutrophils # (auto) 2.77 K/uL (1.4-6.5); Neutrophils % (auto) 61.7 %; Platelet Count 166 K/uL (130-400); RDW Standard Deviation 38.6 fL (36.4-46.3); Red Blood Count 4.35 M/uL (3.93-5.22); White Blood Count 4.49 K/ul (4.8-10.8)
[2022-02-08 07:52] LABS: Albumin Globulin Ratio 1.5 (0.9-2); Albumin Level 3.5 gm/dl (3.4-5.0); BUN Creatinine Ratio 9.1 (10-20); Bilirubin,Total 0.5 mg/dl (0.2-1.0); Calcium 8.3 mg/dl (8.5-10.1); Creatinine Clr Calc Pharmacy 125.1 ml/min; Est GFR (African American) 132.6 ml/min; Est GFR (Non-African American) 114.4 ml/min; Globulin 2.4 gm/dl (2.5-4.0); Magnesium 1.9 mg/dl (1.7-2.4); Potassium 3.8 mmol/L (3.5-5.1); Total Protein 5.9 gm/dl (6.0-8.3)
[2022-02-08 08:09] LABS: Ferritin 63.1 ng/ml (8-388)
[2022-02-08] MEDS ORDERED: LANTUS PER UNIT CHARGE SQ STA (08:10)
[2022-02-08] MEDS: METOPROLOL SUCC 50MG EXT REL TAB PO SCH (08:53)
[2022-02-08] MEDS: DULoxetine HCL 20 MG CAP PO SCH (08:53)
[2022-02-08] MEDS: PRAVASTATIN SOD 10 MG TAB PO SCH (08:53)
[2022-02-08] MEDS: LITHIUM CARBONATE 300 MG TAB PO SCH (08:53)
[2022-02-08] MEDS: ENOXAPARIN INJ 40 MG/0.4 ML SYR SQ SCH (08:53)
[2022-02-08] MEDS: SUCRALFATE 1 GM TAB PO SCH (08:53)
[2022-02-08] MEDS: PANTOprazole 40 MG TAB PO SCH (08:53)
--- NOTE | 2022-02-08 08:56 | Hospitalist Progress Note ---
Date of Service February 08, 2022 Assessment & Plan (1) Vomiting and diarrhea: Plan: 36 y/o F Hx TERESITA, hypothyroid, bipolar, schizoaffective, DM I, sinus tachycardia. Presents with 2 days of nausea, vomiting, diarrhea and dysuria. She has not been able to tolerate PO intake. She has not had fevers. Initial labs, displayed a degree of acidosis consistent with borderline DKA. A UA was +. Acidosis resolved following a fluid bolus in the ER, however, she continued to suffer nausea and vomiting. Suspect related to mild DKA with acidosis (anion gap 17)and UTI on admission with insulin pump removed by patient on Thursday as she was feeling unwell and didn't want to bottom out her sugars BSGs running 200s yesterday, 290s on admit. Typically she reports having recent control, goal 70-130s at home CTAP unchanged from Augsut IVF NS +20k @ 100cc/hr -- continue for additional 2L then monitor Clear liquid diet, tolerating. advance as tolerated. Antiemetics prn -- phenergan effective this morning, continue. consider PO at d/c as running out of zofran and not very effective Labs this morning with resolution in anion gap 17--> 10 Carbon dioxide 16-->17 Tx UTI as below Continued inpatient stay, hopeful for d/c tomorrow (2) UTI (urinary tract infection): Plan: reported dysuria ua with likely infection --> 1+ leuk est, >30 WBC, 1+ bacteria CTAp without evidence of pyelo/stones Ceftriaxone continued Monitor urine cx/sensitivities -- urine cx pinpoint growth, reincubating consider Pyridium for bladder spasm/pain if needed (3) Acute dehydration: Plan: IVF as outlined, improving tolerating clear liquid diet (4) Schizoaffective disorder: Plan: recent inpatient admission -- vraylar/cymbalta/lithium/hydroxyzine new lithium, level 0.1 on check, could be contributing to GI side effects as well as UTI though mood stable per patient continue home medications as ordered (5) Diabetes type 1, uncontrolled: Plan: typically with insulin pump/dexcom removed on thursday by patient due to feeling unwell as outlined A1c 8.3 (improved from 8.9) Added ISS orders, pharmacy consulted BSGs acceptable monitor (6) Vitamin B12 deficiency: Plan: reports monthly injections, missed dose level pending for AM, replacement if needed (7) Meckel diverticulum: Plan: hx of such remains on pepcid/PPI daily for chroinc pain extensive GI workup with GI in past, previously on cholestryamine ?of fatty liver/cirrhosis Plt 169 does note splenomegaly on CTAP but no cirrhosis outpt f/u (8) Hypothyroidism: Plan: hx of such, TSH 3.53 continue Synthroid 175mcg daily outpt f/u for repeat testing given TSH was 0.70 in December this year (9) Tachycardia: Plan: hx sinus tach, recentl seen by Dr Ragland On metoprolol 50mg daily --> per note, had been doing well on 50mg dose but d/c Augsut 2021 hospitalization for psych due to concerns for hypotension BP stable at ofice visit and tolerating 12.5mg daily, rec'd to increase to 2 5mg daily for next couple days then increase to 50mg will monitor on 50mg dose but may need reduction has hx atypical CP no c/w ischemic heart disease prior stress echo negative in past and does not require aspirin from cardiology perspective (10) Hyponatremia: Plan: Na+ 129 but slightly higher when corrected for hyperglycemia could be from dehydration vs SIADH from psych meds? continue IVFs follow BMP Plan DVT proph - Lovenox SQ while inpatient continued inpatient stay, continue IVF, pain control monitor BSGs continue Ceftriaxone/monitor urine cx hopeful for d/c tomorrow on PO abx will need new rx for antiemetics setting up f/u close next week with PCP Admission and Anticipated Discharge Date Admission Date: February 07, 2022 Results & Data Results & Data ([facility]) Vital Signs (Past 12 Hours) Vital Signs Temp Pulse Resp BP Pulse Ox O2 Del Method 02/08/22 07:45 37.2 C 96 H 18 110/75 96 Room Air Laboratory Results 02/08/22 02/08/22 02/08/22 Range/Units 08:16 07:19 07:19 WBC (4.8-10.8) K/ul RBC (3.93-5.22) M/uL Hgb (12.0-16.0) g/dl Hct (34.1-44.9) % MCV (80.0-100.0) fL MCH (25.0-34.0) pg MCHC (32.0-36.0) g/dL RDW Std Deviation (36.4-46.3) fL RDW Coeff of Justin (11.5-14.5) % Plt Count (130-400) K/uL MPV (9.4-12.3) fL Immature Gran % (Auto) % Neut % (Auto) % Lymph % (Auto) % Atlantic % (Auto) % Eos % (Auto) % Baso % (Auto) % Neut # (Auto) (1.4-6.5) K/uL Lymph # (Auto) (1.2-3.4) K/uL Atlantic # (Auto) (0.24-0.82) K/uL Eos # (Auto) (0-0.50) K/uL Baso # (Auto) (0-0.2) K/uL Immature Gran # (Auto) (0.00-0.02) K/uL Sodium 132 L (136-145) mmol/L Potassium 3.8 (3.5-5.1) mmol/L Chloride 104 (98-107) mmol/L Carbon Dioxide 20 L (21-32) mmol/L Anion Gap 8 (3-11) BUN 6 (6-23) mg/dl Creatinine 0.66 (0.6-1.2) mg/dl Est Cr Clr Drug Dosing 125.1 ml/min Est GFR ( Amer) 132.6 ml/min Est GFR (Non-Af Amer) 114.4 ml/min BUN/Creatinine Ratio 9.1 L (10-20) Glucose 238 H (70-99(Fasting)) mg/dl POC Glucose 241 H (70-99) mg/dl Estimat Average Glucose mg/dl Hemoglobin A1c (4.5-5.6) % Calcium 8.3 L (8.5-10.1) mg/dl Magnesium 1.9 (1.7-2.4) mg/dl Iron 46 (35-150) mcg/dl TIBC 401 (250-450) mcg/dl Unsaturated IBC 355 (155-355) mcg/dl Transferrin % Sat 11 L (15-50) % Ferritin 63.1 (8-388) ng/ml Total Bilirubin 0.5 (0.2-1.0) mg/dl AST 79 H (13-39) U/L ALT 76 H (7-52) U/L Alkaline Phosphatase 68 (34-104) U/L Total Protein 5.9 L (6.0-8.3) gm/dl Albumin 3.5 (3.4-5.0) gm/dl Globulin 2.4 L (2.5-4.0) gm/dl Albumin/Globulin Ratio 1.5 (0.9-2) Vitamin B12 386 (180-914) pg/ml TSH (0.300-4.500) uIu/ml Anaplasma Smear Lyme Disease IgG Ab (Negative) Lyme Disease IgM Ab (Negative) 02/08/22 02/07/22 02/07/22 Range/Units 07:19 20:31 17:29 WBC 4.49 L (4.8-10.8) K/ul RBC 4.35 (3.93-5.22) M/uL Hgb 12.0 (12.0-16.0) g/dl Hct 35.7 (34.1-44.9) % MCV 82.1 (80.0-100.0) fL MCH 27.6 (25.0-34.0) pg MCHC 33.6 (32.0-36.0) g/dL RDW Std Deviation 38.6 (36.4-46.3) fL RDW Coeff of Justin 13.0 (11.5-14.5) % Plt Count 166 (130-400) K/uL MPV 8.7 L (9.4-12.3) fL Immature Gran % (Auto) 0.4 % Neut % (Auto) 61.7 % Lymph % (Auto) 28.7 % Atlantic % (Auto) 6.7 % Eos % (Auto) 1.8 % Baso % (Auto) 0.7 % Neut # (Auto) 2.77 (1.4-6.5) K/uL Lymph # (Auto) 1.29 (1.2-3.4) K/uL Atlantic # (Auto) 0.30 (0.24-0.82) K/uL Eos # (Auto) 0.08 (0-0.50) K/uL Baso # (Auto) 0.03 (0-0.2) K/uL Immature Gran # (Auto) 0.02 (0.00-0.02) K/uL Sodium (136-145) mmol/L Potassium (3.5-5.1) mmol/L Chloride (98-107) mmol/L Carbon Dioxide (21-32) mmol/L Anion Gap (3-11) BUN (6-23) mg/dl Creatinine (0.6-1.2) mg/dl Est Cr Clr Drug Dosing ml/min Est GFR ( Amer) ml/min Est GFR (Non-Af Amer) ml/min BUN/Creatinine Ratio (10-20) Glucose (70-99(Fasting)) mg/dl POC Glucose 146 H 144 H (70-99) mg/dl Estimat Average Glucose mg/dl Hemoglobin A1c (4.5-5.6) % Calcium (8.5-10.1) mg/dl Magnesium (1.7-2.4) mg/dl Iron (35-150) mcg/dl TIBC (250-450) mcg/dl Unsaturated IBC (155-355) mcg/dl Transferrin % Sat (15-50) % Ferritin (8-388) ng/ml Total Bilirubin (0.2-1.0) mg/dl AST (13-39) U/L ALT (7-52) U/L Alkaline Phosphatase (34-104) U/L Total Protein (6.0-8.3) gm/dl Albumin (3.4-5.0) gm/dl Globulin (2.5-4.0) gm/dl Albumin/Globulin Ratio (0.9-2) Vitamin B12 (180-914) pg/ml TSH (0.300-4.500) uIu/ml Anaplasma Smear Lyme Disease IgG Ab (Negative) Lyme Disease IgM Ab (Negative) 02/07/22 02/07/22 02/07/22 Range/Units 12:10 08:03 08:03 WBC (4.8-10.8) K/ul RBC (3.93-5.22) M/uL Hgb (12.0-16.0) g/dl Hct (34.1-44.9) % MCV (80.0-100.0) fL MCH (25.0-34.0) pg MCHC (32.0-36.0) g/dL RDW Std Deviation (36.4-46.3) fL RDW Coeff of Justin (11.5-14.5) % Plt Count (130-400) K/uL MPV (9.4-12.3) fL Immature Gran % (Auto) % Neut % (Auto) % Lymph % (Auto) % Atlantic % (Auto) % Eos % (Auto) % Baso % (Auto) % Neut # (Auto) (1.4-6.5) K/uL Lymph # (Auto) (1.2-3.4) K/uL Atlantic # (Auto) (0.24-0.82) K/uL Eos # (Auto) (0-0.50) K/uL Baso # (Auto) (0-0.2) K/uL Immature Gran # (Auto) (0.00-0.02) K/uL Sodium (136-145) mmol/L Potassium (3.5-5.1) mmol/L Chloride (98-107) mmol/L Carbon Dioxide (21-32) mmol/L Anion Gap (3-11) BUN (6-23) mg/dl Creatinine (0.6-1.2) mg/dl Est Cr Clr Drug Dosing ml/min Est GFR ( Amer) ml/min Est GFR (Non-Af Amer) ml/min BUN/Creatinine Ratio (10-20) Glucose (70-99(Fasting)) mg/dl POC Glucose 244 H (70-99) mg/dl Estimat Average Glucose 192 mg/dl Hemoglobin A1c 8.3 H (4.5-5.6) % Calcium (8.5-10.1) mg/dl Magnesium (1.7-2.4) mg/dl Iron (35-150) mcg/dl TIBC (250-450) mcg/dl Unsaturated IBC (155-355) mcg/dl Transferrin % Sat (15-50) % Ferritin (8-388) ng/ml Total Bilirubin (0.2-1.0) mg/dl AST (13-39) U/L ALT (7-52) U/L Alkaline Phosphatase (34-104) U/L Total Protein (6.0-8.3) gm/dl Albumin (3.4-5.0) gm/dl Globulin (2.5-4.0) gm/dl Albumin/Globulin Ratio (0.9-2) Vitamin B12 (180-914) pg/ml TSH (0.300-4.500) uIu/ml Anaplasma Smear Lyme Disease IgG Ab Negative (Negative) Lyme Disease IgM Ab Negative (Negative) 02/07/22 02/07/22 Range/Units 08:03 07:17 WBC (4.8-10.8) K/ul RBC (3.93-5.22) M/uL Hgb (12.0-16.0) g/dl Hct (34.1-44.9) % MCV (80.0-100.0) fL MCH (25.0-34.0) pg MCHC (32.0-36.0) g/dL RDW Std Deviation (36.4-46.3) fL RDW Coeff of Justin (11.5-14.5) % Plt Count (130-400) K/uL MPV (9.4-12.3) fL Immature Gran % (Auto) % Neut % (Auto) % Lymph % (Auto) % Atlantic % (Auto) % Eos % (Auto) % Baso % (Auto) % Neut # (Auto) (1.4-6.5) K/uL Lymph # (Auto) (1.2-3.4) K/uL Atlantic # (Auto) (0.24-0.82) K/uL Eos # (Auto) (0-0.50) K/uL Baso # (Auto) (0-0.2) K/uL Immature Gran # (Auto) (0.00-0.02) K/uL Sodium (136-145) mmol/L Potassium (3.5-5.1) mmol/L Chloride (98-107) mmol/L Carbon Dioxide (21-32) mmol/L Anion Gap (3-11) BUN (6-23) mg/dl Creatinine (0.6-1.2) mg/dl Est Cr Clr Drug Dosing ml/min Est GFR ( Amer) ml/min Est GFR (Non-Af Amer) ml/min BUN/Creatinine Ratio (10-20) Glucose (70-99(Fasting)) mg/dl POC Glucose (70-99) mg/dl Estimat Average Glucose mg/dl Hemoglobin A1c (4.5-5.6) % Calcium (8.5-10.1) mg/dl Magnesium (1.7-2.4) mg/dl Iron (35-150) mcg/dl TIBC (250-450) mcg/dl Unsaturated IBC (155-355) mcg/dl Transferrin % Sat (15-50) % Ferritin (8-388) ng/ml Total Bilirubin (0.2-1.0) mg/dl AST (13-39) U/L ALT (7-52) U/L Alkaline Phosphatase (34-104) U/L Total Protein (6.0-8.3) gm/dl Albumin (3.4-5.0) gm/dl Globulin (2.5-4.0) gm/dl Albumin/Globulin Ratio (0.9-2) Vitamin B12 (180-914) pg/ml TSH 3.533 (0.300-4.500) uIu/ml Anaplasma Smear See Comment Lyme Disease IgG Ab (Negative) Lyme Disease IgM Ab (Negative) PG Care Time/CCT Total # of Minutes Spent Total Time Spent with Patient: Total time spent is greater than 50% in coordination of care (as documented) at patient's floor/unit and/or counseling patient: Coding Diagnoses Vomiting and diarrhea R11.10; R19.7 UTI (urinary tract infection) N30.00 Hematuria presence: without hematuria Urinary tract infection type: acute cystitis Acute dehydration E86.0 Schizoaffective disorder F25.9 Diabetes type 1, uncontrolled E10.65 Vitamin B12 deficiency E53.8 Meckel diverticulum Q43.0 Hypothyroidism E03.9 Tachycardia R00.0 Hyponatremia E87.1 (1) UTI (urinary tract infection) Hematuria presence: without hematuria Urinary tract infection type: acute cystitis Qualified Code(s): N30.00 - Acute cystitis without hematuria
[2022-02-08] MEDS: INSULIN ASPART PER UNIT SC SCH ×2 (09:09→13:01)
[2022-02-08] MEDS ORDERED: CYANOCOBALAMIN 1000 MCG/ML VIAL IM ONE (10:17)
--- NOTE | 2022-02-08 11:11 | Discharge Summary ---
Date of Service February 08, 2022 Admission HPI Per Admitting Provider 36 y/o F Hx TERESITA, hypothyroid, bipolar, schizoaffective, DM I, sinus tachycardia. Presents with 2 days of nausea, vomiting, diarrhea and dysuria. She has not been able to tolerate PO intake. She has not had fevers. Initial labs, displayed a degree of acidosis consistent with borderline DKA. A UA was +. Acidosis resolved following a fluid bolus in the ER, however, she continued to suffer nausea and vomiting. PMH: 1) DM I with neuropathy 2) Obesity 3) TERESITA 4) Hypothyroidism 5) Bipolar 6) Schizoaffective 7) PTSD 7) Idiopathic sinus tachycardia 8) Migraines Surgical: 1) C section x 3 2) Cholecystectomy Social: Does not smoke or drink Family: Father lung CA age 60 Mother lung CA age 50 Admission Exam Per Admitting Provider UTI, DKA Principal Diagnosis O/E General: AAO x 3, no distress ENT: No erythema or exudates, no thrush Eyes: KARLY, EOMI Head and neck: Normocephalic, atraumatic, No JVD, neck is supple. Chest/heart: Nontender, S1,2, RRR, no murmurs, no gallops Lungs: CTAB, no wheezing or crackles Abdomen: Nontender, nondistended, BS+ Neuro: AAO x 3, speech is clear, no unilateral weakness or loss of sensation, coordination intact Musculoskeletal: No joint inflammation, muscle tenderness, FROM Skin: No acute rashes or ulcers Extremities: No clubbing, cyanosis, edema Discharge Exam General: WD/WN female resting in bed, NAD HEENT: head normocephalic, atraumatic, thick neck, trachea midline without deviation Resp: CTAB, no w/c on room air CV: RRR, no pitting edema GI: +BS, soft, generalized tenderness much improved, no rebound/guarding or peritoneal signs : no beckham, no CVA tenderness MSK/Neuro: no focal deficit, moves all extremities Psych: AOx3, pleasant and cooperative Discharge Data Allergies Allergy/AdvReac Type Severity Reaction Status Date / Time pseudoephedrine Allergy Mild nausea and Verified 02/06/22 21:22 vomiting Consultations 02/06/22 23:18 ED Decision to Admit Stat Ordered Studies Abdomen/Pelvis CT 02/06/22 19:[address] WITH IV CONTRAST CT DOSE: 936.55 mGy.cm HISTORY: Generalized abdominal pain, poss colitis or divertic TECHNIQUE: Multiaxial CT images of the abdomen and pelvis were performed following the use of intravenous contrast. A dose lowering technique was utilized adhering to the principles of ALARA. COMPARISON STUDY: Abdomen and pelvis CT 11/28/2021. FINDINGS: Punctate calcified granuloma within the right lower lobe again noted. No pneumoperitoneum. No pneumatosis. No fractures within the visualized osseous structures. Prior cholecystectomy. Mild hepatic steatosis. No hepatic or splenic masses. The spleen remains mildly enlarged measuring 13 cm in length. The adrenal glands, pancreas, and kidneys are unremarkable. Normal caliber abdominal aorta. No retroperitoneal lymphadenopathy. The main portal vein is patent. The bladder, uterus, and ovaries are within normal limits. There is a small follicles/cysts within the right ovary. Redemonstration of the small Meckel's diverticulum. No surrounding inflammatory change. No pelvic free fluid. No bowel wall thickening or obstruction. Normal appendix. IMPRESSION: 1. No bowel wall thickening or obstruction. 2. Normal appendix. 3. Redemonstration of the Meckel's diverticulum. No surrounding inflammatory change. 4. Stable mild splenomegaly. ACT 112: Negative or not required by law. Electronically signed by: Ronnie Crawford M.D. 02/07/2022 8:06 AM Hospital Course (1) Vomiting and diarrhea: 36 y/o F Hx TERESITA, hypothyroid, bipolar, schizoaffective, DM I, sinus tachycardia. Presents with 2 days of nausea, vomiting, diarrhea and dysuria. She has not been able to tolerate PO intake. She has not had fevers. Initial labs, displayed a degree of acidosis consistent with borderline DKA. A UA was +. Acidosis resolved following a fluid bolus in the ER, however, she continued to suffer nausea and vomiting. Suspect related to mild DKA with acidosis (anion gap 17)and UTI on admission with insulin pump removed by patient on Thursday as she was feeling unwell and didn't want to bottom out her sugars BSGs running 200s yesterday, 290s on admit. Typically she reports having recent control, goal 70-130s at home CTAP unchanged from December Supportive care with IVF/electrolyte replacement and antiemetics prn Anion gap resolved Clear liquid diet advanced to DM diet without issue, no further vomiting, minimal nausea much improved with Phenergan and sent PO at discharge Urine culture -- pin point growth at time of discharge. Sent Cipro x 3 days based on prior E. coli Jun 2019. F/u culture at discharge Could also have aspect of medication induced nausea given recent psychiatric medications but was tolerating with advancement of diet and these were continued. LFT minimal elevation but has had elevations in the past (2) UTI (urinary tract infection): reported dysuria on admission ua with likely infection --> 1+ leuk est, >30 WBC, 1+ bacteria CTAp without evidence of pyelo/stones Ceftriaxone IV inpatient/cipro at discharge Urine cx pinpoint growth at d/c. Will follow up call if any resistance (3) Diabetes type 1, uncontrolled: typically with insulin pump/dexcom removed on thursday by patient due to feeling unwell as outlined and found with mild DKA on admit with anion gap 17 (resolved on repeat) A1c 8.3 (improved from 8.9) Added ISS orders, pharmacy consulted Has supplies at home and to resume her insulin pump and continue to monitor sugars/alert PCP of hypo/hyperglycemia/symptomatic Typically BSGs in 70-130s on her home insulin pump, and as discussed, patient removed this on Thursday as was feeling unwell and didn't want to be come hypoglycemia however symptoms could have been from increased dose of BB/UTI as well as hyperglycemia from DKA/dehydration at home from n/v (4) Acute dehydration: IVF as outlined, improving IVF discontinued Diet advanced, keeping up with hydration (5) Schizoaffective disorder: recent inpatient admission -- Vraylar/Cymbalta/lithium/Hydroxyzine new lithium, level 0.1 on check, could be contributing to GI side effects as well as UTI though -- ?if patient taking correctly/skipping doses f/u PCP mood stable at d/c (6) Hypothyroidism: hx of such, TSH 3.53 continue Synthroid 175mcg daily outpt f/u for repeat testing given TSH was 0.70 in December this year and recent start lithium which can affect (7) Vitamin B12 deficiency: reports monthly injections, missed dose Given 1x dose IM inpatient, f/u outpatient PCP (8) Meckel diverticulum: hx of such remains on pepcid/protonix, carafate daily for chronic pain extensive GI workup with GI in past, previously on cholestyramine ?of fatty liver/cirrhosis Plt 169 does note splenomegaly on CTAP but no cirrhosis ?gastroparesis given the DM I, but defer to outpt f/u with GI as has had extensive workup in past (9) Tachycardia: hx sinus tach, recentl seen by Dr Ragland. prior stress echo negative in past and does not require aspirin from cardiology perspective On metoprolol 50mg daily --> per note, had been doing well on 50mg dose but d/c December 2021 hospitalization for psych due to concerns for hypotension BP stable at ofice visit and tolerating 12.5mg daily, rec'd to increase to 25mg daily for next couple days then increase to 50mg monitor on 50mg dose but may need reduction --> per discussion with patient, tolerating the 50mg dose and HR improved and continued this dose at discharge HR in 90s prior to d/c (10) Hyponatremia: Na+ 129, but higher considering hyperglycemia AM glucose 238 ?component SIADH from psych medications Na 132 with glu 238 on AM labs outpt f/u PCP arranged for Thursday Total Time Total Time Spent Total Time Spent (In Minutes): 45 Discharge Plan Discharge Items Patient Disposition: Home - Self-Care Reason For Visit: UTI, NAUSEA/VOMITING;HYPERGLYCEMIA Discharge Diagnosis: DKA, UTI Condition on Discharge: Fair Goals: You have been hospitalized for an acute medical problem. During your stay at [facility], we have made an effort to correct the problem that brought you to the hospital while keeping you as comfortable as possible. Medications were used to bring your condition under control and your discharge instructions will include directions for any medications you should take after leaving the hospital. Please make sure you see your Primary Care Provider as part of your follow up plan. Activity: Resume your previous activity Non-emergency contact: Primary Care Provider and Financial Operations Analyst Call non-emergency contact if: you have any medication questions, your symptoms worsen, your pain is not controlled and you have a fever Follow-up/Referrals: Eugenie Falk MD [Primary Care Provider] - 02/11/22 2:00 pm (Appointment will be at the [place] office with Christal Buckner PA-C) Diet: Carb Count or DM1 and Heart Healthy Addtl Attending Provider Instructions: You have been hospitalized for nausea/vomiting/burning with urination and found to have elevated blood sugars as well as likely urinary tract infection. You were treated conservatively with IV fluids, pain/nausea control and antibiotics. Your urine culture has pin-point growth but given symptoms likely have UTI and should continue Cipro 500mg by mouth every 12 hours for additional 3 days to complete treatment. This should start this evening. We checked B12 level and this was 386 and you got a dose of B12 while in the hospital. Some of your GI symptoms could also be contributed by psychiatric medications and you should follow up with your PCP to repeat testing. Please monitor your blood sugars at home and notify of any lows <70 or elevations above 250. Please continue to stay well hydrated. I have also sent some oral phenergan to use as needed for nausea but this should be improving with treatment of the urinary tract infection as well. Please follow up with your PCP in the next week to monitor your progress. An appointment has already been made. I would recommend repeating your thyroid studies in the next month to ensure stable and no further adjustments required. Please return to the ER with any worsening symptoms or for inability to keep up with oral hydration. It has been a pleasure being a part of the medical team providing for you while you have been in the hospital. Take care! Pending Studies at Discharge: Yes Studies:: Urine culture- pinpoint growth Stand-Alone Forms: My [facility] [employer] Medications and DC Order Prescriptions: New ciprofloxacin HCl 500 mg tablet 500 mg PO BID Qty: 6 0RF promethazine 12.5 mg tablet 12.5 mg PO Q8H PRN (Reason: nausea and vomiting) Qty: 10 0RF Continued (DME) Dexcom G6 Hop Worker Misc See Rx Instructions .ROUTE .MEDSUPPLY Qty: 1 0RF Rx Instructions: As directed (DME) Dexcom G6 Transmitter Device See Rx Instructions .ROUTE .MEDSUPPLY Qty: 1 3RF Rx Instructions: As directed (DME) BD Eclipse Luer-Vipul 3 mL 23 x 1" syringe See Rx Instructions .ROUTE .MEDSUPPLY Qty: 1 5RF Rx Instructions: test 4 times daily ergocalciferol (vitamin D2) [Vitamin D2] 1,250 mcg (50,000 unit) capsule 50,000 unit PO WK Qty: 12 3RF Rx Instructions: take on sundays cyanocobalamin (vitamin B-12) 1,000 mcg/mL solution 1,000 mcg IM MONTHLY 180 Days Qty: 6 1RF Rx Instructions: Takes beggining of month sucralfate 1 gram tablet 1 g PO BID Qty: 60 5RF dicyclomine 10 mg capsule 10 mg PO BID PRN (Reason: spasms) Qty: 30 1RF gabapentin 300 mg capsule See Rx Instructions PO HS 30 Days Qty: 120 5RF Rx Instructions: Take 1 capsule in the morning and 3 capsules in the evening time topiramate 50 mg tablet 50 mg PO HS 30 Days Qty: 30 5RF levothyroxine 175 mcg tablet 175 mcg PO QAM 30 Days Qty: 30 5RF (DME) Dexcom G6 Sensor Device See Rx Instructions .Route Qty: 3 0RF Rx Instructions: As directed cetirizine 10 mg tablet 10 mg PO DAILY PRN (Reason: allergies) (DME) blood-glucose meter [[employer]avis[employer] Verio Reflect Meter] Misc See Rx Instructions .ROUTE .MEDSUPPLY Rx Instructions: use daily for testing bgs 1 times per day albuterol sulfate 90 mcg/actuation HFA aerosol inhaler 1 - 2 puffs INH QID PRN (Reason: shortness of breath or wheezing) Qty: 6.7 2RF rizatriptan 10 mg tablet,disintegrating 10 mg PO Q2H PRN (Reason: migraine headache) Qty: 12 2RF Rx Instructions: do not exceed 3 doses per 24 hrs lithium carbonate 300 mg capsule 300 mg PO QAM lithium carbonate 600 mg capsule 600 mg PO QPM duloxetine 20 mg capsule,delayed release(DR/EC) 20 mg PO QAM metoprolol succinate 50 mg tablet extended release 24 hr 50 mg PO DAILY Qty: 30 5RF calcium carbonate [Calcium 600] 600 mg calcium (1,500 mg) Tablet 600 mg PO QAM ondansetron 4 mg tablet,disintegrating 4 mg PO Q6H PRN (Reason: nausea and vomiting) Qty: 10 0RF insulin lispro [Humalog U-100 Insulin] 100 unit/mL solution 100 unit subcut DAILY MDD 100 PRN (Reason: Hyperglycemia) Label Comments: sliding scale hydroxyzine HCl 50 mg Tablet 50 mg PO TID PRN (Reason: Anxiety) 30 Days Qty: 90 0RF omeprazole 40 mg capsule,delayed release(DR/EC) 40 mg PO DAILY 30 Days Qty: 30 0RF famotidine 40 mg tablet 40 mg PO HS 30 Days Qty: 30 0RF pravastatin 10 mg tablet 10 mg PO DAILY 30 Days Qty: 30 0RF prazosin 1 mg capsule 1 mg PO HS Discharge Orders: Discharge Order (Routine); Ordered 02/08/22 Ordered By: Lucero Brock Admission Data Admit Date/Time: 02/07/22 00:08 Attending Provider: Divina Morgan Admit Provider: Ken Singh Primary Care Provider: Eugenie Falk V. Other Providers: Ken Singh Other Interventions: Discharge Summary Assessment (RN) Last Done: 02/08/22 11:42 Supervising Physician Co-Signing Physician Notes PA Supervision Note: I did not personally see or examine the patient today, but I verified all harper points of RENEE Brock's assessment and plan with the following exceptions/additions: None Coding Level of Care Code D/C DAY MANAGEMENT >30 MINS Diagnoses Vomiting and diarrhea R11.10; R19.7 UTI (urinary tract infection) N30.00 Hematuria presence: without hematuria Urinary tract infection type: acute cystitis Diabetes type 1, uncontrolled E10.65 Acute dehydration E86.0 Schizoaffective disorder F25.9 Hypothyroidism E03.9 Vitamin B12 deficiency E53.8 Meckel diverticulum Q43.0 Tachycardia R00.0 Hyponatremia E87.1
== END 2022-02-08 17:10 | disposition home or self-care (01) | DRG 690 ==
LOC: ED 17:15 → 3N 02-07 00:08 → SUATTDRO 02-07 00:08 → INTOOBSV 02-07 00:08 → 3N 02-07 03:27

== ENCOUNTER 2023-12-09 16:48 | Inpatient (IN) ==
--- NOTE | 2023-12-09 17:15 | Emergency Department Note ---
Impression & Plan Sepsis, UTI (urinary tract infection), DKA (diabetic ketoacidosis), Vomiting and diarrhea, Acidosis, Acute hyponatremia, Tachycardia ED Provider Note NAME: JEFFERY EMANUEL AGE: 38 SEX: F : 1985 ARRIVES VIA: Walk-In INFORMANT: [Patient] ED PROVIDER(S): [Bairon Painter MD] CHIEF COMPLAINT: Chest pain, vomiting HISTORY OF PRESENT ILLNESS: The patient is a 38-year-old female whose had 3 days of symptoms. She has been weak, she has had some tightness in her chest, she has had some diffuse abdominal pain, she has had diarrhea and vomiting. She has had burning with urination and some chills. She has no energy. Blood sugar today was high at 346. There has been no cough, no respiratory complaints. She has not noticed any rash. PMHx/PSHx/Social Hx: See Below PHYSICAL EXAM: GENERAL: Patient is in no acute distress. Holding a vomit bag. HEENT: No acute trauma, normocephalic atraumatic, mucous membranes moist, no nasal congestion. NECK: No stridor, no adenopathy, no meningismus, trachea is midline. LUNGS: Clear to auscultation bilaterally, no wheeze, no rhonchi, breath sounds equal. HEART: Tachycardic with a regular rhythm, no murmurs. ABDOMEN: Soft, nontender, no peritonitis. EXTREMITIES: No cyanosis, full range of motion of all the joints without pain or difficulty. NEUROLOGIC: Oriented x 3, no acute motor or sensory deficits, no focal weakness. SKIN: No jaundice, no diaphoresis. DIFFERENTIAL DIAGNOSIS: Sepsis or bacteremia, dehydration, UTI, pneumonia, viral illness, electrolyte imbalance, DKA, among others. EMERGENCY DEPARTMENT PROCEDURES: MEDICAL DECISION MAKING: There is no leukocytosis. A very mild anemia was seen. There was a normal platelet count. VBG did not show any significant acidosis. There was no coagulopathy. Sodium was low, the patient CO2 was low, this was suggestive of some acidosis. Glucose was quite elevated. Lactic acid level was quite high at over 6. No concerning liver enzyme elevation. ECG showed a sinus tachycardia, no ischemia. Cardiac enzyme testing x 1 was not consistent with acute cardiac injury. There was no evidence for pancreatitis by her testing. Urinalysis was suggestive of infection. Urine culture is pending. Chest x-ray did not show pneumonia or CHF. COVID, influenza and RSV tests were negative. On exam, the patient was tachycardic. She did not have peritonitis. She was mentating well. The patient was aggressively managed. She appeared to have early sepsis. She was dehydrated. She was in early DKA. The patient received IV saline. She received 2 L of IV saline, this should suffice for sepsis hydration at 30 cc/kg using the ideal body weight. The patient was given IV Zofran, she received IV morphine, she was given IV cefepime as empiric antibiotic coverage. She eventually was placed on an insulin drip to combat the findings of DKA. The patient is doing well, she seems to be improving. She is going to require a hospital stay. She appears to have early sepsis and early DKA all secondary to UTI. I did speak with the patient and case management, the on-call hospitalist was consulted. Prior/Outside records/notes reviewed: None ECG per my interpretation: ECG shows a sinus tachycardia with a rate of 121. There is some nonspecific ST change. There is no acute ST elevation, no PVCs. The QTc is 488. Continuous Cardiac Monitoring per my interpretation: An order was placed for continuous cardiac monitoring. The monitor shows a rate of 125 with sinus tachycardia. Imaging/x-ray results per my interpretation: Chest x-ray does not show mediastinal widening, pneumonia or pneumothorax. Chronic Medical/Social conditions affecting care: History of diabetes. Care/Management discussed with: Case management, the on-call hospitalist. Level of care consideration(s): After review of the information above and other included data: --I believe the patient requires escalation of care to admission Critical Care Note: I have personally spent 53 minutes of critical care time in the direct management of this patient. This includes bedside care, interpretation of diagnostic studies, and testing, discussion with consultants, patient, and family members, and other required patient management activities. This 53 minutes is in excess of all separately billable procedures. 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) Obesity (Chronic) Vitamin B12 deficiency (Chronic) Vitamin D deficiency (Chronic) 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 Diabetic neuropathy (Chronic) Loss of protective sensation in feet PTSD (post-traumatic stress disorder) (Chronic) Depression (Chronic) 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 Diabetes type 1, uncontrolled (Chronic) T:slim insulin pump (currently not using due to insurance change and lack of supplies) Snoring Fatigue Organic periodic limb movement disorder H/O tonic-clonic seizures Migraine Moderate obstructive sleep apnea Nocturnal hypoxemia Schizoaffective disorder Inappropriate sinus tachycardia Esophageal reflux Mixed hyperlipidemia Urge incontinence Medical History Hyponatremia Acute hyponatremia Acute dehydration Diffuse abdominal pain Atypical chest pain Palpitations Noncompliance with medication regimen Depression with suicidal ideation Altered awareness, transient Gastritis Memory changes Black-out (not amnesia) Suicidal ideation Suspected 2019 novel coronavirus infection JACKSON (nonalcoholic steatohepatitis) Chronic diarrhea History of anesthesia reaction with 1st "anesthesia began wearing off and could feel the surgery" Seizure grand mal--last was at 7yrs old--was on phenobarbital, no meds now--no neurologist Migraine Lung nodule seen on imaging study per pt on CT scan--just monitoring Tachycardia Headache Surgical History History of colonoscopy History of section x3 S/P cholecystectomy Previous section Family History Unknown FHx: kidney cancer Hyperlipidemia Lung cancer Hypertension Brother Marfan syndrome Congenital heart disease Father Stroke Family history of diabetes mellitus Myocardial infarction Mother Cancer Uterine cancer Stroke TIA (transient ischemic attack) Grandfather (Paternal) Family history of diabetes mellitus Uncle Family hx of colon cancer Colon cancer Colorectal cancer Aunt Breast cancer Son Crohn's disease, Onset Age: 2 Other No family history of adverse response to anesthesia Denies family history of Rheumatoid arthritis Pulmonary embolism Ulcerative colitis Social History Smoking Status: Never smoker Tobacco Type: Cigarettes Second Hand Exposure: No; Do You Dip or Chew Tobacco: No; Hx Alcohol Use: Yes Alcohol type: hard liquor Hx Substance Use: No Preferred Language: Israeli Communication Ability: Effective History Card Clerk Required: No Beliefs That Will Affect Care: None marital status: Current Living Situation: Family Current Living Situation Comment: Lives with and 2 children within someone else's home current occupational status: employed Feels Safe at Home: Yes Childhood Exposure to Second-Hand Smoke: Yes Dental Care, Regularly: No Physical Activity Frequency: Daily Seatbelt Use: always Sunscreen Use: Yes Assistive Devices: None Allergies Allergies Allergy/AdvReac Type Severity Reaction Status Date / Time pseudoephedrine AdvReac Intermediate nausea and Verified 12/09/23 19:18 vomiting Home Meds Home Medications Medication Instructions Recorded Confirmed cetirizine 10 mg tablet 10 mg PO DAILY allergies 07/31/20 12/09/23 aripiprazole 400 mg suspension, 400 mg IM Q28D 12/26/22 12/09/23 extended rel.intramuscular syringe (Tara Bazan) prazosin 1 mg capsule 1 mg PO HS 06/03/23 12/09/23 buspirone 10 mg tablet 10 mg PO BID 11/25/23 12/09/23 duloxetine 30 mg capsule,delayed 30 mg PO HS 11/25/23 12/09/23 release gabapentin 300 mg capsule See Rx Instructions .Route 11/25/23 12/09/23 .COMPLEX diabetic neuropathy insulin glargine 100 unit/mL (3 86 unit subcut HS 11/25/23 12/09/23 mL) subcutaneous pen (Lantus Solostar U-100 Insulin) lemborexant 10 mg tablet (Dayvigo) 10 mg PO HS 11/25/23 12/09/23 lumateperone 42 mg capsule 42 mg PO HS 11/25/23 12/09/23 (Caplyta) prazosin 2 mg capsule 2 mg PO HS 11/25/23 12/09/23 trazodone 50 mg tablet 50 mg PO HS PRN Sleep 11/25/23 12/09/23 insulin lispro 100 unit/mL 0 unit subcut TIDWMEAL 12/09/23 12/09/23 subcutaneous pen (Humalog KwikPen (U-100) Insulin) Previous Rx's Medication Instructions Recorded albuterol sulfate 90 mcg/actuation 1 - 2 puffs inhalation QID PRN 08/19/19 aerosol inhaler shortness of breath or wheezing #6.7 grams syringe with needle 3 mL 23 x 1" #1 ea 04/16/20 (BD Eclipse Luer-Vipul) rizatriptan 10 mg disintegrating 10 mg PO Q2H PRN migraine headache 10/12/20 tablet #12 tabs cyanocobalamin (vitamin B-12) 1,000 mcg IM MONTHLY 6 months #6 mL 12/02/21 1,000 mcg/mL injection solution dicyclomine 10 mg capsule 10 mg PO BID PRN spasms #30 caps 12/30/21 levothyroxine 175 mcg tablet 175 mcg PO QAM Hypothyroidism 30 01/03/22 days #30 tabs topiramate 50 mg tablet 50 mg PO HS migraine 30 days #30 01/03/22 tabs metoprolol succinate 50 mg 50 mg PO DAILY #30 tabs 02/03/22 tablet,extended release 24 hr promethazine 12.5 mg tablet 12.5 mg PO Q8H PRN nausea and 02/08/22 vomiting #10 tabs famotidine 40 mg tablet 40 mg PO HS GERD 30 days #30 tabs 02/18/22 cholecalciferol (vitamin D3) 1,250 50,000 unit PO WK #12 caps 03/13/22 mcg (50,000 unit) capsule cholecalciferol (vitamin D3) 50 50 mcg PO DAILY #90 caps 03/13/22 mcg (2,000 unit) capsule rosuvastatin 10 mg tablet 10 mg PO DAILY #30 tabs 05/06/22 omeprazole 40 mg capsule,delayed 40 mg PO DAILY GERD 30 days #30 06/13/22 release caps pen needle, diabetic 32 gauge x #360 ea 12/11/22 5/32" (BD Sole 2nd Gen Pen Needle) blood-glucose meter #150 ea 12/19/22 blood-glucose meter (OneTouch #1 ea 12/19/22 Verio Reflect Meter) insulin syringe-needle U-100 1 mL #100 ea 12/19/22 31 gauge x 5/16" (BD Insulin Syringe Ultra-Fine) OneTouch Verio test strips (blood #150 ea 12/26/22 sugar diagnostic) oxybutynin chloride 5 mg tablet 5 mg PO DAILY #30 tabs 01/29/23 acetone (urine) test (Ketostix #50 ea 08/07/23 strips) blood-glucose sensor (Dexcom G7 #3 ea 09/04/23 Sensor device) Results & Data (ED) Vital Signs Vital Signs - 24 hr 12/09/23 16:53 12/09/23 17:21 Temperature 36.1 C L Temperature Source Temporal Artery Scan Pulse Rate 130 H 120 H Pulse Rhythm Regular Pulse Strength Normal Respiratory Rate 20 Respiratory Depth Normal Blood Pressure 151/92 H Blood Pressure Mean 111 Pulse Oximetry 99 Oxygen Delivery Method Room Air Sepsis Recent Fever Within 48 Hours No Sepsis New/Unexplained Change in Mental Status N/A Sepsis Action Taken by Nursing No Action Required Home Medications Current Medication List: was personally reviewed by me Laboratory Data Attestation: I reviewed the patient's lab results. 12/11/23 04:33 12/11/23 07:28 Lab Results 12/09/23 12/09/23 12/09/23 Range/Units 17:05 17:30 18:41 WBC 5.98 (4.8-10.8) K/ul RBC 4.75 (4.20-5.40) M/uL Hgb 12.4 (12.0-16.0) g/dl Hct 37.5 (37.0-47.0) % MCV 78.9 L (80.0-100.0) fL MCH 26.1 (25.0-34.0) pg MCHC 33.1 (32.0-36.0) g/dL RDW Std Deviation 40.9 (36.4-46.3) fL RDW Coeff of Justin 14.4 (11.5-14.5) % Plt Count 227 (130-400) K/uL MPV 9.3 L (9.4-12.4) fL Immature Gran % (Auto) 0.5 % Neut % (Auto) 55.2 % Lymph % (Auto) 36.0 % Nolan % (Auto) 6.4 % Eos % (Auto) 1.2 % Baso % (Auto) 0.7 % Neut # (Auto) 3.31 (1.40-6.50) K/uL Lymph # (Auto) 2.15 (1.20-3.40) K/uL Nolan # (Auto) 0.38 (0.11-0.59) K/uL Eos # (Auto) 0.07 (0.00-0.50) K/uL Baso # (Auto) 0.04 (0.00-0.20) K/uL Immature Gran # (Auto) 0.03 (0.01-0.20) K/uL PT 10.4 (9.0-12.0) Seconds INR 1.0 (0.9-1.1) APTT 24 (21-31) Seconds PTT Ratio 0.9 VBG pH 7.38 (7.36-7.41) VBG pCO2 34 L (38-50) mmHg VBG pO2 43 mmHg VBG HCO3 20 mmol/L VBG O2 Saturation 78.5 % VBG Base Excess -4.2 mEq/L Sodium 124 L (136-145) mmol/L Potassium 3.9 (3.5-5.1) mmol/L Chloride 90 L (98-107) mmol/L Carbon Dioxide 19 L (21-32) mmol/L Anion Gap 15 H (3-11) BUN 17 (6-23) mg/dl Creatinine 0.96 (0.6-1.2) mg/dl Est Cr Clr Drug Dosing 80.1 ml/min Est GFR ( Amer) 87.6 ml/min Est GFR (Non-Af Amer) 75.6 ml/min BUN/Creatinine Ratio 17.7 (10-20) Glucose 568 H* (70-99(Fasting)) mg/dl POC Glucose (70-99) mg/dl Lactate 6.4 H* (0.4-2.0) mmol/L Calcium 9.0 (8.6-10.3) mg/dl Magnesium 1.8 (1.7-2.4) mg/dl Total Bilirubin 0.6 (0.2-1.0) mg/dl Direct Bilirubin 0.0 (0-0.2) mg/dl AST 16 (13-39) U/L ALT 21 (7-52) U/L Alkaline Phosphatase 96 (34-104) U/L Troponin I High Sens 6.5 (0-14) pg/ml Total Protein 7.4 (6.0-8.3) gm/dl Albumin 3.9 (3.4-5.0) gm/dl Procalcitonin 0.04 (0-0.5) ng/ml Urine Color Yellow Urine Appearance Cloudy A (Clear) Urine pH 6.0 (4.5-7.5) Ur Specific [place] 1.021 (1.000-1.030) Urine Protein Negative (Negative) Urine Glucose (UA) 3+ H (Negative) Urine Ketones 1+ H (Negative) Urine Blood Negative (Negative) Urine Nitrite Negative (Negative) Urine Bilirubin Negative (Negative) Urine Urobilinogen Negative (Negative) Ur Leukocyte Esterase 2+ H (Negative) Urine WBC (Auto) >50 H (0-5) /hpf Urine RBC (Auto) 0-2 (0-2) /hpf U Hyaline Cast (Auto) 0-2 (0-2) /lpf U Epithel Cells (Auto) 0-2 (0-2) /hpf Urine Bacteria (Auto) None Seen (None Seen) SARS-CoV-2 (PCR) NEGATIVE (Negative) Influenza Type A (PCR) Negative (Neg) Influenza Type B (PCR) Negative (Neg) RSV (RT-PCR) Negative (Neg) 12/09/23 Range/Units 19:13 WBC (4.8-10.8) K/ul RBC (4.20-5.40) M/uL Hgb (12.0-16.0) g/dl Hct (37.0-47.0) % MCV (80.0-100.0) fL MCH (25.0-34.0) pg MCHC (32.0-36.0) g/dL RDW Std Deviation (36.4-46.3) fL RDW Coeff of Justin (11.5-14.5) % Plt Count (130-400) K/uL MPV (9.4-12.4) fL Immature Gran % (Auto) % Neut % (Auto) % Lymph % (Auto) % Nolan % (Auto) % Eos % (Auto) % Baso % (Auto) % Neut # (Auto) (1.40-6.50) K/uL Lymph # (Auto) (1.20-3.40) K/uL Nolan # (Auto) (0.11-0.59) K/uL Eos # (Auto) (0.00-0.50) K/uL Baso # (Auto) (0.00-0.20) K/uL Immature Gran # (Auto) (0.01-0.20) K/uL PT (9.0-12.0) Seconds INR (0.9-1.1) APTT (21-31) Seconds PTT Ratio VBG pH (7.36-7.41) VBG pCO2 (38-50) mmHg VBG pO2 mmHg VBG HCO3 mmol/L VBG O2 Saturation % VBG Base Excess mEq/L Sodium (136-145) mmol/L Potassium (3.5-5.1) mmol/L Chloride (98-107) mmol/L Carbon Dioxide (21-32) mmol/L Anion Gap (3-11) BUN (6-23) mg/dl Creatinine (0.6-1.2) mg/dl Est Cr Clr Drug Dosing ml/min Est GFR ( Amer) ml/min Est GFR (Non-Af Amer) ml/min BUN/Creatinine Ratio (10-20) Glucose (70-99(Fasting)) mg/dl POC Glucose 483 H* (70-99) mg/dl Lactate (0.4-2.0) mmol/L Calcium (8.6-10.3) mg/dl Magnesium (1.7-2.4) mg/dl Total Bilirubin (0.2-1.0) mg/dl Direct Bilirubin (0-0.2) mg/dl AST (13-39) U/L ALT (7-52) U/L Alkaline Phosphatase (34-104) U/L Troponin I High Sens (0-14) pg/ml Total Protein (6.0-8.3) gm/dl Albumin (3.4-5.0) gm/dl Procalcitonin (0-0.5) ng/ml Urine Color Urine Appearance (Clear) Urine pH (4.5-7.5) Ur Specific [place] (1.000-1.030) Urine Protein (Negative) Urine Glucose (UA) (Negative) Urine Ketones (Negative) Urine Blood (Negative) Urine Nitrite (Negative) Urine Bilirubin (Negative) Urine Urobilinogen (Negative) Ur Leukocyte Esterase (Negative) Urine WBC (Auto) (0-5) /hpf Urine RBC (Auto) (0-2) /hpf U Hyaline Cast (Auto) (0-2) /lpf U Epithel Cells (Auto) (0-2) /hpf Urine Bacteria (Auto) (None Seen) SARS-CoV-2 (PCR) (Negative) Influenza Type A (PCR) (Neg) Influenza Type B (PCR) (Neg) RSV (RT-PCR) (Neg) Administered Medications Buspirone HCl (Buspirone 5 Mg Tab) 10 mg PO BID TED Stop: 01/08/24 20:59 Last Admin: 12/11/23 08:34 Dose: 10 mg Documented By: Admin: 12/10/23 20:50 Dose: 10 mg Documented By: [id number] Admin: 12/10/23 09:03 Dose: 10 mg Documented By: Admin: 12/09/23 21:40 Dose: 10 mg Documented By: ELEONORA Cetirizine HCl (Cetirizine Hcl 10 Mg Tablet) 10 mg PO DAILY TED Stop: 01/09/24 13:29 Last Admin: 12/11/23 08:35 Dose: 10 mg Documented By: Admin: 12/10/23 14:47 Dose: 10 mg Documented By: ROXY Duloxetine HCl (Duloxetine Hcl 30 Mg Cap) 30 mg PO HS TED Stop: 01/08/24 20:59 Last Admin: 12/10/23 20:50 Dose: 30 mg Documented By: [id number] Admin: 12/09/23 21:40 Dose: 30 mg Documented By: ELEONOAR Enoxaparin Sodium (Enoxaparin Inj 40 Mg/0.4 Ml Syr) 40 mg SQ Q24H TED Stop: 01/08/24 20:59 Last Admin: 12/10/23 20:51 Dose: 40 mg Documented By: [id number] Admin: 12/09/23 21:41 Dose: 40 mg Documented By: ELEONORA Pantoprazole Sodium 40 mg/ (Syringe) 10 mls @ 5 mls/min IV DAILY@1100 TED Stop: 01/09/24 10:59 Last Admin: 12/11/23 11:03 Dose: 5 mls/min Documented By: Admin: 12/10/23 10:43 Dose: 5 mls/min Documented By: ROXY Acetaminophen (Ofirmev) 1,000 mg in 100 mls @ 400 mls/hr IV Q8H PRN PRN Reason: pain (1-4),headache,fever Stop: 12/12/23 19:40 Last Infusion: 12/11/23 09:00 Dose: Infused Documented By: Admin: 12/11/23 08:45 Dose: 400 mls/hr Documented By: Infusion: 12/10/23 15:33 Dose: Infused Documented By: Admin: 12/10/23 14:50 Dose: 400 mls/hr Documented By: ROXY Ceftriaxone Sodium (Rocephin) 2,000 mg in 50 mls @ 100 mls/hr IV Q24H [facility] Stop: 12/15/23 00:00 Last Infusion: 12/11/23 00:25 Dose: Infused Documented By: [id number] Admin: 12/10/23 23:53 Dose: 100 mls/hr Documented By: [id number] Infusion: 12/10/23 00:50 Dose: Infused Documented By: Admin: 12/10/23 00:11 Dose: 100 mls/hr Documented By: ELEONORA Famotidine (Pepcid 20mg Iv Push) 20 mg in 5 mls @ 2.5 mls/min IV Q12H [facility] Stop: 01/09/24 06:59 Last Admin: 12/11/23 06:12 Dose: 2.5 mls/min Documented By: [id number] Admin: 12/10/23 19:08 Dose: 2.5 mls/min Documented By: Admin: 12/10/23 06:56 Dose: 2.5 mls/min Documented By: ELEONORA Insulin Aspart (Insulin Aspart Per Unit Charge) 0 units SC ACHS [facility] Stop: 01/09/24 16:29 Last Admin: 12/11/23 12:39 Dose: 27 units Documented By: Co-signed By: YOLANDA Admin: 12/11/23 08:45 Dose: 22 units Documented By: Co-signed By: ChristieO Admin: 12/10/23 21:07 Dose: 5 units Documented By: [id number] Co-signed By: [email or web address] Admin: 12/10/23 17:46 Dose: 8 units Documented By: ROXY Co-signed By: YOLANDA Ketorolac Tromethamine (Ketorolac Tromethamine 15 Mg/Ml Vial) 15 mg IV Q6H PRN PRN Reason: Moderate Pain (Scale 4, 5, 6) Stop: 12/15/23 00:36 Last Admin: 12/10/23 06:36 Dose: 15 mg Documented By: ELEONORA Levothyroxine Sodium (Levothyroxine Sodium 175 Mcg Tablet) 175 mcg PO DAILYBB [facility] Stop: 01/09/24 06:29 Last Admin: 12/11/23 06:12 Dose: 175 mcg Documented By: [id number] Admin: 12/10/23 06:33 Dose: 175 mcg Documented By: ELEONORA Metoprolol Succinate (Metoprolol Succ 50mg Ext Rel Tab) 50 mg PO DAILY [facility] Stop: 01/09/24 08:59 Last Admin: 12/11/23 08:34 Dose: 50 mg Documented By: Admin: 12/10/23 09:03 Dose: 50 mg Documented By: ROXY Morphine Sulfate (Morphine Sulfate 4 Mg/Ml 1 Ml Carp\\Vial) 4 mg IV Q3H PRN PRN Reason: Severe Pain (Scale 7, 8, 9,10) Stop: 12/24/23 00:36 Last Admin: 12/10/23 00:50 Dose: 4 mg Documented By: ELEONORA Ondansetron HCl (Ondansetron Inj 2 Mg/Ml 2 Ml Vial) 4 mg IV Q4H PRN PRN Reason: Nausea Stop: 01/08/24 19:40 Last Admin: 12/10/23 19:32 Dose: 4 mg Documented By: [id number] Admin: 12/10/23 00:10 Dose: 4 mg Documented By: ELEONORA Prazosin HCl (Prazosin Hcl 1 Mg Cap) 3 mg PO HS [facility] Stop: 01/08/24 20:59 Last Admin: 12/10/23 20:50 Dose: 3 mg Documented By: [id number] Admin: 12/09/23 21:39 Dose: 3 mg Documented By: ELEONORA Rizatriptan Benzoate (Rizatriptan Benzoate La[employer]her 10 Mg Tab) 10 mg PO Q2H PRN PRN Reason: migraine headache Last Admin: 12/10/23 20:51 Dose: 10 mg Documented By: [id number] Admin: 12/10/23 14:47 Dose: 10 mg Documented By: ROXY Topiramate (Topiramate 50 Mg Tab) 50 mg PO HS [facility] Stop: 01/09/24 20:59 Last Admin: 12/10/23 20:51 Dose: 50 mg Documented By: [id number] Trazodone HCl (Trazodone Hcl 50 Mg Tab) 50 mg PO HS PRN PRN Reason: Sleep Stop: 01/08/24 20:33 Last Admin: 12/09/23 21:47 Dose: 50 mg Documented By: TLM Discontinued Medications Sodium Chloride (Nss) 1,000 mls @ 999 mls/hr IV .Q1H1M TED Stop: 12/09/23 18:00 Last Infusion: 12/09/23 18:38 Dose: Infused Documented By: Admin: 12/09/23 17:41 Dose: 999 mls/hr Documented By: MR Cefepime HCl (Maxipime) 2,000 mg in 20 mls @ 5 mls/min IV NOW STA; Protocol Stop: 12/09/23 17:01 Last Admin: 12/09/23 17:41 Dose: 5 mls/min Documented By: MR Acetaminophen (Ofirmev) 1,000 mg in 100 mls @ 400 mls/hr IV NOW STA Stop: 12/09/23 17:18 Last Infusion: 12/09/23 18:37 Dose: Infused Documented By: Admin: 12/09/23 17:50 Dose: 400 mls/hr Documented By: MR Sodium Chloride (Nss) 1,000 mls @ 999 mls/hr IV .Q1H1M ONE Stop: 12/09/23 19:18 Last Infusion: 12/09/23 19:59 Dose: Infused Documented By: Admin: 12/09/23 18:56 Dose: 999 mls/hr Documented By: MR Insulin Human Regular 250 (units/ Sodium Chloride) 250 mls @ 3.9 mls/hr IV .Q24H TED; Protocol Stop: 12/10/23 16:29 Last Titration: 12/11/23 06:55 Dose: Infused Documented By: MS Co-signed By: OO Titration: 12/10/23 07:04 Dose: 3.9 units/hr, 3.9 mls/hr Documented By: TLM Co-signed By: WS Titration: 12/10/23 05:00 Dose: 3.9 units/hr, 3.9 mls/hr Documented By: TLM Co-signed By: TMG Titration: 12/10/23 04:00 Dose: 3.9 units/hr, 3.9 mls/hr Documented By: TLM Co-signed By: PAH Titration: 12/10/23 03:00 Dose: 3.9 units/hr, 3.9 mls/hr Documented By: TLM Co-signed By: PAH Titration: 12/10/23 02:00 Dose: 3.9 units/hr, 3.9 mls/hr Documented By: TLM Co-signed By: TMG Titration: 12/10/23 01:00 Dose: 4.9 units/hr, 4.9 mls/hr Documented By: TLM Co-signed By: TMG Titration: 12/10/23 00:00 Dose: 4.9 units/hr, 4.9 mls/hr Documented By: TLM Co-signed By: TMG Titration: 12/09/23 23:00 Dose: 4.9 units/hr, 4.9 mls/hr Documented By: TLM Co-signed By: HSM Titration: 12/09/23 22:00 Dose: 4.1 units/hr, 4.1 mls/hr Documented By: TLM Co-signed By: TMG Titration: 12/09/23 21:00 Dose: 3.4 units/hr, 3.4 mls/hr Documented By: TLM Co-signed By: TMG Admin: 12/09/23 19:53 Dose: 3.4 units/hr, 3.4 mls/hr Documented By: PEREZ Co-signed By: YARY Lactated Ringer's (Lr) 1,000 mls @ 150 mls/hr IV .Q6H40M [facility] Stop: 01/08/24 18:59 Last Admin: 12/09/23 19:17 Dose: Not Given Documented By: PEREZ Potassium Chloride (K Bud / Wtr) 10 meq in 100 mls @ 100 mls/hr IV Q1H [facility] Stop: 12/09/23 21:14 Last Admin: 12/09/23 19:25 Dose: Not Given Documented By: PEREZ Pantoprazole Sodium 40 mg/ (Syringe) 10 mls @ 5 mls/min IV NOW ONE Stop: 12/09/23 19:31 Last Admin: 12/09/23 19:44 Dose: 5 mls/min Documented By: PEERZ Potassium Chloride 40 meq/ (Sodium Chloride) 1,020 mls @ 150 mls/hr IV .Q6H48M [facility] Stop: 01/08/24 19:29 Last Admin: 12/10/23 04:13 Dose: Not Given Documented By: Infusion: 12/10/23 02:36 Dose: Infused Documented By: Admin: 12/09/23 19:49 Dose: 150 mls/hr Documented By: PEREZ Potassium Chloride/Dextrose/Sod Cl (D5w And 1/2nss + 20meq Kcl) 20 meq in 1,000 mls @ 150 mls/hr IV .Q6H40M [facility] Stop: 01/09/24 02:44 Last Infusion: 12/10/23 11:35 Dose: Infused Documented By: Admin: 12/10/23 10:43 Dose: 150 mls/hr Documented By: Infusion: 12/10/23 09:39 Dose: Infused Documented By: Admin: 12/10/23 02:58 Dose: 150 mls/hr Documented By: ELEONORA Potassium Chloride/Sodium Chloride (1/2 Nss + 20meq Kcl 1000ml) 20 meq in 1,000 mls @ 150 mls/hr IV .Q6H40M [facility] Stop: 01/09/24 11:44 Last Admin: 12/11/23 08:56 Dose: Not Given Documented By: Infusion: 12/11/23 08:56 Dose: Infused Documented By: Admin: 12/11/23 02:59 Dose: 150 mls/hr Documented By: [id number] Infusion: 12/11/23 01:48 Dose: Infused Documented By: [id number] Admin: 12/10/23 19:07 Dose: 150 mls/hr Documented By: Infusion: 12/10/23 18:38 Dose: Infused Documented By: Admin: 12/10/23 11:57 Dose: 150 mls/hr Documented By: ROXY Insulin Aspart (Insulin Aspart Per Unit Charge) 0 units SC ACHS [facility] Stop: 12/10/23 16:29 Last Admin: 12/10/23 12:38 Dose: 8 units Documented By: ROXY Co-signed By: MICAELA Admin: 12/10/23 09:02 Dose: Not Given Documented By: Admin: 12/09/23 21:54 Dose: Not Given Documented By: ELEONORA Co-signed By: TMG Insulin Glargine (Lantus Per Unit Charge) 40 units SQ ONCE ONE Stop: 12/10/23 11:25 Last Admin: 12/10/23 11:43 Dose: 40 units Documented By: ROXY Co-signed By: YOLANDA Insulin Glargine (Lantus Per Unit Charge) 0 units SQ HS ONE; Protocol Stop: 12/10/23 21:01 Last Admin: 12/10/23 21:06 Dose: 30 units Documented By: [id number] Co-signed By: MNM Insulin Glargine (Lantus Per Unit Charge) 10 units SC ONE ONE Stop: 12/11/23 09:01 Last Admin: 12/11/23 08:45 Dose: 10 units Documented By: Co-signed By: YOLANDA Insulin Human Regular (Novolin-R Bolus From Bag) 3.5 units IV ONE ONE Stop: 12/09/23 18:46 Last Admin: 12/09/23 19:53 Dose: 3.5 units Documented By: PEREZ Co-signed By: YARY Ioversol (Optiray 320 100ml) 93 ml IV ONCE ONE Stop: 12/09/23 19:32 Last Admin: 12/09/23 19:32 Dose: 93 ml Documented By: FAY Martínez (Stat Iv Infusion Titration Per Protocol) 1 each N/A NOW STA Stop: 12/09/23 18:23 Last Admin: 12/09/23 19:17 Dose: 1 each Documented By: PEREZ Martínez (Dka Goal Range 150-250 Mg/Dl) 1 each N/A ONE ONE Stop: 12/09/23 18:23 Last Admin: 12/09/23 19:16 Dose: 1 each Documented By: PEREZ Martínez (Pending D5 1/2ns+20meq Kcl Ivf) 1 each N/A Q2H [facility] Stop: 01/08/24 18:59 Last Admin: 12/10/23 04:15 Dose: Not Given Documented By: Admin: 12/10/23 04:15 Dose: Not Given Documented By: Admin: 12/10/23 04:14 Dose: Not Given Documented By: Admin: 12/09/23 19:18 Dose: Not Given Documented By: PEREZ Martínez Information (Dc Iv Insulin Infusion 1 Ea Diana) 1 each N/A ONE ONE Stop: 12/10/23 16:31 Last Admin: 12/10/23 17:01 Dose: 1 each Documented By: VINICIO Morphine Sulfate (Morphine Sulfate 4 Mg/Ml 1 Ml Carp\\Vial) 4 mg IV NOW STA Stop: 12/09/23 17:05 Last Admin: 12/09/23 17:50 Dose: 4 mg Documented By: Ondansetron HCl (Ondansetron Inj 2 Mg/Ml 2 Ml Vial) 4 mg IV NOW STA Stop: 12/09/23 17:05 Last Admin: 12/09/23 17:42 Dose: 4 mg Documented By: Discharge Plan Visit Data Chief Complaint: Chest Pain Stated Complaint: HYPERGLYCEMIA, CHEST/ABD PAIN,DIARRHEA,TACHYCARDIA ED Provider: Bairon Painter Discharge Problem: Sepsis, UTI (urinary tract infection), DKA (diabetic ketoacidosis), Vomiting and diarrhea, Acidosis, Acute hyponatremia, Tachycardia Patient Disposition: Admitted As Inpatient Condition: Serious Discharge Instructions Interventions: ED Discharge Assessment Last Done: 12/09/23 20:00 Discharge Problem: Sepsis Qualifiers: Sepsis type: sepsis due to unspecified organism Sepsis acute organ dysfunction status: without acute organ dysfunction Qualified Code(s): A41.9 - Sepsis, unspecified organism UTI (urinary tract infection) Qualifiers: Urinary tract infection type: acute cystitis Hematuria presence: without hematuria Qualified Code(s): N30.00 - Acute cystitis without hematuria DKA (diabetic ketoacidosis) Qualifiers: Diabetes mellitus type: type 1 Diabetes mellitus complication detail: without coma Qualified Code(s): E10.10 - Type 1 diabetes mellitus with ketoacidosis without coma
[2023-12-09] MEDS: SODIUM CHLORIDE 0.9% 1,000 ML IV SCH (17:41)
[2023-12-09] MEDS: CEFEPIME 2,000 MG/20 ML VIAL IV STA (17:41)
[2023-12-09] MEDS: ONDANSETRON INJ 2 MG/ML 2 ML VIAL IV STA (17:42)
[2023-12-09] MEDS: ACETAMINOPHEN 1,000 MG/100 ML VIAL IV STA (17:50)
[2023-12-09] MEDS: MoRPHine SULFATE 4 MG/ML 1 ML CARP\\VIAL IV STA (17:50)
--- NOTE | 2023-12-09 17:50 | XRay Report ---
SINGLE VIEW CHEST CLINICAL HISTORY: Sepsis FINDINGS: An AP, portable, upright chest radiograph is compared to study dated 11/25/[address] and [address] ed with CT dated 08/03/2015. The cardiomediastinal silhouette is unremarkable. There are low lung volum es with dependent atelectasis. The lungs and pleural spaces are otherwise clear. No pneumothorax is s een. The bony thorax is grossly intact. IMPRESSION: No active disease in the chest. ACT 112: Negative or not required by law. Electronically signed by: Bairon Hagen M.D. 12/09/2023 5:48 PM
[2023-12-09 18:00] LABS: Basophils # (auto) 0.04 K/uL (0.00-0.20); Basophils % (auto) 0.7 %; Eosinophils # (auto) 0.07 K/uL (0.00-0.50); Eosinophils % (auto) 1.2 %; Hematocrit (blood only) 37.5 % (37.0-47.0); Hemoglobin 12.4 g/dl (12.0-16.0); Immature Granulocytes # (auto) 0.03 K/uL (0.01-0.20); Immature Granulocytes % (auto) 0.5 %; Lymphocytes # (auto) 2.15 K/uL (1.20-3.40); Mean Corpuscular Hemoglobin 26.1 pg (25.0-34.0); Mean Corpuscular Hgb Conc 33.1 g/dL (32.0-36.0); Mean Corpuscular Volume 78.9 fL (80.0-100.0); Mean Platelet Volume 9.3 fL (9.4-12.4); Monocytes # (auto) 0.38 K/uL (0.11-0.59); Monocytes % (auto) 6.4 %; Neutrophils # (auto) 3.31 K/uL (1.40-6.50); Neutrophils % (auto) 55.2 %; Platelet Count 227 K/uL (130-400); RDW Coefficient of Variation 14.4 % (11.5-14.5); RDW Standard Deviation 40.9 fL (36.4-46.3); Red Blood Count 4.75 M/uL (4.20-5.40); White Blood Count 5.98 K/ul (4.8-10.8)
[2023-12-09 18:03] LABS: Appearance Urine Cloudy (Clear); Bacteria Urine Automated None Seen (None Seen); Bilirubin Urine Negative (Negative); Blood Urine Negative (Negative); Cast Urine Automated 0-2 /lpf (0-2); Color Urine Yellow; Epithelial Cell Urine Auto 0-2 /hpf (0-2); Glucose Urine UA 3+ (Negative); Ketones Urine 1+ (Negative); Leukocyte Esterase Urine 2+ (Negative); Nitrite Urine Negative (Negative); Protein Urine Negative (Negative); RBC Urine Automated 0-2 /hpf (0-2); Specific Gravity Urine 1.021 (1.000-1.030); Urobilinogen Urine Negative (Negative); WBC Urine Automated >50 /hpf (0-5)
[2023-12-09 18:20] LABS: Albumin Level 3.9 gm/dl (3.4-5.0); BUN Creatinine Ratio 17.7 (10-20); Bilirubin,Total 0.6 mg/dl (0.2-1.0); Creatinine Clr Calc Pharmacy 80.1 ml/min; Est GFR (African American) 87.6 ml/min; Est GFR (Non-African American) 75.6 ml/min; Magnesium 1.8 mg/dl (1.7-2.4); Potassium 3.9 mmol/L (3.5-5.1); Total Protein 7.4 gm/dl (6.0-8.3)
[2023-12-09] MEDS ORDERED: GLUCAGON FOR INJ 1 MG VIAL SQ PRN (18:22)
[2023-12-09] MEDS ORDERED: CARBOHYDRATES FOR HYPOGLYCEMIA PO PRN (18:22)
[2023-12-09] MEDS ORDERED: GLUCOSE 10 TAB/TUBE PO PRN (18:22)
[2023-12-09] MEDS ORDERED: GLUCOSE 40% GEL 15 GM TUBE PO PRN (18:22)
[2023-12-09] MEDS ORDERED: DEXTROSE 50% 50 ML SYRINGE IV PRN (18:22)
[2023-12-09 18:27] LABS: Influenza A virus by PCR Negative (Neg); Influenza B virus by PCR Negative (Neg); RSV by PCR Negative (Neg); SARS CoV2 RNA(COVID-19) Ceph NEGATIVE (Negative)
[2023-12-09 18:27] LABS: Troponin I High Sensitivity 6.5 pg/ml (0-14)
[2023-12-09 18:31] LABS: Partial Thromboplastin Ratio 0.9; Partial Thromboplastin Time 24 Seconds (21-31); Prothrombin Time 10.4 Seconds (9.0-12.0)
[2023-12-09] MEDS: SODIUM CHLORIDE 0.9% 1,000 ML IV ONE (18:56)
[2023-12-09 18:57] LABS: Base Excess VBG -4.2 mEq/L; HCO3 VBG 20 mmol/L; Oxygen Saturation VBG 78.5 %; PCO2 VBG 34 mmHg (38-50); PO2 VBG 43 mmHg; pH VBG 7.38 (7.36-7.41)
[2023-12-09] MEDS ORDERED: PENDING 1/2NSS+20mEq KCL IVF SCH (19:00)
--- NOTE | 2023-12-09 19:04 | History & Physical Report ---
Date of Service December 09, 2023 Assessment & Plan (1) DKA (diabetic ketoacidosis): Plan: Admit to the PCU on telemetry and pulse oximetry Currently stable and nontoxic-appearing Presented to the ED with approximately 3 days of progressive dysuria, increased urinary frequency, abdominal pain, nausea/vomiting Noted to be in DKA with initial glucose of 568, anion gap of 15 with bicarb of 19, lactate of 6.4 with 1+ ketones in her urine Suspect her UTI is the insulting event Status post 2 L NSS prior to admission Insulin drip has been started with DKA protocol Started patient on 1L NSS with 40 mEq KCl as initial potassium was 3.9 VBG pH of 7.38 with pCO2 of 34 and pO2 of [address] abdomen pelvis with IV contrast for further evaluation to monitor for other sources of infection with her diarrhea and abdominal pain Pharmacy glycemic consult has been placed Continue to monitor every 4 hours VBG, BMP, mag, Phos SQ Lovenox for DVT prophylaxis N.p.o. with sips and chips until CT results are back and patient's nausea resolves AM CBC with ongoing trending BMP, mag, Phos, VBG (2) UTI (urinary tract infection): Plan: Patient has been experiencing dysuria and increased urinary frequency for the past 3 days UA notes cloudy urine with 2+ leukocyte Estrace and greater than 50 WBCs, negative bacteria and epithelial cells within normal limits Will follow CT abdomen pelvis with IV contrast as she may have a pyelitis or pyelonephritis with her increased urinary blood cells and other abdominal symptoms Status post 1 dose of cefepime in the ED, will continue ceftriaxone for now as she is without a history of resistant organisms Follow urine and blood cultures (3) Diarrhea: Plan: Patient has been having multiple episodes of nonbloody diarrhea over the past 2 days Will obtain stool studies Follow-up CT abdomen pelvis with IV contrast obtained at the time admission (4) Abdominal pain: Plan: Follow CT of the abdomen with IV contrast (5) Chest pain: Plan: Patient has been noting an acidic/burning epigastric and central chest pain since she started vomiting approximately 48 hours ago High-sensitivity troponin is within normal limits, no acute ST segment or T wave changes on EKG Likely due to reflux from history of GERD and recurrent emesis Will give 40 mg IV pantoprazole now and continue with 40 mg of pantoprazole daily until she is able to tolerate p.o. intake (6) Personality disorder: Plan: Continue prazosin, duloxetine Can put miscellaneous med order and if patient is able to bring in home Silvana to pronate and lemborexant (7) Inappropriate sinus tachycardia: Plan: Continue home metoprolol Plan The patient was discussed with Dr. Raza at the time of the admission History of Present Illness Chief Complaint: Dysuria, abd pain, nausea, vomiting, chest pain Primary Care Provider: Eugenie Falk MD Inga is a 38 year old female with a PMH significant for DM I, TERESITA, hypothyroid, bipolar, schizoaffective, PTSD, and sinus tachycardia who presented to [facility] ED on 12/09/2023 with complaints of dysuria, abdominal pain, vomiting, and chest pain which started approximately 3 days ago. On arrival to the ED she was noted to be hypertensive at 151/92, and sinus tachycardia with heart rate of 130, but otherwise stable. Labs were significant for a VBG pH of 7.38 with pCO2 of 34 and pO2 of 43, lactate of 6.4, initial glucose of here of 568 with corrected sodium of 131, anion gap of 15 with bicarb of 19, chloride of 90, UA with cloudy cloudy urine, 3+ glucose, 1+ ketones, 2+ leukocyte esterase, and greater than 50 WBCs, with COVID/influenza/RSV screens negative. Chest x-ray was read as negative for acute findings. ECG shows sinus tachycardia without acute ST segment or T wave changes. Prior to admission the patient was given a total of 2 L NSS, cefepime, 4 mL 4 mg IV Zofran, IV acetaminophen. Patient was laying in bed in no acute distress at time of exam. She explains that approximately 3 days ago she started develop dysuria and increased urinary frequency. She started develop generalized abdominal pain without radiation, multiple episodes of nonbloody emesis, resultant chest pain which she describes as feeling like her acid reflux. She did take her 86 units at bedtime Lantus last night and states that she took approximately 5 units of NovoLog with lunch earlier today. She was able to take her a.m. medications today. She states that this is her first episode of DKA as she is normally well-controlled with her insulin pump, however, her insulin pump broke approximately 6 months ago and she has been working with her insurance to obtain a new one which she should receive in the near future. When asked, patient states that she has not had a seizure since she was approximately 10 years old. She has not been on or required antiepileptic medication for many years. Please refer to Dr. Raza's attestation for any changes to the treatment plan Allergies Allergy/AdvReac Type Severity Reaction Status Date / Time pseudoephedrine AdvReac Intermediate nausea and Verified 12/09/23 19:18 vomiting Home Medications Medication Instructions Recorded Confirmed Type albuterol sulfate 90 mcg/actuation 1 - 2 puffs inhalation QID PRN 08/19/1912/08 Rx aerosol inhaler shortness of breath or wheezing #6.7 grams syringe with needle 3 mL 23 x 1" #1 ea 04/16/20 12/09/23 Rx (BD Eclipse Luer-Vipul) cetirizine 10 mg tablet 10 mg PO DAILY allergies 07/31/20 12/09/23 History rizatriptan 10 mg disintegrating 10 mg PO Q2H PRN migraine headache 10/12/20 12/09/23 Rx tablet #12 tabs cyanocobalamin (vitamin B-12) 1,000 mcg IM MONTHLY 6 months #6 mL 12/02/21 12/09/23 Rx 1,000 mcg/mL injection solution dicyclomine 10 mg capsule 10 mg PO BID PRN spasms #30 caps 12/30/21 12/09/23 Rx levothyroxine 175 mcg tablet 175 mcg PO QAM Hypothyroidism 30 01/03/22 12/09/23 Rx days #30 tabs topiramate 50 mg tablet 50 mg PO HS migraine 30 days #30 01/03/22 12/09/23 Rx tabs metoprolol succinate 50 mg 50 mg PO DAILY #30 tabs 02/03/22 12/09/23 Rx tablet,extended release 24 hr promethazine 12.5 mg tablet 12.5 mg PO Q8H PRN nausea and 02/08/22 12/09/23 Rx vomiting #10 tabs famotidine 40 mg tablet 40 mg PO HS GERD 30 days #30 tabs 02/18/22 12/09/23 Rx cholecalciferol (vitamin D3) 1,250 50,000 unit PO WK #12 caps 03/13/22 12/09/23 Rx mcg (50,000 unit) capsule cholecalciferol (vitamin D3) 50 50 mcg PO DAILY #90 caps 03/13/22 12/09/23 Rx mcg (2,000 unit) capsule rosuvastatin 10 mg tablet 10 mg PO DAILY #30 tabs 05/06/22 12/09/23 Rx omeprazole 40 mg capsule,delayed 40 mg PO DAILY GERD 30 days #30 06/13/22 12/09/23 Rx release caps pen needle, diabetic 32 gauge x #360 ea 12/11/22 12/09/23 Rx 5/32" (BD Sole 2nd Gen Pen Needle) blood-glucose meter #150 ea 12/19/22 12/09/23 Rx blood-glucose meter (OneTouch #1 ea 12/19/22 12/09/23 Rx Verio Reflect Meter) insulin syringe-needle U-100 1 mL #100 ea 12/19/22 12/09/23 Rx 31 gauge x 5/16" (BD Insulin Syringe Ultra-Fine) OneTouch Verio test strips (blood #150 ea 12/26/22 12/09/23 Rx sugar diagnostic) aripiprazole 400 mg suspension, 400 mg IM Q28D 12/26/22 12/09/23 History extended rel.intramuscular syringe (Tara Bazan) oxybutynin chloride 5 mg tablet 5 mg PO DAILY #30 tabs 01/29/23 12/09/23 Rx prazosin 1 mg capsule 1 mg PO HS 06/03/23 12/09/23 History acetone (urine) test (Ketostix #50 ea 08/07/23 12/09/23 Rx strips) blood-glucose sensor (Dexcom G7 #3 ea 09/04/23 12/09/23 Rx Sensor device) buspirone 10 mg tablet 10 mg PO BID 11/25/23 12/09/23 History duloxetine 30 mg capsule,delayed 30 mg PO HS 11/25/23 12/09/23 History release gabapentin 300 mg capsule See Rx Instructions .Route 11/25/23 12/09/23 History .COMPLEX diabetic neuropathy insulin glargine 100 unit/mL (3 86 unit subcut HS 11/25/23 12/09/23 History mL) subcutaneous pen (Lantus Solostar U-100 Insulin) lemborexant 10 mg tablet (Dayvigo) 10 mg PO HS 11/25/23 12/09/23 History lumateperone 42 mg capsule 42 mg PO HS 11/25/23 12/09/23 History (Caplyta) prazosin 2 mg capsule 2 mg PO HS 11/25/23 12/09/23 History trazodone 50 mg tablet 50 mg PO HS PRN Sleep 11/25/23 12/09/23 History insulin lispro 100 unit/mL 0 unit subcut TIDWMEAL 12/09/23 12/09/23 History subcutaneous pen (Humalog KwikPen (U-100) Insulin) Past Med/Surg History Problem List (Updated 12/10/23 @ 00:06 by Gabrielle Singh) Chest pain Abdominal pain Diarrhea UTI (urinary tract infection) DKA (diabetic ketoacidosis) Dietary counseling and surveillance Dysmetabolic syndrome X (Chronic) Hypothyroidism (Chronic) Meckel diverticulum (Chronic) 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) Obesity (Chronic) Vitamin B12 deficiency (Chronic) Vitamin D deficiency (Chronic) 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 Diabetic neuropathy (Chronic) Loss of protective sensation in feet PTSD (post-traumatic stress disorder) (Chronic) Depression (Chronic) 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 Diabetes type 1, uncontrolled (Chronic) T:slim insulin pump (currently not using due to insurance change and lack of supplies) Snoring Fatigue Organic periodic limb movement disorder H/O tonic-clonic seizures Migraine Moderate obstructive sleep apnea Nocturnal hypoxemia Schizoaffective disorder Inappropriate sinus tachycardia Esophageal reflux Mixed hyperlipidemia Urge incontinence Medical History Hyponatremia Acute hyponatremia Acute dehydration UTI (urinary tract infection) Diffuse abdominal pain Atypical chest pain Palpitations Noncompliance with medication regimen Depression with suicidal ideation Altered awareness, transient Gastritis Memory changes Black-out (not amnesia) Suicidal ideation Suspected 2019 novel coronavirus infection Abdominal pain JACKSON (nonalcoholic steatohepatitis) Chronic diarrhea History of anesthesia reaction with 1st "anesthesia began wearing off and could feel the surgery" Seizure grand mal--last was at 7yrs old--was on phenobarbital, no meds now--no neurologist Migraine Lung nodule seen on imaging study per pt on CT scan--just monitoring Tachycardia Headache Surgical History History of colonoscopy History of section x3 S/P cholecystectomy Previous section Family History Unknown FHx: kidney cancer Hyperlipidemia Lung cancer Hypertension Brother Marfan syndrome Congenital heart disease Father Stroke Family history of diabetes mellitus Myocardial infarction Mother Cancer Uterine cancer Stroke TIA (transient ischemic attack) Grandfather (Paternal) Family history of diabetes mellitus Uncle Family hx of colon cancer Colon cancer Colorectal cancer Aunt Breast cancer Son Crohn's disease, Onset Age: 2 Other No family history of adverse response to anesthesia Denies family history of Rheumatoid arthritis Pulmonary embolism Ulcerative colitis Social History Smoking Status: Never smoker Tobacco Type: Cigarettes Second Hand Exposure: No; Do You Dip or Chew Tobacco: No; Tobacco Cessation Education Requested by Patient: No Hx Alcohol Use: Yes Alcohol type: hard liquor Hx Substance Use: No Preferred Language: Norwegian Communication Ability: Effective Opal Polisher Required: No Beliefs That Will Affect Care: None marital status: Current Living Situation: Family Current Living Situation Comment: Lives with and 2 children within someone else's home current occupational status: employed Other Information That Helps Us Care for You: No Feels Safe at Home: Yes Safety Concerns: Feels Safe At This Time Childhood Exposure to Second-Hand Smoke: Yes Dental Care, Regularly: No Physical Activity Frequency: Daily Seatbelt Use: always Sunscreen Use: Yes Assistive Devices: Glasses Physical Exam Physical Exam: Physical Exam: General: In no acute distress, stated age, ill appearing but non-toxic HEENT: Normocephalic, atraumatic, no scleral icterus, pupils around round, symmetrical, and reactive to light, Dry mucus membranes, trachea midline, no thyromegaly Chest/Pulm: No respiratory distress, symmetrical chest expansion, clear breath sounds throughout Cardiac: tachycardic rate, regular rhythm, no murmurs noted Abdomen: Negative for ascites and bruising, normoactive bowel sounds, soft, non-tender to palpation throughout Musculoskeletal: Symmetrical and without signs of acute trauma, upper and lower extremities with full ROM, no atrophy, spasticity, or flaccidity Extremities: Radial, dorsalis pedis, and posterior tibial pulses are intact and symmetrical, no edema noted in the BL LE's Skin: Warm, dry, no rashes , lesions, or scars noted Neuro: Alert and oriented to person, place, month, year, and president, no focal defects, CN II-XII tested and intact, finger to nose test negative, no tremors noted Psych: No acute distress, calm and cooperative during the exam Results & Data Results & Data Vital Signs (Past 12 Hours) Vital Signs Temp Pulse Resp BP Pulse Ox O2 Del Method 12/09/23 18:33 118 H 15 140/90 98 12/09/23 18:24 120 H 15 113/94 98 12/09/23 18:09 119 H 15 144/97 H 98 12/09/23 17:21 120 H 12/09/23 16:53 36.1 C L 130 H 20 151/92 H 99 Room Air Laboratory Results Abnormal lab results 12/09/23 12/09/23 12/09/23 Range/Units 17:05 17:30 18:41 MCV 78.9 L (80.0-100.0) fL MPV 9.3 L (9.4-12.4) fL VBG pCO2 34 L (38-50) mmHg Sodium 124 L (136-145) mmol/L Chloride 90 L (98-107) mmol/L Carbon Dioxide 19 L (21-32) mmol/L Anion Gap 15 H (3-11) Glucose 568 H* (70-99(Fasting)) mg/dl POC Glucose (70-99) mg/dl Lactate 6.4 H* (0.4-2.0) mmol/L Urine Appearance Cloudy A (Clear) Urine Glucose (UA) 3+ H (Negative) Urine Ketones 1+ H (Negative) Ur Leukocyte Esterase 2+ H (Negative) Urine WBC (Auto) >50 H (0-5) /hpf 12/09/23 Range/Units 19:13 MCV (80.0-100.0) fL MPV (9.4-12.4) fL VBG pCO2 (38-50) mmHg Sodium (136-145) mmol/L Chloride (98-107) mmol/L Carbon Dioxide (21-32) mmol/L Anion Gap (3-11) Glucose (70-99(Fasting)) mg/dl POC Glucose 483 H* (70-99) mg/dl Lactate (0.4-2.0) mmol/L Urine Appearance (Clear) Urine Glucose (UA) (Negative) Urine Ketones (Negative) Ur Leukocyte Esterase (Negative) Urine WBC (Auto) (0-5) /hpf Diagnostic Findings Chest X-Ray 12/09/23 16:58 SINGLE VIEW CHEST CLINICAL HISTORY: Sepsis FINDINGS: An AP, portable, upright chest radiograph is compared to study dated 11/25/[address] dated 08/03/2015. The cardiomediastinal silhouette is unremarkable. There are low lung volumes with dependent atelectasis. The lungs and pleural spaces are otherwise clear. No pneumothorax is seen. The bony thorax is grossly intact. IMPRESSION: No active disease in the chest. ACT 112: Negative or not required by law. Electronically signed by: Bairon Hagen M.D. 12/09/2023 5:48 PM ECG Additional Comments: Sinus tachycardia without acute ST segment or T wave changes Code Status & VTE Plan Code Status Full code VTE Prophylaxis Plan VTE Prophylaxis will be ordered: Yes Supervising Physician Co-Signing Physician Notes Attending addendum: I have physically seen this patient, have supervised the RENETTA's activities, and agree with the H&P unless as otherwise noted. Assessment and Plan: DKA- Admitting to PCU Upon admission, glucose 568, sodium 124, lactate 6.4, and anion gap 15 Likely secondary to UTI/ureteritis Insulin drip per DKA protocol IV fluids as noted Serial VBG, BMP, magnesium and phosphorus levels every 4 hours Pharmacy glycemic consult UTI/ureteritis- As noted on CT scan abdomen and pelvis Follow urine culture and sensitivity Follow blood culture and sensitivity Ceftriaxone 2 g IV daily IV fluids as noted Diarrhea- Stool PCR and C. difficile studies pending IV fluids as noted GERD/epigastric pain- Pantoprazole 40 mg IV now and daily Personality disorder- Continue usual medications PG Care Time/CCT Total # of Minutes Spent Total Time Spent with Patient: Total time spent is greater than 50% in coordination of care (as documented) at patient's floor/unit and/or counseling patient: Coding [place] [address] INT INP/OBS CARE 3/75MIN Patient Type Established Medical Decision Making High Complexity Diagnoses DKA (diabetic ketoacidosis) E11.10 UTI (urinary tract infection) N30.00 Hematuria presence: without hematuria Urinary tract infection type: acute cystitis Diarrhea R19.7 Abdominal pain R10.9 Chest pain R07.9 Personality disorder F60.9 Inappropriate sinus tachycardia R00.0 (2) UTI (urinary tract infection) Hematuria presence: without hematuria Urinary tract infection type: acute cystitis Qualified Code(s): N30.00 - Acute cystitis without hematuria
[2023-12-09] MEDS ORDERED: SODIUM CHLOR 0.45% + 20MEQ KCL 20 MEQ/1,000 ML BAG IV SCH (19:15)
[2023-12-09] MEDS: DKA GOAL RANGE 150-250 mg/dl ONE (19:16)
[2023-12-09] MEDS: STAT IV Infusion **Titration per Protocol STA (19:17)
[2023-12-09] MEDS: LACTATED RINGER'S 1,000 ML IV SCH (19:17)
[2023-12-09] MEDS: PENDING D5 1/2NS+20mEq KCL IVF SCH (19:18)
[2023-12-09] MEDS: POTASSIUM CHLORIDE / WTR 10 MEQ/100 ML PLCT IV SCH (19:25)
[2023-12-09] MEDS: OPTIRAY 320 100ml IV ONE (19:32)
[2023-12-09] MEDS: PANTOprazole 40 MG in SYRINGE 0 ML IV ONE (19:44)
[2023-12-09] MEDS: POTASSIUM CHLORIDE 40 MEQ in SODIUM CHLORIDE 0.45 % 1,000 ML IV SCH (19:49)
[2023-12-09] MEDS: NovoLIN-R BOLUS FROM BAG IV ONE (19:53)
[2023-12-09] MEDS: INSULIN REGULAR 250 UNITS in SODIUM CHLORIDE 0.9% 247.5 ML IV SCH (19:53)
--- NOTE | 2023-12-09 20:33 | CT Scan Report ---
Exam(s): CT ABDOMEN + PELVIS With Contrast IV Amt: 93 ml optiray 320 EXAM: CT Abdomen and Pelvis With Intravenous Contrast CLINICAL HISTORY: Reason for exam: DKA, lactate 6.4, abd pain, diarrhea, UTI. TECHNIQUE: Axial computed tomography images of the abdomen and pelvis with intravenous contrast. CTDI is 26.93 mGy and DLP is 1348.63 mGy-cm. Automated exposure control was utilized for the study. A dose lowering technique was utilized adhering to the principles of ALARA. CONTRAST: Patient received 93 ml optiray 320 of IV contrast COMPARISON: CT February 06, 2022 FINDINGS: ABDOMEN: Liver: Liver is enlarged measuring 23 cm. No focal lesion. Gallbladder and bile ducts: Cholecystectomy. No biliary dilatation. Pancreas: Unremarkable. Spleen: Spleen mildly enlarged measuring 14 cm. Adrenals: Unremarkable. Kidneys and ureters: Mild urothelial thickening along the ureters consistent with ureteritis. Normal enhancement of the kidneys. No hydronephrosis. Stomach and bowel: Unremarkable. PELVIS: Appendix: Normal appendix. Bladder: Unremarkable appearance of the bladder. Reproductive: Unremarkable as visualized. ABDOMEN and PELVIS: Intraperitoneal space: Unremarkable. No free air. No significant fluid collection. Bones/joints: No acute fracture. Soft tissues: Unremarkable. Vasculature: Unremarkable. Lymph nodes: Unremarkable. IMPRESSION: 1. Mild urothelial thickening along the ureters consistent with ureteritis. No evidence of pyelonephritis. 2. Hepatomegaly. Electronically signed by: Maged Bustamante MD 12/09/23 20:32 PM
[2023-12-09] MEDS: PRAZOSIN HCL 1 MG CAP PO SCH (21:39)
[2023-12-09] MEDS: DULoxetine HCL 30 MG CAP PO SCH (21:40)
[2023-12-09] MEDS: busPIRone 5 MG TAB PO SCH (21:40)
[2023-12-09] MEDS: ENOXAPARIN INJ 40 MG/0.4 ML SYR SQ SCH (21:41)
[2023-12-09] MEDS: traZODone HCL 50 MG TAB PO PRN (21:47)
[2023-12-09] MEDS: INSULIN ASPART PER UNIT CHARGE SC SCH (21:54)
[2023-12-09 23:15] LABS: BUN Creatinine Ratio 20.3 (10-20); Calcium 8.1 mg/dl (8.6-10.3); Creatinine Clr Calc Pharmacy 120.8 ml/min; Est GFR (African American) 132.1 ml/min; Phosphorus 2.5 mg/dl (2.5-4.9); Potassium 3.7 mmol/L (3.5-5.1)
[2023-12-10] MEDS: ONDANSETRON INJ 2 MG/ML 2 ML VIAL IV PRN (00:10)
[2023-12-10] MEDS: cefTRIAXone SODIUM 2,000 MG/50 ML BAG IV SCH (00:11)
[2023-12-10] MEDS: MoRPHine SULFATE 4 MG/ML 1 ML CARP\\VIAL IV PRN (00:50)
[2023-12-10 02:57] LABS: BUN Creatinine Ratio 16.7 (10-20); Calcium 7.8 mg/dl (8.6-10.3); Creatinine Clr Calc Pharmacy 128.9 ml/min; Est GFR (Non-African American) 116.4 ml/min; Potassium 3.4 mmol/L (3.5-5.1)
[2023-12-10] MEDS: D5W AND 1/2NSS + 20MEQ KCL 20 MEQ/1,000 ML BAG IV SCH (02:58)
[2023-12-10 03:43] LABS: Hematocrit (blood only) 32.4 % (37.0-47.0); Hemoglobin 10.8 g/dl (12.0-16.0); Mean Corpuscular Hemoglobin 26.4 pg (25.0-34.0); Mean Corpuscular Hgb Conc 33.3 g/dL (32.0-36.0); Mean Corpuscular Volume 79.2 fL (80.0-100.0); Mean Platelet Volume 9.7 fL (9.4-12.4); Platelet Count 193 K/uL (130-400); RDW Coefficient of Variation 14.1 % (11.5-14.5); RDW Standard Deviation 40.4 fL (36.4-46.3); Red Blood Count 4.09 M/uL (4.20-5.40); White Blood Count 5.03 K/ul (4.8-10.8)
[2023-12-10 04:24] LABS: Basophils # (auto) 0.04 K/uL (0.00-0.20); Basophils % (auto) 0.8 %; Eosinophils # (auto) 0.08 K/uL (0.00-0.50); Eosinophils % (auto) 1.6 %; Immature Granulocytes # (auto) 0.01 K/uL (0.01-0.20); Immature Granulocytes % (auto) 0.2 %; Lymphocytes # (auto) 2.54 K/uL (1.20-3.40); Lymphocytes % (auto) 50.5 %; Monocytes # (auto) 0.34 K/uL (0.11-0.59); Monocytes % (auto) 6.8 %; Neutrophils # (auto) 2.02 K/uL (1.40-6.50); Neutrophils % (auto) 40.1 %
[2023-12-10] MEDS: LEVOTHYROXINE SODIUM 175 MCG TABLET PO SCH (06:33)
[2023-12-10] MEDS: KETOROLAC TROMETHAMINE 15 MG/ML VIAL IV PRN (06:36)
[2023-12-10] MEDS: FAMOTIDINE 20MG IV PUSH 20 MG/5 ML SYR IV SCH (06:56)
[2023-12-10 07:54] LABS: Calcium 7.6 mg/dl (8.6-10.3); Creatinine Clr Calc Pharmacy 128.9 ml/min; Est GFR (Non-African American) 116.4 ml/min; Phosphorus 3.1 mg/dl (2.5-4.9); Potassium 3.6 mmol/L (3.5-5.1)
[2023-12-10 09:00] LABS: Estimated Average Glucose 246 mg/dl; Hemoglobin A1C 10.2 % (4.5-5.6)
[2023-12-10] MEDS: METOPROLOL SUCC 50MG EXT REL TAB PO SCH (09:03)
[2023-12-10] MEDS: PANTOprazole 40 MG in SYRINGE 0 ML IV SCH (10:43)
[2023-12-10] MEDS ORDERED: PHARMACY GLYCEMIC MGMT CONSULT PRN (10:52)
[2023-12-10 11:01] LABS: BUN Creatinine Ratio 13.1 (10-20); Calcium 7.7 mg/dl (8.6-10.3); Creatinine Clr Calc Pharmacy 126.7 ml/min; Est GFR (African American) 134.2 ml/min; Est GFR (Non-African American) 115.8 ml/min; Phosphorus 2.8 mg/dl (2.5-4.9); Potassium 3.9 mmol/L (3.5-5.1)
[2023-12-10] MEDS ORDERED: NSS + 20MEQ KCL 20 MEQ/1,000 ML BAG IV SCH (11:30)
--- NOTE | 2023-12-10 11:30 | Electrocardiogram Report ---
Test Reason : Blood Pressure : */* mmHG Vent. Rate : 121 BPM Atrial Rate : 121 BPM P-R Int : 130 ms QRS Dur : 74 ms QT Int : 344 ms P-R-T Axes : 30 85 29 degrees QTcB Int : 488 ms Sinus tachycardia Otherwise normal ECG When compared with ECG of 25-Nov-2023 19:38, No significant change was found Confirmed by Eliud Torres ([id number]) on 12/10/2023 11:29:56 AM Referred By: REFERRED SELF Confirmed By: Eliud Torres
[2023-12-10] MEDS: LANTUS PER UNIT CHARGE SQ ONE ×2 (11:43→21:06)
[2023-12-10] MEDS ORDERED: Continuous Glucose Monitor SCH (11:45)
[2023-12-10] MEDS: SODIUM CHLOR 0.45% + 20MEQ KCL 20 MEQ/1,000 ML BAG IV SCH (11:57)
--- NOTE | 2023-12-10 14:13 | Pharmacy Report ---
Pharmacy Glycemic Short Note 2 - Date of Service December 10, 2023 - Glycemic Short BSG Results (Last 24 hours): 12/09/23 12/09/23 12/09/23 17:30 19:13 21:02 Glucose 568 H* POC Glucose 483 H* 377 H* 12/09/23 12/09/23 12/09/23 22:01 22:28 23:07 Glucose 295 H POC Glucose 315 H* 307 H* 12/10/23 12/10/23 12/10/23 00:03 01:01 02:01 Glucose POC Glucose 247 H 221 H 180 H 12/10/23 12/10/23 12/10/23 02:17 03:00 04:02 Glucose 161 H POC Glucose 159 H 179 H 12/10/23 12/10/23 12/10/23 05:02 06:47 07:02 Glucose 177 H POC Glucose 174 H 182 H 12/10/23 12/10/23 12/10/23 08:55 10:24 10:54 Glucose 185 H POC Glucose 186 H 177 H OUTPATIENT ANTIDIABETIC REGIMEN: * Lantus 86 units SQ HS * Humalog SS CF 10 CR 4 (MAX TDD 120 units) * HbA1c 10.2% (12/10/23) ASSESSMENT: * Inga is a 38 YOF admitted with UTI symptoms with a history of T1DM found to be in DKA upon admission. Pharmacy has been consulted to assist with glycemic management. She is typically maintained on an insulin pump, however is having issues obtaining supplies per H&P so she is currently using SQ insulin at home. * Upon admission, BSG 568, AG elevated at 15, low CO2 at 19. Decision was made to begin and insulin infusion. BSGs trended down overnight and labs normalized this AM. Discussed with Dr. Mariola conley at this time to transition back to SQ insulin. Clear liquid diet ordered. Dextrose fluids discontinued. * She received approximately 45 units of insulin in 12 hours, will give approximately half of estimated total daily requirement as basal now (also approximately half of her home regimen). Will add a Lantus scale at bedtime based on BSG, with a goal of 80% her home dose reduced for low BSG and increased for elevated BSGs. Will aim to give full Lantus dose at normal bedtime tomorrow night. * Novolog initiated at home parameters PLAN FOR INPATIENT GLYCEMIC CONTROL: * Hold outpatient oral diabetes medications * Basal insulin * Lantus 40 units SQ now x1 * Lantus 20-40 units * Bolus insulin * NovoLog per scale ACHS or Q6hrs while NPO * Goal Range: Low 110 mg/dL - High 150 mg/dL * Correction Factor: 10 mg/dL/unit * Nutritional / Prandial insulin per carb ratio of 1 unit per 4 grams CHO consumed
[2023-12-10] MEDS: RIZATRIPTAN BENZOATE MLT 10 MG TAB PO PRN (14:47)
[2023-12-10] MEDS: CETIRIZINE HCL 10 MG TABLET PO SCH (14:47)
[2023-12-10] MEDS: ACETAMINOPHEN 1,000 MG/100 ML VIAL IV PRN (14:50)
[2023-12-10 15:33] LABS: BUN Creatinine Ratio 10.2 (10-20); Calcium 7.5 mg/dl (8.6-10.3); Est GFR (African American) 135.7 ml/min; Est GFR (Non-African American) 117.1 ml/min; Phosphorus 2.1 mg/dl (2.5-4.9); Potassium 3.9 mmol/L (3.5-5.1)
--- NOTE | 2023-12-10 15:59 | Hospitalist Progress Note ---
Date of Service December 10, 2023 Assessment & Plan (1) DKA (diabetic ketoacidosis): (2) UTI (urinary tract infection): (3) Diarrhea: (4) Abdominal pain: (5) Migraine: (6) Esophageal reflux: (7) Schizoaffective disorder: Plan #DKA Gap closed Pharmacy glycemic protocol Electrolytes acceptable Continue IVF KCL/NSS @150cc/hr f/u BMP, Mg, phos am advance diet as tolerated #UTI UCx with 3+ organisms, all high counts Cont CTX 2g q24h Blood Cx pending #Abdominal Pain/Diarrhea resolved since admission #GERD Protonix 40mg daily Famotidine 20mg BID #Migraine Topamax 50mg HS rizatriptan PRN #Schizoaffective disorder Buspirone Duloxetine Trazodone Can restart Dayvigo, Caplyta if pt can have home supply delivered FENGI: DMI, advance as tolerated Code status: full DVT prophylaxis: lovenox Isolation: none Disposition: PCU Admission and Anticipated Discharge Date Admission Date: December 09, 2023 Supervising Physician Co-Signing Physician Notes I personally examined the patient and verified harper points of history and exam, discussed case, and agree with decision making and plan documented by Dr. Garnett. Patient is a 38-year-old female with a past medical history of T1DM, hypothyroidism, TERESITA, schizoaffective disorder, bipolar disorder, PTSD, and sinus tachycardia, on admission for DKA. Patient with improved glycemic control during hospitalization so far, she is feeling much better. We discussed importance of connecting with endocrinology who is assisting patient in getting back on her pump. Unfortunately it seems that a urinary infection is contributing to this presentation, multiple organisms on Ucx. Patient is on ceftriaxone. Blood cultures pending. Subjective Patient seen and evaluated at bedside this morning. No acute events overnight. Patient complaining of GERD symptoms. Otherwise feeling greatly improved. Nausea improved. No BM since admission. Review of Systems Review of Systems: reviewed, per HPI Physical Exam Physical Exam: Constitutional: well-appearing, no acute distress HEENT: NCAT, no conjunctival injection CV: clinically well perfused Resp: no increased work of breathing GI: nondistended, nontender MSK: no gross deformities appreciated Skin: warm, dry, no rash appreciated Neuro: alert, oriented, no focal neurologic deficit appreciated Results & Data Results & Data Vital Signs (Past 12 Hours) Vital Signs Temp Pulse Pulse Resp BP BP Pulse Ox 12/10/23 14:55 36.5 C 90 19 115/79 96 12/10/23 12:59 95 H 12/10/23 10:50 36.7 C 88 17 96/64 L 96 12/10/23 07:16 36.6 C 100 H 18 100/67 98 12/10/23 05:46 96 H O2 Del Method 12/10/23 14:55 Room Air 12/10/23 12:59 12/10/23 10:50 Room Air 12/10/23 07:16 Room Air 12/10/23 05:46 Resident Activity Tracking Resident Involvement: Resident Care Provided Care Provided: Adult Hospital Medicine (2) UTI (urinary tract infection) Hematuria presence: without hematuria Urinary tract infection type: acute cystitis Qualified Code(s): N30.00 - Acute cystitis without hematuria
[2023-12-10] MEDS: DC IV INSULIN INFUSION 1 EA DEVI ONE (17:01)
[2023-12-10] MEDS: INSULIN ASPART PER UNIT CHARGE SC SCH (17:46)
[2023-12-10 18:14] LABS: Adenovirus F 40/41 PCR Not Detected (NotDetected); Astrovirus PCR Not Detected (NotDetected); Campylobacter PCR Not Detected (NotDetected); Cryptosporidium PCR Not Detected (NotDetected); Cyclospora cayetanensis PCR Not Detected (NotDetected); Entamoeba histolytica PCR Not Detected (NotDetected); Enteroaggregative E.coli(EAEC) Not Detected (NotDetected); Enteropathogenic E.coli (EPEC) Not Detected (NotDetected); Enterotoxigenic E.coli (ETEC) Not Detected (NotDetected); Giardia lamblia PCR Not Detected (NotDetected); Norovirus GI/GII PCR Not Detected (NotDetected); Plesiomonas shigelloides PCR Not Detected (NotDetected); Rotavirus A PCR Not Detected (NotDetected); Salmonella PCR Not Detected (NotDetected); Sapovirus PCR Not Detected (NotDetected); Shiga-like Toxin E.coli (STEC) Not Detected (NotDetected); Shigella/Enteroinvasive E.coli Not Detected (NotDetected); Vibrio cholerae PCR Not Detected (NotDetected); Vibrio species PCR Not Detected (NotDetected); Yersinia enterocolitica PCR Not Detected (NotDetected)
[2023-12-10 18:50] LABS: BUN Creatinine Ratio 6.8 (10-20); Calcium 7.7 mg/dl (8.6-10.3); Creatinine Clr Calc Pharmacy 104.5 ml/min; Est GFR (Non-African American) 103.5 ml/min; Phosphorus 2.5 mg/dl (2.5-4.9); Potassium 4.1 mmol/L (3.5-5.1)
[2023-12-10] MEDS: TOPIRAMATE 50 MG TAB PO SCH (20:51)
[2023-12-11 01:25] LABS: BUN Creatinine Ratio 8.3 (10-20); Calcium 7.8 mg/dl (8.6-10.3); Creatinine Clr Calc Pharmacy 107.4 ml/min; Phosphorus 2.1 mg/dl (2.5-4.9); Potassium 3.7 mmol/L (3.5-5.1)
[2023-12-11 05:23] LABS: Basophils # (auto) 0.02 K/uL (0.00-0.20); Basophils % (auto) 0.6 %; Eosinophils # (auto) 0.06 K/uL (0.00-0.50); Eosinophils % (auto) 1.7 %; Hematocrit (blood only) 31.7 % (37.0-47.0); Hemoglobin 10.2 g/dl (12.0-16.0); Immature Granulocytes # (auto) 0.01 K/uL (0.01-0.20); Immature Granulocytes % (auto) 0.3 %; Lymphocytes # (auto) 1.45 K/uL (1.20-3.40); Lymphocytes % (auto) 40.4 %; Mean Corpuscular Hemoglobin 26.2 pg (25.0-34.0); Mean Corpuscular Hgb Conc 32.2 g/dL (32.0-36.0); Mean Corpuscular Volume 81.3 fL (80.0-100.0); Mean Platelet Volume 9.5 fL (9.4-12.4); Monocytes # (auto) 0.21 K/uL (0.11-0.59); Monocytes % (auto) 5.8 %; Neutrophils # (auto) 1.84 K/uL (1.40-6.50); Neutrophils % (auto) 51.2 %; Platelet Count 155 K/uL (130-400); RDW Coefficient of Variation 14.6 % (11.5-14.5); RDW Standard Deviation 42.5 fL (36.4-46.3); White Blood Count 3.59 K/ul (4.8-10.8)
[2023-12-11 08:02] LABS: BUN Creatinine Ratio 8.2 (10-20); Calcium 7.8 mg/dl (8.6-10.3); Creatinine Clr Calc Pharmacy 126.5 ml/min; Est GFR (African American) 134.2 ml/min; Est GFR (Non-African American) 115.8 ml/min; Potassium 4.1 mmol/L (3.5-5.1)
[2023-12-11 08:08] VITALS: RESP 18
[2023-12-11] MEDS: LANTUS PER UNIT CHARGE SC ONE (08:45)
--- NOTE | 2023-12-11 11:37 | Pharmacy Report ---
Pharmacy Glycemic Short Note 2 - Date of Service December 11, 2023 - Glycemic Short BSG Results (Last 24 hours): 12/10/23 12/10/23 12/10/23 14:18 14:58 16:03 Glucose 205 H POC Glucose 170 H 125 H 12/10/23 12/10/23 12/10/23 18:00 20:09 22:36 Glucose 169 H 128 H POC Glucose 158 H 12/11/23 12/11/23 07:28 07:51 Glucose 185 H POC Glucose 201 H OUTPATIENT ANTIDIABETIC REGIMEN: * Lantus 86 units SQ HS * Humalog SS CF 10 CR 4 (MAX TDD 120 units) * HbA1c 10.2% (12/10/23) ASSESSMENT: 12/10: * Inga received 91 units of insulin yesterday (70 were basal) plus ~60 units from the insulin drip. * Drip transition successful yesterday, BSGs well controlled yesterday evening. * Fasting BSG this AM elevated, will increase goal basal dosage ~10% (reduce 10% if BSG low, or increase 10% if BSG high. Received at 20% reduction yesterday in precaution if oral intake was reduced. Small AM basal dose to help with elevated BSG, aim to transition completely back to bedtime dosing as patient does outpatient. * No changes to Novolog at this time. She continues on ceftriaxone, no other glycemic stressors noted. 12/09: * Inga is a 38 YOF admitted with UTI symptoms with a history of T1DM found to be in DKA upon admission. Pharmacy has been consulted to assist with glycemic management. She is typically maintained on an insulin pump, however is having issues obtaining supplies per H&P so she is currently using SQ insulin at home. * Upon admission, BSG 568, AG elevated at 15, low CO2 at 19. Decision was made to begin and insulin infusion. BSGs trended down overnight and labs normalized this AM. Discussed with Dr. Mariola conley at this time to transition back to SQ insulin. Clear liquid diet ordered. Dextrose fluids discontinued. * She received approximately 45 units of insulin in 12 hours, will give approximately half of estimated total daily requirement as basal now (also approximately half of her home regimen). Will add a Lantus scale at bedtime based on BSG, with a goal of 80% her home dose reduced for low BSG and increased for elevated BSGs. Will aim to give full Lantus dose at normal bedtime tomorrow night. * Novolog initiated at home parameters PLAN FOR INPATIENT GLYCEMIC CONTROL: * Hold outpatient oral diabetes medications * Basal insulin * Lantus 10 units SQ x1 this morning * Lantus 70-90 units SQ HS (see eMAR for additonal details) * Bolus insulin * NovoLog per scale ACHS or Q6hrs while NPO * Goal Range: Low 110 mg/dL - High 150 mg/dL * Correction Factor: 10 mg/dL/unit * Nutritional / Prandial insulin per carb ratio of 1 unit per 4 grams CHO consumed
[2023-12-11 11:41] VITALS: TEMP 97.9; O2SAT 96
--- NOTE | 2023-12-11 14:55 | Discharge Summary ---
Date of Service December 11, 2023 Admission HPI Per Admitting Provider Inga is a 38 year old female with a PMH significant for DM I, TERESITA, hypothyroid, bipolar, schizoaffective, PTSD, and sinus tachycardia who presented to [facility] ED on 12/09/2023 with complaints of dysuria, abdominal pain, vomiting, and chest pain which started approximately 3 days ago. On arrival to the ED she was noted to be hypertensive at 151/92, and sinus tachycardia with heart rate of 130, but otherwise stable. Labs were significant for a VBG pH of 7.38 with pCO2 of 34 and pO2 of 43, lactate of 6.4, initial glucose of here of 568 with corrected sodium of 131, anion gap of 15 with bicarb of 19, chloride of 90, UA with cloudy cloudy urine, 3+ glucose, 1+ ketones, 2+ leukocyte esterase, and greater than 50 WBCs, with COVID/influenza/RSV screens negative. Chest x-ray was read as negative for acute findings. ECG shows sinus tachycardia without acute ST segment or T wave changes. Prior to admission the patient was given a total of 2 L NSS, cefepime, 4 mL 4 mg IV Zofran, IV aceta minophen. Patient was laying in bed in no acute distress at time of exam. She explains that approximately 3 days ago she started develop dysuria and increased urinary frequency. She started develop generalized abdominal pain without radiation, multiple episodes of nonbloody emesis, resultant chest pain which she describes as feeling like her acid reflux. She did take her 86 units at bedtime Lantus last night and states that she took approximately 5 units of NovoLog with lunch earlier today. She was able to take her a.m. medications today. She states that this is her first episode of DKA as she is normally well-controlled with her insulin pump, however, her insulin pump broke approximately 6 months ago and she has been working with her insurance to obtain a new one which she should rec eive in the near future. When asked, patient states that she has not had a seizure since she was approximately 10 years old. She has not been on or required antiepileptic medication for many years. Please refer to Dr. Raza's attestation for any changes to the treatment plan Admission Exam Per Admitting Provider General: In no acute distress, stated age, ill appearing but non-toxic HEENT: Normocephalic, atraumatic, no scleral icterus, pupils around round, sym metrical, and reactive to light, Dry mucus membranes, trachea midline, no thyromegaly Chest/Pulm: No respiratory distress, symmetrical chest expansion, clear breath sounds throughout Cardiac: tachycardic rate, regular rhythm, no murmurs noted Abdomen: Negative for ascites and bruising, normoactive bowel sounds, soft, non- tender to palpation throughout Musculoskeletal: Symmetrical and without signs of acute trauma, upper and lower extremities with full ROM, no atrophy, spasticity, or flaccidity Extremities: Radial, dorsalis pedis, and posterior tibial pulses are intact and symmetrical, no edema noted in the BL LE's Skin: Warm, dry, no rashes , lesions, or scars noted Neuro: Alert and oriented to person, place, month, year, and president, no focal defects, CN II-XII tested and intact, finger to nose test negative, no tremors noted Psych: No acute distress, calm and cooperative during the exam Principal Diagnosis UTI, DKA Discharge Exam Constitutional: well-appearing, no acute distress HEENT: NCAT, no conjunctival injection CV: clinically well perfused Resp: no increased work of breathing GI: nondistended, nontender MSK: no gross deformities appreciated Skin: warm, dry, no rash appreciated Neuro: alert, oriented, no focal neurologic deficit appreciated Discharge Data Allergies Allergy/AdvReac Type Severity Reaction Status Date / Time pseudoephedrine AdvReac Intermediate nausea and Verified 12/09/23 19:18 vomiting Consultations 12/09/23 19:38 ED Decision to Admit Stat Ordered Studies 12/09/23 19:14 CT abd pelvis IV con only Stat Hospital Course (1) DKA (diabetic ketoacidosis): (2) UTI (urinary tract infection): (3) Diarrhea: (4) Abdominal pain: (5) Migraine: (6) Esophageal reflux: (7) Schizoaffective disorder: Plan #DKA Gap closed Electrolytes acceptable Tolerating regular diet at discharge Resume HS insulin at 90 units daily at discharge Follow up with endocrinology scheduled 12/17/23 @ 9:00 #UTI UCx with 3+ organisms, all high counts Rec'd two doses CTX 2g q24h Blood Cx negative at 24hrs Discharged with 5 days cefdinir 300mg BID #Abdominal Pain/Diarrhea abdominal pain resolved mild diarrhea on discharge, stool PCR negative #GERD Resume usual home medications #Migraine Resume usual home medications #Schizoaffective disorder Buspirone, Duloxetine, Trazodone provided inpatient Dayvigo, Caplyta held because non-formulary Total Time Total Time Spent Total Time Spent (In Minutes): see attending documentation Discharge Plan Discharge Items Patient Disposition: Home - Self-Care Reason For Visit: UTI, DKA, DIARRHEA Discharge Diagnosis: UTI, DKA Condition on Discharge: Good Activity: Resume your previous activity Activity Comment: as tolerated Non-emergency contact: Primary Care Provider and Specialist Call non-emergency contact if: you have any medication questions, your symptoms worsen and you have a fever Follow-up/Referrals: Daniel Bates MD [Physician] - 12/17/23 9:00 am Eugenie Falk MD [Primary Care Provider] - Diet: Carb Count or DM1 Addtl Attending Provider Instructions: You were admitted to the hospital for UTI symptoms. You were found to be in DKA and to have a urinary tract infection. You were treated with insulin and fluids to correct your DKA. You were treated with antibiotics to treat your UTI. You will continue to take antibiotics for 5 days after discharge. You should take your first dose of antibiotics tomorrow morning. You should resume taking your insulin at night as usual. It is suggested that you increase your insulin dose to 90 units in the evening. Continue to check your blood sugar in the morning. If it is greater than 150, you should increase your insulin dose by 4 units every 4 days. A discharge summary will be sent to your primary care physician to ensure continuity of care. Please bring this discharge summary with you to your next o ffice appointment so that your provider can review it at that time. Follow-up appointments: Make a follow-up appointment with your PCP within the next week. It is very important that you follow up with them shortly after discharge from the hospital. You have an appointment with Dr. Bates on 12/17/23 at 9:00am. If you are unable to make this appointment, or have any other questions, their office can be reached at . Keep all your follow-up appointments as already scheduled. If you cannot make an appointment, notify your provider. Medications: Your medication list has been reviewed and reconciled upon discharge to ensure accuracy and continuity of care. An updated list of all your medications is included with your hospital discharge paperwork. Please review this list closely, and make note of any changes. We sent a new medication called cefdinir to your pharmacy. Take cefdinir (300mg) one tablet twice daily for 5 days. You should take your first dose tomorrow morning You should start to take 90 units of insulin daily until your follow up with endocrinology. If you have any issues filling these prescriptions, please call [phone] and ask to leave a message for Dr. Roderick Garnett. Take your medications as instructed; do not skip a dose of your medicines. Make sure all of your doctors know every medicine you are taking (including ov wf-res-cylarui medicines, vitamins, and supplements). Call your primary care provider before taking any new medicines (including mnju-ncy-pkcmxhd medicines, vitamins, and supplements), because some of these may interact with your current medications, or may make your symptoms worse. Tell your primary care provider if you cannot afford your medications. CONTACT YOUR PRIMARY CARE PROVIDER if you experience any of the following: Increased nausea, vomiting, or diarrhea Your UTI symptoms do not resolve Difficulty following your treatment plan, or difficulty taking medications CALL 911 OR GO TO THE EMERGENCY DEPARTMENT if you experience any of the following: Sudden, severe abdominal pain or nausea/vomiting Severe chest pain, or chest pain that radiates (moves) to your jaw or arm Sudden, severe shortness of breath or difficulty breathing Thank you for allowing us to participate in your care. Pending Studies at Discharge: No Stand-Alone Forms: My [facility] Medications and DC Order Prescriptions: New cefdinir 300 mg capsule 300 mg PO BID 5 Days Qty: 10 0RF Rx Instructions: Take first dose 12/12/23 in the morning. Continued (DME) BD Eclipse Luer-Vipul 3 mL 23 x 1" syringe See Rx Instructions .ROUTE .MEDSUPPLY Qty: 1 5RF Rx Instructions: test 4 times daily cyanocobalamin (vitamin B-12) 1,000 mcg/mL solution 1,000 mcg IM MONTHLY 180 Days Qty: 6 1RF Rx Instructions: Takes beginning of month dicyclomine 10 mg capsule 10 mg PO BID PRN (Reason: spasms) Qty: 30 1RF topiramate 50 mg tablet 50 mg PO HS 30 Days Qty: 30 5RF Hold Instructions: not taking levothyroxine 175 mcg tablet 175 mcg PO QAM 30 Days Qty: 30 5RF famotidine 40 mg tablet 40 mg PO HS 30 Days Qty: 30 11RF cholecalciferol (vitamin D3) 1,250 mcg (50,000 unit) capsule 50,000 unit PO WK Qty: 12 3RF Rx Instructions: MONDAYS cholecalciferol (vitamin D3) 50 mcg (2,000 unit) capsule 50 mcg PO DAILY Qty: 90 3RF Rx Instructions: with heaviest meal of the day omeprazole 40 mg capsule,delayed release(DR/EC) 40 mg PO DAILY 30 Days Qty: 30 5RF Hold Instructions: not taking (DME) pen needle, diabetic [BD Sole 2nd Gen Pen Needle] 32 gauge x 5/32" needle See Rx Instructions miscellaneous .MEDSUPPLY Qty: 360 3RF Rx Instructions: change with a new pen up to 4x a day (DME) insulin syringe-needle U-100 [BD Insulin Syringe Ultra-Fine] 1 mL 31 gauge x 5/16 syringe See Rx Instructions miscellaneous .MEDSUPPLY Qty: 100 2RF Rx Instructions: Use new syringe with each use for pump failure (DME) blood-glucose meter Kit See Rx Instructions miscellaneous .MEDSUPPLY Qty: 150 5RF Rx Instructions: checking 5x a day (DME) blood-glucose meter [OneTouch Verio Reflect Meter] Misc See Rx Instructions .ROUTE .MEDSUPPLY Qty: 1 0RF Rx Instructions: use daily for testing bgs 1 times per day (DME) Ketostix Strip See Rx Instructions .ROUTE .MEDSUPPLY Qty: 50 5RF Rx Instructions: use as needed for high blood sugar (DME) Dexcom G7 Sensor Device See Rx Instructions .Route Qty: 3 11RF Rx Instructions: Change every 10 days Abilify Maintena 400 mg suspension,extended rel syring 400 mg IM Q28D Rx Instructions: LAST HAD 11/20/23 (DME) OneTouch Verio test strips Strip See Rx Instructions .ROUTE .MEDSUPPLY Qty: 150 3RF Rx Instructions: test 5 times daily cetirizine 10 mg tablet 10 mg PO DAILY albuterol sulfate 90 mcg/actuation HFA aerosol inhaler 1 - 2 puffs INH QID PRN (Reason: shortness of breath or wheezing) Qty: 6.7 2RF rizatriptan 10 mg tablet,disintegrating 10 mg PO Q2H PRN (Reason: migraine headache) Qty: 12 2RF Rx Instructions: do not exceed 3 doses per 24 hrs metoprolol succinate 50 mg tablet extended release 24 hr 50 mg PO DAILY Qty: 30 5RF rosuvastatin 10 mg tablet 10 mg PO DAILY Qty: 30 5RF Hold Instructions: not taking oxybutynin chloride 5 mg tablet 5 mg PO DAILY Qty: 30 5RF promethazine 12.5 mg tablet 12.5 mg PO Q8H PRN (Reason: nausea and vomiting) Qty: 10 0RF prazosin 1 mg capsule 1 mg PO HS Rx Instructions: TOTAL DOSE 3 MG--TAKES WITH 2 MG CAP. trazodone 50 mg tablet 50 mg PO HS PRN (Reason: Sleep) buspirone 10 mg tablet 10 mg PO BID prazosin 2 mg capsule 2 mg PO HS Rx Instructions: TOTAL DOSE 3 MG--TAKES WITH 1 MG CAP. duloxetine 30 mg capsule,delayed release(DR/EC) 30 mg PO HS Dayvigo 10 mg tablet 10 mg PO HS Caplyta 42 mg capsule 42 mg PO HS gabapentin 300 mg capsule See Rx Instructions .ROUTE .COMPLEX Rx Instructions: Take 1 capsule in the morning and 3 capsules in the evening time insulin lispro [Humalog KwikPen Insulin] 100 unit/mL insulin pen 0 unit subcut TIDWMEAL MDD 120 U Rx Instructions: Per sliding scale Changed insulin glargine [Lantus Solostar U-100 Insulin] 100 unit/mL (3 mL) insulin pen 90 unit subcut HS Qty: 0 0RF Discharge Orders: Discharge Order (Routine); Ordered 12/11/23 Ordered By: Roderick Garnett Admission Data Admit Date/Time: 12/09/23 19:26 Attending Provider: Hilda Rowland Admit Provider: Ender Raza Primary Care Provider: Eugenie Falk V. Other Providers: Ender Raza; Johanne Etienne Other Interventions: Discharge Summary Assessment (RN) Last Done: 12/11/23 15:02 Supervising Physician Co-Signing Physician Notes Attending Physician Supervision Note: I independently interviewed and examined the patient and verified the harper history and physical, reviewed labs and image studies and agree with findings and care plan noted above. 38-year-old female with a past medical history of T1DM, hypothyroidism, TERESITA, schizoaffective disorder, bipolar disorder, PTSD, and sinus tachycardia, on admission for DKA. DKA resolved -likely exacerbated by UTI Type I DM- Has been on insulin pump in the past for better glycemic control since she forgets to take daytime aspart insulin. Unable to get insulin pump supplies due to change of insurance. Hence she is on glargine and aspart insulin. Resident Activity Tracking Resident Involvement: Resident Care Provided Care Provided: Adult Hospital Medicine
[2023-12-11 15:01] VITALS: BP 96/64; PULSE 90
[2023-12-11] MEDS: PNEUMOCOCCAL VACCINE (PCV20) 20-VAL CONJ-DIP CRM/PF 0.5 ML SYR IM ONE (16:50)
[2023-12-11] MEDS ORDERED: LANTUS PER UNIT CHARGE SC SCH (21:00)
== END 2023-12-11 17:19 | disposition home or self-care (01) | DRG 638 ==
LOC: ED 16:48 → 4W 19:26 → SUATTDRO 19:26 → 4W 20:00

== ENCOUNTER 2024-08-10 15:02 | Inpatient (IN) ==
--- NOTE | 2024-08-10 15:21 | Emergency Department Note ---
Impression & Plan Hypotensive episode, Influenza A, Shortness of breath, UTI (urinary tract infection), Lightheadedness, Fever, Leukopenia, Hyperglycemia, Cough, Nasal congestion ED Provider Note CHIEF COMPLAINT: Nausea, vomiting, fever, cough HISTORY OF PRESENTING ILLNESS: The patient is a 38-year-old female with a H schizoaffective disorder, type 1 diabetes, hypothyroidism, hypertriglyceridemia who presents to the emergency department stating that she has had a cough, congestion, feeling SOB, diarrhea, nausea, and abdominal pain for 3 days. Confirms exposure to influenza A. Denies chest pain, urinary symptoms, back or flank pain. She confirms that she believes that she has the flu as well but just wanted to be evaluated because she is not feeling well. REVIEW OF SYSTEMS: See HPI for pertinent positives and pertinent negatives. ALLERGIES: Pseudoephedrine MEDICATIONS: See below PAST MEDICAL HISTORY: See below PHYSICAL EXAM: VITALS: Vitals are noted on the nurse's note and reviewed by myself. Vital signs stable. GENERAL: 38-year-old female, ill-appearing, holding an emesis bag in bed, in no acute distress, nondiaphoretic, well-developed well-nourished. SKIN: Capillary refill less than 2 seconds. HEENT: Normocephalic. PERRLA. EOMI. Nares patent. Mucous membranes moist. Neck is supple without nuchal rigidity. TM visualized bilaterally without abnormality. Throat without tonsillar hypertrophy, tonsillar exudates, uvula is midline. HEART: Regular rate and rhythm without murmurs gallops or rubs. LUNGS: Mild diffuse expiratory wheeze heard bilaterally. No rhonchi or rales. Diffuse diminished breath sounds. Patient is coughing on exam. No retractions or accessory muscle use. Stable on room air. ABDOMEN: Positive bowel sounds x 4. Confirms mild diffuse tenderness but describes it as a feeling of nausea. Patient is comfortable during exam and the abdomen appears soft and nontender. No guarding or rebound tenderness. NEURO: Patient was alert and oriented. No focal neurological deficits. DIFFERENTIAL DIAGNOSIS: Viral infection, influenza, COVID-19, bacterial infection, allergic rhinitis, sinusitis, pneumonia, pneumothorax, bronchitis, GERD, cardiac cause, among others. ED COURSE AND MEDICAL DECISION MAKING: HISTORY FROM INDEPENDENT HISTORIAN: The patient herself. MEDICATIONS GIVEN: Zofran 4 mg IV, 3 mL DuoNeb breathing treatment, Tylenol 1000 mg IV, 1 L normal saline, Toradol 15 mg IV, Zofran 4 mg IV, 1 L normal saline, 1 L normal saline - Adequate fluid resuscitation provided based on sepsis fluid volume calculator. 3 L given. MONITOR: Continuous monitoring manager: Order was placed for continuous monitoring manager. Patient was placed on the monitoring manager and continuous pulse ox. Patient was noted to be in normal sinus rhythm at an initial rate of 101 bpm per my interpretation. EKG: EKG was interpreted by myself as sinus tachycardia. Right axis deviation noted on previous EKG. No obvious arrhythmias. No ST or T wave abnormality. EKG was reviewed with my attending Dr. Castillo. INTERPRETATION OF LABS: I interpreted the labs with full lab results as below in the lab section of this note. Pertinent lab results discussed in the MDM section below. INTERPRETATION OF IMAGING: Imaging studies were interpreted by myself and read by radiology as per the imaging section of this note. Chest x-ray - No acute cardiopulmonary finding. No pneumonia. ESCALATION OF CARE CONSIDERED: Escalation of care was considered due to the patient's influenza A diagnosis as well as dropping to a pressure of 80/40 here in the emergency department. She was given 3 L normal saline without improvement of her pressure and continues to feel lightheaded. Patient was admitted to medicine for further evaluation and management. CONSULTATIONS: On-call [facility] hospitalist provider - Presented the patient to the provider and informed them of the patient's influenza A positive viral swab, shortness of breath, and becoming hypotensive and lightheaded 80/47 and tachycardic in the emergency department. Patient was given 3 L normal saline without improvement. Pressure never got above 92/64. Patient is ill- appearing, febrile, and has an elevated white count. They confirmed that she will be admitted to medicine and that they would evaluate her. CRITICAL CARE: I have personally spent greater than 30 minutes of critical care time in the direct management of this patient. This includes bedside care, interpretation of diagnostic studies, and testing, discussion with consultants, patient, and other required patient management activities. This 30 minutes is in excess of all separately billable procedures. MDM SUMMARY: The patient is a 38-year-old female who presents to the emergency department due to a known flu exposure and flulike symptoms.she has had a cough, congestion, feeling SOB, diarrhea, nausea, and abdominal pain for 3 days. Denies chest pain, urinary symptoms, back or flank pain. On exam the patient is lying comfortably in bed and is ill-appearing. She is holding an emesis bag and retching. HEENT exam is unremarkable. Upon triage patient's blood pressure was 107/66, tachycardic at a rate of 146, is afebrile, and 96-99% on room air. Chest auscultation reveals increased rate, regular rhythm, no murmurs appreciated. Mild diffuse expiratory wheeze heard bilaterally. Diffuse diminished breath sounds. Patient is coughing on exam. No retractions or accessory muscle use. Positive bowel sounds appreciated all 4 quadrants. Confirms mild diffuse abdominal pain but states that it is not worsened with palpation and that she just feels nauseous. The abdomen is soft without masses. No guarding or rebound tenderness. Due to the patient's presentation Zofran, a DuoNeb breathing treatment, Tylenol, and 1 L normal saline were given. Lab work, EKG, chest x-ray, and viral swab were obtained. Leukopenia WBC lowered 3.39. RBC 5.25. Hemoglobin hematocrit 13.3/41.0. Sodium mildly lowered 135. No other electrolyte abnormality. BUN 14. Creatinine 1.04. Hyperglycemia 245. AST 22. ALT 33. Urinalysis shows 1+ protein, 1+ glucose, 2+ ketones, trace blood, hyaline cast, urine mucus. Urinalysis resulted upon patient's admission. Treatment of possible UTI was initiated by hospitalist team upon admission. Chest x-ray shows no acute cardiopulmonary finding. No pneumonia. Viral swab results positive for influenza A. Patient was informed of all laboratory and imaging results. On reevaluation of the patient she does confirm that she is starting to feel nauseous again and is still mildly tachycardic at a rate of [id number]. Patient's diffuse expiratory wheeze seems to have improved after the breathing treatment but she is still coughing vigorously on exam. Zofran and Tylenol were given for symptom management. Discussed outpatient upper respiratory infection and viral illness management with the patient but due to her being tachycardic with an initial rate of 146 and still remaining tachycardic I wanted to evaluate her for longer to ensure that her vitals were stable before discharge. Patient agrees to that plan. On reevaluation of the patient she had a hypotensive episode where her blood pressure dropped to 80/47. Began to feel dizzy and lightheaded. Patient was started on an additional 1 L normal saline. Blood pressure improved slightly to 90s/50s. Patient confirms that she does not normally have a low blood pressure. Patient does meet sepsis criteria. WBC 3.39, hypotensive 80/47, tachycardic 146 on arrival, and known source of infection influenza A/UTI. Appropriate fluid resuscitation was provided in the emergency department. Patient stated that she was starting to feel better but her pressure remained lowered. After the second liter of fluids was when the patient was finally able to provide a urine sample. Due to the patient's pressure still being significantly lowered a 3rd L of normal saline was provided. After completion of the fluids I reevaluated the patient who confirms that she still feels short of breath, is ill-appearing, and feels lightheaded. I discussed with the patient that it is not safe for her to be discharged due to sepsis criteria, hypotension, and no response to 3 L bolus. [facility] Consultation can be seen in detail above. She was evaluated by them and was admitted to medicine and the remainder of her care was provided by them. Patient agrees to the outlined treatment plan and all of her questions were answered. The patient was admitted in stable condition. DIAGNOSIS: Hypotensive episode, influenza A, shortness of breath, UTI, lightheadedness, fever, leukopenia, hyperglycemia, cough, nasal congestion The chart was completed utilizing [employer] voice recognition software. Grammatical errors, random word insertions, pronoun errors, and incomplete sentences are an occasional consequence of this system due to software limitations, ambient noise, and hardware issues. Any formal questions or concerns about the content, text, or information contained within the body of this dictation should be directly addressed to the provider for clarification. 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) Vitamin B12 deficiency (Chronic) Vitamin D deficiency (Chronic) 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 Diabetic neuropathy (Chronic) Loss of protective sensation in feet PTSD (post-traumatic stress disorder) (Chronic) Depression (Chronic) Diabetes type 1, uncontrolled (Chronic) T:slim insulin pump (currently not using due to insurance change and lack of supplies) Snoring Fatigue Organic periodic limb movement disorder H/O tonic-clonic seizures Migraine Moderate obstructive sleep apnea Nocturnal hypoxemia Schizoaffective disorder Inappropriate sinus tachycardia Esophageal reflux Mixed hyperlipidemia Urge incontinence Medical History Tachycardia Acute hyponatremia Acidosis (~12/11/23) Vomiting and diarrhea DKA (diabetic ketoacidosis) (~12/11/23) UTI (urinary tract infection) Chest pain Diarrhea Abdominal pain Obesity Hyponatremia Acute hyponatremia Acute dehydration Diffuse abdominal pain Atypical chest pain Palpitations Noncompliance with medication regimen Depression with suicidal ideation Altered awareness, transient Gastritis Memory changes Black-out (not amnesia) Suicidal ideation Suspected 2018 novel coronavirus infection JACKSON (nonalcoholic steatohepatitis) Chronic diarrhea History of anesthesia reaction with 1st "anesthesia began wearing off and could feel the surgery" Seizure grand mal--last was at 7yrs old--was on phenobarbital, no meds now--no neurologist Migraine Lung nodule seen on imaging study per pt on CT scan--just monitoring Tachycardia Headache Surgical History History of colonoscopy History of section x3 S/P cholecystectomy Previous section Family History Unknown FHx: kidney cancer Hyperlipidemia Lung cancer Hypertension Brother Marfan syndrome Congenital heart disease Father Stroke Family history of diabetes mellitus Myocardial infarction Mother Cancer Uterine cancer Stroke TIA (transient ischemic attack) Grandfather (Paternal) Family history of diabetes mellitus Uncle Family hx of colon cancer Colon cancer Colorectal cancer Aunt Breast cancer Son Crohn's disease, Onset Age: 2 Other No family history of adverse response to anesthesia Denies family history of Rheumatoid arthritis Pulmonary embolism Ulcerative colitis Social History Smoking Status: Unknown if ever smoked Second Hand Exposure: No; Do You Dip or Chew Tobacco: No; Hx Alcohol Use: Yes Alcohol type: hard liquor Hx Substance Use: No Preferred Language: Central African Communication Ability: Effective Product Safety Specialist Required: No Beliefs That Will Affect Care: None marital status: Current Living Situation: Family Current Living Situation Comment: Lives with and 2 children within someone else's home current occupational status: employed Other Information That Helps Us Care for You: No Feels Safe at Home: Yes Safety Concerns: Feels Safe At This Time Childhood Exposure to Second-Hand Smoke: Yes Dental Care, Regularly: No Physical Activity Frequency: Daily Seatbelt Use: always Sunscreen Use: Yes Assistive Devices: Glasses Allergies Allergies Allergy/AdvReac Type Severity Reaction Status Date / Time pseudoephedrine AdvReac Intermediate nausea and Verified 08/10/24 19:53 vomiting Home Meds Home Medications Medication Instructions Recorded Confirmed cetirizine 10 mg tablet 10 mg PO DAILY allergies 07/31/20 08/10/24 aripiprazole 400 mg suspension, 400 mg IM Q28D 12/26/22 08/10/24 extended rel.intramuscular syringe (Tara Bazan) buspirone 10 mg tablet 10 mg PO BID 11/25/23 08/10/24 duloxetine 30 mg capsule,delayed 60 mg PO HS 11/25/23 08/10/24 release lemborexant 10 mg tablet (Dayvigo) 10 mg PO HS 11/25/23 08/10/24 lumateperone 42 mg capsule 42 mg PO HS 11/25/23 08/10/24 (Caplyta) prazosin 2 mg capsule 2 mg PO HS 11/25/23 08/10/24 trazodone 50 mg tablet 100 mg PO HS PRN Sleep 11/25/23 08/10/24 gabapentin 300 mg capsule 900 mg PO QPM PRN diabetic 08/10/24 08/10/24 neuropathy Previous Rx's Medication Instructions Recorded syringe with needle 3 mL 23 x 1" #1 ea 04/16/20 (BD Eclipse Luer-Vipul) rizatriptan 10 mg disintegrating 10 mg PO Q2H PRN migraine headache 10/12/20 tablet #12 tabs cyanocobalamin (vitamin B-12) 1,000 mcg IM MONTHLY 6 months #6 mL 12/02/21 1,000 mcg/mL injection solution dicyclomine 10 mg capsule 10 mg PO BID PRN spasms #30 caps 12/30/21 cholecalciferol (vitamin D3) 1,250 50,000 unit PO WK #12 caps 03/13/22 mcg (50,000 unit) capsule cholecalciferol (vitamin D3) 50 50 mcg PO DAILY #90 caps 03/13/22 mcg (2,000 unit) capsule pen needle, diabetic 32 gauge x #360 ea 12/11/22 5/32" (BD Sole 2nd Gen Pen Needle) blood-glucose meter #150 ea 12/19/22 blood-glucose meter (OneTouch #1 ea 12/19/22 Verio Reflect Meter) insulin syringe-needle U-100 1 mL #100 ea 12/19/22 31 gauge x 5/16" (BD Insulin Syringe Ultra-Fine) OneTouch Verio test strips (blood #150 ea 12/26/22 sugar diagnostic) acetone (urine) test (Ketostix #50 ea 08/07/23 strips) blood-glucose sensor (Dexcom G7 #3 ea 09/04/23 Sensor device) insulin glargine 100 unit/mL (3 90 unit (0.9 mL) subcut HS #0 mL 12/11/23 mL) subcutaneous pen (Lantus Solostar U-100 Insulin) insulin lispro 100 unit/mL See Rx Instructions .Route 01/14/24 subcutaneous pen (Humalog KwikPen .COMPLEX #45 mL (U-100) Insulin) insulin lispro 100 unit/mL 165 unit (1.65 mL) subcut DAILY 02/08/24 subcutaneous solution (Humalog #60 mL U-100 Insulin) albuterol sulfate 90 mcg/actuation 1 - 2 inh inhalation QID PRN 02/24/24 aerosol inhaler shortness of breath or wheezing #6.7 grams famotidine 40 mg tablet 40 mg PO HS GERD 30 days #30 tabs 02/24/24 metoprolol succinate 50 mg 50 mg PO DAILY #30 tabs 02/24/24 tablet,extended release 24 hr omeprazole 40 mg capsule,delayed 40 mg PO DAILY GERD 30 days #30 02/24/24 release caps oxybutynin chloride 5 mg tablet 5 mg PO DAILY #30 tabs 02/24/24 topiramate 50 mg tablet 50 mg PO HS migraine 30 days #30 02/24/24 tabs glucagon 3 mg/actuation nasal 3 mg intranasal ONCE #2 ea 03/29/24 spray (Baqsimi) rosuvastatin 20 mg tablet 20 mg PO DAILY #30 tabs 05/27/24 tirzepatide (weight loss) 7.5 7.5 mg (0.5 mL) subcut Q7D #2 mL 07/14/24 mg/0.5 mL subcutaneous pen injector Results & Data (ED) Vital Signs Vital Signs - 24 hr 08/10/24 15:04 08/10/24 16:13 08/10/24 17:03 Temperature 36.8 C Temperature Source Temporal Artery Scan Pulse Rate 146 H 131 H Pulse Rate [Right Brachial] 115 H Pulse Rhythm [Right Brachial] Regular Pulse Strength [Right Brachial] Normal Respiratory Rate 19 18 Respiratory Effort / Characteristics Non-Labored Respiratory Depth Normal Respiratory Pattern Regular Blood Pressure 107/66 Blood Pressure [Right Arm] 101/63 Blood Pressure Mean 79 Blood Pressure Mean [Right Arm] 75 Blood Pressure Position [Right Arm] Lying Pulse Oximetry 99 94 Oxygen Delivery Method Room Air Room Air Sepsis Recent Fever Within 48 Hours Yes Sepsis New/Unexplained Change in Mental Status N/A Sepsis Action Taken by Nursing No Action Required 08/10/24 18:00 08/10/24 18:04 08/10/24 20:00 Temperature Temperature Source Pulse Rate Pulse Rate [Right Brachial] 105 H 109 H 96 H Pulse Rhythm [Right Brachial] Regular Pulse Strength [Right Brachial] Normal Respiratory Rate 18 Respiratory Effort / Characteristics Non-Labored Respiratory Depth Normal Respiratory Pattern Regular Blood Pressure Blood Pressure [Right Arm] 80/47 L 92/62 L 91/65 L Blood Pressure Mean Blood Pressure Mean [Right Arm] 58 72 73 Blood Pressure Position [Right Arm] Lying Pulse Oximetry 96 Oxygen Delivery Method Room Air Sepsis Recent Fever Within 48 Hours Sepsis New/Unexplained Change in Mental Status Sepsis Action Taken by Nursing 08/10/24 21:17 Temperature Temperature Source Pulse Rate 95 H Pulse Rate [Right Brachial] Pulse Rhythm [Right Brachial] Pulse Strength [Right Brachial] Respiratory Rate Respiratory Effort / Characteristics Respiratory Depth Respiratory Pattern Blood Pressure Blood Pressure [Right Arm] Blood Pressure Mean Blood Pressure Mean [Right Arm] Blood Pressure Position [Right Arm] Pulse Oximetry Oxygen Delivery Method Sepsis Recent Fever Within 48 Hours Sepsis New/Unexplained Change in Mental Status Sepsis Action Taken by Nursing Laboratory Data 08/11/24 05:51 08/11/24 05:51 Lab Results 08/10/24 08/10/24 08/10/24 Range/Units 15:18 15:26 18:57 WBC 3.39 L (4.8-10.8) K/ul RBC 5.25 (4.20-5.40) M/uL Hgb 13.3 (12.0-16.0) g/dl Hct 41.0 (37.0-47.0) % MCV 78.1 L (80.0-100.0) fL MCH 25.3 (25.0-34.0) pg MCHC 32.4 (32.0-36.0) g/dL RDW Std Deviation 39.8 (36.4-46.3) fL RDW Coeff of Justin 14.1 (11.5-14.5) % Plt Count 224 (130-400) K/uL MPV 9.2 L (9.4-12.4) fL Immature Gran % (Auto) 0.3 % Neut % (Auto) 78.4 % Lymph % (Auto) 13.9 % [place] % (Auto) 6.8 % Eos % (Auto) 0.3 % Baso % (Auto) 0.3 % Neut # (Auto) 2.66 (1.40-6.50) K/uL Lymph # (Auto) 0.47 L (1.20-3.40) K/uL [place] # (Auto) 0.23 (0.11-0.59) K/uL Eos # (Auto) 0.01 (0.00-0.50) K/uL Baso # (Auto) 0.01 (0.00-0.20) K/uL Immature Gran # (Auto) 0.01 (0.01-0.20) K/uL Sodium 135 L (136-145) mmol/L Potassium 4.6 (3.5-5.1) mmol/L Chloride 101 (98-107) mmol/L Carbon Dioxide 24 (21-32) mmol/L Anion Gap 10 (3-11) BUN 14 (6-23) mg/dl Creatinine 1.04 (0.6-1.2) mg/dl Est Cr Clr Drug Dosing 65.4 ml/min eGFR 70.99 BUN/Creatinine Ratio 13.5 (10-20) Glucose 245 H (70-99(Fasting)) mg/dl POC Glucose 220 H (70-99) mg/dl Lactate 1.2 (0.4-2.0) mmol/L Calcium 9.9 (8.6-10.3) mg/dl Total Bilirubin 1.2 H (0.2-1.0) mg/dl AST 22 (13-39) U/L ALT 33 (7-52) U/L Alkaline Phosphatase 106 H (34-104) U/L Total Protein 9.3 H (6.0-8.3) gm/dl Albumin 5.0 (3.4-5.0) gm/dl Globulin 4.3 H (2.5-4.0) gm/dl Albumin/Globulin Ratio 1.2 (0.9-2) Urine Color Urine Appearance (Clear) Urine pH (4.5-7.5) Ur Specific [place] (1.000-1.030) Urine Protein (Negative) Urine Glucose (UA) (Negative) Urine Ketones (Negative) Urine Blood (Negative) Urine Nitrite (Negative) Urine Bilirubin (Negative) Urine Urobilinogen (Negative) Ur Leukocyte Esterase (Negative) Urine WBC (Auto) (0-5) /hpf Urine RBC (Auto) (0-2) /hpf U Hyaline Cast (Auto) (0-2) /lpf U Epithel Cells (Auto) (0-2) /hpf Urine Bacteria (Auto) (None Seen) Hyaline Casts (None Presnt) /lpf Urine Mucus (None Prsent) SARS-CoV-2 (PCR) NEGATIVE (Negative) Influenza Type A (PCR) Positive A (Neg) Influenza Type B (PCR) Negative (Neg) RSV (RT-PCR) Negative (Neg) 08/10/24 08/10/24 Range/Units 20:09 20:18 WBC (4.8-10.8) K/ul RBC (4.20-5.40) M/uL Hgb (12.0-16.0) g/dl Hct (37.0-47.0) % MCV (80.0-100.0) fL MCH (25.0-34.0) pg MCHC (32.0-36.0) g/dL RDW Std Deviation (36.4-46.3) fL RDW Coeff of Justin (11.5-14.5) % Plt Count (130-400) K/uL MPV (9.4-12.4) fL Immature Gran % (Auto) % Neut % (Auto) % Lymph % (Auto) % [place] % (Auto) % Eos % (Auto) % Baso % (Auto) % Neut # (Auto) (1.40-6.50) K/uL Lymph # (Auto) (1.20-3.40) K/uL [place] # (Auto) (0.11-0.59) K/uL Eos # (Auto) (0.00-0.50) K/uL Baso # (Auto) (0.00-0.20) K/uL Immature Gran # (Auto) (0.01-0.20) K/uL Sodium (136-145) mmol/L Potassium (3.5-5.1) mmol/L Chloride (98-107) mmol/L Carbon Dioxide (21-32) mmol/L Anion Gap (3-11) BUN (6-23) mg/dl Creatinine (0.6-1.2) mg/dl Est Cr Clr Drug Dosing ml/min eGFR BUN/Creatinine Ratio (10-20) Glucose (70-99(Fasting)) mg/dl POC Glucose 99 (70-99) mg/dl Lactate (0.4-2.0) mmol/L Calcium (8.6-10.3) mg/dl Total Bilirubin (0.2-1.0) mg/dl AST (13-39) U/L ALT (7-52) U/L Alkaline Phosphatase (34-104) U/L Total Protein (6.0-8.3) gm/dl Albumin (3.4-5.0) gm/dl Globulin (2.5-4.0) gm/dl Albumin/Globulin Ratio (0.9-2) Urine Color Yellow Urine Appearance Clear (Clear) Urine pH 5.5 (4.5-7.5) Ur Specific [place] 1.029 (1.000-1.030) Urine Protein 1+ H (Negative) Urine Glucose (UA) 1+ H (Negative) Urine Ketones 2+ H (Negative) Urine Blood Trace H (Negative) Urine Nitrite Negative (Negative) Urine Bilirubin Negative (Negative) Urine Urobilinogen Negative (Negative) Ur Leukocyte Esterase Negative (Negative) Urine WBC (Auto) 0-5 (0-5) /hpf Urine RBC (Auto) 6-10 H (0-2) /hpf U Hyaline Cast (Auto) 3-5 H (0-2) /lpf U Epithel Cells (Auto) 11-20 H (0-2) /hpf Urine Bacteria (Auto) 2+ H (None Seen) Hyaline Casts Present A (None Presnt) /lpf Urine Mucus Present A (None Prsent) SARS-CoV-2 (PCR) (Negative) Influenza Type A (PCR) (Neg) Influenza Type B (PCR) (Neg) RSV (RT-PCR) (Neg) Administered Medications Albuterol (Albut/Ipratrop 3mg/0.5mg Neb 3 Ml Vial) 3 ml NEB QIDR [facility]; Protocol Stop: 09/10/24 06:59 Last Admin: 08/11/24 19:32 Dose: 3 ml Documented By: Admin: 08/11/24 16:08 Dose: 3 ml Documented By: [id number] Admin: 08/11/24 10:52 Dose: 3 ml Documented By: [id number] Admin: 08/11/24 07:05 Dose: 3 ml Documented By: CLAIRE Buspirone HCl (Buspirone 5 Mg Tab) 10 mg PO BID [facility] Stop: 09/09/24 23:29 Last Admin: 08/11/24 20:50 Dose: 10 mg Documented By: Admin: 08/11/24 08:49 Dose: 10 mg Documented By: Admin: 08/11/24 00:26 Dose: 10 mg Documented By: DWAYNE Duloxetine HCl (Duloxetine Hcl 60 Mg Cap) 60 mg PO HS [facility] Stop: 09/09/24 23:29 Last Admin: 08/11/24 20:51 Dose: 60 mg Documented By: Admin: 08/11/24 00:26 Dose: 60 mg Documented By: DWAYNE Gabapentin (Gabapentin 300 Mg Cap) 900 mg PO QPM PRN PRN Reason: diabetic neuropathy Stop: 09/09/24 23:29 Last Admin: 08/11/24 20:49 Dose: 900 mg Documented By: DWAYNE Ceftriaxone Sodium (Rocephin) 2,000 mg in 50 mls @ 100 mls/hr IV Q24H TED Stop: 08/15/24 21:59 Last Admin: 08/11/24 21:02 Dose: 100 mls/hr Documented By: Infusion: 08/10/24 23:05 Dose: Infused Documented By: Admin: 08/10/24 22:26 Dose: 100 mls/hr Documented By: BINTA Parenteral Electrolytes (Plasma-Lyte A Ph 7.4) 1,000 mls @ 125 mls/hr IV .Q8H TED Stop: 08/11/24 21:44 Last Admin: 08/11/24 16:13 Dose: 125 mls/hr Documented By: Infusion: 08/11/24 16:03 Dose: Infused Documented By: Admin: 08/11/24 08:03 Dose: 125 mls/hr Documented By: Infusion: 08/11/24 08:03 Dose: Infused Documented By: Admin: 08/11/24 00:23 Dose: 125 mls/hr Documented By: DWAYNE Famotidine (Pepcid 20mg Iv Push) 20 mg in 5 mls @ 2.5 mls/min IV Q12 TED Stop: 09/09/24 23:29 Last Admin: 08/11/24 21:02 Dose: 2.5 mls/min Documented By: Admin: 08/11/24 09:02 Dose: 2.5 mls/min Documented By: Admin: 08/11/24 00:24 Dose: 2.5 mls/min Documented By: DWAYNE Pantoprazole Sodium (Protonix) 40 mg in 10 mls @ 5 mls/min IV DAILY TED Stop: 09/10/24 08:59 Last Admin: 08/11/24 08:49 Dose: 5 mls/min Documented By: PITA Acetaminophen (Ofirmev) 1,000 mg in 100 mls @ 400 mls/hr IV Q8H PRN PRN Reason: Pain or Fever Stop: 08/13/24 23:29 Last Infusion: 08/11/24 16:51 Dose: Infused Documented By: Admin: 08/11/24 16:14 Dose: 400 mls/hr Documented By: PITA Insulin Aspart (Insulin Aspart Per Unit Charge) 0 units SC ACHS TED Stop: 09/10/24 00:29 Last Admin: 08/11/24 21:09 Dose: 1 units Documented By: DWAYNE Co-signed By: RICCO Admin: 08/11/24 18:03 Dose: 5 units Documented By: PITA Co-signed By: LOLA Admin: 08/11/24 13:04 Dose: 2 units Documented By: BRADLEY Co-signed By: BERTA Admin: 08/11/24 08:41 Dose: Not Given Documented By: Admin: 08/11/24 00:33 Dose: Not Given Documented By: DWAYNE Insulin Glargine (Lantus Per Unit Charge) 35 units SQ HS TED Stop: 09/10/24 20:59 Last Admin: 08/11/24 21:09 Dose: 35 units Documented By: DWAYNE Co-signed By: RICCO Melatonin (Melatonin 3 Mg Tab) 3 mg PO HS PRN PRN Reason: Sleep Stop: 09/09/24 23:29 Last Admin: 08/11/24 21:02 Dose: 3 mg Documented By: DWAYNE Miscellaneous (Lemborexant [Dayvigo]: Order Awaiting Action) 1 each N/A QS TED Stop: 09/10/24 07:59 Last Admin: 08/11/24 16:28 Dose: Not Given Documented By: Admin: 08/11/24 08:49 Dose: Not Given Documented By: PITA Miscellaneous (Lumateperone [Caplyta]: Order Awaiting Action) 1 each N/A QS TED Stop: 09/10/24 07:59 Last Admin: 08/11/24 16:29 Dose: Not Given Documented By: Admin: 08/11/24 08:49 Dose: Not Given Documented By: PITA Oseltamivir Phosphate (Oseltamivir Phosphate 75 Mg Cap) 75 mg PO BID TED Stop: 08/16/24 08:59 Last Admin: 08/11/24 20:52 Dose: 75 mg Documented By: Admin: 08/11/24 08:50 Dose: 75 mg Documented By: PITA Oxybutynin Chloride (Oxybutynin Chloride 5 Mg Tab) 5 mg PO DAILY TED Stop: 09/10/24 08:59 Last Admin: 08/11/24 08:50 Dose: 5 mg Documented By: PITA Prazosin HCl (Prazosin Hcl 1 Mg Cap) 2 mg PO HS TED Stop: 09/10/24 20:59 Last Admin: 08/11/24 20:51 Dose: 2 mg Documented By: DWAYNE Rosuvastatin Calcium (Rosuvastatin Calcium 20 Mg Tab) 20 mg PO DAILY TED Stop: 09/10/24 08:59 Last Admin: 08/11/24 08:50 Dose: 20 mg Documented By: PITA Topiramate (Topiramate 50 Mg Tab) 50 mg PO HS TED Stop: 09/10/24 20:59 Last Admin: 08/11/24 20:52 Dose: 50 mg Documented By: DWAYNE Trazodone HCl (Trazodone Hcl 100 Mg Tab) 100 mg PO HS PRN PRN Reason: Sleep Stop: 09/09/24 23:29 Last Admin: 08/11/24 21:30 Dose: 100 mg Documented By: DWAYNE Discontinued Medications Albuterol (Albut/Ipratrop 3mg/0.5mg Neb 3 Ml Vial) 3 ml NEB NOW STA; Protocol Stop: 08/10/24 15:31 Last Admin: 08/10/24 15:47 Dose: 3 ml Documented By: BINTA Albuterol (Albut/Ipratrop 3mg/0.5mg Neb 3 Ml Vial) 3 ml NEB NOW STA; Protocol Stop: 08/10/24 17:58 Last Admin: 08/10/24 22:36 Dose: Not Given Documented By: BINTA Acetaminophen (Ofirmev) 1,000 mg in 100 mls @ 400 mls/hr IV NOW STA Stop: 08/10/24 15:44 Last Infusion: 08/10/24 16:11 Dose: Infused Documented By: Admin: 08/10/24 15:46 Dose: 400 mls/hr Documented By: BINTA Sodium Chloride (Nss) 1,000 mls @ 999 mls/hr IV .Q1H1M ONE Stop: 08/10/24 16:30 Last Infusion: 08/10/24 17:09 Dose: Infused Documented By: Admin: 08/10/24 15:47 Dose: 999 mls/hr Documented By: BINTA Sodium Chloride (Nss) 1,000 mls @ 999 mls/hr IV .Q1H1M ONE Stop: 08/10/24 18:57 Last Infusion: 08/10/24 19:04 Dose: Infused Documented By: Admin: 08/10/24 18:02 Dose: 999 mls/hr Documented By: LETA Sodium Chloride (Nss) 1,000 mls @ 999 mls/hr IV .Q1H1M ONE Stop: 08/10/24 20:32 Last Infusion: 08/10/24 21:14 Dose: Infused Documented By: Admin: 08/10/24 20:12 Dose: 999 mls/hr Documented By: BINTA Insulin Glargine (Lantus Per Unit Charge) 35 units SQ NOW STA Stop: 08/11/24 00:20 Last Admin: 08/11/24 00:43 Dose: 35 units Documented By: DWAYNE Co-signed By: ABDIRASHID Ketorolac Tromethamine (Ketorolac Tromethamine 15 Mg/Ml Vial) 15 mg IV NOW STA Stop: 08/10/24 17:44 Last Admin: 08/10/24 17:53 Dose: 15 mg Documented By: LETA Ondansetron HCl (Ondansetron Inj 2 Mg/Ml 2 Ml Vial) 4 mg IV NOW STA Stop: 08/10/24 15:31 Last Admin: 08/10/24 15:46 Dose: 4 mg Documented By: BINTA Ondansetron HCl (Ondansetron Inj 2 Mg/Ml 2 Ml Vial) 4 mg IV NOW STA Stop: 08/10/24 19:33 Last Admin: 08/10/24 20:12 Dose: 4 mg Documented By: BINTA Oseltamivir Phosphate (Oseltamivir Phosphate 75 Mg Cap) 75 mg PO NOW STA Stop: 08/10/24 21:29 Last Admin: 08/11/24 00:44 Dose: 75 mg Documented By: DWAYNE Discharge Plan Visit Data Chief Complaint: Illness Stated Complaint: NAUSEA, VOMITING, FEVER COUGH ED Provider: Neyda Castillo ED Midlevel Provider: Claudia Lee Discharge Problem: Hypotensive episode, Influenza A, Shortness of breath, UTI (urinary tract infection), Lightheadedness, Fever, Leukopenia, Hyperglycemia, Cough, Nasal congestion Patient Disposition: Admitted As Inpatient Condition: Good Discharge Instructions Interventions: ED Discharge Assessment Last Done: 08/10/24 22:41 Discharge Problem: UTI (urinary tract infection) Qualifiers: Urinary tract infection type: acute cystitis Hematuria presence: with hematuria Qualified Code(s): N30.01 - Acute cystitis with hematuria Fever Qualifiers: Fever type: unspecified Qualified Code(s): R50.9 - Fever, unspecified Leukopenia Qualifiers: Leukopenia type: unspecified Qualified Code(s): D72.819 - Decreased white blood cell count, unspecified Cough Qualifiers: Cough type: acute Qualified Code(s): R05.1 - Acute cough
[2024-08-10] MEDS: ONDANSETRON INJ 2 MG/ML 2 ML VIAL IV STA ×2 (15:46→20:12)
[2024-08-10] MEDS: ACETAMINOPHEN 1,000 MG/100 ML VIAL IV STA (15:46)
[2024-08-10] MEDS: ALBUT/IPRATROP 3MG/0.5MG NEB 3 ML VIAL NEB STA ×2 (15:47→22:36)
[2024-08-10] MEDS: SODIUM CHLORIDE 0.9% 1,000 ML IV ONE ×3 (15:47→20:12)
--- NOTE | 2024-08-10 16:03 | XRay Report ---
XR chest 1V portable CLINICAL HISTORY: cough, URI COMPARISON STUDY: 06/30/2024 FINDINGS: Heart size and pulmonary vasculature are normal. No effusion or consolidation. IMPRESSION: No pneumonia seen. ACT 112: Negative or not required by law. Electronically signed by: Nikolai Logan M.D. 08/10/2024 4:02 PM
[2024-08-10 16:26] LABS: Influenza A virus by PCR Positive (Neg); Influenza B virus by PCR Negative (Neg); RSV by PCR Negative (Neg); SARS CoV2 RNA(COVID-19) Ceph NEGATIVE (Negative)
[2024-08-10 17:09] LABS: Basophils # (auto) 0.01 K/uL (0.00-0.20); Basophils % (auto) 0.3 %; Eosinophils # (auto) 0.01 K/uL (0.00-0.50); Eosinophils % (auto) 0.3 %; Hemoglobin 13.3 g/dl (12.0-16.0); Immature Granulocytes # (auto) 0.01 K/uL (0.01-0.20); Immature Granulocytes % (auto) 0.3 %; Lymphocytes # (auto) 0.47 K/uL (1.20-3.40); Lymphocytes % (auto) 13.9 %; Mean Corpuscular Hemoglobin 25.3 pg (25.0-34.0); Mean Corpuscular Hgb Conc 32.4 g/dL (32.0-36.0); Mean Corpuscular Volume 78.1 fL (80.0-100.0); Mean Platelet Volume 9.2 fL (9.4-12.4); Monocytes # (auto) 0.23 K/uL (0.11-0.59); Monocytes % (auto) 6.8 %; Neutrophils # (auto) 2.66 K/uL (1.40-6.50); Neutrophils % (auto) 78.4 %; Platelet Count 224 K/uL (130-400); RDW Coefficient of Variation 14.1 % (11.5-14.5); RDW Standard Deviation 39.8 fL (36.4-46.3); Red Blood Count 5.25 M/uL (4.20-5.40); White Blood Count 3.39 K/ul (4.8-10.8)
[2024-08-10 17:14] LABS: Albumin Globulin Ratio 1.2 (0.9-2); BUN Creatinine Ratio 13.5 (10-20); Bilirubin,Total 1.2 mg/dl (0.2-1.0); Calcium 9.9 mg/dl (8.6-10.3); Creatinine Clr Calc Pharmacy 65.4 ml/min; Globulin 4.3 gm/dl (2.5-4.0); Potassium 4.6 mmol/L (3.5-5.1); Total Protein 9.3 gm/dl (6.0-8.3)
[2024-08-10] MEDS: KETOROLAC TROMETHAMINE 15 MG/ML VIAL IV STA (17:53)
[2024-08-10 20:39] LABS: Appearance Urine Clear (Clear); Bacteria Urine Automated 2+ (None Seen); Bilirubin Urine Negative (Negative); Blood Urine Trace (Negative); Color Urine Yellow; Glucose Urine UA 1+ (Negative); Hyaline Casts Urine Present /lpf (None Presnt); Ketones Urine 2+ (Negative); Leukocyte Esterase Urine Negative (Negative); Mucus Urine Present (None Prsent); Nitrite Urine Negative (Negative); Protein Urine 1+ (Negative); Specific Gravity Urine 1.029 (1.000-1.030); Urobilinogen Urine Negative (Negative); WBC Urine Automated 0-5 /hpf (0-5); pH Urine 5.5 (4.5-7.5)
--- NOTE | 2024-08-10 21:11 | History & Physical Report ---
Date of Service August 10, 2024 Assessment & Plan (1) Sepsis: (2) Influenza A: (3) UTI (urinary tract infection): (4) Type 1 diabetes mellitus: Plan Patient is a 38-year-old female with past medical history of type I DM, PTSD, schizoaffective disorder, depression, hypothyroidism, TERESITA on CPAP, GERD. She presented to the ED due to cough, congestion, nausea, vomiting, and diarrhea x 3 days. She was found to have influenza A and UTI. Patient meets SIRS criteria with been persistently hypotensive in 80's-90's despite 3L NSS in ED and leukopenia WBC 3.39. #Sepsis - Source influenza A vs UTI + SIRS: WBC 3.39, hypotensive 80/47, tachycardic 146 on arrival to ED - lactate 1.2 - Sepsis fluid bolus for ideal body weight = 1363.50; given 3L NSS in ED - Continue fluid resuscitation with Plasma-Lyte @ 125 mL/hr given patient is persistently hypotensive - Blood cultures ordered - Trend CBC #influenza A - with dry cough, SHARMA, N/V/D, muscle aches. Patient appears extremely dry. - CXR negative for acute changes - non-hypoxic on admission , oxygen prn for O2 <94% - droplet precautions - incentive spirometry - Tylenol 1G IV, Toradol 10mg IV prn, Robitussin, and Zofran prn - DuoNeb 4 times daily scheduled and every 2 hours as needed - Tamiflu started 4/9 PM - Promote oral hydration #UTI - symptomatic with dysuria - UA showed trace blood, 6-10 RBC, 3-5 hyaline casts, 11-20 epithelial cells, 2+ bacteria - Possible contaminant however with symptoms and sepsis above, will cover with ABX - history of pansensitive E. coli - started on Rocephin 2G IV Q24 - follow urine cultures #T1DM - Controlled on 90 U Lantus, SSI, and Zepbound (Injections ) at home. Most recent A1C 5.2%. - continue home SSI with target BSG range 110-180mg/dL, CF 30, carb ratio 10 - reduce home Lantus from 90 U HS to 35 U HS with poor PO intake and tight diet control during hospitalization - pharmacy glycemic consult - Neuropathy: continue gabapentin #HTN - hold metoprolol given hypotension #GERD - with nausea and vomiting influenza A, transition PO famotidine and PPI to IV #abnormal LFTs - T. bili 1.2, alk phos 106; trend CMP #TERESITA - CPAP HS ordered #PTSD/schizoaffective disorder/depression - continue home BuSpar, duloxetine, Dayvigo, Caplyta, prazosin #HLD - continue Statin #migraines - continue topiramate VTE ppx: SCDs, low risk Dispo: PCU Admission and Anticipated Discharge Date Admission Date: 08/10/24 History of Present Illness Chief Complaint: illness Primary Care Provider: Eugenie Falk MD Patient is a 38-year-old female with past medical history of type I DM, PTSD, schizoaffective disorder, depression, hypothyroidism, TERESITA on CPAP, GERD. She presented to the ED due to cough, congestion, SHARMA, nausea, vomiting, and diarrhea x 3 days. She also endorses dysuria x 1 week. She was found to have influenza A and UTI, CXR negative. Patient meets SIRS criteria with been persistently hypotensive in 80's-90's despite 3L NSS in ED, tachycardia, and leukopenia WBC 3.39. Patient seen at bedside. She appears pale and ill. She stated her symptoms began Thursday and she has vomited approximately 5-6 times daily and has had roughly 10-12 episodes of diarrhea daily. She also endorses chills. Her children also are sick with influenza A. She stated she has dyspnea on exertion and her cough is dry. She also has intermittent diffuse abdominal pain and muscle aches. She has had poor p.o. intake for the past few days due to being ill. She does endorse burning with urination for approximately 1 week. She de nies nicotine use, alcohol use, illicit drug use. She uses CPAP at baseline for TERESITA, denies any other respiratory disorders including COPD and asthma. She took her medications this morning but is due for her night medications including 90 units of Lantus. She wishes to be full code. She is agreeable to Tamiflu. Allergies Allergy/AdvReac Type Severity Reaction Status Date / Time pseudoephedrine AdvReac Intermediate nausea and Verified 08/10/24 19:53 vomiting Home Medications Medication Instructions Recorded Confirmed Type syringe with needle 3 mL 23 x 1" #1 ea 04/16/20 07/05/24 Rx (BD Eclipse Luer-Vipul) cetirizine 10 mg tablet 10 mg PO DAILY allergies 07/31/20 08/10/24 History rizatriptan 10 mg disintegrating 10 mg PO Q2H PRN migraine headache 10/12/20 08/10/24 Rx tablet #12 tabs cyanocobalamin (vitamin B-12) 1,000 mcg IM MONTHLY 6 months #6 mL 12/02/21 08/10/24 Rx 1,000 mcg/mL injection solution dicyclomine 10 mg capsule 10 mg PO BID PRN spasms #30 caps 12/30/21 08/10/24 Rx cholecalciferol (vitamin D3) 1,250 50,000 unit PO WK #12 caps 03/13/22 08/10/24 Rx mcg (50,000 unit) capsule cholecalciferol (vitamin D3) 50 50 mcg PO DAILY #90 caps 03/13/22 08/10/24 Rx mcg (2,000 unit) capsule pen needle, diabetic 32 gauge x #360 ea 12/11/22 07/05/24 Rx 5/32" (BD Sole 2nd Gen Pen Needle) blood-glucose meter #150 ea 12/19/22 07/05/24 Rx blood-glucose meter (OneTouch #1 ea 12/19/22 07/05/24 Rx Verio Reflect Meter) insulin syringe-needle U-100 1 mL #100 ea 12/19/22 07/05/24 Rx 31 gauge x 5/16" (BD Insulin Syringe Ultra-Fine) OneTouch Verio test strips (blood #150 ea 12/26/22 07/05/24 Rx sugar diagnostic) aripiprazole 400 mg suspension, 400 mg IM Q28D 12/26/22 08/10/24 History extended rel.intramuscular syringe (Tara Bazan) acetone (urine) test (Ketostix #50 ea 08/07/23 07/05/24 Rx strips) blood-glucose sensor (X BODY G7 #3 ea 09/04/23 07/05/24 Rx Sensor device) buspirone 10 mg tablet 10 mg PO BID 11/25/23 08/10/24 History duloxetine 30 mg capsule,delayed 60 mg PO HS 11/25/23 08/10/24 History release lemborexant 10 mg tablet (Dayvigo) 10 mg PO HS 11/25/23 08/10/24 History lumateperone 42 mg capsule 42 mg PO HS 11/25/23 08/10/24 History (Caplyta) prazosin 2 mg capsule 2 mg PO HS 11/25/23 08/10/24 History trazodone 50 mg tablet 100 mg PO HS PRN Sleep 11/25/23 08/10/24 History insulin glargine 100 unit/mL (3 90 unit (0.9 mL) subcut HS #0 mL 12/11/23 08/10/24 Rx mL) subcutaneous pen (Lantus Solostar U-100 Insulin) insulin lispro 100 unit/mL See Rx Instructions .Route 01/14/24 08/10/24 Rx subcutaneous pen (Humalog KwikPen .COMPLEX #45 mL (U-100) Insulin) insulin lispro 100 unit/mL 165 unit (1.65 mL) subcut DAILY 02/08/24 08/10/24 Rx subcutaneous solution (Humalog #60 mL U-100 Insulin) albuterol sulfate 90 mcg/actuation 1 - 2 inh inhalation QID PRN 02/24/24 08/10/24 Rx aerosol inhaler shortness of breath or wheezing #6.7 grams famotidine 40 mg tablet 40 mg PO HS GERD 30 days #30 tabs 02/24/24 08/10/24 Rx metoprolol succinate 50 mg 50 mg PO DAILY #30 tabs 02/24/24 08/10/24 Rx tablet,extended release 24 hr omeprazole 40 mg capsule,delayed 40 mg PO DAILY GERD 30 days #30 02/24/24 08/10/24 Rx release caps oxybutynin chloride 5 mg tablet 5 mg PO DAILY #30 tabs 02/24/24 08/10/24 Rx topiramate 50 mg tablet 50 mg PO HS migraine 30 days #30 02/24/24 08/10/24 Rx tabs glucagon 3 mg/actuation nasal 3 mg intranasal ONCE #2 ea 03/29/24 08/10/24 Rx spray (Baqsimi) rosuvastatin 20 mg tablet 20 mg PO DAILY #30 tabs 05/27/24 08/10/24 Rx tirzepatide (weight loss) 7.5 7.5 mg (0.5 mL) subcut Q7D #2 mL 07/14/24 08/10/24 Rx mg/0.5 mL subcutaneous pen injector gabapentin 300 mg capsule 900 mg PO QPM PRN diabetic 08/10/24 08/10/24 History neuropathy Past Med/Surg History Problem List Type 1 diabetes mellitus UTI (urinary tract infection) Influenza A Sepsis (~12/11/23) Insulin resistance Severe obesity (BMI 35.0-35.9 with comorbidity) Hypertriglyceridemia Dietary counseling and surveillance Dysmetabolic syndrome X (Chronic) Hypothyroidism (Chronic) Meckel diverticulum (Chronic) 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) Vitamin B12 deficiency (Chronic) Vitamin D deficiency (Chronic) 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 Diabetic neuropathy (Chronic) Loss of protective sensation in feet PTSD (post-traumatic stress disorder) (Chronic) Depression (Chronic) Diabetes type 1, uncontrolled (Chronic) T:slim insulin pump (currently not using due to insurance change and lack of supplies) Snoring Fatigue Organic periodic limb movement disorder H/O tonic-clonic seizures Migraine Moderate obstructive sleep apnea Nocturnal hypoxemia Schizoaffective disorder Inappropriate sinus tachycardia Esophageal reflux Mixed hyperlipidemia Urge incontinence Medical History Tachycardia Acute hyponatremia Acidosis (~12/11/23) Vomiting and diarrhea DKA (diabetic ketoacidosis) (~12/11/23) UTI (urinary tract infection) Chest pain Diarrhea Abdominal pain Obesity Hyponatremia Acute hyponatremia Acute dehydration Diffuse abdominal pain Atypical chest pain Palpitations Noncompliance with medication regimen Depression with suicidal ideation Altered awareness, transient Gastritis Memory changes Black-out (not amnesia) Suicidal ideation Suspected 2019 novel coronavirus infection JACKSON (nonalcoholic steatohepatitis) Chronic diarrhea History of anesthesia reaction with 1st "anesthesia began wearing off and could feel the surgery" Seizure grand mal--last was at 7yrs old--was on phenobarbital, no meds now--no neurologist Migraine Lung nodule seen on imaging study per pt on CT scan--just monitoring Tachycardia Headache Surgical History History of colonoscopy History of section x3 S/P cholecystectomy Previous section Family History Unknown FHx: kidney cancer Hyperlipidemia Lung cancer Hypertension Brother Marfan syndrome Congenital heart disease Father Stroke Family history of diabetes mellitus Myocardial infarction Mother Cancer Uterine cancer Stroke TIA (transient ischemic attack) Grandfather (Paternal) Family history of diabetes mellitus Uncle Family hx of colon cancer Colon cancer Colorectal cancer Aunt Breast cancer Son Crohn's disease, Onset Age: 2 Other No family history of adverse response to anesthesia Denies family history of Rheumatoid arthritis Pulmonary embolism Ulcerative colitis Social History Smoking Status: Unknown if ever smoked Second Hand Exposure: No; Do You Dip or Chew Tobacco: No; Hx Alcohol Use: Yes Alcohol type: hard liquor Hx Substance Use: No Preferred Language: Mongolian Communication Ability: Effective Etl Consultant Required: No Beliefs That Will Affect Care: None marital status: Current Living Situation: Family Current Living Situation Comment: Lives with and 2 children within someone else's home current occupational status: employed Other Information That Helps Us Care for You: No Feels Safe at Home: Yes Safety Concerns: Feels Safe At This Time Childhood Exposure to Second-Hand Smoke: Yes Dental Care, Regularly: No Physical Activity Frequency: Daily Seatbelt Use: always Sunscreen Use: Yes Assistive Devices: Glasses Review of Systems Review of Systems: see HPI Physical Exam Physical Exam: The patient is awake, alert and oriented 3, pale, ill-appearing. HEENT- EOMI, mucous membranes dry. Hearing grossly intact. Heart-normal S1 and S2. No murmurs, rubs or gallops. Lungs-clear bilaterally, no respiratory distress, no accessory muscle use. Abdomen-normal bowel sounds and soft. No ascites noted. Non-tender. Extremities- no clubbing, cyanosis, or edema. Results & Data Results & Data Vital Signs (Past 12 Hours) Vital Signs Temp Pulse Pulse Resp BP BP Pulse Ox 08/10/24 20:00 96 H 18 91/65 L 96 08/10/24 18:04 109 H 92/62 L 08/10/24 18:00 105 H 80/47 L 08/10/24 17:03 115 H 18 101/63 94 08/10/24 16:13 131 H 08/10/24 15:04 36.8 C 146 H 19 107/66 99 O2 Del Method 08/10/24 20:00 Room Air 08/10/24 18:04 08/10/24 18:00 08/10/24 17:03 Room Air 08/10/24 16:13 08/10/24 15:04 Room Air Laboratory Results Reviewed CBC, CMP, lactate, UA, COVID/flu/RSV swab Diagnostic Findings reviewed CXR Medications Administered ED3L NSS bolus, DuoNeb x 2, Tylenol 1G IV, Zofran 4 Mg IV, Toradol 15 Mg IV admissionRocephin 2G IV, Tamiflu 75 Mg p.o., Plasma-Lyte at 125 mL/hour ECG Additional Comments: sinus tachycardia, rate 101 QTc 464 Code Status & VTE Plan Code Status full VTE Prophylaxis Plan VTE Prophylaxis will be ordered: Yes Supervising Physician Co-Signing Physician Notes Patient seen and examined, chart reviewed, case discussed with ZAIRE Starr and I agree with the assessment and plan as above. In brief, patient is a 38-year-old female with history of type 1 diabetes, hyperlipidemia, MASH, PTSD presenting with cough, congestion, nausea/vomiting/diarrhea x 3 days. Patient's family has been sick with influenza A. In the ER patient initially markedly tachycardic with heart rate in the 140s which improved with IV fluids. Has been given 3 L of IV crystalloid in the ER with blood pressure still in the upper 80s and low 90s. Patient also endorses urinary symptoms ongoing for the last several days On physical exam she is afebrile, heart rate improved. Appears tired but nontoxic, awake alert and oriented x 4 Skinwarm, dry, intact, no rashes or lesions HEENTdry mucous membranes, neck supple, pupils equal round and reactive to light Heart+ S1, S2, regular, no murmurs/rubs/gallops Lungs CTA with no rales/rhonchi/wheezes Abdomensoft, nontender, nondistended Extremitieswarm, well-perfused, no clubbing/cyanosis/edema Labs and images reviewed. significant for leukopenia with WBC equal 3.39 with lymphopenia sodium = 135 which is near her baseline UA suggestive of infection as well as dehydration Influenza A+ Assessment/[id number] female with type 1 diabetes, hyperlipidemia, PTSD, TERESITA presenting with 3 days of nausea/vomiting/diarrhea as well as cough and congestion. Found to have influenza A as well as UTI. Patient is septic upon arrival (SIRS 2/4 with leukopenia and tachycardia). Blood pressure remained low despite resuscitation with 3 L IV crystalloid. Patient sepsis fluid amount = 1363.5 -Admit to PCU -Tamiflu -Ceftriaxone -Continue IVF - Plasmalyte at 125mL/hr -Will give Lantus 35u now and ISS, Pharmacy glycemic management consult -Remainder as above PG Care Time/CCT Total # of Minutes Spent Total Time Spent with Patient: Total time spent is greater than 50% in coordination of care (as documented) at patient's floor/unit and/or counseling patient: Coding Level of Care Code 61991 INT INP/OBS CARE 375MIN Diagnoses Sepsis A41.9 Sepsis acute organ dysfunction status: without acute organ dysfunction Sepsis type: sepsis due to unspecified organism Influenza A J10.1 UTI (urinary tract infection) N30.00 Hematuria presence: without hematuria Urinary tract infection type: acute cystitis Type 1 diabetes mellitus E10.9 (1) Sepsis Sepsis acute organ dysfunction status: without acute organ dysfunction Sepsis type: sepsis due to unspecified organism Qualified Code(s): A41.9 - Sepsis, unspecified organism (3) UTI (urinary tract infection) Hematuria presence: without hematuria Urinary tract infection type: acute cystitis Qualified Code(s): N30.00 - Acute cystitis without hematuria
[2024-08-10] MEDS ORDERED: guaiFENesin/DEXTROM SYRUP 100MG/10MG 5ML UDC PO PRN ×2 (21:28→23:30)
[2024-08-10] MEDS: cefTRIAXone SODIUM 2,000 MG/50 ML BAG IV SCH (22:26)
[2024-08-10] MEDS ORDERED: GLUCOSE 10 TAB/TUBE PO PRN (23:30)
[2024-08-10] MEDS ORDERED: PHARMACY GLYCEMIC MGMT CONSULT PRN (23:30)
[2024-08-10] MEDS ORDERED: GLUCAGON FOR INJ 1 MG VIAL SQ PRN (23:30)
[2024-08-10] MEDS ORDERED: ALBUT/IPRATROP 3MG/0.5MG NEB 3 ML VIAL NEB PRN (23:30)
[2024-08-10] MEDS ORDERED: CARBOHYDRATES FOR HYPOGLYCEMIA PO PRN (23:30)
[2024-08-10] MEDS ORDERED: DEXTROSE 50% 50 ML SYRINGE IV PRN (23:30)
[2024-08-10] MEDS ORDERED: ONDANSETRON INJ 2 MG/ML 2 ML VIAL IV PRN (23:30)
[2024-08-10] MEDS ORDERED: KETOROLAC TROMETHAMINE 15 MG/ML VIAL IV PRN (23:30)
[2024-08-10] MEDS ORDERED: NON-FORMULARY MEDICATION (Lumateperone [Caplyta] 42 mg capsule) PO SCH (23:30)
[2024-08-10] MEDS ORDERED: GLUCOSE 40% GEL 15 GM TUBE PO PRN (23:30)
[2024-08-11] MEDS: PLASMA-LYTE A 1,000 ML IV SCH (00:23)
[2024-08-11] MEDS: FAMOTIDINE 20MG IV PUSH 20 MG/5 ML SYR IV SCH (00:24)
[2024-08-11] MEDS: busPIRone 5 MG TAB PO SCH (00:26)
[2024-08-11] MEDS: DULoxetine HCL 60 MG CAP PO SCH (00:26)
[2024-08-11] MEDS: INSULIN ASPART PER UNIT CHARGE SC SCH (00:33)
[2024-08-11] MEDS: LANTUS PER UNIT CHARGE SQ STA (00:43)
[2024-08-11] MEDS: OSELTAMIVIR PHOSPHATE 75 MG CAP PO STA (00:44)
[2024-08-11] MEDS: ALBUT/IPRATROP 3MG/0.5MG NEB 3 ML VIAL NEB SCH (07:05)
[2024-08-11 07:21] LABS: Albumin Globulin Ratio 1.2 (0.9-2); BUN Creatinine Ratio 12.1 (10-20); Bilirubin,Total 0.4 mg/dl (0.2-1.0); Calcium 7.6 mg/dl (8.6-10.3); Globulin 2.6 gm/dl (2.5-4.0); Potassium 3.7 mmol/L (3.5-5.1); Total Protein 5.6 gm/dl (6.0-8.3)
[2024-08-11 08:00] LABS: Eosinophils # (auto) 0.02 K/uL (0.00-0.50); Eosinophils % (auto) 0.8 %; Hemoglobin 8.9 g/dl (12.0-16.0); Immature Granulocytes # (auto) 0.01 K/uL (0.01-0.20); Immature Granulocytes % (auto) 0.4 %; Lymphocytes # (auto) 0.71 K/uL (1.20-3.40); Lymphocytes % (auto) 27.6 %; Mean Corpuscular Hemoglobin 24.9 pg (25.0-34.0); Mean Corpuscular Hgb Conc 31.8 g/dL (32.0-36.0); Mean Corpuscular Volume 78.2 fL (80.0-100.0); Mean Platelet Volume 9.1 fL (9.4-12.4); Monocytes # (auto) 0.25 K/uL (0.11-0.59); Monocytes % (auto) 9.7 %; Neutrophils # (auto) 1.58 K/uL (1.40-6.50); Neutrophils % (auto) 61.5 %; Platelet Count 150 K/uL (130-400); RDW Coefficient of Variation 14.1 % (11.5-14.5); RDW Standard Deviation 39.9 fL (36.4-46.3); Red Blood Count 3.58 M/uL (4.20-5.40); White Blood Count 2.57 K/ul (4.8-10.8)
[2024-08-11] MEDS: PANTOprazole 40 MG/10 ML SYR IV SCH (08:49)
[2024-08-11] MEDS: ROSUVASTATIN CALCIUM 20 MG TAB PO SCH (08:50)
[2024-08-11] MEDS: oxyBUTYnin chloride 5 MG TAB PO SCH (08:50)
[2024-08-11] MEDS: OSELTAMIVIR PHOSPHATE 75 MG CAP PO SCH (08:50)
--- NOTE | 2024-08-11 11:38 | Pharmacy Report ---
Pharmacy Glycemic Short Note 2 - Date of Service August 11, 2024 - Glycemic Short BSG Results (Last 24 hours): 08/10/24 08/10/24 08/10/24 15:18 15:26 20:18 Glucose 245 H POC Glucose 220 H 99 08/11/24 08/11/24 08/11/24 00:31 05:51 07:21 Glucose 105 H POC Glucose 92 105 H 08/11/24 11:17 Glucose POC Glucose 140 H OUTPATIENT ANTIDIABETIC REGIMEN: * Lantus 90 units SQ Q HS * Humalog scale CF10, CR 4 * tirzepatide 75.mg SQ weekly HbA1c: 5.2% on 05-19-24 ASSESSMENT: * 38 year old, type 1 diabetic admitted 08/10 with sepsis, influenza A, and UTI. Pharmacy was consulted for glycemic management while she is admitted. * BSG on admit yesterday was 220mg/dL and at bedtime was 99mg/dL. Patient with poor po intake so only half of the HS dose of Lantus was started last evening. Bolus insulin was started also with slightly looser parameters than her home scale. * Fasting BSG was 105mg/dL this morning. CR was loosened even more for now. Will likely need to be tightened again once patient's intake improves. PLAN FOR INPATIENT GLYCEMIC CONTROL: * Hold outpatient diabetes medications * Basal insulin * Lantus 35 units SQ at HS * Bolus insulin * NovoLog per scale ACHS or Q6hrs while NPO * Goal Range: Low 110 mg/dL - High 140 mg/dL * Correction Factor: 15 mg/dL/unit * Nutritional / Prandial insulin per carb ratio of 1 unit per 10 grams CHO consumed
--- NOTE | 2024-08-11 12:17 | Hospitalist Progress Note ---
Date of Service August 11, 2024 Assessment & Plan (1) Sepsis: (2) Influenza A: (3) UTI (urinary tract infection): (4) Type 1 diabetes mellitus: Plan Patient is a 38-year-old female with past medical history of type I DM, PTSD, schizoaffective disorder, depression, hypothyroidism, TERESITA on CPAP, GERD. She presented to the ED due to cough, congestion, nausea, vomiting, and diarrhea x 3 days. She was found to have influenza A and UTI. #Sepsis, present on admission likely from influenza A pneumonia and suspected urinary tract infection Patient with leukopenia, hypotension, tachycardia on admission - lactate 1.2 - Continue fluid resuscitation with Plasma-Lyte @ 125 mL/hr for 1 more liter - Blood cultures sent on admission: Results pending #influenza A infection -with dry cough, SHARMA, N/V/D, muscle aches. - CXR negative for acute changes - non-hypoxic on admission , oxygen prn for O2 <94% - droplet precautions - incentive spirometry - Tylenol as needed - DuoNeb 4 times daily scheduled and every 2 hours as needed - Tamiflu started 4/9 PM, complete 5 days - Promote oral hydration # Suspected urinary tract infection - UA showed trace blood, 6-10 RBC, 3-5 hyaline casts, 11-20 epithelial cells, 2+ bacteria - history of pansensitive E. coli - Continue Rocephin 2G IV daily (day 1) - follow urine cultures # Type 1 diabetes mellitus #Obesity Controlled on 90 U Lantus, SSI, and Zepbound (Injections ) at home. Most recent A1C 5.2%. Outpatient school bus dispatcher is Dr. Daniel gonzales -Pharmacy on board and managing glycemic control #Hypertriglyceridemia Continue statin #TERESITA Continue CPAP at bedtime #PTSD/schizoaffective disorder/depression continue home BuSpar, duloxetine, Dayvigo, Caplyta, prazosin #HTN hold metoprolol given hypotension from sepsis Monitor vital signs #GERD Continue PPI and Pepcid CODE STATUS: Full code DVT prophylaxis: Patient is ambulatory Discharge planning likely home in the next 24 to 48 hours based on urine culture reports, blood culture reports and clinical improvement Care plan discussed with patient, nursing staff Admission and Anticipated Discharge Date Admission Date: August 10, 2024 Subjective Patient seen and examined H&P reviewed Labs reviewed Radiology reviewed Telemetry reviewed Patient states she feels better, nebulizer treatment has helped She was able to eat some of her breakfast, still complaining of nausea but denies any vomiting since yesterday Patient states she has had 3 episodes of loose stools this morning She complains of suprapubic discomfort, denies abdominal pain Dysuria has improved Denies any fever or chills She works as a milk truck driver Patient states she is on Zepbound weekly and has lost close to 80 pounds in weight. Her last dose of Zepbound was August 04, 2024 Physical Exam Physical Exam: General: No acute distress, talking in full sentences Psych: Awake and alert, oriented x 3 HEENT: Anicteric sclera, moist oral mucosa CVS: Regular rate and rhythm Lungs: Bilateral air entry, no wheezing noted Abdomen: Soft, nontender, no rebound, no guarding Ext: No lower extremity edema, no calf tenderness Neuro: No focal motor deficits noted Results & Data Results & Data Vital Signs (Past 12 Hours) Vital Signs Temp Pulse Pulse Resp BP BP Pulse Ox 08/11/24 11:18 36.8 C 116 H 18 93/57 L 98 08/11/24 10:52 101 H 12 96 08/11/24 10:47 08/11/24 08:38 36.9 C 100 H 18 100/65 96 08/11/24 08:31 98 H 08/11/24 07:05 70 16 90 08/11/24 03:36 36.8 C 100 H 18 106/70 99 08/11/24 03:34 96 H 15 97 08/11/24 00:55 96 H 12 99 O2 Del Method FiO2 08/11/24 11:18 Room Air 08/11/24 10:52 Room Air 21 08/11/24 10:47 Room Air 08/11/24 08:38 Room Air 08/11/24 08:31 08/11/24 07:05 Room Air 08/11/24 03:36 BiPAP 08/11/24 03:34 21 08/11/24 00:55 21 Laboratory Results Laboratory Results - last 24 hr 08/10/24 08/10/24 08/10/24 15:18 15:26 18:57 WBC 3.39 L RBC 5.25 Hgb 13.3 Hct 41.0 MCV 78.1 L MCH 25.3 MCHC 32.4 RDW Std Deviation 39.8 RDW Coeff of Justin 14.1 Plt Count 224 MPV 9.2 L Immature Gran % (Auto) 0.3 Neut % (Auto) 78.4 Lymph % (Auto) 13.9 [place] % (Auto) 6.8 Eos % (Auto) 0.3 Baso % (Auto) 0.3 Neut # (Auto) 2.66 Lymph # (Auto) 0.47 L [place] # (Auto) 0.23 Eos # (Auto) 0.01 Baso # (Auto) 0.01 Immature Gran # (Auto) 0.01 Sodium 135 L Potassium 4.6 Chloride 101 Carbon Dioxide 24 Anion Gap 10 BUN 14 Creatinine 1.04 Est Cr Clr Drug Dosing 65.4 eGFR 70.99 BUN/Creatinine Ratio 13.5 Glucose 245 H POC Glucose 220 H Lactate 1.2 Calcium 9.9 Magnesium Total Bilirubin 1.2 H AST 22 ALT 33 Alkaline Phosphatase 106 H Total Protein 9.3 H Albumin 5.0 Globulin 4.3 H Albumin/Globulin Ratio 1.2 Urine Color Urine Appearance Urine pH Ur Specific [place] Urine Protein Urine Glucose (UA) Urine Ketones Urine Blood Urine Nitrite Urine Bilirubin Urine Urobilinogen Ur Leukocyte Esterase Urine WBC (Auto) Urine RBC (Auto) U Hyaline Cast (Auto) U Epithel Cells (Auto) Urine Bacteria (Auto) Hyaline Casts Urine Mucus SARS-CoV-2 (PCR) NEGATIVE Influenza Type A (PCR) Positive A Influenza Type B (PCR) Negative RSV (RT-PCR) Negative 08/10/24 08/10/24 08/11/24 20:09 20:18 00:31 WBC RBC Hgb Hct MCV MCH MCHC RDW Std Deviation RDW Coeff of Justin Plt Count MPV Immature Gran % (Auto) Neut % (Auto) Lymph % (Auto) [place] % (Auto) Eos % (Auto) Baso % (Auto) Neut # (Auto) Lymph # (Auto) [place] # (Auto) Eos # (Auto) Baso # (Auto) Immature Gran # (Auto) Sodium Potassium Chloride Carbon Dioxide Anion Gap BUN Creatinine Est Cr Clr Drug Dosing eGFR BUN/Creatinine Ratio Glucose POC Glucose 99 92 Lactate Calcium Magnesium Total Bilirubin AST ALT Alkaline Phosphatase Total Protein Albumin Globulin Albumin/Globulin Ratio Urine Color Yellow Urine Appearance Clear Urine pH 5.5 Ur Specific [place] 1.029 Urine Protein 1+ H Urine Glucose (UA) 1+ H Urine Ketones 2+ H Urine Blood Trace H Urine Nitrite Negative Urine Bilirubin Negative Urine Urobilinogen Negative Ur Leukocyte Esterase Negative Urine WBC (Auto) 0-5 Urine RBC (Auto) 6-10 H U Hyaline Cast (Auto) 3-5 H U Epithel Cells (Auto) 11-20 H Urine Bacteria (Auto) 2+ H Hyaline Casts Present A Urine Mucus Present A SARS-CoV-2 (PCR) Influenza Type A (PCR) Influenza Type B (PCR) RSV (RT-PCR) 08/11/24 08/11/24 08/11/24 05:51 07:21 11:17 WBC 2.57 L RBC 3.58 L Hgb 8.9 L D Hct 28.0 L MCV 78.2 L MCH 24.9 L MCHC 31.8 L RDW Std Deviation 39.9 RDW Coeff of Justin 14.1 Plt Count 150 MPV 9.1 L Immature Gran % (Auto) 0.4 Neut % (Auto) 61.5 Lymph % (Auto) 27.6 [place] % (Auto) 9.7 Eos % (Auto) 0.8 Baso % (Auto) 0.0 Neut # (Auto) 1.58 Lymph # (Auto) 0.71 L [place] # (Auto) 0.25 Eos # (Auto) 0.02 Baso # (Auto) 0.00 Immature Gran # (Auto) 0.01 Sodium 138 Potassium 3.7 Chloride 111 H Carbon Dioxide 24 Anion Gap 3 BUN 8 Creatinine 0.66 D Est Cr Clr Drug Dosing 105.0 eGFR 115.79 BUN/Creatinine Ratio 12.1 Glucose 105 H POC Glucose 105 H 140 H Lactate Calcium 7.6 L D Magnesium 2.0 Total Bilirubin 0.4 D AST 15 ALT 18 Alkaline Phosphatase 59 Total Protein 5.6 L D Albumin 3.0 L Globulin 2.6 Albumin/Globulin Ratio 1.2 Urine Color Urine Appearance Urine pH Ur Specific [place] Urine Protein Urine Glucose (UA) Urine Ketones Urine Blood Urine Nitrite Urine Bilirubin Urine Urobilinogen Ur Leukocyte Esterase Urine WBC (Auto) Urine RBC (Auto) U Hyaline Cast (Auto) U Epithel Cells (Auto) Urine Bacteria (Auto) Hyaline Casts Urine Mucus SARS-CoV-2 (PCR) Influenza Type A (PCR) Influenza Type B (PCR) RSV (RT-PCR) PG Care Time/CCT Total # of Minutes Spent Total Time Spent with Patient: Total time spent is greater than 50% in coordination of care (as documented) at patient's floor/unit and/or counseling patient: Coding Level of Care Code 13104 SUB INP/OBS CARE MIN Diagnoses Sepsis A41.9 Sepsis acute organ dysfunction status: without acute organ dysfunction Sepsis type: sepsis due to unspecified organism Influenza A J10.1 UTI (urinary tract infection) N30.00 Hematuria presence: without hematuria Urinary tract infection type: acute cystitis Type 1 diabetes mellitus E10.9 (1) Sepsis Sepsis acute organ dysfunction status: without acute organ dysfunction Sepsis type: sepsis due to unspecified organism Qualified Code(s): A41.9 - Sepsis, unspecified organism (3) UTI (urinary tract infection) Hematuria presence: without hematuria Urinary tract infection type: acute cystitis Qualified Code(s): N30.00 - Acute cystitis without hematuria
[2024-08-11] MEDS: ACETAMINOPHEN 1,000 MG/100 ML VIAL IV PRN (16:14)
[2024-08-11] MEDS: GABAPENTIN 300 MG CAP PO PRN (20:49)
[2024-08-11] MEDS: PRAZOSIN HCL 1 MG CAP PO SCH (20:51)
[2024-08-11] MEDS: TOPIRAMATE 50 MG TAB PO SCH (20:52)
[2024-08-11] MEDS: MELATONIN 3 MG TAB PO PRN (21:02)
[2024-08-11] MEDS: LANTUS PER UNIT CHARGE SQ SCH (21:09)
[2024-08-11] MEDS: traZODone HCL 100 MG TAB PO PRN (21:30)
--- NOTE | 2024-08-11 22:52 | Electrocardiogram Report ---
Test Reason : Blood Pressure : */* mmHG Vent. Rate : 101 BPM Atrial Rate : 101 BPM P-R Int : 140 ms QRS Dur : 74 ms QT Int : 368 ms P-R-T Axes : 32 95 57 degrees QTcB Int : 477 ms Sinus tachycardia Rightward axis Possible Septal infarct , age undetermined Incomplete right bundle branch block Abnormal ECG When compared with ECG of 30-Jun-2024 09:25, Septal infarct is now Present Confirmed by Arnaud Ragland ([id number]) on 08/11/2024 10:51:56 PM Referred By: REFERRED SELF Confirmed By: Arnaud Ragland
[2024-08-12] MEDS ORDERED: Nursing to Pharmacy Communication SCH (00:30)
[2024-08-12] MEDS: LUMATEPERONE PO SCH (00:32)
[2024-08-12] MEDS: PLASMA-LYTE A 1,000 ML IV SCH (01:45)
[2024-08-12] MEDS: PLASMA-LYTE A 1,000 ML IV ONE (04:00)
[2024-08-12] MEDS: LACTATED RINGER'S 1,000 ML IV ONE (04:47)
[2024-08-12 07:50] LABS: Eosinophils # (auto) 0.03 K/uL (0.00-0.50); Eosinophils % (auto) 1.2 %; Hematocrit (blood only) 27.7 % (37.0-47.0); Hemoglobin 8.9 g/dl (12.0-16.0); Immature Granulocytes # (auto) 0.01 K/uL (0.01-0.20); Immature Granulocytes % (auto) 0.4 %; Lymphocytes # (auto) 1.03 K/uL (1.20-3.40); Lymphocytes % (auto) 41.7 %; Mean Corpuscular Hemoglobin 25.3 pg (25.0-34.0); Mean Corpuscular Hgb Conc 32.1 g/dL (32.0-36.0); Mean Corpuscular Volume 78.7 fL (80.0-100.0); Mean Platelet Volume 9.2 fL (9.4-12.4); Monocytes # (auto) 0.15 K/uL (0.11-0.59); Monocytes % (auto) 6.1 %; Neutrophils # (auto) 1.25 K/uL (1.40-6.50); Neutrophils % (auto) 50.6 %; Platelet Count 147 K/uL (130-400); RDW Coefficient of Variation 14.5 % (11.5-14.5); RDW Standard Deviation 41.4 fL (36.4-46.3); Red Blood Count 3.52 M/uL (4.20-5.40); White Blood Count 2.47 K/ul (4.8-10.8)
[2024-08-12 08:07] LABS: Anion Gap 6 (3-11); BUN Creatinine Ratio 5.8 (10-20); Blood Urea Nitrogen 4 mg/dl (6-23); C Reactive Protein 0.84 mg/dl (0-0.5); Calcium 7.6 mg/dl (8.6-10.3); Carbon Dioxide 26 mmol/L (21-32); Chloride 110 mmol/L (98-107); Creatinine Clr Calc Pharmacy 102.2 ml/min; Glucose 85 mg/dl (70-99(Fasting)); Potassium 3.6 mmol/L (3.5-5.1); Sodium 142 mmol/L (136-145)
[2024-08-12 08:32] LABS: Alanine Aminotransferase 15 U/L (7-52); Albumin Globulin Ratio 1.2 (0.9-2); Albumin Level 3.1 gm/dl (3.4-5.0); Alkaline Phosphatase 58 U/L (34-104); Aspartate Aminotransferase 16 U/L (13-39); Bilirubin,Total 0.3 mg/dl (0.2-1.0); Chol HDL Ratio 4.1 (0-5); Cholesterol 78 mg/dl (0-200); Globulin 2.5 gm/dl (2.5-4.0); HDL Cholesterol 19 mg/dl; Iron < 10 mcg/dl (35-150); LDL Cholesterol Calculated 44 mg/dl; Magnesium 2.4 mg/dl (1.7-2.4); Total Iron Binding Cap Calc 330 mcg/dl (250-450); Total Protein 5.6 gm/dl (6.0-8.3); Transferrin 236 mg/dl (200-360); Triglycerides 76 mg/dl (0-150); VLDL Cholesterol 15 mg/dl (0-30)
[2024-08-12 08:54] LABS: Estimated Average Glucose 105 mg/dl; Hemoglobin A1C 5.3 % (4.5-5.6)
[2024-08-12] MEDS: POTASSIUM CHLORIDE CRTAB 20 MEQ TABCR PO STA (08:59)
--- NOTE | 2024-08-12 09:25 | Pharmacy Report ---
Pharmacy Glycemic Short Note 2 - Date of Service August 12, 2024 - Glycemic Short BSG Results (Last 24 hours): 08/11/24 08/11/24 08/11/24 11:17 16:10 21:02 Glucose POC Glucose 140 H 96 147 H 08/12/24 08/12/24 06:54 07:13 Glucose 85 POC Glucose 97 OUTPATIENT ANTIDIABETIC REGIMEN: * Lantus 90 units SC HS * Humalog scale CF10, CR 4 * Tirzepatide 7.5 mg SC weekly HbA1c: * 5.3% (08/12/24) ASSESSMENT: 08/12: * Inga received 43 units of insulin yesterday, 35 of which were basal. BSGs were: 541-566-99-147 mg/dL. * Fasting BSG this AM is 97 mg/dL. Remains on Tamiflu and Ceftriaxone. Tolerating a T1DM diet. * Will reduce basal dose by 20% today given fasting BSG below goal. Carb ratio loosened yesterday with good postprandial control. No changes to bolus regimen. 08/11: * 38 year old, type 1 diabetic admitted 08/10 with sepsis, influenza A, and UTI. Pharmacy was consulted for glycemic management while she is admitted. * BSG on admit yesterday was 220mg/dL and at bedtime was 99mg/dL. Patient with poor po intake so only half of the HS dose of Lantus was started last evening. Bolus insulin was started also with slightly looser parameters than her home scale. * Fasting BSG was 105mg/dL this morning. CR was loosened even more for now. Will likely need to be tightened again once patient's intake improves. PLAN FOR INPATIENT GLYCEMIC CONTROL: * Basal insulin * Lantus 28 units SC at HS * Bolus insulin * NovoLog per scale ACHS or Q6hrs while NPO * Goal Range: Low 110 mg/dL - High 140 mg/dL * Correction Factor: 15 mg/dL/unit * Nutritional / Prandial insulin per carb ratio of 1 unit per 10 grams CHO consumed
[2024-08-12] MEDS ORDERED: POTASSIUM CHLORIDE CRTAB 20 MEQ TABCR PO STA (10:36)
--- NOTE | 2024-08-12 10:37 | Hospitalist Progress Note ---
Date of Service August 12, 2024 Assessment & Plan (1) Sepsis: (2) Influenza A: (3) UTI (urinary tract infection): (4) Type 1 diabetes mellitus: Plan Patient is a 38-year-old female with past medical history of type I DM, PTSD, schizoaffective disorder, depression, hypothyroidism, TERESITA on CPAP, GERD. She presented to the ED due to cough, congestion, nausea, vomiting, and diarrhea x 3 days. She was found to have influenza A and UTI. #Sepsis, present on admission likely from influenza A pneumonia and suspected urinary tract infection Patient with leukopenia, hypotension, tachycardia on admission - lactate 1.2 - She is off IV fluids, tolerating oral fluid hydration - Blood cultures sent on admission have been negative at 24 hours #influenza A infection -with dry cough, SHARMA, N/V/D, muscle aches. - CXR negative for acute changes - non-hypoxic on admission , oxygen prn for O2 <94% - droplet precautions - incentive spirometry - Tylenol as needed - Nebulizers - Tamiflu started 4/9 PM, complete 5 days - Promote oral hydration # Suspected urinary tract infection - UA showed trace blood, 6-10 RBC, 3-5 hyaline casts, 11-20 epithelial cells, 2+ bacteria - history of pansensitive E. coli - Continue Rocephin 2G IV daily (day 2) - follow urine cultures: Results still pending # Type 1 diabetes mellitus #Obesity Controlled on 90 U Lantus, SSI, and Zepbound (Injections ) at home. Most recent A1C 5.2%. Outpatient emt p is Dr. Daniel Bates -Pharmacy on board and managing glycemic control #Hypertriglyceridemia Triglyceride level has dropped to 76 LDL is 44 Continue statin #TERESITA Continue CPAP at bedtime #PTSD/schizoaffective disorder/depression continue home BuSpar, duloxetine, Dayvigo, Caplyta, prazosin #HTN hold metoprolol given hypotension from sepsis Monitor vital signs #GERD Continue PPI and Pepcid #Iron deficiency anemia Iron level is less than 10 B12 is 528 Start IV iron infusions Outpatient follow-up with PCP for referral to GI for further investigations as outpatient #Neutropenia Likely related to influenza infection and sepsis Discussed HIV testing: Patient agreeable to HIV testing CODE STATUS: Full code DVT prophylaxis: Patient is ambulatory Discharge planning likely home in the next 24 to 48 hours based on urine culture reports, blood culture reports and clinical improvement Care plan discussed with patient, nursing staff Admission and Anticipated Discharge Date Admission Date: August 10, 2024 Subjective Patient seen and examined Feels better today Stool was well-formed this morning Still has some nausea but no vomiting, appetite is improving, no abdominal pain Denies any fever or chills She is ambulating without any dizziness or lightheadedness Patient has neutropenia: She is agreeable to HIV testing: Pretesting counseling provided Physical Exam Physical Exam: General: No acute distress, talking in full sentences Psych: Awake and alert, oriented x 3 HEENT: Anicteric sclera, moist oral mucosa CVS: Regular rate and rhythm Lungs: Bilateral air entry, no wheezing noted Abdomen: Soft, nontender, no rebound, no guarding Ext: No lower extremity edema, no calf tenderness Neuro: No focal motor deficits noted Results & Data Results & Data Vital Signs (Past 12 Hours) Vital Signs Temp Pulse Pulse Resp BP Pulse Ox O2 Del Method 08/12/24 10:33 92 H 17 98 Room Air 08/12/24 10:27 Room Air 08/12/24 08:45 78 08/12/24 07:15 36.7 C 97 H 18 86/58 L 94 Room Air 08/12/24 06:57 87 16 98 Room Air 08/12/24 04: 98/65 L 08/12/24 03:55 36.1 C L 89 13 83/52 L 98 CPAP 08/12/24 02:44 12 94 08/11/24 23:54 36.4 C L 88 16 86/58 L 99 CPAP 08/11/24 23:29 96 H 12 96 FiO2 08/12/24 10:33 08/12/24 10:27 08/12/24 08:45 08/12/24 07:15 08/12/24 06:57 08/12/24 04:25 08/12/24 03:55 08/12/24 02:44 21 08/11/24 23:54 08/11/24 23:29 21 Laboratory Results Laboratory Results - last 24 hr 08/11/24 08/11/24 08/11/24 11:17 16:10 21:02 WBC RBC Hgb Hct MCV MCH MCHC RDW Std Deviation RDW Coeff of Justin Plt Count MPV Immature Gran % (Auto) Neut % (Auto) Lymph % (Auto) [place] % (Auto) Eos % (Auto) Baso % (Auto) Neut # (Auto) Lymph # (Auto) [place] # (Auto) Eos # (Auto) Baso # (Auto) Immature Gran # (Auto) Sodium Potassium Chloride Carbon Dioxide Anion Gap BUN Creatinine Est Cr Clr Drug Dosing eGFR BUN/Creatinine Ratio Glucose POC Glucose 140 H 96 147 H Estimat Average Glucose Hemoglobin A1c Calcium Magnesium Iron TIBC Transferrin Transferrin % Sat Total Bilirubin AST ALT Alkaline Phosphatase C-Reactive Protein Total Protein Albumin Globulin Albumin/Globulin Ratio Triglycerides Cholesterol LDL Cholesterol, Calc VLDL Cholesterol, Calc HDL Cholesterol Cholesterol/HDL Ratio Vitamin B12 08/12/24 08/12/24 06:54 07:13 WBC 2.47 L RBC 3.52 L Hgb 8.9 L Hct 27.7 L MCV 78.7 L MCH 25.3 MCHC 32.1 RDW Std Deviation 41.4 RDW Coeff of Justin 14.5 Plt Count 147 MPV 9.2 L Immature Gran % (Auto) 0.4 Neut % (Auto) 50.6 Lymph % (Auto) 41.7 [place] % (Auto) 6.1 Eos % (Auto) 1.2 Baso % (Auto) 0.0 Neut # (Auto) 1.25 L Lymph # (Auto) 1.03 L [place] # (Auto) 0.15 Eos # (Auto) 0.03 Baso # (Auto) 0.00 Immature Gran # (Auto) 0.01 Sodium 142 Potassium 3.6 Chloride 110 H Carbon Dioxide 26 Anion Gap 6 BUN 4 L Creatinine 0.69 Est Cr Clr Drug Dosing 102.2 eGFR 114.56 BUN/Creatinine Ratio 5.8 L Glucose 85 POC Glucose 97 Estimat Average Glucose 105 Hemoglobin A1c 5.3 Calcium 7.6 L Magnesium 2.4 Iron < 10 L TIBC 330 Transferrin 236 Transferrin % Sat TNP Total Bilirubin 0.3 AST 16 ALT 15 Alkaline Phosphatase 58 C-Reactive Protein 0.84 H Total Protein 5.6 L Albumin 3.1 L Globulin 2.5 Albumin/Globulin Ratio 1.2 Triglycerides 76 Cholesterol 78 LDL Cholesterol, Calc 44 VLDL Cholesterol, Calc 15 HDL Cholesterol 19 Cholesterol/HDL Ratio 4.1 Vitamin B12 528 PG Care Time/CCT Total # of Minutes Spent Total Time Spent with Patient: Total time spent is greater than 50% in coordination of care (as documented) at patient's floor/unit and/or counseling patient: Coding Level of Care Code 74791 SUB INP/OBS CARE 50MIN Diagnoses Sepsis A41.9 Sepsis acute organ dysfunction status: without acute organ dysfunction Sepsis type: sepsis due to unspecified organism Influenza A J10.1 UTI (urinary tract infection) N30.00 Hematuria presence: without hematuria Urinary tract infection type: acute cystitis Type 1 diabetes mellitus E10.9 (1) Sepsis Sepsis acute organ dysfunction status: without acute organ dysfunction Sepsis type: sepsis due to unspecified organism Qualified Code(s): A41.9 - Sepsis, unspecified organism (3) UTI (urinary tract infection) Hematuria presence: without hematuria Urinary tract infection type: acute cystitis Qualified Code(s): N30.00 - Acute cystitis without hematuria
[2024-08-12] MEDS: VITAMIN B COMPLEX TAB PO SCH (11:03)
[2024-08-12] MEDS: IRON SUCROSE 200 MG in SODIUM CHLORIDE 0.9% 100 ML IV SCH (11:23)
[2024-08-12 12:17] LABS: Adenovirus F 40/41 PCR Not Detected (NotDetected); Astrovirus PCR Not Detected (NotDetected); Campylobacter PCR Not Detected (NotDetected); Cryptosporidium PCR Not Detected (NotDetected); Cyclospora cayetanensis PCR Not Detected (NotDetected); Entamoeba histolytica PCR Not Detected (NotDetected); Enteroaggregative E.coli(EAEC) Not Detected (NotDetected); Enteropathogenic E.coli (EPEC) Not Detected (NotDetected); Enterotoxigenic E.coli (ETEC) Not Detected (NotDetected); Giardia lamblia PCR Not Detected (NotDetected); Norovirus GI/GII PCR Not Detected (NotDetected); Plesiomonas shigelloides PCR Not Detected (NotDetected); Rotavirus A PCR Not Detected (NotDetected); Salmonella PCR Not Detected (NotDetected); Sapovirus PCR Not Detected (NotDetected); Shiga-like Toxin E.coli (STEC) Not Detected (NotDetected); Shigella/Enteroinvasive E.coli Not Detected (NotDetected); Vibrio cholerae PCR Not Detected (NotDetected); Vibrio species PCR Not Detected (NotDetected); Yersinia enterocolitica PCR Not Detected (NotDetected)
[2024-08-12] MEDS: LANTUS PER UNIT CHARGE SQ SCH (22:01)
[2024-08-13 08:59] LABS: Hematocrit (blood only) 28.3 % (37.0-47.0); Hemoglobin 8.9 g/dl (12.0-16.0); Mean Corpuscular Hemoglobin 24.6 pg (25.0-34.0); Mean Corpuscular Hgb Conc 31.4 g/dL (32.0-36.0); Mean Corpuscular Volume 78.2 fL (80.0-100.0); Mean Platelet Volume 8.9 fL (9.4-12.4); Platelet Count 149 K/uL (130-400); RDW Coefficient of Variation 14.4 % (11.5-14.5); RDW Standard Deviation 40.9 fL (36.4-46.3); Red Blood Count 3.62 M/uL (4.20-5.40); White Blood Count 2.99 K/ul (4.8-10.8)
[2024-08-13 09:02] LABS: BUN Creatinine Ratio 3.9 (10-20); Calcium 8.1 mg/dl (8.6-10.3); Creatinine Clr Calc Pharmacy 91.7 ml/min; Magnesium 2.2 mg/dl (1.7-2.4); Potassium 3.8 mmol/L (3.5-5.1)
[2024-08-13] MEDS: CEROVITE ADV FORMULA TAB PO SCH (09:04)
--- NOTE | 2024-08-13 11:07 | Hospitalist Progress Note ---
Date of Service August 13, 2024 Assessment & Plan (1) Sepsis: (2) Influenza A: (3) UTI (urinary tract infection): (4) Type 1 diabetes mellitus: Plan Patient is a 38-year-old female with past medical history of type I DM, PTSD, schizoaffective disorder, depression, hypothyroidism, TERESITA on CPAP, GERD. She presented to the ED due to cough, congestion, nausea, vomiting, and diarrhea x 3 days. She was found to have influenza A and UTI. #Sepsis, present on admission likely from influenza A pneumonia and suspected urinary tract infection Patient with leukopenia, hypotension, tachycardia on admission - lactate 1.2 - She is off IV fluids, tolerating oral fluid hydration - Blood cultures sent on admission have been negative to date #influenza A infection -with dry cough, SHARMA, N/V/D, muscle aches. - CXR negative for acute changes - non-hypoxic on admission , oxygen prn for O2 <94% - droplet precautions - incentive spirometry - Tylenol as needed - Nebulizers as needed - Tamiflu started 4/9 PM, complete 5 days - Promote oral hydration # Suspected urinary tract infection - UA showed trace blood, 6-10 RBC, 3-5 hyaline casts, 11-20 epithelial cells, 2+ bacteria - history of pansensitive E. coli - Urine cultures are contaminated sample, patient is afebrile. No urinary symptoms. She is finished 3 days of IV ceftriaxone which should be sufficient to treat her urine infection, will stop IV ceftriaxone at this point # Type 1 diabetes mellitus #Obesity Controlled on 90 U Lantus, SSI, and Zepbound (Injections ) at home. Most recent A1C 5.2%. Outpatient tonguer is Dr. Daniel Bates -Pharmacy on board and managing glycemic control #Hypertriglyceridemia Triglyceride level has dropped to 76 LDL is 44 Continue statin #TERESITA Continue CPAP at bedtime #PTSD/schizoaffective disorder/depression continue home BuSpar, duloxetine, Dayvigo, Caplyta, prazosin #HTN hold metoprolol given hypotension from sepsis Monitor vital signs #GERD Continue PPI and Pepcid #Iron deficiency anemia Iron level is less than 10 B12 is 528 Continue IV iron infusions (day 2) Outpatient follow-up with PCP for referral to GI for further investigations as outpatient #Neutropenia Likely related to influenza infection and sepsis HIV is negative CODE STATUS: Full code DVT prophylaxis: Patient is ambulatory Discharge planning home likely tomorrow Care plan discussed with patient, nursing staff Admission and Anticipated Discharge Date Admission Date: August 10, 2024 Subjective Patient seen and examined Labs reviewed Telemetry reviewed Reports feeling better today but still feels weak and tired does not feel ready to go home today Denies any chest pain or shortness of breath Tolerating oral diet with improved appetite. Denies any nausea or vomiting. Denies any diarrhea anymore Physical Exam Physical Exam: General: No acute distress, talking in full sentences Psych: Awake and alert, oriented x 3 HEENT: Anicteric sclera, moist oral mucosa CVS: Regular rate and rhythm Lungs: Bilateral air entry, no wheezing noted Abdomen: Soft, nontender, no rebound, no guarding Ext: No lower extremity edema, no calf tenderness Neuro: No focal motor deficits noted Results & Data Results & Data Vital Signs (Past 12 Hours) Vital Signs Temp Pulse Pulse Resp BP BP Pulse Ox 08/13/24 10:44 36.7 C 85 16 95/62 L 98 08/13/24 10:28 77 16 95 08/13/24 08:44 93/61 L 08/13/24 07:24 36.7 C 87 16 87/56 L 93 08/13/24 07:08 85 15 99 08/13/24 07:03 80 08/13/24 02:47 36.5 C 77 20 93/61 L 98 08/13/24 02:45 82 15 97 08/13/24 02:03 92 H 08/12/24 23:16 85 20 96 O2 Del Method 08/13/24 10:44 Room Air 08/13/24 10:28 Room Air 08/13/24 08:44 08/13/24 07:24 Room Air 08/13/24 07:08 Room Air 08/13/24 07:03 08/13/24 02:47 CPAP 08/13/24 02:45 08/13/24 02:03 08/12/24 23:16 Laboratory Results Laboratory Results - last 24 hr 08/12/24 08/12/24 08/12/24 10:35 11:26 16:01 WBC RBC Hgb Hct MCV MCH MCHC RDW Std Deviation RDW Coeff of Justin Plt Count MPV Sodium Potassium Chloride Carbon Dioxide Anion Gap BUN Creatinine Est Cr Clr Drug Dosing eGFR BUN/Creatinine Ratio Glucose POC Glucose 102 H Calcium Magnesium Stl C. cayetanensis PCR Not Detected Stool Rotavirus A PCR Not Detected Stl Adenov F 40/41 PCR Not Detected Stool Astrovirus (PCR) Not Detected Stool Campylobacter PCR Not Detected Stl C. diff Tox B Gene Negative Cdiff Gene Stool Cryptosporidium PCR Not Detected Stl E.coli Shiga Tox PCR Not Detected Stl Enterotoxigenic E PCR Not Detected Stool EPEC (PCR) Not Detected Stool EAEC (PCR) Not Detected Stl E. histolytica PCR Not Detected Stool Giardia Lamblia PCR Not Detected Stool Salmonella PCR Not Detected Stool Sapovirus (PCR) Not Detected Stl P. shigelloides PCR Not Detected Stl Shigella/EIEC PCR Not Detected St Y.enterocolitica PCR Not Detected Stool Vibrio (PCR) Not Detected Stl Vibrio cholerae PCR Not Detected Stl Norovirus GI/GII PCR Not Detected HIV 1&2 Ab/P24 Ag 4thGn Negative 08/12/24 08/13/24 08/13/24 20:28 07:21 08:33 WBC 2.99 L RBC 3.62 L Hgb 8.9 L Hct 28.3 L MCV 78.2 L MCH 24.6 L MCHC 31.4 L RDW Std Deviation 40.9 RDW Coeff of Justin 14.4 Plt Count 149 MPV 8.9 L Sodium 140 Potassium 3.8 Chloride 111 H Carbon Dioxide 25 Anion Gap 4 BUN 3 L Creatinine 0.76 Est Cr Clr Drug Dosing 91.7 eGFR 103.44 BUN/Creatinine Ratio 3.9 L Glucose 107 H POC Glucose 100 H 78 Calcium 8.1 L Magnesium 2.2 Stl C. cayetanensis PCR Stool Rotavirus A PCR Stl Adenov F 40/41 PCR Stool Astrovirus (PCR) Stool Campylobacter PCR Stl C. diff Tox B Gene Stool Cryptosporidium PCR Stl E.coli Shiga Tox PCR Stl Enterotoxigenic E PCR Stool EPEC (PCR) Stool EAEC (PCR) Stl E. histolytica PCR Stool Giardia Lamblia PCR Stool Salmonella PCR Stool Sapovirus (PCR) Stl P. shigelloides PCR Stl Shigella/EIEC PCR St Y.enterocolitica PCR Stool Vibrio (PCR) Stl Vibrio cholerae PCR Stl Norovirus GI/GII PCR HIV 1&2 Ab/P24 Ag 4thGn 08/13/24 10:56 WBC RBC Hgb Hct MCV MCH MCHC RDW Std Deviation RDW Coeff of Justin Plt Count MPV Sodium Potassium Chloride Carbon Dioxide Anion Gap BUN Creatinine Est Cr Clr Drug Dosing eGFR BUN/Creatinine Ratio Glucose POC Glucose 88 Calcium Magnesium Stl C. cayetanensis PCR Stool Rotavirus A PCR Stl Adenov F 40/41 PCR Stool Astrovirus (PCR) Stool Campylobacter PCR Stl C. diff Tox B Gene Stool Cryptosporidium PCR Stl E.coli Shiga Tox PCR Stl Enterotoxigenic E PCR Stool EPEC (PCR) Stool EAEC (PCR) Stl E. histolytica PCR Stool Giardia Lamblia PCR Stool Salmonella PCR Stool Sapovirus (PCR) Stl P. shigelloides PCR Stl Shigella/EIEC PCR St Y.enterocolitica PCR Stool Vibrio (PCR) Stl Vibrio cholerae PCR Stl Norovirus GI/GII PCR HIV 1&2 Ab/P24 Ag 4thGn PG Care Time/CCT Total # of Minutes Spent Total Time Spent with Patient: Total time spent is greater than 50% in coordination of care (as documented) at patient's floor/unit and/or counseling patient: Coding Level of Care Code 60366 SUB INP/OBS CARE 2/35MIN Diagnoses Sepsis A41.9 Sepsis acute organ dysfunction status: without acute organ dysfunction Sepsis type: sepsis due to unspecified organism Influenza A J10.1 UTI (urinary tract infection) N30.00 Hematuria presence: without hematuria Urinary tract infection type: acute cystitis Type 1 diabetes mellitus E10.9 (1) Sepsis Sepsis acute organ dysfunction status: without acute organ dysfunction Sepsis type: sepsis due to unspecified organism Qualified Code(s): A41.9 - Sepsis, unspecified organism (3) UTI (urinary tract infection) Hematuria presence: without hematuria Urinary tract infection type: acute cystitis Qualified Code(s): N30.00 - Acute cystitis without hematuria
[2024-08-13] MEDS ORDERED: ACETAMINOPHEN 500 MG TAB PO PRN (11:10)
[2024-08-13] MEDS: POTASSIUM CHLORIDE CRTAB 20 MEQ TABCR PO STA (11:28)
[2024-08-13] MEDS ORDERED: ALBUTEROL HFA 8 GM INHALER INH PRN (18:38)
[2024-08-13] MEDS: CETIRIZINE HCL 10 MG TABLET PO SCH (22:04)
[2024-08-13] MEDS: FAMOTIDINE 40 MG TABLET PO SCH (22:08)
[2024-08-13] MEDS: [UNRECOGNIZED DRUG - OTHER] PO PRN (22:09)
[2024-08-13] MEDS: LANTUS PER UNIT CHARGE SQ SCH (22:13)
[2024-08-14 08:22] LABS: Basophils # (auto) 0.01 K/uL (0.00-0.20); Basophils % (auto) 0.2 %; Eosinophils # (auto) 0.09 K/uL (0.00-0.50); Eosinophils % (auto) 2.1 %; Hemoglobin 9.7 g/dl (12.0-16.0); Immature Granulocytes # (auto) 0.01 K/uL (0.01-0.20); Immature Granulocytes % (auto) 0.2 %; Lymphocytes % (auto) 38.1 %; Mean Corpuscular Hemoglobin 24.6 pg (25.0-34.0); Mean Corpuscular Hgb Conc 31.3 g/dL (32.0-36.0); Mean Corpuscular Volume 78.7 fL (80.0-100.0); Mean Platelet Volume 9.1 fL (9.4-12.4); Monocytes # (auto) 0.25 K/uL (0.11-0.59); Neutrophils # (auto) 2.24 K/uL (1.40-6.50); Neutrophils % (auto) 53.4 %; Platelet Count 176 K/uL (130-400); RDW Coefficient of Variation 14.1 % (11.5-14.5); RDW Standard Deviation 40.2 fL (36.4-46.3); Red Blood Count 3.94 M/uL (4.20-5.40)
[2024-08-14 08:40] LABS: BUN Creatinine Ratio 7.6 (10-20); Calcium 8.4 mg/dl (8.6-10.3); Creatinine Clr Calc Pharmacy 88.3 ml/min; Magnesium 2.3 mg/dl (1.7-2.4)
[2024-08-14] MEDS: CHOLECALCIFEROL 25 MCG (1000 UNITS) TAB PO SCH (08:53)
[2024-08-14] MEDS: PANTOprazole 40 MG TAB PO SCH (08:54)
[2024-08-14 09:57] VITALS: O2SAT 95
[2024-08-14 10:27] VITALS: PULSE 70; RESP 18; TEMP 97.9
--- NOTE | 2024-08-14 12:58 | Discharge Summary ---
Discharge Summary Date of Service August 14, 2024 Principal Dx & Hospital Course #1 = Principal Diagnosis (1) Sepsis: (2) Influenza A: (3) UTI (urinary tract infection): (4) Type 1 diabetes mellitus: Plan Patient is a 38-year-old female with past medical history of type I DM, PTSD, schizoaffective disorder, depression, hypothyroidism, TERESITA on CPAP, GERD. She presented to the ED due to cough, congestion, nausea, vomiting, and diarrhea x 3 days. She was found to have influenza A and UTI. #Sepsis, present on admission likely from influenza A pneumonia and suspected urinary tract infection Patient with leukopenia, hypotension, tachycardia on admission - lactate 1.2 - She is off IV fluids, tolerating oral fluid hydration - Blood cultures sent on admission have been negative to date - Sepsis has resolved. Patient is afebrile, tolerating oral diet, respiratory symptoms have resolved. #influenza A infection -with dry cough, SHARMA, N/V/D, muscle aches. - CXR negative for acute changes - non-hypoxic on admission , oxygen prn for O2 <94% - Inhalers as needed - Tamiflu started 4/9 PM, complete 5 days # Suspected urinary tract infection - UA showed trace blood, 6-10 RBC, 3-5 hyaline casts, 11-20 epithelial cells, 2+ bacteria - history of pansensitive E. coli - Urine cultures are contaminated sample, patient is afebrile. No urinary symp toms. She is finished 3 days of IV ceftriaxone which should be sufficient to treat her urine infection, will stop IV ceftriaxone at this point # Type 1 diabetes mellitus #Obesity Controlled on 90 U Lantus, SSI, and Zepbound (Injections ) at home. Most recent A1C 5.2%. Outpatient special machine stitcher is Dr. Daniel Bates - Patient has been receiving between Lantus 20 to 25 units and blood sugars have all been under 100. I have advised the patient to continue with Lantus 25 units instead of 90 units that she has lost over 80 pounds in weight. I have asked her to follow-up with her special machine stitcher by either calling or seeing them in person within the next few days to review her insulin regiment and for further advice from endocrinology Patient verbalized understanding of instructions #Hypertriglyceridemia Triglyceride level has dropped to 76 LDL is 44 Continue statin #TERESITA Continue CPAP at bedtime #PTSD/schizoaffective disorder/depression continue home BuSpar, duloxetine, Dayvigo, Caplyta, prazosin #HTN Toprol-XL has been held. Patient's blood pressures have all been low normal without any dizziness or lightheadedness She is ambulating without any issues I have asked her to hold her Toprol-XL on discharge and to follow-up with her PCP for blood pressure monitoring and reviewing if she needs to be on this medication #GERD Continue PPI and Pepcid #Iron deficiency anemia Iron level is less than 10 B12 is 528 Patient received 3 days of IV iron infusions. Outpatient follow-up with PCP for further investigations #Neutropenia Likely related to influenza infection and sepsis Neutropenia has resolved HIV is negative #Intermittent bleeding gums Patient tells me she has had intermittent bleeding gums for several months. Outpatient follow with PCP to check vitamin C levels Have asked her to see her PCP and also follow-up with dentist as outpatient Patient seen and examined today. She is ambulating without any issues, tolerating oral diet without any nausea vomiting diarrhea or abdominal pain. Her appetite is back to normal. I have gone over the discharge care plan, medications and follow-up with the patient in great detail and answered all her questions. Patient verbalized understanding my instructions. I also provided her with written instructions This discharge is taking greater than 30 minutes to coordinate Admission HPI Per Admitting Provider Patient is a 38-year-old female with past medical history of type I DM, PTSD, schizoaffective disorder, depression, hypothyroidism, TERESITA on CPAP, GERD. She presented to the ED due to cough, congestion, SHARMA, nausea, vomiting, and diarrhea x 3 days. She also endorses dysuria x 1 week. She was found to have influenza A and UTI, CXR negative. Patient meets SIRS criteria with been persistently hypotensive in 80's-90's despite 3L NSS in ED, tachycardia, and leukopenia WBC 3.39. Patient seen at bedside. She appears pale and ill. She stated her symptoms began Thursday and she has vomited approximately 5-6 times daily and has had roughly 10-12 episodes of diarrhea daily. She also endorses chills. Her children also are sick with influenza A. She stated she has dyspnea on exertion and her cough is dry. She also has intermittent diffuse abdominal pain and muscle aches. She has had poor p.o. intake for the past few days due to being ill. She does endorse burning with urination for approximately 1 week. She denies nicotine use, alcohol use, illicit drug use. She uses CPAP at baseline for TERESITA, denies any other respiratory disorders including COPD and asthma. She took her medications this morning but is due for her night medications including 90 units of Lantus. She wishes to be full code. She is agreeable to Tamiflu. Discharge Exam General: No acute distress, talking in full sentences Psych: Awake and alert, oriented x 3 HEENT: Anicteric sclera, moist oral mucosa CVS: Regular rate and rhythm Lungs: Bilateral air entry, no wheezing noted Abdomen: Soft, nontender, no rebound, no guarding Ext: No lower extremity edema, no calf tenderness Neuro: No focal motor deficits noted Discharge Plan Discharge Items Patient Disposition: Home - Self-Care Reason For Visit: SEPSIS, INFLUENZA A, UTI Discharge Diagnosis: #influenza A infection # Suspected urinary tract infection # Type 1 diabetes mellitus #Obesity #Hypertriglyceridemia #TERESITA #PTSD/schizoaffective disorder/depression #HTN #GERD #Iron deficiency anemia Condition on Discharge: Fair Activity: Resume your previous activity Non-emergency contact: Primary Care Provider Call non-emergency contact if: you have any medication questions, your symptoms worsen and you have a fever Follow-up/Referrals: Daniel Bates MD [Physician] - Eugenie Falk MD [Primary Care Provider] - Diet: Carb Count or DM1 and Heart Healthy Addtl Attending Provider Instructions: DISCHARGE INSTRUCTION TO PATIENT/FAMILY: Follow-up with your primary care provider within 1 week regarding: Posthospital discharge, medication review, medication refills and follow-up on all your medical problems Please take all your discharge medications, discharge information and discharge instructions to all your doctors appointments. You have iron deficiency anemia. You received IV iron infusions during hospital stay. Please follow-up with your PCP for further investigations of iron deficiency anemia as outpatient. Please call or follow-up with your special machine stitcher Dr. Daniel Bates in 3 to 4 days to review insulin regiment You have been experiencing intermittent bleeding gums for several months: Please follow-up with the dentist as outpatient for full evaluation Please follow-up with your PCP for return to work clearance. Labs through PCP in 1 week: CBC with Diff, CMP, MG, VITAMIN C Pending Studies at Discharge: No Stand-Alone Forms: My [facility], Smoking Cessation Medications and DC Order Prescriptions: New oseltamivir [Tamiflu] 75 mg Capsule 75 mg PO BID Qty: 4 0RF Cerovite Senior 0.4 mg-300 mcg- 250 mcg Tablet 1 tab PO QAM Qty: 30 0RF ferrous gluconate 324 mg (38 mg iron) Tablet 324 mg PO QAM Qty: 30 0RF Continued (DME) BD Eclipse Luer-Vipul 3 mL 23 x 1" syringe See Rx Instructions .ROUTE .MEDSUPPLY Qty: 1 5RF Rx Instructions: test 4 times daily cyanocobalamin (vitamin B-12) 1,000 mcg/mL solution 1,000 mcg IM MONTHLY 180 Days Qty: 6 1RF dicyclomine 10 mg capsule 10 mg PO BID PRN (Reason: spasms) Qty: 30 1RF cholecalciferol (vitamin D3) 1,250 mcg (50,000 unit) capsule 50,000 unit PO WK Qty: 12 3RF Rx Instructions: SUNDAYS cholecalciferol (vitamin D3) 50 mcg (2,000 unit) capsule 50 mcg PO DAILY Qty: 90 3RF Rx Instructions: with heaviest meal of the day (DME) pen needle, diabetic [BD Sole 2nd Gen Pen Needle] 32 gauge x 5/32" needle See Rx Instructions miscellaneous .MEDSUPPLY Qty: 360 3RF Rx Instructions: change with a new pen up to 4x a day (DME) insulin syringe-needle U-100 [BD Insulin Syringe Ultra-Fine] 1 mL 31 gauge x 5/16 syringe See Rx Instructions miscellaneous .MEDSUPPLY Qty: 100 2RF Rx Instructions: Use new syringe with each use for pump failure (DME) blood-glucose meter Kit See Rx Instructions miscellaneous .MEDSUPPLY Qty: 150 5RF Rx Instructions: checking 5x a day (DME) blood-glucose meter [OneTouch Verio Reflect Meter] Mis See Rx Instructions .ROUTE .MEDSUPPLY Qty: 1 0RF Rx Instructions: use daily for testing bgs 1 times per day (DME) Ketostix Strip See Rx Instructions .ROUTE .MEDSUPPLY Qty: 50 5RF Rx Instructions: use as needed for high blood sugar (DME) Dexcom G7 Sensor Device See Rx Instructions .Route Qty: 3 11RF Rx Instructions: Change every 10 days insulin lispro [Humalog KwikPen Insulin] 100 unit/mL insulin pen See Rx Instructions .ROUTE .COMPLEX Qty: 45 5RF Rx Instructions: Inject per sliding scale up to 150 units per day; rosuvastatin 20 mg tablet 20 mg PO DAILY Qty: 30 12RF Hold Instructions: not taking tirzepatide (weight loss) 7.5 mg/0.5 mL pen injector 7.5 mg subcut Q7D Qty: 2 3RF Rx Instructions: THURSDAYS Abilify Maintena 400 mg suspension,extended rel syring 400 mg IM Q28D Rx Instructions: LAST HAD 08/02/2024 (DME) OneTouch Verio test strips Strip See Rx Instructions .ROUTE .MEDSUPPLY Qty: 150 3RF Rx Instructions: test 5 times daily cetirizine 10 mg tablet 10 mg PO DAILY rizatriptan 10 mg tablet,disintegrating 10 mg PO Q2H PRN (Reason: migraine headache) Qty: 12 2RF Rx Instructions: do not exceed 3 doses per 24 hrs oxybutynin chloride 5 mg tablet 5 mg PO DAILY Qty: 30 5RF albuterol sulfate 90 mcg/actuation HFA aerosol inhaler 1 - 2 inh INH QID PRN (Reason: shortness of breath or wheezing) Qty: 6.7 2RF famotidine 40 mg tablet 40 mg PO HS 30 Days Qty: 30 11RF omeprazole 40 mg capsule,delayed release(DR/EC) 40 mg PO DAILY 30 Days Qty: 30 5RF Hold Instructions: not taking topiramate 50 mg tablet 50 mg PO HS 30 Days Qty: 30 5RF Hold Instructions: not taking Baqsimi 3 mg/actuation spray,non-aerosol 3 mg intranasal ONCE Qty: 2 5RF trazodone 50 mg tablet 100 mg PO HS PRN (Reason: Sleep) buspirone 10 mg tablet 10 mg PO BID prazosin 2 mg capsule 2 mg PO HS duloxetine 30 mg capsule,delayed release(DR/EC) 60 mg PO HS Dayvigo 10 mg tablet 10 mg PO HS Caplyta 42 mg capsule 42 mg PO HS gabapentin 300 mg capsule 900 mg PO QPM PRN (Reason: diabetic neuropathy) Changed insulin glargine [Lantus Solostar U-100 Insulin] 100 unit/mL (3 mL) insulin pen 25 unit subcut HS Qty: 0 0RF Held insulin lispro [Humalog U-100 Insulin] 100 unit/mL solution 165 unit subcut DAILY Qty: 60 5RF Hold Instructions: Resume on 08/19/24. Please call or follow-up with your special machine stitcher Dr. Daniel Bates in 3 to 4 days to review insulin regiment and resume this medication based on his advice. Rx Instructions: To be used in insulin pump metoprolol succinate 50 mg tablet extended release 24 hr 50 mg PO DAILY Qty: 30 5RF Hold Instructions: Resume on 08/21/24. Follow-up with your PCP to review blood pressure medication and resume based on PCP recommendations. Discharge Orders: Discharge Order (Routine); Ordered 08/14/24 Ordered By: Blake Li Admission Data Admit Date/Time: 08/10/24 22:00 Attending Provider: Blake Li Admit Provider: Vanessa Yin Primary Care Provider: Eugenie Falk V. Hospital Stay Data Diagnostic Imagining Performed Chest X-Ray 08/10/24 15:30 XR chest 1V portable CLINICAL HISTORY: cough, URI COMPARISON STUDY: 06/30/2024 FINDINGS: Heart size and pulmonary vasculature are normal. No effusion or consolidation. IMPRESSION: No pneumonia seen. ACT 112: Negative or not required by law. Electronically signed by: Nikolai Logan M.D. 08/10/2024 4:02 PM 08/14/24 08/14/24 08/14/24 11:46 07:52 07:41 WBC 4.20 L RBC 3.94 L Hgb 9.7 L Hct 31.0 L MCV 78.7 L MCH 24.6 L MCHC 31.3 L RDW Std Deviation 40.2 RDW Coeff of Justin 14.1 Plt Count 176 MPV 9.1 L Immature Gran % (Auto) 0.2 Neut % (Auto) 53.4 Lymph % (Auto) 38.1 [place] % (Auto) 6.0 Eos % (Auto) 2.1 Baso % (Auto) 0.2 Neut # (Auto) 2.24 Lymph # (Auto) 1.60 [place] # (Auto) 0.25 Eos # (Auto) 0.09 Baso # (Auto) 0.01 Immature Gran # (Auto) 0.01 Sodium 140 Potassium 4.0 Chloride 110 H Carbon Dioxide 25 Anion Gap 5 BUN 6 Creatinine 0.79 Est Cr Clr Drug Dosing 88.3 eGFR 98.74 BUN/Creatinine Ratio 7.6 L Glucose 74 POC Glucose 85 79 Calcium 8.4 L Magnesium 2.3 08/13/24 08/13/24 20:55 16:09 WBC RBC Hgb Hct MCV MCH MCHC RDW Std Deviation RDW Coeff of Justin Plt Count MPV Immature Gran % (Auto) Neut % (Auto) Lymph % (Auto) [place] % (Auto) Eos % (Auto) Baso % (Auto) Neut # (Auto) Lymph # (Auto) [place] # (Auto) Eos # (Auto) Baso # (Auto) Immature Gran # (Auto) Sodium Potassium Chloride Carbon Dioxide Anion Gap BUN Creatinine Est Cr Clr Drug Dosing eGFR BUN/Creatinine Ratio Glucose POC Glucose 83 72 Calcium Magnesium Laboratory Results - last 72 hr 08/11/24 08/11/24 08/12/24 16:10 21:02 06:54 WBC 2.47 L RBC 3.52 L Hgb 8.9 L Hct 27.7 L MCV 78.7 L MCH 25.3 MCHC 32.1 RDW Std Deviation 41.4 RDW Coeff of Justin 14.5 Plt Count 147 MPV 9.2 L Immature Gran % (Auto) 0.4 Neut % (Auto) 50.6 Lymph % (Auto) 41.7 [place] % (Auto) 6.1 Eos % (Auto) 1.2 Baso % (Auto) 0.0 Neut # (Auto) 1.25 L Lymph # (Auto) 1.03 L [place] # (Auto) 0.15 Eos # (Auto) 0.03 Baso # (Auto) 0.00 Immature Gran # (Auto) 0.01 Sodium 142 Potassium 3.6 Chloride 110 H Carbon Dioxide 26 Anion Gap 6 BUN 4 L Creatinine 0.69 Est Cr Clr Drug Dosing 102.2 eGFR 114.56 BUN/Creatinine Ratio 5.8 L Glucose 85 POC Glucose 96 147 H Estimat Average Glucose 105 Hemoglobin A1c 5.3 Calcium 7.6 L Magnesium 2.4 Iron < 10 L TIBC 330 Transferrin 236 Transferrin % Sat TNP Total Bilirubin 0.3 AST 16 ALT 15 Alkaline Phosphatase 58 C-Reactive Protein 0.84 H Total Protein 5.6 L Albumin 3.1 L Globulin 2.5 Albumin/Globulin Ratio 1.2 Triglycerides 76 Cholesterol 78 LDL Cholesterol, Calc 44 VLDL Cholesterol, Calc 15 HDL Cholesterol 19 Cholesterol/HDL Ratio 4.1 Vitamin B12 528 Stl C. cayetanensis PCR Stool Rotavirus A PCR Stl Adenov F PCR Stool Astrovirus (PCR) Stool Campylobacter PCR Stl C. diff Tox B Gene Stool Cryptosporidium PCR Stl E.coli Shiga Tox PCR Stl Enterotoxigenic E PCR Stool EPEC (PCR) Stool EAEC (PCR) Stl E. histolytica PCR Stool Giardia Lamblia PCR Stool Salmonella PCR Stool Sapovirus (PCR) Stl P. shigelloides PCR Stl Shigella/EIEC PCR St Y.enterocolitica PCR Stool Vibrio (PCR) Stl Vibrio cholerae PCR Stl Norovirus GI/GII PCR HIV 1&2 Ab/P24 Ag 4thGn 08/12/24 08/12/24 08/12/24 07:13 10:35 10:53 WBC RBC Hgb Hct MCV MCH MCHC RDW Std Deviation RDW Coeff of Justin Plt Count MPV Immature Gran % (Auto) Neut % (Auto) Lymph % (Auto) [place]eton % (Auto) Eos % (Auto) Baso % (Auto) Neut # (Auto) Lymph # (Auto) [place]eton # (Auto) Eos # (Auto) Baso # (Auto) Immature Gran # (Auto) Sodium Potassium Chloride Carbon Dioxide Anion Gap BUN Creatinine Est Cr Clr Drug Dosing eGFR BUN/Creatinine Ratio Glucose POC Glucose 97 101 H Estimat Average Glucose Hemoglobin A1c Calcium Magnesium Iron TIBC Transferrin Transferrin % Sat Total Bilirubin AST ALT Alkaline Phosphatase C-Reactive Protein Total Protein Albumin Globulin Albumin/Globulin Ratio Triglycerides Cholesterol LDL Cholesterol, Calc VLDL Cholesterol, Calc HDL Cholesterol Cholesterol/HDL Ratio Vitamin B12 Stl C. cayetanensis PCR Not Detected Stool Rotavirus A PCR Not Detected Stl Adenov F PCR Not Detected Stool Astrovirus (PCR) Not Detected Stool Campylobacter PCR Not Detected Stl C. diff Tox B Gene Negative Cdiff Gene Stool Cryptosporidium PCR Not Detected Stl E.coli Shiga Tox PCR Not Detected Stl Enterotoxigenic E PCR Not Detected Stool EPEC (PCR) Not Detected Stool EAEC (PCR) Not Detected Stl E. histolytica PCR Not Detected Stool Giardia Lamblia PCR Not Detected Stool Salmonella PCR Not Detected Stool Sapovirus (PCR) Not Detected Stl P. shigelloides PCR Not Detected Stl Shigella/EIEC PCR Not Detected St Y.enterocolitica PCR Not Detected Stool Vibrio (PCR) Not Detected Stl Vibrio cholerae PCR Not Detected Stl Norovirus GI/GII PCR Not Detected HIV 1&2 Ab/P24 Ag 4thGn 08/12/24 08/12/24 08/12/24 11:26 16:01 20:28 WBC RBC Hgb Hct MCV MCH MCHC RDW Std Deviation RDW Coeff of Justin Plt Count MPV Immature Gran % (Auto) Neut % (Auto) Lymph % (Auto) [place] % (Auto) Eos % (Auto) Baso % (Auto) Neut # (Auto) Lymph # (Auto) [place] # (Auto) Eos # (Auto) Baso # (Auto) Immature Gran # (Auto) Sodium Potassium Chloride Carbon Dioxide Anion Gap BUN Creatinine Est Cr Clr Drug Dosing eGFR BUN/Creatinine Ratio Glucose POC Glucose 102 H 100 H Estimat Average Glucose Hemoglobin A1c Calcium Magnesium Iron TIBC Transferrin Transferrin % Sat Total Bilirubin AST ALT Alkaline Phosphatase C-Reactive Protein Total Protein Albumin Globulin Albumin/Globulin Ratio Triglycerides Cholesterol LDL Cholesterol, Calc VLDL Cholesterol, Calc HDL Cholesterol Cholesterol/HDL Ratio Vitamin B12 Stl C. cayetanensis PCR Stool Rotavirus A PCR Stl Adenov F 40/ PCR Stool Astrovirus (PCR) Stool Campylobacter PCR Stl C. diff Tox B Gene Stool Cryptosporidium PCR Stl E.coli Shiga Tox PCR Stl Enterotoxigenic E PCR Stool EPEC (PCR) Stool EAEC (PCR) Stl E. histolytica PCR Stool Giardia Lamblia PCR Stool Salmonella PCR Stool Sapovirus (PCR) Stl P. shigelloides PCR Stl Shigella/EIEC PCR St Y.enterocolitica PCR Stool Vibrio (PCR) Stl Vibrio cholerae PCR Stl Norovirus GI/GII PCR HIV 1&2 Ab/P24 Ag 4thGn Negative 08/13/24 08/13/24 08/13/24 07:21 08:33 10:56 WBC 2.99 L RBC 3.62 L Hgb 8.9 L Hct 28.3 L MCV 78.2 L MCH 24.6 L MCHC 31.4 L RDW Std Deviation 40.9 RDW Coeff of Justin 14.4 Plt Count 149 MPV 8.9 L Immature Gran % (Auto) Neut % (Auto) Lymph % (Auto) [place] % (Auto) Eos % (Auto) Baso % (Auto) Neut # (Auto) Lymph # (Auto) [place] # (Auto) Eos # (Auto) Baso # (Auto) Immature Gran # (Auto) Sodium 140 Potassium 3.8 Chloride 111 H Carbon Dioxide 25 Anion Gap 4 BUN 3 L Creatinine 0.76 Est Cr Clr Drug Dosing 91.7 eGFR 103.44 BUN/Creatinine Ratio 3.9 L Glucose 107 H POC Glucose 78 88 Estimat Average Glucose Hemoglobin A1c Calcium 8.1 L Magnesium 2.2 Iron TIBC Transferrin Transferrin % Sat Total Bilirubin AST ALT Alkaline Phosphatase C-Reactive Protein Total Protein Albumin Globulin Albumin/Globulin Ratio Triglycerides Cholesterol LDL Cholesterol, Calc VLDL Cholesterol, Calc HDL Cholesterol Cholesterol/HDL Ratio Vitamin B12 Stl C. cayetanensis PCR Stool Rotavirus A PCR Stl Adenov F PCR Stool Astrovirus (PCR) Stool Campylobacter PCR Stl C. diff Tox B Gene Stool Cryptosporidium PCR Stl E.coli Shiga Tox PCR Stl Enterotoxigenic E PCR Stool EPEC (PCR) Stool EAEC (PCR) Stl E. histolytica PCR Stool Giardia Lamblia PCR Stool Salmonella PCR Stool Sapovirus (PCR) Stl P. shigelloides PCR Stl Shigella/EIEC PCR St Y.enterocolitica PCR Stool Vibrio (PCR) Stl Vibrio cholerae PCR Stl Norovirus GI/GII PCR HIV 1&2 Ab/P24 Ag 4thGn 08/13/24 08/13/24 08/14/24 16:09 20:55 07:41 WBC 4.20 L RBC 3.94 L Hgb 9.7 L Hct 31.0 L MCV 78.7 L MCH 24.6 L MCHC 31.3 L RDW Std Deviation 40.2 RDW Coeff of Justin 14.1 Plt Count 176 MPV 9.1 L Immature Gran % (Auto) 0.2 Neut % (Auto) 53.4 Lymph % (Auto) 38.1 [place] % (Auto) 6.0 Eos % (Auto) 2.1 Baso % (Auto) 0.2 Neut # (Auto) 2.24 Lymph # (Auto) 1.60 [place] # (Auto) 0.25 Eos # (Auto) 0.09 Baso # (Auto) 0.01 Immature Gran # (Auto) 0.01 Sodium 140 Potassium 4.0 Chloride 110 H Carbon Dioxide 25 Anion Gap 5 BUN 6 Creatinine 0.79 Est Cr Clr Drug Dosing 88.3 eGFR 98.74 BUN/Creatinine Ratio 7.6 L Glucose 74 POC Glucose 72 83 Estimat Average Glucose Hemoglobin A1c Calcium 8.4 L Magnesium 2.3 Iron TIBC Transferrin Transferrin % Sat Total Bilirubin AST ALT Alkaline Phosphatase C-Reactive Protein Total Protein Albumin Globulin Albumin/Globulin Ratio Triglycerides Cholesterol LDL Cholesterol, Calc VLDL Cholesterol, Calc HDL Cholesterol Cholesterol/HDL Ratio Vitamin B12 Stl C. cayetanensis PCR Stool Rotavirus A PCR Stl Adenov F PCR Stool Astrovirus (PCR) Stool Campylobacter PCR Stl C. diff Tox B Gene Stool Cryptosporidium PCR Stl E.coli Shiga Tox PCR Stl Enterotoxigenic E PCR Stool EPEC (PCR) Stool EAEC (PCR) Stl E. histolytica PCR Stool Giardia Lamblia PCR Stool Salmonella PCR Stool Sapovirus (PCR) Stl P. shigelloides PCR Stl Shigella/EIEC PCR St Y.enterocolitica PCR Stool Vibrio (PCR) Stl Vibrio cholerae PCR Stl Norovirus GI/GII PCR HIV 1&2 Ab/P24 Ag 4thGn 08/14/24 08/14/24 07:52 11:46 WBC RBC Hgb Hct MCV MCH MCHC RDW Std Deviation RDW Coeff of Justin Plt Count MPV Immature Gran % (Auto) Neut % (Auto) Lymph % (Auto) [place] % (Auto) Eos % (Auto) Baso % (Auto) Neut # (Auto) Lymph # (Auto) [place] # (Auto) Eos # (Auto) Baso # (Auto) Immature Gran # (Auto) Sodium Potassium Chloride Carbon Dioxide Anion Gap BUN Creatinine Est Cr Clr Drug Dosing eGFR BUN/Creatinine Ratio Glucose POC Glucose 79 85 Estimat Average Glucose Hemoglobin A1c Calcium Magnesium Iron TIBC Transferrin Transferrin % Sat Total Bilirubin AST ALT Alkaline Phosphatase C-Reactive Protein Total Protein Albumin Globulin Albumin/Globulin Ratio Triglycerides Cholesterol LDL Cholesterol, Calc VLDL Cholesterol, Calc HDL Cholesterol Cholesterol/HDL Ratio Vitamin B12 Stl C. cayetanensis PCR Stool Rotavirus A PCR Stl Adenov F PCR Stool Astrovirus (PCR) Stool Campylobacter PCR Stl C. diff Tox B Gene Stool Cryptosporidium PCR Stl E.coli Shiga Tox PCR Stl Enterotoxigenic E PCR Stool EPEC (PCR) Stool EAEC (PCR) Stl E. histolytica PCR Stool Giardia Lamblia PCR Stool Salmonella PCR Stool Sapovirus (PCR) Stl P. shigelloides PCR Stl Shigella/EIEC PCR St Y.enterocolitica PCR Stool Vibrio (PCR) Stl Vibrio cholerae PCR Stl Norovirus GI/GII PCR HIV 1&2 Ab/P24 Ag 4thGn Pending Results Patient Have Any Pending Studies at Discharge: No Discharge Instructions Given to Patient (Per Discharging Provider) DISCHARGE INSTRUCTION TO PATIENT/FAMILY: Follow-up with your primary care provider within 1 week regarding: Posthospital discharge, medication review, medication refills and follow-up on all your medical problems Please take all your discharge medications, discharge information and discharge instructions to all your doctors appointments. You have iron deficiency anemia. You received IV iron infusions during hospital stay. Please follow-up with your PCP for further investigations of iron deficiency anemia as outpatient. Please call or follow-up with your special machine stitcher Dr. Daniel Bates in 3 to 4 days to review insulin regiment You have been experiencing intermittent bleeding gums for several months: Please follow-up with the dentist as outpatient for full evaluation Please follow-up with your PCP for return to work clearance. Labs through PCP in 1 week: CBC with Diff, CMP, MG, VITAMIN C Total Time Total Time Spent Total Time Spent (In Minutes): 40 Coding Level of Care Code 99603 INP/OBS DISCH >30 MIN Diagnoses Sepsis A41.9 Sepsis acute organ dysfunction status: without acute organ dysfunction Sepsis type: sepsis due to unspecified organism Influenza A J10.1 UTI (urinary tract infection) N30.00 Hematuria presence: without hematuria Urinary tract infection type: acute cystitis Type 1 diabetes mellitus E10.9
[2024-08-14 13:33] VITALS: BP 98/64
[2024-08-15] MEDS ORDERED: FERROUS GLUCONATE 324 MG TAB PO SCH (09:00)
== END 2024-08-14 14:59 | disposition home or self-care (01) | DRG 871 ==
LOC: ED 15:02 → 2S 22:00 → SUATTDRO 22:00 → 2S 22:41 → 3W 08-13 18:34